=== PATIENT | male | born 1940 | race Caucasian/White ===

== ENCOUNTER → 2016-04-13 | Outpatient (CLI) | payer OTHER ==
[~2016-04-13] MED LIST: ADVIN25/60 INH; LEVA1.255 INH; NICO14DI9 TOP; OXGN; SPRIN/30 INH; TAMS0.4C38 PO; VNTHFA/IN INH
--- NOTE | 2016-04-13 11:01 | DIAGNOSTIC IMAGING REPORT ---
CHEST 2 VIEWS ROUTINE CLINICAL HISTORY: Lung carcinoma COMPARISON STUDY: 03/10/2016 FINDINGS: The patient is hyperinflated. There are postsurgical changes of a left upper lobectomy. There is no focal pulmonary consolidation. There is minor blunting of the left lateral costophrenic angle unchanged the prior study. This likely represents a small left pleural effusion. Left basilar opacities are likely atelectatic. There is a 6 mm rounded density at the left lung base likely representing a nipple shadow.[ IMPRESSION: 1. Postsurgical changes on the left 2. Small left pleural effusion, similar to the prior study 3. 6 mm rounded density at the left lung base likely representing a nipple shadow Electronically signed by: Enrrique Fox M.D. 04/13/2016 10:59 AM Dictated Date/Time: 04/13/2016 10:57 AM
== END | disposition home or self-care (01) ==
LOC: C.RAD1850 10:44
PROVIDERS: ATTEND Surgery
DX: C34.10 Malignant neoplasm of upper lobe, unspecified bronchus or lung (principal); J90 Pleural effusion, not elsewhere classified

== ENCOUNTER → 2016-07-05 | Outpatient (CLI) | payer OTHER ==
[~2016-07-05] MED LIST changes: +ATOR10TA82 PO; +NAPR1TAB9 PO; +PRED20TA PO; +PRLSR20 PO
--- NOTE | 2016-07-05 12:46 | DIAGNOSTIC IMAGING REPORT ---
CHEST CT WITHOUT CONTRAST CT DOSE: 495.65 mGycm HISTORY: Lung nodule R91.1 Pulmonary nodule, leftC34.10 Lung cancer, upper lobe TECHNIQUE: Multiaxial CT images of the chest were performed without contrast. COMPARISON: 02/20/2016 FINDINGS: Unchanging 3 mm nodule right upper lung. Stable postoperative changes produces described. No significant mediastinal or hilar adenopathy. Mild chronic interstitial change left base unaltered. Loculated pleural fluid left base has shown essentially complete and/or near complete resolution. Limited evaluation the upper abdomen again shows multifocal renal cystic change. Small meningioma of the central right hepatic lobe is unaltered. IMPRESSION: Stable evaluation of the chest. Stable 3 mm nodule right upper lung. No evidence for new interval or progressive change. Electronically signed by: Jose Leong M.D. 07/05/2016 12:44 PM Dictated Date/Time: 07/05/2016 12:39 PM
== END | disposition home or self-care (01) ==
LOC: C.CTS 12:05
PROVIDERS: ATTEND Surgery
DX: R91.1 Solitary pulmonary nodule (principal)

== ENCOUNTER → 2016-11-11 | Outpatient (CLI) | payer OTHER ==
[~2016-11-11] MED LIST changes: -ATOR10TA82 PO; -NAPR1TAB9 PO; -PRED20TA PO; -PRLSR20 PO
[2016-11-11 12:33] LABS: BASO % 0.4 %; BASO ABS # 0.03 K/uL (0-0.2); COMPLETE YES; EOS % 3.4 %; IG% 0.1 %; LYMPH ABS # 2.75 K/uL (1.2-3.4); MEAN CELL VOLUME 93.9 fL (80-100); MEAN CORPUSCULAR HEMOGLOBIN 31.4 pg (25-34); MEAN CORPUSCULAR HGB CONC 33.5 g/dl (32-36); MEAN PLATELET VOLUME 10.3 fL (7.4-10.4); MONO % 5.6 %; NEUT % 54.5 %; PLATELET COUNT 254 K/uL (130-400); RED BLOOD COUNT 5.22 M/uL (4.7-6.1); WHITE BLOOD COUNT 7.64 K/uL (4.8-10.8)
[2016-11-11 12:45] LABS: ALT/SGPT 16 U/L (12-78); AST/SGOT 18 U/L (15-37); BLOOD UREA NITROGEN 17 mg/dl (7-18); BUN/CREATININE RATIO 18.1 (10-20); CALCIUM 9.1 mg/dl (8.5-10.1); CARBON DIOXIDE 27 mmol/L (21-32); CHLORIDE 103 mmol/L (98-107); CHOLESTEROL 202 mg/dl (0-200); CREATININE 0.94 mg/dl (0.60-1.40); GLUCOSE,FASTING 102 mg/dl (70-99); POTASSIUM 4.3 mmol/L (3.5-5.1); SODIUM 135 mmol/L (136-145); TRIGLYCERIDES 106 mg/dl (0-150); VERY LOW DENSITY LIPOPROT CALC 21 mg/dl
[2016-11-11 12:47] LABS: ALB/GLOB RATIO 1.1 (0.9-2); ALKALINE PHOSPHATASE 67 U/L (45-117); HDL CHOLESTEROL 50 mg/dl
[2016-11-11 12:55] LABS: URINE APPEARANCE CLEAR (CLEAR); URINE BILIRUBIN NEG (NEG); URINE COLOR YELLOW; URINE NITRITE NEG (NEG); URINE PH 6.5 (4.5-7.5); URINE SPECIFIC GRAVITY 1.016 (1.000-1.030); UROBILINOGEN NEG (NEG)
[2016-11-11 13:12] LABS: MANUAL MICROSCOPIC REQUIRED? NO; REVIEW REQ? NO
== END | disposition home or self-care (01) ==
LOC: C.LABPBG 09:13
PROVIDERS: ATTEND Physician Assistant Medical
DX: J44.9 Chronic obstructive pulmonary disease, unspecified (principal); N40.1 Benign prostatic hyperplasia with lower urinary tract symptoms; Z13.220 Encounter for screening for lipoid disorders

== ENCOUNTER 2017-03-04 01:50 | Emergency (ER) | payer OTHER ==
[~2017-03-04] VITALS: Ht 185.4 cm; Wt 80.0 kg
[~2017-03-04 01:50] MED LIST changes: -ADVIN25/60 INH; +ATOR10TA82 PO; +NAPR1TAB9 PO; -NICO14DI9 TOP; -OXGN; +PRED20TA PO; +PRLSR20 PO; -SPRIN/30 INH
[2017-03-04 01:53] VITALS: TEMP 36.7; Ht 185.4 cm; Wt 80.0 kg
[2017-03-04 02:03] VITALS: O2SAT 93
[2017-03-04] MEDS ORDERED: METHYLPREDNISOLONE 125 MG VIAL IV STA (02:12)
[2017-03-04 02:21] LABS: BASO % 0.4 %; BASO ABS # 0.03 K/uL (0-0.2); COMPLETE YES; HEMATOCRIT 44.5 % (42-52); IG% 0.4 %; LYMPH % 29.2 %; LYMPH ABS # 2.48 K/uL (1.2-3.4); MEAN CELL VOLUME 94.7 fL (80-100); MEAN CORPUSCULAR HEMOGLOBIN 31.7 pg (25-34); MEAN CORPUSCULAR HGB CONC 33.5 g/dl (32-36); MEAN PLATELET VOLUME 10.6 fL (7.4-10.4); MONO % 7.1 %; NEUT % 56.9 %; PLATELET COUNT 188 K/uL (130-400); WHITE BLOOD COUNT 8.48 K/uL (4.8-10.8)
--- NOTE | 2017-03-04 02:24 | EMERGENCY ROOM VISIT NOTE ---
History Report prepared by Tru: Brittney Rosales Under the Supervision of: Dr. Sylvia Oconnor D.O. First contact with patient: 01:51 Chief Complaint: SHORTNESS OF BREATH Stated Complaint: SHORTNESS OF BREATH History of Present Illness The patient is a 76 year old male who presents to the Emergency Room with complaints of worsened SOB for the past couple of days. He presents to the ED by EMS. He received a duoneb treatment in route. He has been using duoneb treatments at home. He has been doing 2-4 duoneb treatments a day. Today, he thinks he did 4-5 duoneb treatments. The duoneb treatments improve his SOB for around 30 minutes before worsening again. He normally does 2 duoneb treatments a day. He notes his oxygen saturation has been dropping into the 80s. He is having SOB with exertion. He is coughing. He has had diaphoresis and rhinorrhea. He denies any chest pain, dizziness, nausea, vomiting, diarrhea, sore throat, change in BM, urinary symptoms, or leg swelling. He denies any sick contacts. The patient has a history of COPD and pneumonia. He also had a portion of his lung removed about 1 year ago. He used to be a smoker. He is not on oxygen at home. He denies any history of heart problems. Source of History: patient Onset: couple days ago Position: other (global) Quality: other (SOB) Timing: worsening Modifying Factors (Relieving): other (Duoneb) Associated Symptoms: + diaphoresis, No sorethroat, No chest pain, No nausea , No vomiting, No diarrhea, No urinary symptoms Note: Pt reports rhinorrhea. Pt denies dizziness, change in BM, leg swelling. Review of Systems See HPI for pertinent positives & negatives. A total of 10 systems reviewed and were otherwise negative. Past Medical & Surgical Medical Problems: (1) COPD (chronic obstructive pulmonary disease) (2) E. coli septicemia (3) Emphysema/COPD (4) Leukocytosis (5) Lung cancer (6) SIRS (systemic inflammatory response syndrome) Family History No pertinent family history stated. Social History Smoking Status: Light Tobacco Smoker Alcohol Use: occasionally Drug Use: none Marital Status: Housing Status: lives with family Occupation Status: retired Current/Historical Medications Scheduled Atorvastatin (Lipitor), 10 MG PO DAILY Levalbuterol (Levalbuterol HCl), 3 ML INH DAILY Levofloxacin (Levaquin), 750 MG PO DAILY Naproxen (Aleve), 220 MG PO QAM Prednisone (Prednisone), 0 PO DAILY Tamsulosin Hcl (Flomax), 0.4 MG PO QPM Scheduled PRN Albuterol Hfa (Ventolin Hfa), 2 PUFFS INH Q6H PRN for SOB/Wheezing Guaifenesin (Guaifenesin), 400 MG PO BID PRN for CONGESTION Omeprazole (Prilosec), 20 MG PO DAILY PRN for Heartburn Allergies Coded Allergies: No Known Allergies (Unverified , 01/24/17) Physical Exam Vital Signs Date Time Temp Pulse Resp B/P (MAP) Pulse Ox O2 Delivery O2 Flow Rate FiO2 03/04/17 08:04 89 17 142/80 94 03/04/17 07:57 89 17 142/80 94 Room Air 03/04/17 07:21 89 18 137/74 95 Room Air 03/04/17 05:42 81 22 122/59 94 Room Air 03/04/17 04:50 90 22 131/75 94 Room Air 03/04/17 04:42 89 Room Air 03/04/17 03:26 82 20 126/66 93 Room Air 03/04/17 02:07 95 03/04/17 02:03 93 Room Air 03/04/17 01:53 36.7 95 30 152/92 94 Room Air 03/04/17 01:53 94 Room Air Physical Exam GENERAL: alert, well appearing, well nourished, mild distress, non-toxic EYE EXAM: normal conjunctiva, PERRL and EOM's grossly intact OROPHARYNX: no exudate, no erythema, lips, buccal mucosa, and tongue normal and mucous membranes are moist NECK: supple, no nuchal rigidity, no adenopathy, non-tender LUNGS: Slightly increased work of breathing. Diminished breath sounds worse on the left. No wheezes, rhonchi, or rales. Frequent episodes of coughing during exam. HEART: no murmurs, S1 normal and S2 normal ABDOMEN: abdomen soft, non-tender, normo-active bowel sounds, no masses, no rebound or guarding. BACK: Back is symmetrical on inspection and there is no deformity, no midline tenderness, no CVA tenderness. SKIN: no rashes and no bruising UPPER EXTREMITIES: upper extremities are grossly normal. LOWER EXTREMITIES: No pitting edema. Good pulses. NEURO EXAM: Normal sensorium, cranial nerves II-XII grossly intact, normal speech, no gross weakness of arms, no gross weakness of legs. Medical Decision & Procedures ER Provider Diagnostic Interpretation: X-ray: I interpreted the following studies. Chest: Hyperinflated. No cardiomegaly. No wide mediastinum. No effusions. Increased interstitial markings at the right base compared to prior. No pneumothorax. No pulmonary edema. Radiology results have been interpreted by the [facility] radiologist and reviewed by me. CTA Chest: No evidence of pulmonary embolus. 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 Left subclavian vessel stent is noted marked narrowing within the stent. Panlobular emphysema. Mild bronchiectasis. Scarring and atelectasis. Apical pleural-parenchymal scarring. Simple and hyperdense cysts are seen within both kidneys. Nonobstructing calculus within both kidneys. Cysts are noted within the right hepatic lobe. No acute osseous abnormality. Laboratory Results 03/04/17 02:03 Red Blood Count 4.70, Mean Corpuscular Volume 94.7, Mean Corpuscular Hemoglobin 31.7, Mean Corpuscular Hemoglobin Concent 33.5, Mean Platelet Volume 10.6, Neutrophils (%) (Auto) 56.9, Lymphocytes (%) (Auto) 29.2, Monocytes (%) (Auto) 7.1, Eosinophils (%) (Auto) 6.0, Basophils (%) (Auto) 0.4, Neutrophils # (Auto) 4.83, Lymphocytes # (Auto) 2.48, Monocytes # (Auto) 0.60, Eosinophils # (Auto) 0.51, Basophils # (Auto) 0.03 03/04/17 02:35 Test 03/04/17 02:03 03/04/17 02:15 03/04/17 02:35 White Blood Count 8.48 K/uL (4.8-10.8) Red Blood Count 4.70 M/uL (4.7-6.1) Hemoglobin 14.9 g/dL (14.0-18.0) Hematocrit 44.5 % (42-52) Mean Corpuscular Volume 94.7 fL (80-100) Mean Corpuscular Hemoglobin 31.7 pg (25-34) Mean Corpuscular Hemoglobin Concent 33.5 g/dl (32-36) Platelet Count 188 K/uL (130-400) Mean Platelet Volume 10.6 fL (7.4-10.4) Neutrophils (%) (Auto) 56.9 % Lymphocytes (%) (Auto) 29.2 % Monocytes (%) (Auto) 7.1 % Eosinophils (%) (Auto) 6.0 % Basophils (%) (Auto) 0.4 % Neutrophils # (Auto) 4.83 K/uL (1.4-6.5) Lymphocytes # (Auto) 2.48 K/uL (1.2-3.4) Monocytes # (Auto) 0.60 K/uL (0.11-0.59) Eosinophils # (Auto) 0.51 K/uL (0-0.5) Basophils # (Auto) 0.03 K/uL (0-0.2) RDW Standard Deviation 51.9 fL (36.4-46.3) RDW Coefficient of Variation 14.9 % (11.5-14.5) Immature Granulocyte % (Auto) 0.4 % Immature Granulocyte # (Auto) 0.03 K/uL (0.00-0.02) Influenza Type A Antigen Neg for Influ A (NEG) Influenza Type B Antigen Neg for Influ B (NEG) Prothrombin Time 10.1 SECONDS (9.0-12.0) Prothromb Time International Ratio 1.0 (0.9-1.1) D-Dimer 880 ug/L FEU (0-500) Anion Gap 4.0 mmol/L (3-11) Est Creatinine Clear Calc Drug Dose 76.4 ml/min Estimated GFR () 92.1 Estimated GFR (Non- 79.5 BUN/Creatinine Ratio 22.5 (10-20) Calcium Level 8.6 mg/dl (8.5-10.1) Total Bilirubin 0.3 mg/dl (0.2-1) Aspartate Amino Transf (AST/SGOT) 17 U/L (15-37) Alanine Aminotransferase (ALT/SGPT) 16 U/L (12-78) Alkaline Phosphatase 64 U/L (45-117) Troponin I 0.029 ng/ml (0-0.045) Pro-B-Type Natriuretic Peptide 369 pg/ml (0-1800) Total Protein 7.2 gm/dl (6.4-8.2) Albumin 3.5 gm/dl (3.4-5.0) Globulin 3.7 gm/dl (2.5-4.0) Albumin/Globulin Ratio 0.9 (0.9-2) Laboratory results per my review. Medications Administered Medications (Trade) Dose Ordered Sig/Elmer Route Start Time Stop Time Status Last Admin Dose Admin Methylprednisolone Sodium Succinate (Solu-Medrol IV) 125 mg NOW STAT IV 03/04/17 02:12 03/04/17 02:14 DC 03/04/17 02:12 125 MG Levofloxacin (Levaquin / D5W) 750 mg NOW STAT IV 03/04/17 03:27 03/04/17 03:28 DC 03/04/17 03:53 750 MG Sodium Chloride 1,000 ml @ 250 mls/hr Q4H STAT IV 03/04/17 03:31 03/04/17 07:30 DC 03/04/17 03:53 250 MLS/HR Albuterol/ Ipratropium (Duoneb) 3 ml NOW STAT INH 03/04/17 07:35 03/04/17 07:36 DC 03/04/17 07:42 3 ML ECG Indication: SOB/dyspnea Rate (beats per minute): 96 Rhythm: sinus rhythm Findings: no acute ischemic change, no ectopy, other (normal axis, normal intervals) ED Course 0155: The patient was evaluated in room B2. A complete history and physical exam was performed. 0212: Solu-Medrol IV 125 mg IV. 0327: Levofloxacin 750 mg IV. 0331: NSS 1000 ml @ 250 mls/hr IV. 0427: I reevaluated the patient. 0722: Pt reassessed. Patient states feeling much better. Denied any increased work of breathing during ambulatory trial. Patient not hypoxic during trial. Discussed with patient close observation in the hospital versus trial of returning home with close outpatient follow-up. Patient would like to go home and follow-up as an outpatient. Has nebulizers at home which he can use. Patient not requiring additional oxygen here. Discussed with him symptoms to watch and return for. He verbalized agreement and understanding. He was discharged home. Medical Decision Differential diagnoses includes but is not limited to pneumonia, bronchitis, COPD/Asthma exacerbation, pneumothorax, pulmonary embolism, congestive heart failure, acute coronary syndrome Pt well appearing here, not hypoxic including with ambulation. States feeling markedly improved here. Monitored for several hours as a precaution due to significant hx. Treated as COPD exacerbation. CTA chest did not show PE or infiltrate. No sx/PE or other findings to suggest CHF. Pt did not require bipap or recurrent neb tx. Pt comfortable going home and having close f/u with PCP. Discussed sx to watch/return for, use of steroids/antibiotics, use of nebs , he verbalized understanding and was agreeable with plan. I do not suspect bacteremia/sepsis. I do not suspect additional vascular pathology despite hx. Pt with chronic vascular problems due to prior tobacco abuse. Medication Reconcilliation Current Medication List: was personally reviewed by me Blood Pressure Screening Patient's blood pressure: Normal blood pressure Blood pressure disposition: Did not require urgent referral Impression Primary Impression: COPD exacerbation Additional Impression: Dyspnea Scribe Attestation The scribe's documentation has been prepared under my direction and personally reviewed by me in its entirety. I confirm that the note above accurately reflects all work, treatment, procedures, and medical decision making performed by me. Departure Information Dispostion Home / Self-Care Prescriptions Levofloxacin (Levaquin) 500 Mg Tab 750 MG PO DAILY for 5 Days, #8 TAB Prov: Sylvia Oconnor, DO 03/04/17 Prednisone (Prednisone) 20 Mg Tab 0 PO DAILY for 8 Days, #15 TAB 3 TABS DAILY FOR 2 DAYS, THEN 2 TABS DAILY FOR 3 DAYS, THEN 1 TAB DAILY FOR 3 DAYS. Prov: Sylvia Oconnor, DO 03/04/17 Referrals Rob Perez PA-C (PCP) Patient Instructions My [facility] Additional Instructions Please take the antibiotics and steroids as prescribed. You may use your inhaler up to every 4 hours as needed for shortness of breath/wheezing. If you find the inhaler isn't helping or feel you need to use it sooner than that, please return to the emergency room. If you develop fevers/chills, chest pain, are coughing up mucous or blood, develop dizziness, vomiting, leg swelling, or you have any other new or concerning symptoms, please return to the emergency room. Problem Qualifiers Additional Impression: Dyspnea Dyspnea type: dyspnea on exertion Qualified Codes: R06.09 - Other forms of dyspnea
[2017-03-04 03:09] LABS: BUN/CREATININE RATIO 22.5 (10-20); CALCIUM 8.6 mg/dl (8.5-10.1); CREATININE 0.93 mg/dl (0.60-1.40); POTASSIUM 4.1 mmol/L (3.5-5.1)
[2017-03-04 03:13] LABS: PROTHROMBIN TIME (PATIENT) 10.1 SECONDS (9.0-12.0)
[2017-03-04 03:14] LABS: ALB/GLOB RATIO 0.9 (0.9-2)
[2017-03-04] MEDS ORDERED: LEVAQUIN 750MG / 150ML D5W IV STA (03:27)
[2017-03-04] MEDS ORDERED: SODIUM CHLORIDE 0.9% 1000ML 1,000 ML IV STA (03:31)
[2017-03-04] MEDS ORDERED: OPTIRAY 320 IV PRN (03:45)
[2017-03-04] MEDS ORDERED: XPNINS125 INH (03:46)
[2017-03-04] MEDS ORDERED: GUAI400T44 PO (03:50)
--- NOTE | 2017-03-04 06:32 | DIAGNOSTIC IMAGING REPORT ---
CHEST 2 VIEWS ROUTINE HISTORY: 76 years-old Male sob acute shortness of breath COMPARISON: Chest radiograph 01/24/2017, CTA of the chest 03/04/2017 TECHNIQUE: PA and lateral views of the chest FINDINGS: Cardiac silhouette is within normal limits. Surgical clips project over the left hilum. Emphysema with areas of chronic reticulation and hyperinflation. Chronic blunting of the costophrenic angles without pneumothorax, pleural effusion, focal airspace consolidation or overt pulmonary edema. Bones of the chest appear grossly intact. Multilevel endplate spurring of the spine. IMPRESSION: Emphysema without acute process. The above report was generated using voice recognition software. It may contain grammatical, syntax or spelling errors. Electronically signed by: Alex Silva M.D. 03/04/2017 6:31 AM Dictated Date/Time: 03/04/2017 6:29 AM
--- NOTE | 2017-03-04 06:56 | DIAGNOSTIC IMAGING REPORT ---
(CHEST FOR PE) ANGIO WITH CT DOSE: 371.40 mGy.cm HISTORY: 76 years-old Male presents with acute shortness of breath and elevated d-dimer level TECHNIQUE: Multiple CTA images of the chest were obtained after the intravenous administration of 93 ml Optiray 320. Coronal and sagittal MIPS were obtained from the axial data set and were submitted for review. A dose lowering technique was utilized adhering to the principles of ALARA. COMPARISON: Chest radiograph of same day, CT chest 01/24/2017. Prior left upper lobectomy with history of lung cancer. FINDINGS: CTA: Heart is normal in size without pericardial effusion. Coronary arterial and aortic annular calcifications are noted. Fusiform dilation of the ascending thoracic aorta beginning distal to the sinotubular junction redemonstrated, 4.3 x 4.3 cm. No aortic dissection. There is moderate mixed plaquing of the thoracic aorta. Stent involving the left subclavian artery is again seen with approximately 70% in-stent stenosis as noted on image 297 series 4. The pulmonary arterial tree is opacified to level of the segmental branches and demonstrates no focal filling defects to suggest pulmonary thromboembolic disease. CT CHEST: No dominant thyroid nodule. 9 mm right hilar lymph node on image 219 series 4 is unchanged from comparison and is nonspecific. No new adenopathy about the chest identified. Mildly prominent 9 mm lower right hilar lymph node on image 173 series 4 is also noted. Moderate to severe upper lobe predominant paraseptal and centrilobular emphysematous changes with biapical pleural-parenchymal scarring. Postoperative changes from prior left upper lobectomy. No evidence of residual recurrent disease. Multifocal multilobar bronchial wall thickening is noted with areas of mucous plugging of the right lower lobe. No pneumothorax or pleural effusion. No suspicious pulmonary nodules or masses. There is of subsegmental pleural-parenchymal scarring noted at the level of the left lung base. Multiple simple and complex renal cysts are present within the kidneys bilaterally. 4 mm calcification of the interpolar left kidney suggests nonobstructing calculus. 3 mm calcification of the interpolar right kidney is noted also suggesting calculus. Probable cyst of the right hepatic lobe, 2.2 cm. Small sliding-type hiatal hernia. Soft tissues are unremarkable. No suspicious lytic or blastic bony lesions to suggest metastasis. IMPRESSION: 1. Unchanged fusiform dilation of the ascending thoracic aorta beginning distal to the sinotubular junction, 4.3 x 4.3 cm. No aortic dissection or evidence of pulmonary thromboembolic disease. 2. No lobar airspace consolidation to suggest pneumonia. 3. Emphysema with bilateral bronchitis and right lower lobe mucous plugging. 4. Mildly prominent right hilar lymph nodes are nonspecific and may be reactive. 5. Postoperative changes of prior left upper lobectomy without evidence of recurrent or residual disease. 6. Additional findings as above. The above report was generated using voice recognition software. It may contain grammatical, syntax or spelling errors. Electronically signed by: Alex Silva M.D. 03/04/2017 6:55 AM Dictated Date/Time: 03/04/2017 6:46 AM
[2017-03-04] MEDS ORDERED: LEVO-366 PO (07:34)
[2017-03-04] MEDS ORDERED: PRED20TA PO (07:34)
[2017-03-04] MEDS ORDERED: ALBUT/IPRATROP 3MG/0.5MG NEB 3 ML VIAL INH STA (07:35)
[2017-03-04 08:04] VITALS: BP 142/80; PULSE 89; O2SAT 94
== END 2017-03-04 08:04 | disposition home or self-care (01) ==
LOC: EDBD 01:50 → C.EDB 01:51
DX: J44.1 Chronic obstructive pulmonary disease with (acute) exacerbation (principal); R06.09 Other forms of dyspnea; Z85.118 Personal history of other malignant neoplasm of bronchus and lung; Z87.01 Personal history of pneumonia (recurrent); Z79.52 Long term (current) use of systemic steroids; Z79.899 Other long term (current) drug therapy

== ENCOUNTER 2017-03-30 09:19 | Inpatient (IN) | payer OTHER ==
[~2017-03-30] VITALS: Ht 185.4 cm; Wt 78.3 kg
[2017-03-30] VITALS (8 sets, daily range): BP systolic 122–166; BP diastolic 72–78; PULSE 71–96; TEMP 36.6–37.3; O2SAT 91–98; Ht 185.4 cm; Wt 78.3 kg
[~2017-03-30 09:19] MED LIST changes: +GUAI400T44 PO; -LEVA1.255 INH; -PRED20TA PO; +XPNINS125 INH
[2017-03-30] MEDS ORDERED: ALBUT/IPRATROP 3MG/0.5MG NEB 3 ML VIAL INH STA (09:44)
[2017-03-30] MEDS ORDERED: MAGNESIUM SULFATE 1GM / D5W 1 GM BAG IV STA (09:44)
[2017-03-30] MEDS ORDERED: METHYLPREDNISOLONE 125 MG VIAL IV STA (09:44)
--- NOTE | 2017-03-30 09:45 | EMERGENCY ROOM VISIT NOTE ---
History Report prepared by Tru: Rigo Mckeon Under the Supervision of: Dr. Etienne Christianson M.D. First contact with patient: 09:30 Chief Complaint: RESPIRATORY PROBLEMS Stated Complaint: SHORTNESS OF BREATH Nursing Triage Summary: patient has hx of COPD increasingly short of breath since yesterday. is to due neb treatments and inhalers every 4 hrs. patient increased treatments to every 2 hrs started yesterday. per ems patient walked out to the ambulance and RA sat after walking 89%. patients lungs are clear but diminished in the bases. History of Present Illness The patient is a 76 year old male who presents to the Emergency Room with complaints of worsening respiratory problems that began two days ago. He has a past medical history of COPD with orders to use nebulizer treatments and inhalers every four hours. Yesterday, he began to feel more short of breath that was exacerbated with any exertion. To try to combat this, he decided to use these treatments every two hours. He notes that this has happened to him before and was placed onto steroids. He states that his current symptoms feel like those associated with that past episode. He is also experiencing a cough. He denies any fevers, abdominal pain, diarrhea, or any other abnormal symptoms. He did not receive anything en route per EMS. Source of History: patient Onset: two days ago Position: other (Respiratory System) Symptom Intensity: moderate Quality: other (Shortness of breath) Timing: worsening Modifying Factors (Worsening): exertion Associated Symptoms: + cough, No fevers, No abdominal pain, No diarrhea Review of Systems See HPI for pertinent positives & negatives. A total of 10 systems reviewed and were otherwise negative. Past Medical & Surgical Medical Problems: (1) COPD (chronic obstructive pulmonary disease) (2) COPD exacerbation (3) E. coli septicemia (4) Emphysema/COPD (5) Leukocytosis (6) Lung cancer (7) SIRS (systemic inflammatory response syndrome) Family History Omitted secondary to the patient's age. Social History Smoking Status: Current Every Day Smoker Alcohol Use: occasionally Drug Use: none Marital Status: Housing Status: lives with family Occupation Status: retired Current/Historical Medications Scheduled Atorvastatin (Lipitor), 10 MG PO DAILY Levalbuterol (Levalbuterol HCl), 3 ML INH DAILY Naproxen (Aleve), 220 MG PO QAM Prednisone (Prednisone), 5 MG PO DAILY Tamsulosin Hcl (Flomax), 0.4 MG PO QPM Scheduled PRN Albuterol Hfa (Ventolin Hfa), 2 PUFFS INH Q6H PRN for SOB/Wheezing Guaifenesin (Guaifenesin), 400 MG PO BID PRN for CONGESTION Omeprazole (Prilosec), 20 MG PO DAILY PRN for Heartburn Allergies Coded Allergies: No Known Allergies (Unverified , 03/30/17) Physical Exam Vital Signs Date Time Temp Pulse Resp B/P (MAP) Pulse Ox O2 Delivery O2 Flow Rate FiO2 03/30/17 11:20 72 20 167/80 96 Nebulizer 03/30/17 10:22 71 18 98 Nasal Cannula 2.0 03/30/17 09:28 Room Air 03/30/17 09:26 86 03/30/17 09:25 36.7 81 24 137/73 89 Room Air 03/30/17 09:25 Nasal Cannula 2.0 03/30/17 09:25 89 Room Air Physical Exam GENERAL: Patient is a healthy-appearing well-nourished male HEAD: Normocephalic atraumatic EYES: Ocular movements intact pupils equal and react to light OROPHARYNX mucous membranes are moist no exudates present no erythema or edema present NECK: Supple no nuchal rigidity CHEST: Good equal expansion LUNGS: Bilateral wheezing present. CARDIAC: Normal S1 and S2 ABDOMEN: Soft nontender no guarding BACK: No CVA tenderness EXTREMITIES: No pain upon palpation normal muscle strength in all groups no clubbing cyanosis or edema NEURO: Patient is following commands and answering questions appropriately. Alert and oriented x3 Cranial Nerves 2-12 grossly intact Medical Decision & Procedures ER Provider Diagnostic Interpretation: Radiology results as stated below per my review and radiologist interpretation: CHEST ONE VIEW PORTABLE HISTORY: Short of breath. COMPARISON: Chest 03/04/2017. FINDINGS: Emphysema. Postoperative changes within the left hilum. Stable scarlike density left lung base. The heart is stable in size. No new focal lung consolidations to suggest pneumonia. No evidence for pulmonary edema. No pleural effusions. No pneumothorax. IMPRESSION: No significant change compared to the prior study. No acute process. Electronically signed by: Varun Toledo M.D. 03/30/2017 10:12 AM Dictated Date/Time: 03/30/2017 10:07 AM Laboratory Results 03/30/17 10:08 Red Blood Count 4.60, Mean Corpuscular Volume 94.6, Mean Corpuscular Hemoglobin 32.4, Mean Corpuscular Hemoglobin Concent 34.3, Mean Platelet Volume 10.3, Neutrophils (%) (Auto) 76.5, Lymphocytes (%) (Auto) 12.3, Monocytes (%) (Auto) 6.7, Eosinophils (%) (Auto) 4.0, Basophils (%) (Auto) 0.2, Neutrophils # (Auto) 6.95, Lymphocytes # (Auto) 1.12, Monocytes # (Auto) 0.61, Eosinophils # (Auto) 0.36, Basophils # (Auto) 0.02 03/30/17 10:08 Test 03/30/17 00:00 03/30/17 10:03 03/30/17 10:08 Urine Color YELLOW Urine Appearance CLEAR (CLEAR) Urine pH 5.5 (4.5-7.5) Urine Specific [place] 1.021 (1.000-1.030) Urine Protein 1+ (NEG) Urine Glucose (UA) TRACE (NEG) Urine Ketones NEG (NEG) Urine Occult Blood NEG (NEG) Urine Nitrite NEG (NEG) Urine Bilirubin NEG (NEG) Urine Urobilinogen NEG (NEG) Urine Leukocyte Esterase NEG (NEG) Urine WBC (Auto) 1-5 /hpf (0-5) Urine RBC (Auto) 0-4 /hpf (0-4) Urine Hyaline Casts (Auto) 1-5 /lpf (0-5) Urine Epithelial Cells (Auto) 10-20 /lpf (0-5) Urine Bacteria (Auto) NEG (NEG) Influenza Type A Antigen Neg for Influ A (NEG) Influenza Type B Antigen Neg for Influ B (NEG) White Blood Count 9.09 K/uL (4.8-10.8) Red Blood Count 4.60 M/uL (4.7-6.1) Hemoglobin 14.9 g/dL (14.0-18.0) Hematocrit 43.5 % (42-52) Mean Corpuscular Volume 94.6 fL (80-100) Mean Corpuscular Hemoglobin 32.4 pg (25-34) Mean Corpuscular Hemoglobin Concent 34.3 g/dl (32-36) Platelet Count 218 K/uL (130-400) Mean Platelet Volume 10.3 fL (7.4-10.4) Neutrophils (%) (Auto) 76.5 % Lymphocytes (%) (Auto) 12.3 % Monocytes (%) (Auto) 6.7 % Eosinophils (%) (Auto) 4.0 % Basophils (%) (Auto) 0.2 % Neutrophils # (Auto) 6.95 K/uL (1.4-6.5) Lymphocytes # (Auto) 1.12 K/uL (1.2-3.4) Monocytes # (Auto) 0.61 K/uL (0.11-0.59) Eosinophils # (Auto) 0.36 K/uL (0-0.5) Basophils # (Auto) 0.02 K/uL (0-0.2) RDW Standard Deviation 52.6 fL (36.4-46.3) RDW Coefficient of Variation 15.2 % (11.5-14.5) Immature Granulocyte % (Auto) 0.3 % Immature Granulocyte # (Auto) 0.03 K/uL (0.00-0.02) Anion Gap 8.0 mmol/L (3-11) Est Creatinine Clear Calc Drug Dose 87.9 ml/min Estimated GFR () 100.6 Estimated GFR (Non- 86.8 BUN/Creatinine Ratio 23.5 (10-20) Calcium Level 8.9 mg/dl (8.5-10.1) Total Bilirubin 0.3 mg/dl (0.2-1) Aspartate Amino Transf (AST/SGOT) 16 U/L (15-37) Alanine Aminotransferase (ALT/SGPT) 16 U/L (12-78) Alkaline Phosphatase 58 U/L (45-117) Total Creatine Kinase 113 U/L (39-308) Creatine Kinase MB 3.4 ng/ml (0.5-3.6) Creatine Kinase MB Ratio 3.0 (0-3.0) Troponin I < 0.015 ng/ml (0-0.045) Total Protein 6.9 gm/dl (6.4-8.2) Albumin 3.4 gm/dl (3.4-5.0) Globulin 3.5 gm/dl (2.5-4.0) Albumin/Globulin Ratio 1.0 (0.9-2) Labs reviewed by ED physician. Medications Administered Medications (Trade) Dose Ordered Sig/Elmer Route Start Time Stop Time Status Last Admin Dose Admin Methylprednisolone Sodium Succinate (Solu-Medrol IV) 125 mg NOW STAT IV 03/30/17 09:44 03/30/17 09:48 DC 03/30/17 09:58 125 MG Magnesium Sulfate (Magnesium Sulfate) 1 gm NOW STAT IV 03/30/17 09:44 03/30/17 09:48 DC 03/30/17 09:58 1 GM Albuterol/ Ipratropium (Duoneb) 12 ml ONE STAT INH 03/30/17 09:44 03/30/17 09:48 DC 03/30/17 10:22 12 ML ECG Indication: SOB/dyspnea Rate (beats per minute): 83 Rhythm: normal sinus Findings: no acute ischemic change, no ectopy Comparison ECG Date: 04 Mar 2017 Change: no significant change ED Course 929: Past medical records reviewed. The patient was evaluated in room A10. A complete history and physical examination was performed. 0944: Ordered Duoneb 12 ml INH, Magnesium Sulfate 1 gm IV, Solu-Medrol IV 125 mg IV 1117: Upon reexamination the patient is resting. I discussed results and treatment plan with the patient. He verbalizes agreement and understanding. I spoke with Dr. Meléndez from the [place] [facility]. The patient will be evaluated for further management. Medical Decision Differential diagnosis: Etiologies such as infections, reactive airway disease, pneumonia, pneumothorax , COPD, CHF, cardiac ischemia, pulmonary embolism, musculoskeletal, gastrointestinal, as well as others were entertained. This is a 76-year-old male who presents emergency department complaining of shortness of breath. The patient has been on 2 recent prednisone tapers and was started on prednisone yesterday. His given Solu-Medrol here in emergency department along with an hour-long breathing treatment. Patient is negative for the flu and his chest x-ray appears to be clear. I did discuss the case with the hospitalist service who agreed to admit the patient. Patient was in agreement with the treatment plan. Medication Reconcilliation Current Medication List: was personally reviewed by me Blood Pressure Screening Patient's blood pressure: Elevated blood pressure Referred to the hospitalist Consults Time Called: 1110 Consulting Physician: [place]. Meléndez [place] [facility] [place] Call: [phone] I discussed the patient's case with Dr. Meléndez, he has agreed to evaluate the patient for further management and care. Impression Primary Impression: COPD exacerbation Scribe Attestation The scribe's documentation has been prepared under my direction and personally reviewed by me in its entirety. I confirm that the note above accurately reflects all work, treatment, procedures, and medical decision making performed by me. Departure Information Dispostion Being Evaluated By Hospitalist Referrals Rob Perez PA-C (PCP) Patient Instructions My [facility]
--- NOTE | 2017-03-30 10:14 | DIAGNOSTIC IMAGING REPORT ---
CHEST ONE VIEW PORTABLE HISTORY: Short of breath. COMPARISON: Chest 03/04/2017. FINDINGS: Emphysema. Postoperative changes within the left hilum. Stable scarlike density left lung base. The heart is stable in size. No new focal lung consolidations to suggest pneumonia. No evidence for pulmonary edema. No pleural effusions. No pneumothorax. IMPRESSION: No significant change compared to the prior study. No acute process. Electronically signed by: Varun Toledo M.D. 03/30/2017 10:12 AM Dictated Date/Time: 03/30/2017 10:07 AM
[2017-03-30 10:22] LABS: BASO % 0.2 %; BASO ABS # 0.02 K/uL (0-0.2); EOS ABS # 0.36 K/uL (0-0.5); HEMATOCRIT 43.5 % (42-52); HEMOGLOBIN 14.9 g/dL (14.0-18.0); IG# 0.03 K/uL (0.00-0.02); LYMPH % 12.3 %; LYMPH ABS # 1.12 K/uL (1.2-3.4); MEAN CELL VOLUME 94.6 fL (80-100); MEAN CORPUSCULAR HEMOGLOBIN 32.4 pg (25-34); MEAN CORPUSCULAR HGB CONC 34.3 g/dl (32-36); MEAN PLATELET VOLUME 10.3 fL (7.4-10.4); MONO % 6.7 %; MONO ABS # 0.61 K/uL (0.11-0.59); NEUT % 76.5 %; NEUT ABS # 6.95 K/uL (1.4-6.5); PLATELET COUNT 218 K/uL (130-400); RED CELL DISTRIBUTION WIDTH CV 15.2 % (11.5-14.5); RED CELL DISTRIBUTION WIDTH SD 52.6 fL (36.4-46.3); WHITE BLOOD COUNT 9.09 K/uL (4.8-10.8)
[2017-03-30] MEDS ORDERED: PRED-301 PO (10:36)
[2017-03-30 10:47] LABS: ALBUMIN 3.4 gm/dl (3.4-5.0); ALT/SGPT 16 U/L (12-78); AST/SGOT 16 U/L (15-37); BLOOD UREA NITROGEN 19 mg/dl (7-18); CALCIUM 8.9 mg/dl (8.5-10.1); CARBON DIOXIDE 25 mmol/L (21-32); GLUCOSE 116 mg/dl (70-99); POTASSIUM 4.3 mmol/L (3.5-5.1); SODIUM 140 mmol/L (136-145)
[2017-03-30 10:53] LABS: ALKALINE PHOSPHATASE 58 U/L (45-117); CKMB 3.4 ng/ml (0.5-3.6); TOTAL PROTEIN 6.9 gm/dl (6.4-8.2)
[2017-03-30 11:09] LABS: INFLUENZA B ANTIGEN Neg for Influ B (NEG)
[2017-03-30] MEDS ORDERED: ONDANSETRON INJ 2 MG/ML 2 ML VIAL IV PRN (11:30)
[2017-03-30] MEDS ORDERED: LEVALBUTEROL 1.25MG/0.5ML NEB INH PRN (11:30)
[2017-03-30] MEDS ORDERED: POLYETHYLENE (MIRALAX) 17 GM PACK PO PRN (11:30)
[2017-03-30] MEDS ORDERED: MAGNESIUM HYDROXIDE SUSP 30 ML UDC PO PRN (11:30)
[2017-03-30] MEDS ORDERED: GUAIFENESIN 200 MG TAB PO PRN (11:30)
[2017-03-30] MEDS ORDERED: MoRPHine SULFATE 2 MG/ML CARP IV PRN (11:30)
[2017-03-30] MEDS ORDERED: ACETAMINOPHEN 325 MG TAB PO PRN (11:30)
[2017-03-30] MEDS ORDERED: PANTOprazole SOD 40 MG TAB PO PRN (11:30)
[2017-03-30] MEDS ORDERED: ALUMINUM/MAGNESIUM/SIMETH (MAALOX MAX) 30 ML UDC PO PRN (11:30)
--- NOTE | 2017-03-30 11:35 | History and Physical ---
History & Physical Date & Time of Service: Mar 30, 2017 at 11:27 Chief Complaint: Shortness Of Breath Primary Care Physician: Rob Perez PA-C History of Present Illness Source: patient 76 y/o M Hx HLD, COPD who continues to smoke cigarettes. Pt presents with progressive SOB x 2 days. Realizing that this was likely an exacerbation of COPD, he attempted to treat this at home. He increased his nebulizer treatments to Q2H and also placed himself on a low dose of Prednisone. This was not successful in improving his SOB and he presented to the hospital therefore. The pt denies CP, a productive cough, N/V, diarrhea, dysuria or fevers. Past Medical/Surgical History 1) COPD 2) HLD 3) Lung CA - L upper lobectomy Family History Father due to fall Mother due to lung CA Social History Smoking Status: Current Every Day Smoker Drug Use: none Marital Status: Housing status: lives with family Occupational Status: retired Immunizations History of Influenza Vaccine: Unknown History of Tetanus Vaccine?: Unknown History of Pneumococcal: Unknown History of Hepatitis B Vaccine: Unknown Multi-Drug Resistant Organisms History of MDRO: No Allergies Coded Allergies: No Known Allergies (Unverified , 03/30/17) Home Medications Scheduled Atorvastatin (Lipitor), 10 MG PO DAILY Levalbuterol (Levalbuterol HCl), 3 ML INH DAILY Naproxen (Aleve), 220 MG PO QAM Prednisone (Prednisone), 5 MG PO DAILY Tamsulosin Hcl (Flomax), 0.4 MG PO QPM Scheduled PRN Albuterol Hfa (Ventolin Hfa), 2 PUFFS INH Q6H PRN for SOB/Wheezing Guaifenesin (Guaifenesin), 400 MG PO BID PRN for CONGESTION Omeprazole (Prilosec), 20 MG PO DAILY PRN for Heartburn Review of Systems Constitutional: No fever, No chills, No sweats Eyes: No worsening of vision ENT: No hearing loss, No nasal symptoms Respiratory: + wheezing, + shortness of breath, + dyspnea on exertion, + dyspnea at rest Cardiovascular: No chest pain, No orthopnea, No PND Abdomen: No pain, No nausea, No vomiting Musculoskeletal: No joint pain Genitourinary - Male: No hematuria, No dysuria Neurologic: No memory loss, No paralysis, No weakness Psychiatric: No depression symptoms Endocrine: No fatigue Hematologic / Lymphatic: No abnormal bleeding/bruising Integumentary: No rash Allergic / Immunologic: No environmental allergies Physical Exam Vital Signs Date Time Temp Pulse Resp B/P (MAP) Pulse Ox O2 Delivery O2 Flow Rate FiO2 03/30/17 10:22 71 18 98 Nasal Cannula 2.0 03/30/17 09:28 Room Air 03/30/17 09:26 86 03/30/17 09:25 36.7 81 24 137/73 89 Room Air 03/30/17 09:25 Nasal Cannula 2.0 03/30/17 09:25 89 Room Air General Appearance: WD/WN, no apparent distress Head: normocephalic Eyes: normal inspection ENT: normal ENT inspection, pharynx normal Neck: supple, no JVD Respiratory/Chest: + pertinent finding (Poor air miveemnt in both lungs - crackles on L - no audible wheezing) Cardiovascular: regular rate, rhythm, no edema, no gallop Abdomen/GI: normal bowel sounds, non tender, soft Back: normal inspection, no CVA tenderness Extremities/Musculoskelatal: normal inspection 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, no motor/sensory deficits, alert, oriented x 3 Skin: normal color, warm/dry Diagnostics Laboratory Results Results Past 24 Hours Test 03/30/17 10:03 03/30/17 10:08 Range/Units Influenza Type A Antigen Neg for Influ A NEG Influenza Type B Antigen Neg for Influ B NEG White Blood Count 9.09 4.8-10.8 K/uL Red Blood Count 4.60 4.7-6.1 M/uL Hemoglobin 14.9 14.0-18.0 g/dL Hematocrit 43.5 42-52 % Mean Corpuscular Volume 94.6 80-100 fL Mean Corpuscular Hemoglobin 32.4 25-34 pg Mean Corpuscular Hemoglobin Concent 34.3 32-36 g/dl Platelet Count 218 130-400 K/uL Mean Platelet Volume 10.3 7.4-10.4 fL Neutrophils (%) (Auto) 76.5 % Lymphocytes (%) (Auto) 12.3 % Monocytes (%) (Auto) 6.7 % Eosinophils (%) (Auto) 4.0 % Basophils (%) (Auto) 0.2 % Neutrophils # (Auto) 6.95 1.4-6.5 K/uL Lymphocytes # (Auto) 1.12 1.2-3.4 K/uL Monocytes # (Auto) 0.61 0.11-0.59 K/uL Eosinophils # (Auto) 0.36 0-0.5 K/uL Basophils # (Auto) 0.02 0-0.2 K/uL RDW Standard Deviation 52.6 36.4-46.3 fL RDW Coefficient of Variation 15.2 11.5-14.5 % Immature Granulocyte % (Auto) 0.3 % Immature Granulocyte # (Auto) 0.03 0.00-0.02 K/uL Sodium Level 140 136-145 mmol/L Potassium Level 4.3 3.5-5.1 mmol/L Chloride Level 108 98-107 mmol/L Carbon Dioxide Level 25 21-32 mmol/L Anion Gap 8.0 3-11 mmol/L Blood Urea Nitrogen 19 7-18 mg/dl Creatinine 0.80 0.60-1.40 mg/dl Est Creatinine Clear Calc Drug Dose 87.9 ml/min Estimated GFR () 100.6 Estimated GFR (Non- 86.8 BUN/Creatinine Ratio 23.5 10-20 Random Glucose 116 70-99 mg/dl Calcium Level 8.9 8.5-10.1 mg/dl Total Bilirubin 0.3 0.2-1 mg/dl Aspartate Amino Transf (AST/SGOT) 16 15-37 U/L Alanine Aminotransferase (ALT/SGPT) 16 12-78 U/L Alkaline Phosphatase 58 45-117 U/L Total Creatine Kinase 113 39-308 U/L Creatine Kinase MB 3.4 0.5-3.6 ng/ml Creatine Kinase MB Ratio 3.0 0-3.0 Troponin I < 0.015 0-0.045 ng/ml Total Protein 6.9 6.4-8.2 gm/dl Albumin 3.4 3.4-5.0 gm/dl Globulin 3.5 2.5-4.0 gm/dl Albumin/Globulin Ratio 1.0 0.9-2 Diagnostic Radiology CXR: COPD - no acute infiltrates Impression Assessment and Plan 76 y/o M Hx HLD, COPD who continues to smoke cigarettes. Pt presents with progressive SOB x 2 days. Realizing that this was likely an exacerbation of COPD, he attempted to treat this at home. He increased his nebulizer treatments to Q2H and also placed himself on a low dose of Prednisone. This was not successful in improving his SOB and he presented to the hospital therefore. The pt denies CP, a productive cough, N/V, diarrhea, dysuria or fevers. 1) COPD exacerbation - Placed on scheduled nebulizers, steroids, Abx, 02 protocol. 2) HLD - cont Statin therapy Full code - Heparin prophylaxis Total time for this admit including review of labs, meds, imaging - discussion with pt and ER attending - 34 min Level of Care Telemetry Resuscitation Status FULL RESUSCITATION VTE Prophylaxis VTE Risk Assessment Done? Y/N: Yes Risk Level: Moderate Given or contraindicated: Unfractionated heparin SQ
[2017-03-30] MEDS ORDERED: IV FLUIDS COMPLETED PRN (13:00)
[2017-03-30] MEDS ORDERED: SODIUM CHLORIDE 0.9% 1000ML 1,000 ML IV SCH (13:00)
[2017-03-30] MEDS: AZITHROMYCIN IV 250 MG in DEXTROSE 5% 250ML 250 ML IV SCH (13:35)
[2017-03-30] MEDS: HEPARIN SOD 5000 UNIT/0.5 ML CARP SQ SCH ×2 (13:35→21:34)
[2017-03-30] MEDS: ALBUT/IPRATROP 3MG/0.5MG NEB 3 ML VIAL INH SCH ×2 (14:45→20:00)
[2017-03-30] MEDS: METHYLPREDNISOLONE IV 60 MG in SYRINGE 0 ML IV SCH ×2 (15:55→21:33)
[2017-03-30] MEDS: TAMSULOSIN HCL 0.4 MG CAP PO SCH (21:33)
[2017-03-31] VITALS (10 sets, daily range): BP systolic 117–154; BP diastolic 67–83; PULSE 72–85; TEMP 36.3–36.9; O2SAT 91–95
[2017-03-31] MEDS: ALBUT/IPRATROP 3MG/0.5MG NEB 3 ML VIAL INH SCH ×4 (02:11→19:17)
[2017-03-31] MEDS: METHYLPREDNISOLONE IV 60 MG in SYRINGE 0 ML IV SCH ×4 (04:18→21:40)
[2017-03-31] MEDS: HEPARIN SOD 5000 UNIT/0.5 ML CARP SQ SCH ×3 (05:47→21:41)
[2017-03-31] MEDS: NAPROXEN 250 MG TAB PO SCH (08:23)
[2017-03-31] MEDS: AZITHROMYCIN IV 250 MG in DEXTROSE 5% 250ML 250 ML IV SCH (08:24)
[2017-03-31] MEDS: ATORVASTATIN 10 MG TAB PO SCH (08:34)
--- NOTE | 2017-03-31 10:39 | Hospitalist Progress Note ---
Hospitalist Progress Note Date of Service Mar 31, 2017. (Shadia Asif ., CHARISMA) Subjective Pt evaluation today including: conversation w/ patient, physical exam, chart review, lab review, review of inpatient medication list Voiding: no voiding problems Mr. Gordon continues to have a very productive cough that makes it difficult for him to get through a conversation. He is bringing up quite a bit of yellow/ brown thick sputum. He is short of breath and requiring 2L NC, sating low 90s. He says he has not had a cigarette since Tuesday and has been cutting back lately. ROS Constitutional: no chills, aches, sweats or fever Respiratory:see HPI Cardiac: no chest pain, palpitations, edema, orthopnea or lightheadedness GI: no abdominal pain, nausea, vomiting, diarrhea or constipation : no dysuria or hesitancy Extremities: no joint pain or weakness Skin: no rash All other systems reviewed and negative (Shadia Asif CRNP) Medications Medications (Trade) Dose Ordered Sig/Elmer Route Start Time Stop Time Status Last Admin Dose Admin Heparin Sodium (Porcine) (Heparin Sq 5000 Unit/0.5ml) 5,000 unit Q8 SQ 03/30/17 14:00 04/29/17 13:59 03/30/17 21:34 5,000 UNIT Atorvastatin Calcium (Lipitor Tab) 10 mg DAILY PO 03/31/17 09:00 04/30/17 08:59 03/31/17 08:34 10 MG Tamsulosin HCl (Flomax Cap) 0.4 mg QPM PO 03/30/17 21:00 04/29/17 20:59 03/30/17 21:33 0.4 MG Guaifenesin (Organidin Nr Tab) 400 mg BID PRN PO 03/30/17 11:30 04/29/17 11:29 03/31/17 10:20 400 MG Albuterol/ Ipratropium (Duoneb) 3 ml Q6R INH 03/30/17 15:00 04/29/17 14:59 03/31/17 07:20 3 ML Azithromycin 250 mg/Dextrose 252.5 ml @ 125 mls/hr DAILY IV 03/30/17 13:00 04/06/17 12:59 03/31/17 08:24 125 MLS/HR Methylprednisolone Sodium Succinate 60 mg/Syringe 0.96 ml @ 1.5 mls/min Q6H IV 03/30/17 16:00 04/29/17 15:59 03/31/17 10:19 1.5 MLS/MIN Sodium Chloride 1,000 ml @ 100 mls/hr Q10H IV 03/30/17 13:00 03/30/17 22:59 DC 03/30/17 13:35 100 MLS/HR (Shadia Asif CRNP) Objective Vital Signs Date Time Temp Pulse Resp B/P (MAP) Pulse Ox O2 Delivery O2 Flow Rate FiO2 03/31/17 07:37 36.9 75 20 154/83 (106) 92 Nasal Cannula 2.0 03/31/17 07:30 Nasal Cannula 2.0 03/31/17 07:22 85 16 93 Nasal Cannula 2.0 03/31/17 04:00 36.4 72 16 138/74 (95) 93 Nasal Cannula 2.0 03/31/17 04:00 Nasal Cannula 2.0 03/31/17 02:11 81 16 95 Nasal Cannula 2.0 03/31/17 00:00 Nasal Cannula 2.0 03/31/17 00:00 36.6 84 20 137/79 (98) 91 2.0 03/30/17 20:09 36.7 96 20 166/74 (104) 92 Nasal Cannula 2.0 03/30/17 20:00 88 16 94 Nasal Cannula 2.0 03/30/17 20:00 93 Nasal Cannula 2.0 03/30/17 16:00 93 Nasal Cannula 2.0 03/30/17 15:49 36.6 85 18 122/78 (93) 92 Nasal Cannula 1.5 03/30/17 14:45 82 16 93 Nasal Cannula 2.0 03/30/17 12:43 37.3 24 152/72 (98) 91 Nasal Cannula 2.0 03/30/17 12:09 78 20 172/84 92 03/30/17 11:42 76 03/30/17 11:35 96 Nasal Cannula 2.0 03/30/17 11:20 72 20 167/80 96 Nebulizer (Shadia Asif, CHARISMA) Physical Exam Notes: General: no distress Eyes: normal inspection, PERLL Respiratory: chest non tender, expiratory wheezes throughout lung hodge Cardiac: regular rate and rhythm, no rub or gallop, no murmur, no edema, no jvd GI/: active bowel sounds, no abd pain or tenderness, soft, non distended Extremities: normal range of motion, normal strength, non tender Neuro/Psych: alert and oriented x 3, normal mood and affect Skin: normal color, dry (Shadia Asif CRNP) Assessment and Plan Mr. Gordon is a 76 year old man here for COPD exacerbation. COPD exacerbation - continue scheduled nebulizers, solumedrol q6h, azithromycin and 02 protocol. HLD - cont atorvastatin GERD - continue protonix BPH - continue tamsulosin Full code - Heparin prophylaxis (Shadia Asif CRNP) i personally examined pt and verified all barrera points иван ZAFAR feeling about the same - was more shortness of breath but neb helped willing to quit smoking - wants to take chantix as it helped before, didn't think nicotine replacement helped. isn't quite sure what his regular inhalers are but takes daily vitals noted nad breathing unlabored no pallor or icterus COPD exacerbation, tobacco abuse -as above -add spiriva to daily regimen -smoke cessation - counselling provided and sicne he requests and notes helped in the past - start chantix (Jose David Orr D.O.)
[2017-03-31] MEDS: TAMSULOSIN HCL 0.4 MG CAP PO SCH (21:40)
[2017-04-01] VITALS (13 sets, daily range): BP systolic 142–164; BP diastolic 65–84; PULSE 70–81; TEMP 36.3–36.6; O2SAT 90–97
[2017-04-01] MEDS: ALBUT/IPRATROP 3MG/0.5MG NEB 3 ML VIAL INH SCH ×4 (02:02→21:02)
[2017-04-01] MEDS: METHYLPREDNISOLONE IV 60 MG in SYRINGE 0 ML IV SCH ×4 (04:07→20:48)
[2017-04-01] MEDS: HEPARIN SOD 5000 UNIT/0.5 ML CARP SQ SCH ×3 (07:00→20:50)
[2017-04-01] MEDS: VARENICLINE (CHANTIX) 1 MG TAB PO SCH (07:57)
[2017-04-01] MEDS: ATORVASTATIN 10 MG TAB PO SCH (07:57)
[2017-04-01] MEDS: TIOTROPIUM BROMIDE 5 PUFF/90 MCG INH INH SCH (07:58)
[2017-04-01] MEDS: AZITHROMYCIN IV 250 MG in DEXTROSE 5% 250ML 250 ML IV SCH (08:53)
[2017-04-01] MEDS: NAPROXEN 250 MG TAB PO SCH (09:00)
[2017-04-01] MEDS ORDERED: VARENICLINE 0.5 MG TAB PO SCH (09:00)
[2017-04-01] MEDS ORDERED: RANITIDINE HCL 150 MG TAB PO ONE (10:45)
--- NOTE | 2017-04-01 16:32 | Progress Note ---
Subjective Date of Service: Apr 01, 2017. Subjective Pt evaluation today including: conversation w/ patient, physical exam, chart review, lab review, review of inpatient medication list breathing about the same maybe a little better vomited several times late yesterday and through the night, none since notes he does easily get indigestion no diarrhea has been able to eat today Problem List Medical Problems: (1) Allergic reaction Status: Acute (2) COPD exacerbation Status: Acute (3) COPD exacerbation Status: Acute (4) Dyspnea Status: Acute (5) Insect sting Status: Acute (6) Sepsis Status: Acute (7) Weakness Status: Acute Review of Systems all other ROS otherwise negative except for as above Objective Vital Signs Date Time Temp Pulse Resp B/P (MAP) Pulse Ox O2 Delivery O2 Flow Rate FiO2 04/01/17 15:19 36.5 74 20 162/83 (109) 92 04/01/17 14:18 70 16 93 Room Air 04/01/17 12:00 Room Air 2.0 04/01/17 11:35 36.3 81 18 144/75 (98) 94 Nasal Cannula 2.0 04/01/17 08:00 94 Room Air 2.0 04/01/17 07:37 36.6 78 20 142/75 (97) 91 Room Air 04/01/17 07:21 79 18 96 Nasal Cannula 2.0 04/01/17 04:24 36.5 75 20 161/84 (109) 90 Room Air 04/01/17 04:00 Nasal Cannula 2.0 04/01/17 02:02 78 18 91 Room Air 04/01/17 00:21 36.4 71 20 145/77 (99) 96 2.0 04/01/17 00:00 Nasal Cannula 2.0 03/31/17 20:00 Nasal Cannula 2.0 03/31/17 19:19 81 20 92 Nasal Cannula 3.0 03/31/17 19:17 36.7 75 18 135/67 (89) 94 Nasal Cannula 2.0 Physical Exam General Appearance: no apparent distress Eyes: EOMI ENT: hearing grossly normal Neck: trachea midline Respiratory/Chest: no respiratory distress, no accessory muscle use, + decreased breath sounds (scattered rales ) Abdomen: non tender, soft Extremities: normal range of motion 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 - improving nausea/vomiting - superimposed on chronic indigestion - suspect steroid related side effect, should be short lived - because of that, manage symptomatically for now (H2, prn zofran) HLD - cont atorvastatin GERD - continue protonix, otherwise as above BPH - continue tamsulosin Full code - Heparin prophylaxis
[2017-04-01] MEDS: RANITIDINE HCL 150 MG TAB PO SCH (20:48)
[2017-04-01] MEDS: TAMSULOSIN HCL 0.4 MG CAP PO SCH (20:49)
[2017-04-02] MEDS: ALBUT/IPRATROP 3MG/0.5MG NEB 3 ML VIAL INH SCH ×3 (02:41→14:30)
[2017-04-02] MEDS: METHYLPREDNISOLONE IV 60 MG in SYRINGE 0 ML IV SCH ×2 (04:37→09:47)
[2017-04-02] MEDS: HEPARIN SOD 5000 UNIT/0.5 ML CARP SQ SCH ×2 (06:00→14:00)
[2017-04-02 07:40] VITALS: PULSE 66; O2SAT 93
[2017-04-02 07:57] VITALS: BP 154/83; PULSE 80; TEMP 36.4; O2SAT 93
[2017-04-02] MEDS: ATORVASTATIN 10 MG TAB PO SCH (08:35)
[2017-04-02] MEDS: RANITIDINE HCL 150 MG TAB PO SCH (08:36)
[2017-04-02] MEDS: VARENICLINE (CHANTIX) 1 MG TAB PO SCH (08:36)
[2017-04-02] MEDS: TIOTROPIUM BROMIDE 5 PUFF/90 MCG INH INH SCH (08:37)
[2017-04-02] MEDS: AZITHROMYCIN IV 250 MG in DEXTROSE 5% 250ML 250 ML IV SCH (09:47)
[2017-04-02 10:02] VITALS: O2SAT 85
[2017-04-02] MEDS ORDERED: AZIT250T PO (10:31)
[2017-04-02] MEDS ORDERED: SPRIN INH (10:31)
[2017-04-02] MEDS ORDERED: ZNT150 PO (10:31)
[2017-04-02] MEDS ORDERED: PRED10TA PO (10:31)
[2017-04-02] MEDS ORDERED: VARE1PAK15 PO (10:31)
--- NOTE | 2017-04-02 10:44 | Discharge Instructions ---
Discharge Instructions Date of Service Apr 02, 2017. Admission Reason for Admission: Copd Exacerbation Discharge Discharge Diagnosis / Problem: COPD exacerabation (see below) Discharge Goals Goal(s): Diagnostic testing, Therapeutic intervention Activity Recommendations Activity Limitations: resume your previous activity . Instructions / Follow-Up Instructions / Follow-Up COPD / COPD exacerbation -think of this as a severe bronchitis superimposed on your baseline smoker's lung -you're getting better, but these things tend to take a while to improve - anticipate about a month until you're back to "good as new" -right now you're needing additional oxygen - it's a little difficult to say how long this will be needed - if it's purely related to the bronchitis, probably only a week or two, but when you're as low as you were with oxygen and not really feeling it, it raises my suspicion that you dip this low frequently and just don't really feel it, which could possibly extend how long you need the oxygen based on your baseline lung disease -acute treatment: -we'll finish a course of antibiotics - which amounts to a zithromax pill tomorrow -we'll finish a course of steroids - prednisone 60mg for 2 days then 50mg for 2 days then 40mg for 2 days then 30mg for 2 days then 20mg for 2 days then 10mg for 2 days; then it appears you're on a regular dose of 5mg daily - continue that as directed by your regular docs -chronic treatment -we've changed your inhaler regimen around some: -people with COPD tend to do better overall, have less severe exacerbations/end up in the hospital less/etc when they're on a class of inhalers called "anticholinergics" these inhalers tend to reduce inflammation in your lungs and reduce mucous production. typically the simplest of these to use is spiriva - because it's just a once a day inhaler - use it once a day every day -the other inhalers you had listed - albuterol and xopenex (levalbuterol) are both very similar as what are called "rescue inhalers" - they open your airways up quickly when you're feeling tight/wheezy/have a tight cough. look at the albuterol and levalbuterol as interchangeable - for most people they work about the same, for some the levalbuterol has less shakiness or racing heart after you take it. these are moved to being an "as needed" inhaler - you can take one when you're feeling tight, short of breath, or wheezy; but once you're getting better the goal would be to use the spiriva once a day and not smoke, and hopefully not get tight or wheezy to need one of these -make sure you're regular doctors follow your breathing closely and have up to date pulmonary function tests ("lung volume measurements") from time to time so that they're best able to manage this problem and help keep you out of trouble -smoke cessation -absolutely critical to helping you not get worse is quitting smoking. since chantix helped before, we're prescribing it again. the most common side effects are nausea and very vivid dreams. since you didn't experience either of these before, it's not overly likely you will again - but just be aware if you do experience either , it would be the medication. much more rare (but much more serious) is severe depression - although usually this is found in someone who's already having a baseline of depression and subconsciously using cigarettes as part of a "home remedy" to treat the depression. after a few months to a year, your docs should be able to stop the chantix and then the goal is to keep you cigarette free forever thereafter -while you're on the oxygen it's utterly critical to not smoke. since oxygen is combustible, all the time people have terrible catastrophes turning their face and lungs into fireballs by smoking with the oxygen. we obviously don't want that to be you nausea -i've written in your med list to stop the naproxen - anti-inflammatories like naproxen (alleve) or ibuprofen (motrin, advil) are notorious at causing upset stomachs. it's quite possible that this is part of the problem with your indigestion. further, daily use of anti-inflammatories actually raises your risk of heart attacks and strokes some. it's not to say that you can't ever take it again, but often people fall into the habit of taking it, and then don' t really look to see if they need it. simply taking that step will often cut how often you take it dramatically. in addition to that, you can try tylenol arthritis as a sometimes substitute for the naproxen, lessening the dosing further. if you do this, and alternate between which of the two you take, you can often get decent relief without bigger dosing of either medication -for now take the ranitidine twice a day to help calm your stomach. hopefully with time, and less anti-inflammatories, this is a medication that can be stopped if you don't need it anymore. Current Hospital Diet Patient's current hospital diet: Regular Diet Discharge Diet Recommended Diet: Regular Diet Pending Studies Studies pending at discharge: no Medical Emergencies . Who to Call and When: Medical Emergencies: If at any time you feel your situation is an emergency, please call 911 immediately. . Non-Emergent Contact Non-Emergency issues call your: Primary Care Provider (follow up with your family doc next week) . . "Provider Documentation" section prepared by Jose David Orr. . VTE Core Measure Inpt VTE Proph given/why not?: Unfractionated heparin SQ
[2017-04-02 10:54] VITALS: BP 154/83; PULSE 80; TEMP 36.4; O2SAT 85
[2017-04-02 14:32] VITALS: PULSE 75; O2SAT 91
[2017-04-02 15:33] VITALS: BP 158/87; PULSE 75; TEMP 36.6; O2SAT 92
--- NOTE | 2017-04-02 17:48 | Discharge Summary ---
Discharge Summary Date of Service Apr 02, 2017. Discharge Summary Admission Date: Apr 01, 2017 at 16:33 Discharge Date: Apr 02, 2017 Discharge Disposition: Home with services Principal Diagnosis: COPD exacerbation w acute (possibly on chronic) hypoxia Immunizations: Have You Had Influenza Vaccine: Unknown History of Tetanus Vaccine?: Unknown History of Pneumococcal: Unknown History of Hepatitis B Vaccine: Unknown Procedures: CHEST ONE VIEW PORTABLE HISTORY: Short of breath. COMPARISON: Chest 03/04/2017. FINDINGS: Emphysema. Postoperative changes within the left hilum. Stable scarlike density left lung base. The heart is stable in size. No new focal lung consolidations to suggest pneumonia. No evidence for pulmonary edema. No pleural effusions. No pneumothorax. IMPRESSION: No significant change compared to the prior study. No acute process. Electronically signed by: Varun Toledo M.D. 03/30/2017 10:12 AM Dictated Date/Time: 03/30/2017 10:07 AM Last Resulted CBC 03/30/17 10:08 Red Blood Count 4.60, Mean Corpuscular Volume 94.6, Mean Corpuscular Hemoglobin 32.4, Mean Corpuscular Hemoglobin Concent 34.3, Mean Platelet Volume 10.3, Neutrophils (%) (Auto) 76.5, Lymphocytes (%) (Auto) 12.3, Monocytes (%) (Auto) 6.7, Eosinophils (%) (Auto) 4.0, Basophils (%) (Auto) 0.2, Neutrophils # (Auto) 6.95, Lymphocytes # (Auto) 1.12, Monocytes # (Auto) 0.61, Eosinophils # (Auto) 0.36, Basophils # (Auto) 0.02 Last Resulted BMP 03/30/17 10:08 Medication Reconciliation New Medications: Azithromycin (Zithromax) 250 Mg Tab 250 MG PO UD, #1 TAB take on 04/03/17 Prednisone (Prednisone) 10 Mg Tab 10 MG PO UD, #42 TAB 6 po x2 days then 5 po x2 days then 4 po x2 days then 3 po x2 days then 2 po x2 days then 1 po x2 days Varenicline Tartrate (Chantix Starting Month Pa) 1 Alvarez Alvarez 1 TAB PO UD for 28 Days, #1 PKT Ranitidine HCl (Ranitidine HCl) 150 Mg Tab 150 MG PO BID, #60 TAB Tiotropium Bryan (Spiriva Handihaler) 5 Puff/90 Mcg Aerp 1 PUFF INH QAM, #1 INHALER Continued Medications: Albuterol Hfa (Ventolin Hfa) 200 Puffs/99425 Mcg Aers 2 PUFFS INH Q6H PRN for SOB/Wheezing Atorvastatin (Lipitor) 10 Mg Tab 10 MG PO DAILY, TAB Guaifenesin (Guaifenesin) 400 Mg Tab 400 MG PO BID PRN for CONGESTION Omeprazole (Prilosec) 20 Mg Capcr 20 MG PO DAILY PRN for Heartburn, CAP Prednisone (Prednisone) 5 Mg Tab 5 MG PO DAILY Tamsulosin Hcl (Flomax) 0.4 Mg Cap 0.4 MG PO QPM, CAP Discontinued Medications: Levalbuterol (Levalbuterol HCl) 1.25 Mg/3 Ml Nebu 3 ML INH DAILY Naproxen (Aleve) 220 Mg Tab 220 MG PO QAM, TAB Discharge Exam Physical Exam: General Appearance: no apparent distress Eyes: EOMI ENT: hearing grossly normal Neck: trachea midline Respiratory/Chest: no respiratory distress, no accessory muscle use, + decreased breath sounds (with faint scattered mucous sounding rales but better air entry than previous, no wheeze) Extremities: normal inspection Neurologic/Psychiatric: tapper shank II-XII nml as tested, alert, normal mood/affect Hospital Course COPD exacerbation with acute hypoxia - improving and stable for home - does require O2, although suprisingly little dyspnea when ambulated showing fairly low O2 saturations - making me suspect that his baseline COPD has him more hypoxic than he realized. for now O2 at discharge and hopefully can be weaned as outpt - to follow pulse ox and f/u PCP - finish course of zithromax; finish taper of steroids - stable for home - smoke cessation tobacco abuse - counselled on cessation multiple ways, opted to start chantix again - Rx given nausea/vomiting - superimposed on chronic indigestion - suspect steroid related side effect, H2 at discharge (ranitidine) and stop Naproxen HLD - cont atorvastatin GERD - H2 as above, stop naproxen, hopefully can then wean H2 over time BPH - continue tamsulosin DVT proph - heparin SQ utilized during his stay stable for home Total Time Spent: Greater than 30 minutes This includes examination of the patient, discharge planning, medication reconciliation, and communication with other providers. Discharge Instructions Please refer to the electronic Patient Visit Report (Discharge Instructions) for additional information. Additional Copies To Rob Perez PA-C; Tristan Saldivar MD
== END 2017-04-02 17:15 | disposition home or self-care (01) | DRG 192 ==
LOC: EDBD 09:19 → C.EDA 09:20 → C.MED 11:26 → UNDOADMOB 11:26 → ENRESERV 12:00 → C.MED 04-01 16:33 → INTOOBSV 04-01 16:33 → OBSVTOIN 04-01 16:33 → C.MS2W 04-01 21:31
PROVIDERS: ADMIT Internal Medicine; ATTEND Family Medicine
DX: J44.1 Chronic obstructive pulmonary disease with (acute) exacerbation (principal); Z85.118 Personal history of other malignant neoplasm of bronchus and lung; F17.210 Nicotine dependence, cigarettes, uncomplicated; Z90.2 Acquired absence of lung [part of]; R09.02 Hypoxemia; Z99.81 Dependence on supplemental oxygen; N40.0 Benign prostatic hyperplasia without lower urinary tract symptoms

== ENCOUNTER 2017-04-18 20:56 | Inpatient (IN) | payer OTHER ==
[~2017-04-18] VITALS: Ht 185.4 cm; Wt 82.0 kg
[~2017-04-18 20:56] MED LIST changes: +AZIT250T PO; -NAPR1TAB9 PO; +PRED-301 PO; +PRED10TA PO; +SPRIN INH; +VARE1PAK15 PO; -XPNINS125 INH; +ZNT150 PO
[2017-04-18] MEDS ORDERED: ALBUT/IPRATROP 3MG/0.5MG NEB 3 ML VIAL INH STA (21:27)
[2017-04-18] MEDS ORDERED: ALBUT/IPRATROP 3MG/0.5MG NEB 3 ML VIAL ONE (21:30)
[2017-04-18 21:39] LABS: BASO % 0.1 %; BASO ABS # 0.01 K/uL (0-0.2); EOS % 0.3 %; EOS ABS # 0.03 K/uL (0-0.5); HEMATOCRIT 42.1 % (42-52); HEMOGLOBIN 14.4 g/dL (14.0-18.0); IG# 0.04 K/uL (0.00-0.02); LYMPH % 4.4 %; LYMPH ABS # 0.51 K/uL (1.2-3.4); MEAN CORPUSCULAR HEMOGLOBIN 32.5 pg (25-34); MEAN CORPUSCULAR HGB CONC 34.2 g/dl (32-36); MONO % 3.6 %; MONO ABS # 0.41 K/uL (0.11-0.59); NEUT % 91.3 %; PLATELET COUNT 182 K/uL (130-400); RED CELL DISTRIBUTION WIDTH CV 15.3 % (11.5-14.5)
[2017-04-18] MEDS ORDERED: METHYLPREDNISOLONE 125 MG VIAL IV STA (21:40)
[2017-04-18] MEDS ORDERED: ALBUT/IPRATROP 3MG/0.5MG NEB 3 ML VIAL INH ONE (21:45)
[2017-04-18 21:49] LABS: ALBUMIN 2.8 gm/dl (3.4-5.0); CREATININE 1.02 mg/dl (0.60-1.40); POTASSIUM 4.4 mmol/L (3.5-5.1)
[2017-04-18 21:52] LABS: TOTAL PROTEIN 7.2 gm/dl (6.4-8.2)
[2017-04-18 22:07] VITALS: PULSE 71; O2SAT 97
--- NOTE | 2017-04-18 22:09 | DIAGNOSTIC IMAGING REPORT ---
CHEST ONE VIEW PORTABLE CLINICAL HISTORY: shortness of breath COUGH COMPARISON STUDY: 03/30/2017 FINDINGS: There are stable postsurgical changes on the left. The heart is normal in size. There is left-sided volume loss. There is chronic blunting of the left lateral costophrenic angle. There is no failure. There is no acute parenchymal consolidation.[ IMPRESSION: Postsurgical changes. No acute findings. Electronically signed by: Enrrique Fox M.D. 04/18/2017 10:07 PM Dictated Date/Time: 04/18/2017 10:07 PM
[2017-04-18] MEDS ORDERED: ALBU18002 INH (22:34)
[2017-04-18 22:35] LABS: INR 0.9 (0.9-1.1); PTT PATIENT 29.4 SECONDS (21.0-31.0)
[2017-04-18] MEDS ORDERED: RANI150T3 PO (22:37)
[2017-04-18 22:53] LABS: INFLUENZA B ANTIGEN Neg for Influ B (NEG)
[2017-04-19] VITALS (12 sets, daily range): BP systolic 131–162; BP diastolic 56–81; PULSE 74–94; TEMP 36.3–36.8; O2SAT 92–96; Ht 185.4 cm; Wt 82.0 kg
[2017-04-19] MEDS ORDERED: OPTIRAY 320 IV PRN (00:30)
--- NOTE | 2017-04-19 02:34 | History and Physical ---
History & Physical Date & Time of Service: Apr 19, 2017 at 02:28 Chief Complaint: Sob,Cough Primary Care Physician: Rob Perez PA-C History of Present Illness Source: patient 76 y/o M Hx HLD, BPH, COPD who until recently smoked cigarettes. Pt presents with progressive SOB x 2 days. Recently admitted with COPD exacerbations 02/04 , 04/07. Denies CP, change in cough, N/V or fevers. Pt did not significantly improve with multiple neb treatment and steroids received in ER. He is requiring 02 to maintain an adequate saturation. He was DCd with home 02 following his most recent admission and has needed 02 intermittently only, usually with exertion. Past Medical/Surgical History 1) COPD 2) HLD 3) Lung CA - L upper lobectomy 4) Smoker until recently 5) BPH Family History Patient reports no known family medical history. Father due to fall Mother due to lung CA Social History 1+ pack/day smoker - quit 3 weeks ago Smoking Status: Former Smoker Drug Use: none Marital Status: Housing status: lives with family Occupational Status: retired Immunizations History of Influenza Vaccine: Unknown History of Tetanus Vaccine?: Unknown History of Pneumococcal: Unknown History of Hepatitis B Vaccine: Unknown Multi-Drug Resistant Organisms History of MDRO: No Allergies Coded Allergies: No Known Allergies (Unverified , 04/18/17) Home Medications Scheduled Atorvastatin (Lipitor), 10 MG PO DAILY Prednisone (Prednisone), 5 MG PO DAILY Ranitidine Hcl (Zantac), 150 MG PO BID Tamsulosin Hcl (Flomax), 0.4 MG PO QPM Scheduled PRN Albuterol Sulfate (Proair Respiclick), 2 PUFFS INH DIRECTED PRN for Shortness of Breath Guaifenesin (Guaifenesin), 400 MG PO BID PRN for CONGESTION Omeprazole (Prilosec), 20 MG PO DAILY PRN for Heartburn Review of Systems Constitutional: No fever, No chills, No sweats Eyes: No worsening of vision ENT: No hearing loss, No unusual epistaxis, No nasal symptoms Respiratory: + cough, + sputum, + shortness of breath, + dyspnea on exertion, + dyspnea at rest Cardiovascular: No chest pain, No orthopnea, No PND Abdomen: No pain, No nausea, No vomiting Musculoskeletal: No joint pain Genitourinary - Male: No hematuria, No dysuria Neurologic: No memory loss, No paralysis, No weakness Psychiatric: No depression symptoms Endocrine: No fatigue Hematologic / Lymphatic: No abnormal bleeding/bruising Integumentary: No rash Allergic / Immunologic: No environmental allergies Physical Exam Vital Signs Date Time Temp Pulse Resp B/P (MAP) Pulse Ox O2 Delivery O2 Flow Rate FiO2 04/19/17 02:01 88 24 136/78 95 Nasal Cannula 4.0 04/19/17 01:04 90 04/19/17 00:54 85 30 141/57 96 Nasal Cannula 4.0 04/18/17 23:25 91 32 127/61 99 04/18/17 22:37 79 34 135/74 100 04/18/17 22:07 71 28 97 Nasal Cannula 10.0 04/18/17 21:31 96 Nasal Cannula 3.0 04/18/17 21:24 74 04/18/17 21:18 96 Nasal Cannula 3.0 04/18/17 21:09 37.3 87 20 124/69 93 Room Air General Appearance: WD/WN, + pertinent finding (Labored breathing is noted) Head: normocephalic Eyes: normal inspection, EOMI ENT: normal ENT inspection, pharynx normal Neck: supple, no JVD Respiratory/Chest: chest non-tender, + decreased breath sounds, + pertinent finding (No wheezing or crackles present) Cardiovascular: regular rate, rhythm, no edema, no gallop Abdomen/GI: normal bowel sounds, non tender, soft Back: normal inspection, no CVA tenderness Extremities/Musculoskelatal: normal inspection, no calf tenderness, normal capillary refill, no pedal edema, normal range of motion Neurologic/Psych: rubber cutter and shape carver II-XII nml as tested, no motor/sensory deficits, alert, oriented x 3 Skin: normal color, warm/dry, no rash Diagnostics Laboratory Results Results Past 24 Hours Test 04/18/17 21:20 04/18/17 21:52 04/18/17 22:15 04/19/17 00:36 Range/Units White Blood Count 11.50 4.8-10.8 K/uL Red Blood Count 4.43 4.7-6.1 M/uL Hemoglobin 14.4 14.0-18.0 g/dL Hematocrit 42.1 42-52 % Mean Corpuscular Volume 95.0 80-100 fL Mean Corpuscular Hemoglobin 32.5 25-34 pg Mean Corpuscular Hemoglobin Concent 34.2 32-36 g/dl Platelet Count 182 130-400 K/uL Mean Platelet Volume 10.0 7.4-10.4 fL Neutrophils (%) (Auto) 91.3 % Lymphocytes (%) (Auto) 4.4 % Monocytes (%) (Auto) 3.6 % Eosinophils (%) (Auto) 0.3 % Basophils (%) (Auto) 0.1 % Neutrophils # (Auto) 10.50 1.4-6.5 K/uL Lymphocytes # (Auto) 0.51 1.2-3.4 K/uL Monocytes # (Auto) 0.41 0.11-0.59 K/uL Eosinophils # (Auto) 0.03 0-0.5 K/uL Basophils # (Auto) 0.01 0-0.2 K/uL RDW Standard Deviation 53.0 36.4-46.3 fL RDW Coefficient of Variation 15.3 11.5-14.5 % Immature Granulocyte % (Auto) 0.3 % Immature Granulocyte # (Auto) 0.04 0.00-0.02 K/uL Sodium Level 135 136-145 mmol/L Potassium Level 4.4 3.5-5.1 mmol/L Chloride Level 100 98-107 mmol/L Carbon Dioxide Level 27 21-32 mmol/L Anion Gap 8.0 3-11 mmol/L Blood Urea Nitrogen 20 7-18 mg/dl Creatinine 1.02 0.60-1.40 mg/dl Est Creatinine Clear Calc Drug Dose 71.7 ml/min Estimated GFR () 82.4 Estimated GFR (Non- 71.1 BUN/Creatinine Ratio 19.8 10-20 Random Glucose 110 70-99 mg/dl Calcium Level 9.0 8.5-10.1 mg/dl Total Bilirubin 0.5 0.2-1 mg/dl Aspartate Amino Transf (AST/SGOT) 22 15-37 U/L Alanine Aminotransferase (ALT/SGPT) 30 12-78 U/L Alkaline Phosphatase 54 45-117 U/L Pro-B-Type Natriuretic Peptide 773 0-1800 pg/ml Total Protein 7.2 6.4-8.2 gm/dl Albumin 2.8 3.4-5.0 gm/dl Globulin 4.4 2.5-4.0 gm/dl Albumin/Globulin Ratio 0.6 0.9-2 Prothrombin Time 9.9 9.0-12.0 SECONDS Prothromb Time International Ratio 0.9 0.9-1.1 Activated Partial Thromboplast Time 29.4 21.0-31.0 SECONDS Partial Thromboplastin Ratio 1.1 Influenza Type A Antigen Neg for Influ A NEG Influenza Type B Antigen Neg for Influ B NEG Arterial Blood pH 7.49 7.35-7.45 Arterial Blood Partial Pressure CO2 28 35-46 mmHg Arterial Blood Partial Pressure O2 88 80-95 mm/Hg Arterial Blood HCO3 20 19-24 mmol/L Arterial Blood Oxygen Saturation 97.1 90-95 % Arterial Blood Base Excess -2.0 -9-1.8 mEq/L Arterial Blood Gas Delivery ROOM AIR Hayden Test POS POS Microbiology Results 04/18/17 Blood Culture, Received Pending 04/18/17 Blood Culture, Received Pending Diagnostic Radiology CTA: Emphysema - no acute findings Normal EKG Impression Assessment and Plan 76 y/o M Hx HLD, BPH, COPD who until recently smoked cigarettes. Pt presents with progressive SOB x 2 days. Recently admitted with COPD exacerbations 02/04 , 04/07. Denies CP, change in cough, N/V or fevers. Pt did not significantly improve with multiple neb treatment and steroids received in ER. He is requiring 02 to maintain an adequate saturation. He was DCd with home 02 following his most recent admission and has needed 02 intermittently only, usually with exertion. 1) COPD exacerbation - Placed on scheduled nebulizers, steroids, Abx, 02 protocol. 2) HLD - cont Statin therapy 3) BPH - cont Flomax 4) Smoker - he has not had a cigarette in approximately 3 weeks and states he is fine without them. He was taking Chantix until the previous day but does not think he needs any now. Full code - Heparin prophylaxis Total time for this admit including review of labs, meds, imaging - discussion with pt and ER attending - 36 min Level of Care Telemetry Resuscitation Status FULL RESUSCITATION VTE Prophylaxis Given or contraindicated: Unfractionated heparin SQ
--- NOTE | 2017-04-19 02:35 | EMERGENCY ROOM VISIT NOTE ---
History Report prepared by Tru: Tenzin Temple Under the Supervision of: Dr. Rolando Sifuentes M.D. First contact with patient: 21:30 Chief Complaint: SHORTNESS OF BREATH Stated Complaint: SOB,COUGH Nursing Triage Summary: pt reports Dc from hosp 04/02 for copd exacerbation has become increasingly exertional sob X 3 days coughing up thick mucus and pain in chest into back radiates down into abdomen , per spouse abdomen has become more distended today History of Present Illness The patient is a 76 year old male who presents to the Emergency Room with complaints of constant shortness of breath that began a couple of days ago. He rates his discomfort as a 3/10 in severity. The patient states that he has also been experiencing an intermittent productive cough. The patient states that he has been experiencing some mild sharp upper abdominal pain intermittently across his abdomen. He states he has been taking Zantac twice a day without any relief. The patient states that he has also been intermittently hot then cold. The patient is accompanied by his who states that the patient's abdomen has been distended. The patient reports that he has a history of COPD and states he was recently discharged from the hospital on April 02. He reports that he had a lobectomy and fluid removed in 2016. The patient denies LOC, headache, fevers, chills, diaphoresis, visual changes, neck pain, chest pain, nausea, vomiting, back pain, melena, hematochezia, urinary symptoms, numbness, weakness, lymphadenopathy, rash, or other complaints. Source of History: patient Onset: a couple of days ago Position: other (global) Symptom Intensity: 3/10 Timing: constant Associated Symptoms: + cough, + abdominal pain Review of Systems See HPI for pertinent positives and negatives. A total of ten systems were reviewed and were otherwise negative. Past Medical & Surgical Medical Problems: (1) COPD (chronic obstructive pulmonary disease) (2) COPD exacerbation (3) E. coli septicemia (4) Emphysema/COPD (5) Hypoxia (6) Leukocytosis (7) Lung cancer (8) SIRS (systemic inflammatory response syndrome) Family History Patient reports no known family medical history. Social History Smoking Status: Former Smoker Alcohol Use: occasionally Drug Use: none Marital Status: Housing Status: lives with family Occupation Status: retired Current/Historical Medications Scheduled Atorvastatin (Lipitor), 10 MG PO DAILY Prednisone (Prednisone), 5 MG PO DAILY Ranitidine Hcl (Zantac), 150 MG PO BID Tamsulosin Hcl (Flomax), 0.4 MG PO QPM Scheduled PRN Albuterol Sulfate (Proair Respiclick), 2 PUFFS INH DIRECTED PRN for Shortness of Breath Guaifenesin (Guaifenesin), 400 MG PO BID PRN for CONGESTION Omeprazole (Prilosec), 20 MG PO DAILY PRN for Heartburn Allergies Coded Allergies: No Known Allergies (Unverified , 04/18/17) Physical Exam Vital Signs Date Time Temp Pulse Resp B/P (MAP) Pulse Ox O2 Delivery O2 Flow Rate FiO2 04/19/17 02:01 88 24 136/78 95 Nasal Cannula 4.0 04/19/17 01:04 90 04/19/17 00:54 85 30 141/57 96 Nasal Cannula 4.0 04/18/17 23:25 91 32 127/61 99 04/18/17 22:37 79 34 135/74 100 04/18/17 22:07 71 28 97 Nasal Cannula 10.0 04/18/17 21:31 96 Nasal Cannula 3.0 04/18/17 21:24 74 04/18/17 21:18 96 Nasal Cannula 3.0 04/18/17 21:09 37.3 87 20 124/69 93 Room Air Physical Exam GENERAL: Awake, alert, dyspneic appearing, in moderate distress HENT: Normocephalic, atraumatic. Oropharynx unremarkable. EYES: Normal conjunctiva. Sclera non-icteric. NECK: Supple. No nuchal rigidity. FROM. No JVD. RESPIRATORY: Wheezing bilaterally. CARDIAC: Regular rate, normal rhythm. Extremities warm and well perfused. Pulses equal. ABDOMEN: Soft, distended. No tenderness to palpation. No rebound or guarding. No masses. RECTAL: Deferred. MUSCULOSKELETAL: Chest examination reveals no tenderness. The back is symmetrical on inspection without obvious abnormality. There is no CVA tenderness to palpation. No joint edema. LOWER EXTREMITIES: Calves are equal size bilaterally and non-tender. No edema. No discoloration. NEURO: Normal sensorium. No sensory or motor deficits noted. SKIN: No rash or jaundice noted. Medical Decision & Procedures ER Provider Diagnostic Interpretation: Radiology results as stated below per my review and radiologist interpretation: CHEST ONE VIEW PORTABLE CLINICAL HISTORY: shortness of breath COUGH COMPARISON STUDY: 03/30/2017 FINDINGS: There are stable postsurgical changes on the left. The heart is normal in size. There is left-sided volume loss. There is chronic blunting of the left lateral costophrenic angle. There is no failure. There is no acute parenchymal consolidation.[ IMPRESSION: Postsurgical changes. No acute findings. Electronically signed by: Enrrique Fox M.D. 04/18/2017 10:07 PM Dictated Date/Time: 04/18/2017 10:[address] ABDOMEN & PELVIS Without Contrast: Comparison: CT chest dated 03/04/[address] abdomen pelvis dated 02/20/2016. No definite acute inflammatory or obstructive process in the abdomen or pelvis on noncontrast CT to account for symptoms. Bilateral renal cysts including several small dense renal cysts suggestive of proteinaceous or hemorrhagic cysts. There are stable small calcifications associated with right lower pole renal cyst. Nonspecific bilateral perinephric stranding/fluid is present, similar compared to prior. Nonobstructive renal calculi versus vascular calcifications noted. No hydronephrosis or uretal calculus. Appendix not visualized compatible with history of appendectomy. No evidence of bowel obstruction, significant bowel wall thickening, ascites or free air. Atherosclerotic vascular disease. No abdominal aortic aneurysm. Incidental findings: Stable hepatic cyst. Radiologist: Chelsea Jiménez MD CT CHEST With Contrast: Comparison: CTA dates 03/04/2017 No evidence of pulmonary embolism accounting for limitations of exam due to suboptimal opacification of pulmonary arteries. Atherosclerotic vascular disease. Stable mild dilation of the ascending thoracic aorta measuring 4.3 cm. No dissection. Emphysematous lungs. No focal consolidation or pulmonary edema. No pleural effusion or pneumothorax. Normal cardiac size. No pericardial effusion. Incidental findings: Hepatic and renal cysts. Radiologist: Chelsea Jiménez MD. Laboratory Results 04/18/17 21:20 Red Blood Count 4.43, Mean Corpuscular Volume 95.0, Mean Corpuscular Hemoglobin 32.5, Mean Corpuscular Hemoglobin Concent 34.2, Mean Platelet Volume 10.0, Neutrophils (%) (Auto) 91.3, Lymphocytes (%) (Auto) 4.4, Monocytes (%) (Auto) 3.6, Eosinophils (%) (Auto) 0.3, Basophils (%) (Auto) 0.1, Neutrophils # (Auto) 10.50, Lymphocytes # (Auto) 0.51, Monocytes # (Auto) 0.41, Eosinophils # (Auto) 0.03, Basophils # (Auto) 0.01 04/18/17 21:20 Test 04/18/17 21:20 04/18/17 21:52 04/18/17 22:15 04/19/17 00:36 White Blood Count 11.50 K/uL (4.8-10.8) Red Blood Count 4.43 M/uL (4.7-6.1) Hemoglobin 14.4 g/dL (14.0-18.0) Hematocrit 42.1 % (42-52) Mean Corpuscular Volume 95.0 fL (80-100) Mean Corpuscular Hemoglobin 32.5 pg (25-34) Mean Corpuscular Hemoglobin Concent 34.2 g/dl (32-36) Platelet Count 182 K/uL (130-400) Mean Platelet Volume 10.0 fL (7.4-10.4) Neutrophils (%) (Auto) 91.3 % Lymphocytes (%) (Auto) 4.4 % Monocytes (%) (Auto) 3.6 % Eosinophils (%) (Auto) 0.3 % Basophils (%) (Auto) 0.1 % Neutrophils # (Auto) 10.50 K/uL (1.4-6.5) Lymphocytes # (Auto) 0.51 K/uL (1.2-3.4) Monocytes # (Auto) 0.41 K/uL (0.11-0.59) Eosinophils # (Auto) 0.03 K/uL (0-0.5) Basophils # (Auto) 0.01 K/uL (0-0.2) RDW Standard Deviation 53.0 fL (36.4-46.3) RDW Coefficient of Variation 15.3 % (11.5-14.5) Immature Granulocyte % (Auto) 0.3 % Immature Granulocyte # (Auto) 0.04 K/uL (0.00-0.02) Anion Gap 8.0 mmol/L (3-11) Est Creatinine Clear Calc Drug Dose 71.7 ml/min Estimated GFR () 82.4 Estimated GFR (Non- 71.1 BUN/Creatinine Ratio 19.8 (10-20) Calcium Level 9.0 mg/dl (8.5-10.1) Total Bilirubin 0.5 mg/dl (0.2-1) Aspartate Amino Transf (AST/SGOT) 22 U/L (15-37) Alanine Aminotransferase (ALT/SGPT) 30 U/L (12-78) Alkaline Phosphatase 54 U/L (45-117) Pro-B-Type Natriuretic Peptide 773 pg/ml (0-1800) Total Protein 7.2 gm/dl (6.4-8.2) Albumin 2.8 gm/dl (3.4-5.0) Globulin 4.4 gm/dl (2.5-4.0) Albumin/Globulin Ratio 0.6 (0.9-2) Prothrombin Time 9.9 SECONDS (9.0-12.0) Prothromb Time International Ratio 0.9 (0.9-1.1) Activated Partial Thromboplast Time 29.4 SECONDS (21.0-31.0) Partial Thromboplastin Ratio 1.1 Influenza Type A Antigen Neg for Influ A (NEG) Influenza Type B Antigen Neg for Influ B (NEG) Arterial Blood pH 7.49 (7.35-7.45) Arterial Blood Partial Pressure CO2 28 mmHg (35-46) Arterial Blood Partial Pressure O2 88 mm/Hg (80-95) Arterial Blood HCO3 20 mmol/L (19-24) Arterial Blood Oxygen Saturation 97.1 % (90-95) Arterial Blood Base Excess -2.0 mEq/L (-9-1.8) Arterial Blood Gas Delivery ROOM AIR [place] Test POS (POS) Laboratory results reviewed by me Medications Administered Medications (Trade) Dose Ordered Sig/Elmer Route Start Time Stop Time Status Last Admin Dose Admin Albuterol/ Ipratropium (Duoneb) 3 ml NOW STAT INH 04/18/17 21:27 04/18/17 21:29 DC 04/18/17 21:31 3 ML Albuterol/ Ipratropium (Duoneb) 12 ml ONE ONCE INH 04/18/17 21:45 04/18/17 21:46 DC 04/18/17 22:04 12 ML Methylprednisolone Sodium Succinate (Solu-Medrol IV) 125 mg NOW STAT IV 04/18/17 21:40 04/18/17 21:42 DC 04/18/17 22:09 125 MG ECG Indication: SOB/dyspnea Rate (beats per minute): 78 Rhythm: normal sinus Findings: no acute ischemic change, no ectopy Change: Patient's electrocardiogram was interpreted by me. ED Course 2129: Ordered Duoneb 3 ml INH. 2138: The patient was evaluated in room A11B. A complete history and physical exam was performed. 2139: Ordered Solu-medrol 125 mg IV. 2144: Ordered Duoneb 12 ml INH. 135: I discussed the patient's case with Dr. Meléndez [facility]. He understands the patient's condition and agrees to accept the patient. The patient will be further evaluated. Medical Decision Triage Nursing notes reviewed. The patient's presentation and history were concerning for SOB. Etiologies such as pneumonia, COPD, reactive airway disease, CHF, cardiac ischemia, pulmonary embolism, pneumothorax, musculoskeletal, infections, gastrointestinal, as well as others were entertained. The patient was evaluated. He was given a hour-long nebulizer treatment and medical. He was still short of breath and tachypnea. He was given a second nebulizer treatment. ABG showed a respiratory alkalosis. His PaO2 was only 88 % on [address] PE study was negative. Cardiac markers negative. Patient had a slight leukocytosis. He has emphysematous changes on imaging. Influenza testing was negative. The patient will need further evaluation and management in the hospital. [facility] The [facility] was evaluated for further management. Medication Reconcilliation Current Medication List: was personally reviewed by me Blood Pressure Screening Patient's blood pressure: Normal blood pressure Consults Time Called: 135 Consulting Physician: Dr. Meléndez [facility] Returned Call: [phone] I discussed the patient's case with Dr. Meléndez [facility]. He understands the patient's condition and agrees to accept the patient. The patient will be further evaluated. Impression Primary Impression: COPD exacerbation Additional Impression: Shortness of breath Scribe Attestation The scribe's documentation has been prepared under my direction and personally reviewed by me in its entirety. I confirm that the note above accurately reflects all work, treatment, procedures, and medical decision making performed by me. Departure Information Dispostion Being Evaluated By Hospitalist Referrals Rob Perez PA-C (PCP) Patient Instructions My [facility] Problem Qualifiers
[2017-04-19] MEDS ORDERED: ACETAMINOPHEN 325 MG TAB PO PRN (02:45)
[2017-04-19] MEDS ORDERED: GUAIFENESIN 200 MG TAB PO PRN (02:45)
[2017-04-19] MEDS ORDERED: PANTOprazole SOD 40 MG TAB PO PRN (02:45)
[2017-04-19] MEDS ORDERED: ALUMINUM/MAGNESIUM/SIMETH (MAALOX MAX) 30 ML UDC PO PRN (02:45)
[2017-04-19] MEDS ORDERED: ONDANSETRON INJ 2 MG/ML 2 ML VIAL IV PRN (02:45)
[2017-04-19] MEDS ORDERED: POLYETHYLENE (MIRALAX) 17 GM PACK PO PRN (02:45)
[2017-04-19] MEDS ORDERED: ALBUTEROL 0.083% NEBU SOLN 3 ML VIAL INH PRN (02:45)
[2017-04-19] MEDS ORDERED: MoRPHine SULFATE 2 MG/ML CARP IV PRN (02:45)
[2017-04-19] MEDS ORDERED: SODIUM CHLORIDE 0.9% 1000ML 1,000 ML IV SCH (03:00)
[2017-04-19] MEDS: ALBUT/IPRATROP 3MG/0.5MG NEB 3 ML VIAL INH SCH ×4 (03:00→20:42)
[2017-04-19] MEDS: AZITHROMYCIN IV 500 MG in DEXTROSE 5% 250ML 250 ML IV SCH (05:42)
[2017-04-19] MEDS: METHYLPREDNISOLONE IV 60 MG in SYRINGE 0 ML IV SCH ×4 (05:44→21:35)
[2017-04-19] MEDS: HEPARIN SOD 5000 UNIT/0.5 ML CARP SQ SCH ×3 (05:47→20:45)
--- NOTE | 2017-04-19 07:05 | DIAGNOSTIC IMAGING REPORT ---
ABD/PELVIS NO IV OR ORAL CONT CLINICAL HISTORY: 76 years-old Male presenting with upper abd pain. TECHNIQUE: Multidetector CT of the abdomen and pelvis was performed without the use of intravenous contrast. IV contrast: None. A dose lowering technique was used consistent with the principles of ALARA (as low as reasonably achievable). COMPARISON: 02/20/2016. CT DOSE (mGy.cm): The estimated cumulative dose is 424.55 mGy.cm. 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 Lung bases: Emphysematous changes may be present. Mild bronchial wall thickening and subsegmental bronchial airway debris noted in the right lower lobe. Normal heart size. Resolution of previous left pleural effusion. No pericardial effusion. Liver: Bilobed well-defined hypodense lesion in the right lobe of the liver is indeterminate but likely hepatic cyst, unchanged from prior. Normal liver density. Biliary: No gross biliary ductal dilatation allowing for noncontrast technique. Normal gallbladder. Pancreas: Moderate parenchymal atrophy. Spleen: Normal noncontrast appearance. Adrenal glands: Normal noncontrast appearance. Kidneys and ureters: The kidneys are expanded by multiple well-defined lesions, the majority of which are water attenuation consistent with simple cysts. Few cysts demonstrate thin mural calcifications, the largest in the right kidney measuring over 10 cm in diameter. Other lesions demonstrate hyperattenuation, for example a 1.7 cm lesion at the upper pole the right kidney (series 3 image 123), unchanged in size from prior, and a 1.3 cm lesion at the interpolar region of the left kidney (series 3 image 120), also unchanged in size. No hydronephrosis. Nonobstructing renal calculi noted bilaterally, measuring 2 mm on the right (see series 3 image 135) and 3 mm on the left (series 3 image 121). The ureters are somewhat difficult to assess secondary to distortion from the expanded renal contours but are grossly normal. Perinephric fat stranding is not significant changed from prior and is nonspecific. Bladder: Normal. Pelvic organs: Prostate enlargement likely secondary to benign prostatic hyperplasia. Bowel: Mild stool burden throughout normal caliber colon. No gross evidence of bowel wall thickening allowing for noncontrast technique. The appendix is not clearly visualized. No bowel obstruction. Peritoneal cavity: No intraperitoneal free fluid or gas. Trace retroperitoneal free fluid. This was present to a similar degree on prior exam and appears to emanate from the kidneys. Lymph nodes: No gross lymphadenopathy allowing for noncontrast technique. Vasculature: Atherosclerosis of the normal caliber abdominal aorta. Slight ectasia of the bilateral common iliac arteries similar to prior exam. Abdominal wall: Normal. Musculoskeletal: Degenerative changes of the spine. IMPRESSION: 1. No acute intra-abdominal pathology. 2. Findings again consistent with possible dominant polycystic kidney disease. The hyperattenuating lesions are unchanged in size since the prior exam and though indeterminate on this noncontrast exam, likely represent hemorrhagic or proteinaceous cysts. Few additional cysts are minimally complex. The appearance is overall unchanged since prior exam. 3. Trace retroperitoneal free fluid could be secondary to be renal cyst rupture, which can be a cause for abdominal pain, although the appearance is unchanged from prior. Other etiologies include diminished renal function. 4. Nonobstructing bilateral renal calculi. 5. Prostatomegaly. 6. Possible emphysematous changes in the lungs. 7. Mild bronchial wall thickening and subsegmental bronchial airway debris the right lower lobe could be related to chronic obstructive pulmonary disease, although the possibility of chronic aspiration cannot be excluded. Electronically signed by: Judson Pineda M.D. 04/19/2017 7:04 AM Dictated Date/Time: 04/19/2017 6:52 AM
--- NOTE | 2017-04-19 07:39 | DIAGNOSTIC IMAGING REPORT ---
CHEST CTA for PULMONARY ARTERIES CT DOSE: 396.26 mGy.cm HISTORY: Short of breath. Cough. TECHNIQUE: Multiaxial CT images of the chest were performed following the intravenous administration of contrast to evaluate the pulmonary arteries. Maximal intensity projection images were also obtained. A dose lowering technique was utilized adhering to the principles of ALARA. COMPARISON STUDY: Chest CTA 03/04/2017. Abdomen and pelvis CT 04/18 17. 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 This remains unchanged. The ascending thoracic aorta remains mildly distended measuring up to 4.3 cm in diameter. No evidence for an aortic dissection. The heart is normal in size. Suboptimal opacification of the pulmonary arterial tree. This is likely due to the timing of contrast. However, there are no definite filling defects identified to suggest pulmonary embolus. Bilateral renal cysts are better appreciated on the same day abdomen and pelvis CT. No pleural or pericardial effusions. No mediastinal lymphadenopathy. Stable prominent right hilar lymph nodes. No suspicious lytic or blastic osseous lesions. Postoperative changes consistent with a left upper lobectomy. Emphysema. No pneumothorax. Mild bronchial wall thickening, unchanged. Linear scarlike densities within the base of the left lung. No new focal lung consolidations to suggest pneumonia. IMPRESSION: 1. No evidence for pulmonary embolus. 2. Stable mild aneurysmal dilatation of the ascending thoracic aorta measuring up to 4.3 cm in diameter. 3. Emphysema. 4. Prior left upper lobectomy. 5. Stable prominent right hilar lymph nodes. Electronically signed by: Varun Toledo M.D. 04/19/2017 7:38 AM Dictated Date/Time: 04/19/2017 7:31 AM
[2017-04-19] MEDS: ATORVASTATIN 10 MG TAB PO SCH (10:03)
[2017-04-19] MEDS: RANITIDINE HCL 150 MG TAB PO SCH ×2 (10:04→20:38)
[2017-04-19] MEDS ORDERED: NURSING VERBAL MED ORDER ONE (13:15)
[2017-04-19] MEDS ORDERED: ALBUT/IPRATROP 3MG/0.5MG NEB 3 ML VIAL INH PRN (13:30)
--- NOTE | 2017-04-19 14:07 | Progress Note ---
Subjective Date of Service: Apr 19, 2017. Subjective Pt evaluation today including: conversation w/ patient, physical exam, chart review, lab review, review of studies, review of inpatient medication list Wheezing and cough, mild labored breathing, removal of oxygen by self, denied chest pain and fever Problem List Medical Problems: (1) Allergic reaction Status: Acute (2) COPD exacerbation Status: Acute (3) COPD exacerbation Status: Acute (4) Dyspnea Status: Acute (5) Insect sting Status: Acute (6) Sepsis Status: Acute (7) Shortness of breath Status: Acute (8) Weakness Status: Acute Review of Systems Constitutional: + weakness, No fever, No chills, No sweats, No weight loss, No fatigue, No problem reported Eyes: No worsening of vision, No eye pain, No redness, No discharge, No diplopia ENT: No hearing loss, No unusual epistaxis, No nasal symptoms, No sore throat, No tinnitus, No dental problems, No trouble swallowing Respiratory: + cough, + wheezing, + shortness of breath, No sputum, No dyspnea on exertion, No dyspnea at rest, No hemoptysis Cardiac: No chest pain, No orthopnea, No PND, No edema, No claudication, No palpitations Abdomen: No pain, No nausea, No vomiting, No diarrhea, No constipation Musculoskeletal: No joint pain, No muscle pain, No swelling, No calf pain Male : No dysuria, No urinary frequency, No incontinence, No nocturia more than once/night, No slowing stream, No hematuria Neurologic: No memory loss, No paralysis, No weakness, No numbness/tingling, No vertigo, No balance problems Psychiatric: No depression symptoms, No anhedonism, No anxiety, No insomnia, No substance abuse Heme: No abnormal bleeding/bruising, No clotting problems, No swollen lymph nodes, No night sweats Endo: No fatigue, No excessive thirst, No excessive urination Skin: No rash, No itch, No new/changing skin lesions, No color change, No bleeding Objective Vital Signs Date Time Temp Pulse Resp B/P (MAP) Pulse Ox O2 Delivery O2 Flow Rate FiO2 04/19/17 13:20 77 20 96 Room Air 04/19/17 12:00 36.8 74 24 133/81 (98) 94 Nasal Cannula 2.0 04/19/17 12:00 Nasal Cannula 2.0 04/19/17 08:00 Nasal Cannula 2.0 04/19/17 07:38 36.5 90 24 131/66 (87) 94 Nasal Cannula 3.0 04/19/17 07:25 94 24 92 Room Air 04/19/17 05:00 94 Nasal Cannula 2.5 04/19/17 03:30 36.5 80 30 132/56 96 Nasal Cannula 4.0 04/19/17 03:20 84 28 127/62 94 Nasal Cannula 4.0 04/19/17 02:01 88 24 136/78 95 Nasal Cannula 4.0 04/19/17 01:04 90 04/19/17 00:54 85 30 141/57 96 Nasal Cannula 4.0 04/18/17 23:25 91 32 127/61 99 04/18/17 22:37 79 34 135/74 100 04/18/17 22:07 71 28 97 Nasal Cannula 10.0 04/18/17 21:31 96 Nasal Cannula 3.0 04/18/17 21:24 74 04/18/17 21:18 96 Nasal Cannula 3.0 04/18/17 21:09 37.3 87 20 124/69 93 Room Air Physical Exam General Appearance: WD/WN, no apparent distress, + thin, + pertinent finding ( chronic ill-looking) Eyes: normal inspection, PERRL, EOMI, sclerae normal ENT: normal ENT inspection, hearing grossly normal, pharynx normal Neck: supple, no adenopathy, thyroid normal, no JVD, no carotid bruits, trachea midline Respiratory/Chest: chest non-tender, normal breath sounds, no respiratory distress, no accessory muscle use, + decreased breath sounds, + wheezing Cardiovascular: regular rate, rhythm, no edema, no gallop, no JVD, no murmur Abdomen: normal bowel sounds, non tender, soft, no organomegaly, no pulsatile mass Extremities: normal range of motion, non-tender, normal inspection, no pedal edema, no calf tenderness, normal capillary refill, pelvis stable Neurologic/Psychiatric: spool cleaner II-XII nml as tested, no motor/sensory deficits, alert, normal mood/affect, oriented x 3 Skin: normal color, warm/dry, no rash Lymphatic: no adenopathy Laboratory Results Last 24 Hours Test 04/18/17 21:20 04/18/17 21:52 04/18/17 22:15 1/30/18 00:36 White Blood Count 11.50 K/uL Red Blood Count 4.43 M/uL Hemoglobin 14.4 g/dL Hematocrit 42.1 % Mean Corpuscular Volume 95.0 fL Mean Corpuscular Hemoglobin 32.5 pg Mean Corpuscular Hemoglobin Concent 34.2 g/dl Platelet Count 182 K/uL Mean Platelet Volume 10.0 fL Neutrophils (%) (Auto) 91.3 % Lymphocytes (%) (Auto) 4.4 % Monocytes (%) (Auto) 3.6 % Eosinophils (%) (Auto) 0.3 % Basophils (%) (Auto) 0.1 % Neutrophils # (Auto) 10.50 K/uL Lymphocytes # (Auto) 0.51 K/uL Monocytes # (Auto) 0.41 K/uL Eosinophils # (Auto) 0.03 K/uL Basophils # (Auto) 0.01 K/uL RDW Standard Deviation 53.0 fL RDW Coefficient of Variation 15.3 % Immature Granulocyte % (Auto) 0.3 % Immature Granulocyte # (Auto) 0.04 K/uL Sodium Level 135 mmol/L Potassium Level 4.4 mmol/L Chloride Level 100 mmol/L Carbon Dioxide Level 27 mmol/L Anion Gap 8.0 mmol/L Blood Urea Nitrogen 20 mg/dl Creatinine 1.02 mg/dl Est Creatinine Clear Calc Drug Dose 71.7 ml/min Estimated GFR () 82.4 Estimated GFR (Non- 71.1 BUN/Creatinine Ratio 19.8 Random Glucose 110 mg/dl Calcium Level 9.0 mg/dl Total Bilirubin 0.5 mg/dl Aspartate Amino Transf (AST/SGOT) 22 U/L Alanine Aminotransferase (ALT/SGPT) 30 U/L Alkaline Phosphatase 54 U/L Pro-B-Type Natriuretic Peptide 773 pg/ml Total Protein 7.2 gm/dl Albumin 2.8 gm/dl Globulin 4.4 gm/dl Albumin/Globulin Ratio 0.6 Prothrombin Time 9.9 SECONDS Prothromb Time International Ratio 0.9 Activated Partial Thromboplast Time 29.4 SECONDS Partial Thromboplastin Ratio 1.1 Influenza Type A Antigen Neg for Influ A Influenza Type B Antigen Neg for Influ B Arterial Blood pH 7.49 Arterial Blood Partial Pressure CO2 28 mmHg Arterial Blood Partial Pressure O2 88 mm/Hg Arterial Blood HCO3 20 mmol/L Arterial Blood Oxygen Saturation 97.1 % Arterial Blood Base Excess -2.0 mEq/L Arterial Blood Gas Delivery ROOM AIR [place] Test POS Assessment and Plan 76 y/o M admitted with COPD exacerbation with a progressive SOB x 2 days. Recently admitted with COPD exacerbations 02/04, 04/07. Was discharged to home with oxygen intermittently COPD exacerbation History of COPD History of tobacco abuse disorder quit in prior admission which was 2 weeks ago Multiple admission because of COPD exacerbation Patient still has a lot of wheezing and mild labored breathing , we'll continue scheduled nebulizers, was DuoNeb as needed every 2 hours when necessary , Continue steroids, Abx, 02 protocol. Hx HLD, BPH, cont continue current medication Discussed medicine compliant, DVT prophylaxis Continued [facility] stay due to: multiple IV medications needed Discharge planning: home
[2017-04-19] MEDS: TAMSULOSIN HCL 0.4 MG CAP PO SCH (20:38)
[2017-04-20] VITALS (9 sets, daily range): BP systolic 149–177; BP diastolic 66–79; PULSE 71–89; TEMP 36.3–36.4; O2SAT 93–96
[2017-04-20] MEDS: ALBUT/IPRATROP 3MG/0.5MG NEB 3 ML VIAL INH SCH ×4 (01:30→19:26)
[2017-04-20] MEDS: METHYLPREDNISOLONE IV 60 MG in SYRINGE 0 ML IV SCH ×4 (03:32→21:59)
[2017-04-20] MEDS: AZITHROMYCIN IV 500 MG in DEXTROSE 5% 250ML 250 ML IV SCH (05:46)
[2017-04-20] MEDS: HEPARIN SOD 5000 UNIT/0.5 ML CARP SQ SCH ×3 (05:47→22:00)
[2017-04-20 06:09] LABS: HEMATOCRIT 36.5 % (42-52); HEMOGLOBIN 12.4 g/dL (14.0-18.0); IG# 0.01 K/uL (0.00-0.02); LYMPH % 3.3 %; MEAN CELL VOLUME 94.1 fL (80-100); MEAN PLATELET VOLUME 9.9 fL (7.4-10.4); MONO % 1.5 %; MONO ABS # 0.19 K/uL (0.11-0.59); NEUT % 95.1 %; PLATELET COUNT 186 K/uL (130-400); RED CELL DISTRIBUTION WIDTH CV 15.2 % (11.5-14.5); RED CELL DISTRIBUTION WIDTH SD 51.3 fL (36.4-46.3)
[2017-04-20 06:51] LABS: CALCIUM 8.7 mg/dl (8.5-10.1); CREATININE 0.92 mg/dl (0.60-1.40); POTASSIUM 4.4 mmol/L (3.5-5.1)
[2017-04-20] MEDS: ATORVASTATIN 10 MG TAB PO SCH (07:50)
[2017-04-20] MEDS: RANITIDINE HCL 150 MG TAB PO SCH ×2 (07:50→20:58)
--- NOTE | 2017-04-20 08:23 | Hospitalist Progress Note ---
Hospitalist Progress Note Date of Service Apr 20, 2017. Subjective Pt evaluation today including: conversation w/ patient, physical exam, chart review, lab review, review of studies Pain: None PO Intake: Good Voiding: no voiding problems The patient was seen and examined this morning. Pt reports doing well. His breathing has improved compared to yesterday. The patient admits to a cough with minor sputum production. It is clear to yellow in color. He denies any fevers, sweats, chills overnight. The patient typically wears 2 L O2 via NC at home whenever he feels like he needs it (upon exertion), but does not chronically wear it. He is requiring 2 L at rest while here in the hospital. He denies any other acute complaints. ROS: Constitutional: No fever, sweats or chills Eyes: No diplopia, no worsening or blurred vision ENT: normal hearing, no trouble swallowing Respiratory: See above. Cardiovascular: No chest pain, tightness or palpitations Abdomen: No pain, nausea, vomiting, diarrhea or constipation Musculoskeletal: No joint pain, calf pain, swelling Neurologic: No weakness, numbness/tingling, or balance problems Psychiatric: No anxiety or depression Skin: No rash or itch Objective Vital Signs Date Time Temp Pulse Resp B/P (MAP) Pulse Ox O2 Delivery O2 Flow Rate FiO2 04/20/17 07:29 73 18 96 Nasal Cannula 3.0 04/20/17 07:17 36.3 88 20 163/69 (100) 95 Nasal Cannula 2.5 04/20/17 01:31 71 18 93 Room Air 04/20/17 00:00 Nasal Cannula 2.0 04/19/17 22:59 36.4 78 28 162/74 (103) 95 Nasal Cannula 3.0 04/19/17 20:42 82 18 94 Room Air 04/19/17 17:08 36.3 77 18 156/71 (99) 96 Room Air 04/19/17 16:00 94 Nasal Cannula 2.0 04/19/17 15:48 36.6 77 22 94 2.0 04/19/17 15:28 36.6 77 22 133/69 (90) 94 Nasal Cannula 2.0 04/19/17 13:20 77 20 96 Room Air 04/19/17 12:00 36.8 74 24 133/81 (98) 94 Nasal Cannula 2.0 04/19/17 12:00 Nasal Cannula 2.0 Physical Exam Notes: General: awake, alert, no apparent distress Head: Normocephalic, atraumatic ENT: PERRL, EOMI, no pharyngeal exudate, mucous membranes moist Chest: On 2 L via NC, diminished aeration throughout, few expiratory wheeze in RUL, no rales or rhonchi. Cardiac: Regular rate and rhythm, no murmur, no JVD, normal peripheral pulses, good capillary refill Abdominal: NABS x 4 quadrants, soft, nontender to palpation, no rebound, guarding or tenderness Extremities: Normal inspection, no peripheral edema or erythema, calfs nontender to palpation Psych: Normal mood and affect Neuro: AAO x 3, speech is clear, no peripheral sensory deficits Laboratory Results Last 24 Hours Test 04/20/17 05:56 White Blood Count 12.30 K/uL Red Blood Count 3.88 M/uL Hemoglobin 12.4 g/dL Hematocrit 36.5 % Mean Corpuscular Volume 94.1 fL Mean Corpuscular Hemoglobin 32.0 pg Mean Corpuscular Hemoglobin Concent 34.0 g/dl Platelet Count 186 K/uL Mean Platelet Volume 9.9 fL Neutrophils (%) (Auto) 95.1 % Lymphocytes (%) (Auto) 3.3 % Monocytes (%) (Auto) 1.5 % Eosinophils (%) (Auto) 0.0 % Basophils (%) (Auto) 0.0 % Neutrophils # (Auto) 11.70 K/uL Lymphocytes # (Auto) 0.40 K/uL Monocytes # (Auto) 0.19 K/uL Eosinophils # (Auto) 0.00 K/uL Basophils # (Auto) 0.00 K/uL RDW Standard Deviation 51.3 fL RDW Coefficient of Variation 15.2 % Immature Granulocyte % (Auto) 0.1 % Immature Granulocyte # (Auto) 0.01 K/uL Sodium Level 136 mmol/L Potassium Level 4.4 mmol/L Chloride Level 104 mmol/L Carbon Dioxide Level 26 mmol/L Anion Gap 6.0 mmol/L Blood Urea Nitrogen 21 mg/dl Creatinine 0.92 mg/dl Est Creatinine Clear Calc Drug Dose 77.2 ml/min Estimated GFR () 93.3 Estimated GFR (Non- 80.5 BUN/Creatinine Ratio 23.4 Random Glucose 149 mg/dl Calcium Level 8.7 mg/dl Magnesium Level 2.2 mg/dl Assessment and Plan 76 y/o M Hx HLD, BPH, COPD , tobacco abuse and quit 3 weeks ago. Pt presents with progressive SOB x 2 days. Recently admitted with COPD exacerbations 02/04 , 04/07. Pt was DCd with home 02 following his most recent admission and has needed 02 intermittently only, usually with exertion. 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 The patient has been admitted several times for COPD exacerbation - consider low-dose azithromycin 250 mg MWF for anti-inflammatory properties. - CT overnight for increased shortness of breath IMPRESSION: 1. No evidence for pulmonary embolus. 2. Stable mild aneurysmal dilatation of the ascending thoracic aorta measuring up to 4.3 cm in diameter. 3. Emphysema. 4. Prior left upper lobectomy. 5. Stable prominent right hilar lymph nodes. HLD - cont atorvastatin 10 mg HS BPH - cont Flomax DVT ppx: - Heparin subcutaneous CODE: Full code Disposition: Patient from home, lives with his , possible discharge in 1-2d , no CM needs anticipated.
[2017-04-20] MEDS: TAMSULOSIN HCL 0.4 MG CAP PO SCH (20:57)
[2017-04-21] VITALS (9 sets, daily range): BP systolic 137–159; BP diastolic 57–88; PULSE 68–84; TEMP 36.4–36.5; O2SAT 93–97
[2017-04-21] MEDS: ALBUT/IPRATROP 3MG/0.5MG NEB 3 ML VIAL INH SCH ×3 (01:44→14:33)
[2017-04-21] MEDS: AZITHROMYCIN IV 500 MG in DEXTROSE 5% 250ML 250 ML IV SCH (05:17)
[2017-04-21] MEDS: HEPARIN SOD 5000 UNIT/0.5 ML CARP SQ SCH ×3 (05:17→20:31)
[2017-04-21] MEDS: METHYLPREDNISOLONE IV 60 MG in SYRINGE 0 ML IV SCH ×2 (05:17→09:46)
[2017-04-21] MEDS: ATORVASTATIN 10 MG TAB PO SCH (07:44)
[2017-04-21] MEDS: RANITIDINE HCL 150 MG TAB PO SCH ×2 (07:45→20:32)
--- NOTE | 2017-04-21 14:25 | Hospitalist Progress Note ---
Hospitalist Progress Note Date of Service Apr 21, 2017. Subjective Pt evaluation today including: conversation w/ patient, physical exam, chart review, lab review, review of studies Pain: None PO Intake: Good Voiding: no voiding problems The patient was seen and examined this morning. Pt reports doing well, he reports his cough is slightly improved. He was up and ambulating to the bathroom to wash up and felt acutely short of breath whenever he was near finished. He needed wears oxygen again whenever he got back to bed, and requested a nebulizer treatment. Currently he is sitting in bed on room air. He is coughing up some yellow/brown mucus occasionally. He denies any fevers, sweats, chills. ROS: Constitutional: No fever, sweats or chills Eyes: No diplopia, no worsening or blurred vision ENT: normal hearing, no trouble swallowing Respiratory: See above. Cardiovascular: No chest pain, tightness or palpitations Abdomen: No pain, nausea, vomiting, diarrhea or constipation Musculoskeletal: No joint pain, calf pain, swelling Neurologic: No weakness, numbness/tingling, or balance problems Psychiatric: No anxiety or depression Skin: No rash or itch Objective Vital Signs Date Time Temp Pulse Resp B/P (MAP) Pulse Ox O2 Delivery O2 Flow Rate FiO2 04/21/17 09:28 94 Room Air 04/21/17 08:30 Room Air 04/21/17 07:45 36.4 79 18 137/57 (83) 94 Nasal Cannula 2.0 04/21/17 07:40 79 18 95 Nasal Cannula 2.0 04/21/17 05:25 84 159/84 (109) 04/21/17 01:44 74 18 95 Nasal Cannula 2.0 04/20/17 23:21 Nasal Cannula 2.0 04/20/17 22:56 36.4 79 24 177/79 (111) 93 Nasal Cannula 3.0 04/20/17 19:26 84 18 95 Nasal Cannula 2.0 04/20/17 16:00 94 Nasal Cannula 2.0 04/20/17 15:10 36.4 84 18 149/66 (93) 94 Nasal Cannula 2.0 Physical Exam Notes: General: awake, alert, no apparent distress Head: Normocephalic, atraumatic ENT: PERRL, EOMI, no pharyngeal exudate, mucous membranes moist Chest: On RA, improving aeration throughout, + expiratory wheeze throughout, no rales or rhonchi. Cardiac: Regular rate and rhythm, no murmur, no JVD, normal peripheral pulses, good capillary refill Abdominal: NABS x 4 quadrants, soft, nontender to palpation, no rebound, guarding or tenderness Extremities: Normal inspection, no peripheral edema or erythema, calfs nontender to palpation Psych: Normal mood and affect Neuro: AAO x 3, speech is clear, no peripheral sensory deficits Assessment and Plan 76 y/o M Hx HLD, BPH, COPD , tobacco abuse and quit 3 weeks ago. Pt presents with progressive SOB x 2 days. Recently admitted with COPD exacerbations 02/04 , 04/07. Pt was DCd with home 02 following his most recent admission and has needed 02 intermittently only, usually with exertion. 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 - The patient has been admitted several times for COPD exacerbation - consider low-dose azithromycin 250 mg MWF for anti-inflammatory properties. - CT reviewed as per EMR. - Clinically improving. - PT/OT consulted - Home O2 at 2L prn HLD - cont atorvastatin 10 mg HS BPH - cont Flomax DVT ppx: Heparin subq CODE: Full code Disposition: Patient from home, lives with his , possible discharge in 1-2d , no CM needs anticipated.
[2017-04-21] MEDS: LEVALBUTEROL 1.25MG/3ML NEB INH SCH ×2 (15:00→19:52)
[2017-04-21] MEDS ORDERED: METOCLOPRAMIDE HCL INJ 5 MG/ML 2 ML VIAL IV. PRN (15:00)
--- NOTE | 2017-04-21 15:39 | DIAGNOSTIC IMAGING REPORT ---
KUB CLINICAL HISTORY: Abdominal distention. Nausea. FINDINGS: 2 AP supine abdominal radiographs are correlated with abdominal CT dated 04/18/2017. There is a nonobstructed abdominal bowel gas pattern. Mild to moderate colonic fecal retention is observed. No evidence of intraperitoneal free air is seen on these supine images. Vascular calcifications are noted. The skeletal structures are osteopenic. Mild to moderate lumbosacral spondylosis is identified. Emphysema is noted at the lung bases. IMPRESSION: Nonobstructed abdominal bowel gas pattern. Electronically signed by: Colby Etienne M.D. 04/21/2017 3:37 PM Dictated Date/Time: 04/21/2017 3:36 PM
--- NOTE | 2017-04-21 15:42 | DIAGNOSTIC IMAGING REPORT ---
CHEST ONE VIEW PORTABLE HISTORY: Short of breath. assess for pulmonary congestion COMPARISON: Chest 04/18/2017. FINDINGS: Surgical clips within the left hilum with volume loss within the left hemithorax and expansion of the residual lung. This is consistent with a prior left upper lobectomy. No focal lung consolidations to suggest pneumonia. No evidence for pulmonary edema. No pleural effusions. No pneumothorax. The heart is normal in size. IMPRESSION: No significant change compared to the prior study. No acute process. Stable postoperative changes within the left hemithorax. Electronically signed by: Varun Toledo M.D. 04/21/2017 3:40 PM Dictated Date/Time: 04/21/2017 3:38 PM
[2017-04-21 15:52] LABS: HEMATOCRIT 38.7 % (42-52); HEMOGLOBIN 13.2 g/dL (14.0-18.0); MEAN CELL VOLUME 93.7 fL (80-100); MEAN PLATELET VOLUME 10.1 fL (7.4-10.4); PLATELET COUNT 230 K/uL (130-400); RED CELL DISTRIBUTION WIDTH CV 15.2 % (11.5-14.5); RED CELL DISTRIBUTION WIDTH SD 51.7 fL (36.4-46.3); WHITE BLOOD COUNT 10.87 K/uL (4.8-10.8)
[2017-04-21 16:19] LABS: MEAN CORPUSCULAR HGB CONC 34.1 g/dl (32-36)
[2017-04-21 16:22] LABS: CALCIUM 8.4 mg/dl (8.5-10.1); CREATININE 0.96 mg/dl (0.60-1.40); POTASSIUM 4.2 mmol/L (3.5-5.1)
[2017-04-21] MEDS: TAMSULOSIN HCL 0.4 MG CAP PO SCH (20:32)
[2017-04-21] MEDS ORDERED: METHYLPREDNISOLONE IV 40 MG in SYRINGE 0 ML IV SCH (22:00)
[2017-04-22] VITALS (9 sets, daily range): BP systolic 151–186; BP diastolic 81–94; PULSE 68–93; TEMP 36.3–36.4; O2SAT 93–98
[2017-04-22] MEDS: LEVALBUTEROL 1.25MG/3ML NEB INH SCH ×2 (02:15→06:22)
[2017-04-22] MEDS: HEPARIN SOD 5000 UNIT/0.5 ML CARP SQ SCH ×3 (05:44→20:35)
[2017-04-22 07:18] LABS: HEMATOCRIT 39.6 % (42-52); HEMOGLOBIN 13.4 g/dL (14.0-18.0); MEAN CORPUSCULAR HEMOGLOBIN 32.1 pg (25-34); MEAN CORPUSCULAR HGB CONC 33.8 g/dl (32-36); MEAN PLATELET VOLUME 9.7 fL (7.4-10.4); PLATELET COUNT 231 K/uL (130-400); RED CELL DISTRIBUTION WIDTH CV 15.3 % (11.5-14.5); RED CELL DISTRIBUTION WIDTH SD 53.1 fL (36.4-46.3); WHITE BLOOD COUNT 9.52 K/uL (4.8-10.8)
[2017-04-22 07:44] LABS: CALCIUM 8.4 mg/dl (8.5-10.1); CREATININE 0.85 mg/dl (0.60-1.40); POTASSIUM 4.1 mmol/L (3.5-5.1)
[2017-04-22] MEDS: MAGNESIUM HYDROXIDE SUSP 30 ML UDC PO PRN (08:08)
[2017-04-22] MEDS: ATORVASTATIN 10 MG TAB PO SCH (08:08)
[2017-04-22] MEDS: AZITHROMYCIN 250 MG TAB PO SCH (08:08)
[2017-04-22] MEDS: RANITIDINE HCL 150 MG TAB PO SCH ×2 (08:08→20:34)
[2017-04-22] MEDS ORDERED: LEVALBUTEROL/IPRATROPIUM NEB INH PRN (10:15)
[2017-04-22] MEDS ORDERED: METHYLPREDNISOLONE IV 80 MG in SYRINGE 0 ML IV ONE (10:30)
[2017-04-22] MEDS ORDERED: LEVALBUTEROL 1.25MG/0.5ML NEB INH PRN (10:30)
[2017-04-22] MEDS ORDERED: IPRATROPIUM BROMIDE NEB SOLN 0.02% 2.5 ML VIAL INH PRN (10:30)
[2017-04-22] MEDS: IPRATROPIUM BROMIDE NEB SOLN 0.02% 2.5 ML VIAL INH SCH ×3 (10:55→18:54)
[2017-04-22] MEDS: LEVALBUTEROL 1.25MG/0.5ML NEB INH SCH ×3 (10:56→18:54)
[2017-04-22] MEDS ORDERED: ALPRAZOLAM 0.5 MG TAB PO STA (13:41)
[2017-04-22] MEDS ORDERED: ALPRAZOLAM 0.25 MG TAB PO PRN (13:45)
[2017-04-22] MEDS ORDERED: ALPRAZOLAM 0.5 MG TAB ONE (13:46)
--- NOTE | 2017-04-22 14:27 | Hospitalist Progress Note ---
Hospitalist Progress Note Date of Service Apr 22, 2017. Subjective Pt evaluation today including: conversation w/ patient, physical exam, chart review, lab review, review of studies Pain: None PO Intake: Good Voiding: no voiding problems The patient was seen and examined this morning. Pt reports feeling like his breathing is tight this morning, and has had 2 episodes where he feels short of breath after being up and ambulating to the bathroom. He seems to be acutely anxious about this. He also reports feeling dizzy/lightheaded when he was up and reports feeling worse for a few seconds when he sat back down. He denies any difficulty with shortness of breath with speaking or eating. Bowels are moving. He is not as distended or bloated this morning. I have asked pulmonology to come see him today. ROS: 6 point ROS reviewed as above, and otherwise negative. Objective Vital Signs Date Time Temp Pulse Resp B/P (MAP) Pulse Ox O2 Delivery O2 Flow Rate FiO2 04/22/17 13:35 84 30 173/82 (112) 96 Nasal Cannula 3.0 04/22/17 10:59 76 24 98 Room Air 04/22/17 09:30 Nasal Cannula 3.0 04/22/17 07:30 36.3 83 16 151/81 (104) 95 Nasal Cannula 4.0 04/22/17 06:22 74 24 96 Nasal Cannula 2.0 04/22/17 02:15 78 18 97 Nasal Cannula 2.0 04/22/17 00:00 Nasal Cannula 2.0 04/21/17 23:34 36.5 68 18 152/75 (100) 93 Room Air 04/21/17 20:00 Nasal Cannula 2.0 04/21/17 19:53 80 18 94 Room Air 04/21/17 16:45 Room Air 04/21/17 16:02 36.5 82 21 140/88 (105) 95 Room Air 04/21/17 14:33 77 20 97 Nasal Cannula 2.0 Physical Exam Notes: General: awake, alert, + mild distress Head: Normocephalic, atraumatic ENT: PERRL, EOMI, no pharyngeal exudate, mucous membranes moist Chest: On 3L, breath sounds are tight, + expiratory wheeze throughout, no rales or rhonchi. Cardiac: Regular rate and rhythm, no murmur, no JVD, normal peripheral pulses, good capillary refill Abdominal: NABS x 4 quadrants, soft, nontender to palpation, no rebound, guarding or tenderness Extremities: Normal inspection, no peripheral edema or erythema, calfs nontender to palpation Psych: Normal mood and affect Neuro: AAO x 3, speech is clear, no peripheral sensory deficits Laboratory Results Last 24 Hours Test 04/21/17 15:35 04/21/17 15:42 04/21/17 21:46 04/22/17 06:56 White Blood Count 10.87 K/uL 9.52 K/uL Red Blood Count 4.13 M/uL 4.17 M/uL Hemoglobin 13.2 g/dL 13.4 g/dL Hematocrit 38.7 % 39.6 % Mean Corpuscular Volume 93.7 fL 95.0 fL Mean Corpuscular Hemoglobin 32.0 pg 32.1 pg Mean Corpuscular Hemoglobin Concent 34.1 g/dl 33.8 g/dl RDW Standard Deviation 51.7 fL 53.1 fL RDW Coefficient of Variation 15.2 % 15.3 % Platelet Count 230 K/uL 231 K/uL Mean Platelet Volume 10.1 fL 9.7 fL Sodium Level 136 mmol/L 136 mmol/L Potassium Level 4.2 mmol/L 4.1 mmol/L Chloride Level 102 mmol/L 102 mmol/L Carbon Dioxide Level 28 mmol/L 28 mmol/L Anion Gap 6.0 mmol/L 6.0 mmol/L Blood Urea Nitrogen 24 mg/dl 25 mg/dl Creatinine 0.96 mg/dl 0.85 mg/dl Est Creatinine Clear Calc Drug Dose 74.0 ml/min 83.5 ml/min Estimated GFR () 88.6 98.1 Estimated GFR (Non- 76.5 84.6 BUN/Creatinine Ratio 24.8 28.9 Random Glucose 118 mg/dl 106 mg/dl Calcium Level 8.4 mg/dl 8.4 mg/dl Arterial Blood pH 7.44 Arterial Blood Partial Pressure CO2 40 mmHg Arterial Blood Partial Pressure O2 72 mm/Hg Arterial Blood HCO3 26 mmol/L Arterial Blood Oxygen Saturation 94.3 % Arterial Blood Base Excess 2.1 mEq/L Arterial Blood Gas Delivery 2L O2 Hayden Test POS Troponin I < 0.015 ng/ml Test 04/22/17 10:23 04/22/17 13:30 04/22/17 13:42 04/22/17 13:54 Bedside Glucose 165 mg/dl 170 mg/dl Creatine Kinase MB Ratio D-Dimer 1580 ug/L FEU Test 04/22/17 14:20 Assessment and Plan 76 y/o M Hx HLD, BPH, COPD , tobacco abuse and quit 3 weeks ago. Pt presents with progressive SOB x 2 days. Recently admitted with COPD exacerbations 02/04 , 04/07. Pt was DCd with home 02 following his most recent admission and has needed 02 intermittently only, usually with exertion. 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 - The patient has been admitted several times for COPD exacerbation - consider low-dose azithromycin 250 mg MWF for anti-inflammatory properties. - Will ask pulmonology to see the pt today. - CXR from 04/21 reviewed and shows no acute changes from previous. KUB also reviewed and shows no obstructing pattern - tolerating diet, moving bowels. CT reviewed as per EMR. - PT/OT consulted - pt refusing today. - Home O2 at 2L prn HLD - cont atorvastatin 10 mg HS BPH - cont Flomax DVT ppx: Heparin subq CODE: Full code Disposition: Patient from home, lives with his , possible discharge in 1-2d , no CM needs anticipated.
[2017-04-22] MEDS ORDERED: OPTIRAY 320 IV PRN (14:30)
[2017-04-22 14:32] LABS: CKMB 3.9 ng/ml (0.5-3.6)
[2017-04-22] MEDS ORDERED: LEVALBUTEROL/IPRATROPIUM NEB INH SCH (15:00)
--- NOTE | 2017-04-22 15:54 | DIAGNOSTIC IMAGING REPORT ---
CT ANGIOGRAPHY OF THE CHEST, PULMONARY EMBOLUS PROTOCOL CLINICAL HISTORY: Shortness of breath. Elevated d-dimer. COPD exacerbation. COMPARISON STUDY: Chest CT April 19, 2007 18 and chest radiograph April 21, 2017. TECHNIQUE: Following IV administration of 93 mL of Optiray-320, helical axial images of the chest were obtained utilizing the pulmonary embolus protocol. Maximal intensity projections and sagittal and coronal reformats were viewed on an independent 3D workstation. IV contrast was administered without complication. A dose lowering technique was utilized adhering to the principles of ALARA. CT DOSE: 326.61 mGy.cm FINDINGS: No pulmonary emboli are identified however vessel opacification is suboptimal. The size of the heart is normal. Dilatation of the ascending aorta, measuring 4.4 cm is unchanged. There is no thoracic aortic dissection. There is extensive plaque of the thoracic aorta. There is no pneumothorax. There is trace left pleural effusion. There is no consolidation to suggest pneumonia. The patient is status post left upper lobectomy. Diffuse bronchial wall thickening is noted. Central airways are patent. No enlarged thoracic lymph nodes are present. There are small amount of secretions within the left mainstem bronchus. No suspicious osseous lesions are present. Visualized portions of the upper abdomen demonstrate a right hepatic lobe cyst is well and numerous presumed renal cyst. Left perinephric infiltration is unchanged from earlier studies. IMPRESSION: 1. No pulmonary emboli identified although vessel opacification suboptimal. 2. No acute intrathoracic findings. 3. Status post left upper lobectomy. 4. No consolidation to suggest pneumonia. 5. Stable dilatation of the ascending aorta, measuring 4.4 cm. No thoracic aortic dissection. Electronically signed by: Renzo Pepe M.D. 04/22/2017 3:53 PM Dictated Date/Time: 04/22/2017 3:44 PM
[2017-04-22] MEDS: METHYLPREDNISOLONE IV 40 MG in SYRINGE 0 ML IV SCH ×2 (16:05→20:35)
--- NOTE | 2017-04-22 18:21 | PULMONARY CONSULTATION ---
DATE OF CONSULTATION: 04/22/2017 TIME: 3:35 p.m. HISTORY OF PRESENT ILLNESS: The patient was seen in room 459 bed 1. He is a 76-year-old male who was admitted to the hospital on 04/19/2017. He had gone to the emergency room in the late hours of 04/18/2017, complaining of severe shortness of breath. Pertinent history is that he carries a diagnosis of COPD. He was found to have a mass in the left upper lung field in 2015. In December of 2015, he had this left upper lobectomy performed by Dr. Saldivar. 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 There was no evidence of spread. He did not receive any radiation or chemo. He was hospitalized again in February of 2016. At that time he had a pleural effusion that was tapped by Dr. Saldivar. He was found to have E. coli sepsis. I do not know if a definite source was found. He had remained fairly good until January. He was admitted from 01/24/2017 until 01/25/2017 with an exacerbation of COPD. On the 03/04/2017 he was in with an exacerbation of COPD via the ER. He was then hospitalized from 04/01/2017 until 04/02/2017. He was discharged with azithromycin and prednisone. He then comes back again less than 3 weeks later with increasing shortness of breath. The patient describes getting sudden episodes of severe shortness of breath and he feels that he cannot catch his wind. I believe he gets panicky. He does try to take a nebulizer treatment, which if he catches it early enough gives him some benefit. The patient relates that it usually occurs when he is exerting himself to some degree, possibly when just going up steps. If he is sitting absolutely still, he does not usually have too much trouble. The patient has a cough. He does not expectorate much phlegm. There has been no hemoptysis. He has not had chest pains. He has not had chills, fevers or sweats. The patient relates that he has lost about 22 pounds in the past 3 months. I am not sure how he knows this definitively. He states his family doctor had not mentioned anything to him about this. He feels that he is eating well despite the weight loss. The patient has a longstanding history of smoking. He began smoking at age 12. He has smoked at least for 60 years or more. He has done 1 pack per day or more than that on average. He has been trying to quit. He has been trying Chantix. He thought maybe the Chantix was making him short of breath, but I explained to him I thought that was unlikely. The patient does enjoy drinking beer, but he states he has not had any for quite some time. PAST SURGICAL HISTORY: 1. Appendectomy. 2. Left upper lobectomy as noted. PAST MEDICAL HISTORY: 1. Thoracic aortic aneurysm. 2. Reflux. 3. BPH. 4. Polycystic kidney disease. ALLERGIES: No known medication allergies. FAMILY HISTORY: Mother , had lung cancer. Father from accidental . MEDICATIONS: At home; 1. ProAir p.r.n. 2. Nebulizer p.r.n., but patient did not know what medicine was in it. 3. Atorvastatin 10 mg daily. 4. Guaifenesin p.r.n. 5. Omeprazole 20 mg p.r.n. 6. Prednisone 5 mg daily. 7. Ranitidine 150 mg b.i.d. 8. Flomax 0.4 mg daily. 9. Spiriva 1 daily. REVIEW OF SYSTEMS: In addition to the above mentioned complaints, patient states that sometimes his food sticks, sometimes he will throw up soon after eating. He believes that at times he has difficulty swallowing. He denies significant difficulty with urination. He states the Flomax has helped a lot. He denies that the Spiriva has bothered his urination. His energy level is low. The remainder of the review of systems is negative except as noted above. Ten systems reviewed. PHYSICAL EXAMINATION: GENERAL: The patient is a 76-year-old male who was cooperative, alert and oriented. He was in no distress at rest. He seemed anxious. VITAL SIGNS: His weight is listed as 82 kilograms. BMI is 23.9. I was unable to retrieve what his weight was at the time of his January admission. HEENT: Pupils were reactive to light. Nares were clear. He has an area of skin irritation underneath the nostrils, which may be related to irritation from the nasal cannula. Mouth exam shows some erythema of the mucosa. He has some buccal irritation on each side that looked like it could be from his false teeth rubbing against one another. He does not notice symptoms. NECK: Palpation of the neck reveals no lymph nodes. HEART: Heart rate was 85 per minute. The rhythm is regular. Blood pressure 173/82. LUNGS: Auscultation of the lung hodge revealed mild scattered rhonchi. He did not sound all that tight. Respiratory rate was 22. Saturation was 96% on 3 liters. ABDOMEN: Soft. Bowel sounds were normal. There was no tenderness to palpation or masses. EXTREMITIES: Showed no cyanosis, clubbing or edema. LABORATORY DATA: The patient had a CTA of the chest on 04/19/2017. There was no evidence of pulmonary embolism. The ascending thoracic aorta was dilated, measuring 4.3 cm. Emphysema was noted. Prior left upper lobectomy was noted. There was mild prominence of the right hilar lymph nodes. CT of the abdomen and pelvis reported polycystic kidney disease. The prostate was enlarged. It did comment on mild bronchial wall thickening in the right lower lobe. KUB x-ray showed a nonobstructive abdominal gas pattern. White count is 9.52. Hemoglobin 13.4. Platelets 231,000. Coags were normal. D-dimer done today was 1580. Blood gas done on admission showed a pH of 7.49 with a pCO2 of 28 and a pO2 of 88. Blood gas done yesterday on 2 liters showed a pH of 7.44 with a pCO2 of 40 and a pO2 of 72. Troponins were negative. Flu test was negative. The patient has gone down for another CAT scan of the chest, those results are pending. IMPRESSION: 1. Chronic obstructive pulmonary disease with exacerbation. 2. History of lung carcinoma - status post left upper lobectomy. 3. Anxiety. 4. Thoracic aortic aneurysm. 5. Dysphagia. COMMENTS AND RECOMMENDATIONS: I agree with the steroids, he is on 40 mg IV q. 8 hours. I believe this could be cut down. I agree with the levalbuterol and ipratropium. I would restart patient's Spiriva once daily. I believe a swallow evaluation and/or speech evaluation may be indicated. The patient describes having difficulty at times with food sticking. It is unclear if this may play any role in his symptoms. The patient already has oxygen and a nebulizer at home. Further suggestions will be made as needed. Thank you for asking me to assist in his care.
[2017-04-22] MEDS: TAMSULOSIN HCL 0.4 MG CAP PO SCH (20:34)
[2017-04-23] VITALS (9 sets, daily range): BP systolic 127–188; BP diastolic 70–95; PULSE 72–87; TEMP 36.4; O2SAT 94–98
[2017-04-23] MEDS: IPRATROPIUM BROMIDE NEB SOLN 0.02% 2.5 ML VIAL INH SCH ×4 (02:12→18:49)
[2017-04-23] MEDS: LEVALBUTEROL 1.25MG/0.5ML NEB INH SCH ×4 (02:12→18:50)
[2017-04-23] MEDS: HEPARIN SOD 5000 UNIT/0.5 ML CARP SQ SCH ×3 (05:36→21:31)
[2017-04-23] MEDS: METHYLPREDNISOLONE IV 40 MG in SYRINGE 0 ML IV SCH (05:59)
[2017-04-23] MEDS: ATORVASTATIN 10 MG TAB PO SCH (08:20)
[2017-04-23] MEDS: AZITHROMYCIN 250 MG TAB PO SCH (08:21)
--- NOTE | 2017-04-23 08:25 | PULMONARY PROGRESS NOTE ---
DATE: 04/23/2017 TIME: 7:55 a.m. SUBJECTIVE: The patient denies any problems overnight. There has been no acute episodes of shortness of breath. He has very little cough. There has been no sputum production. The patient has told me that he has lost a significant amount of weight. I did, however, review his weight when hospitalized on 01/25/2017 and it was 79 kilograms and currently it is 82 kilograms. Thus, he has actually gained weight, at least since January. He does continue to mention that periodically if he eats too much, he will throw up. He feels that food does not swallow done well. OBJECTIVE: GENERAL: The patient appeared comfortable at rest. He is afebrile. Temperature this morning 36.4. EARS, NOSE, THROAT: Exam is unremarkable. VITAL SIGNS: The cardiac rate is 75 per minute. The rhythm is regular. Blood pressure was elevated at 185/95. CHEST: Auscultation of the lung hodge revealed decreased breath sounds. No wheezes, rales or rhonchi were heard. Oxygen saturation at the time of my exam was 91% on 2 liter nasal cannula. ABDOMEN: Soft and nontender. EXTREMITIES: Showed no cyanosis, clubbing or edema. The patient had a repeat CT angio of the chest yesterday. There was once again no pulmonary emboli. There were no acute changes. There was no significant change of the dilation of the thoracic ascending aorta. LABORATORY DATA: White blood cell count today is 9.52. Hemoglobin 13.4. Platelets 231,000. Blood sugar this morning was 104. IMPRESSIONS: 1. Chronic obstructive pulmonary disease with exacerbation. 2. History of lung carcinoma -- status post left upper lobectomy. 3. Dysphagia. 4. Anxiety. 5. Thoracic aortic aneurysm. 6. Nicotine addiction. COMMENTS AND RECOMMENDATIONS: The patient seems to be doing reasonably well. I would decrease the IV steroids to 20 mg IV q. 8 hours. Would try to get the patient ambulating. It was reported that yesterday he had refused physical therapy. He does not examine as being significantly tight at present. I believe he should have a speech evaluation or a barium swallow in light of his history of dysphagia. I would restart his Spiriva as he was taking at home. He has not been on any inhaled steroid as best as I can tell at home. Would start him on either Advair or Symbicort in this regard. Hopefully, the patient can be discharged soon. I believe he should have pulmonary followup as mentioned in the consult.
[2017-04-23] MEDS ORDERED: HydrALAZINE HCL 20 MG/ML VIAL IV. PRN (08:30)
[2017-04-23] MEDS ORDERED: LISINOPRIL 10 MG TAB PO ONE (08:30)
[2017-04-23] MEDS: RANITIDINE HCL 150 MG TAB PO SCH ×2 (09:08→20:03)
[2017-04-23] MEDS: TIOTROPIUM BROMIDE 5 PUFF/90 MCG INH INH SCH (10:54)
[2017-04-23] MEDS: PANTOprazole SOD 40 MG TAB PO SCH (13:35)
--- NOTE | 2017-04-23 14:13 | DIAGNOSTIC IMAGING REPORT ---
CT OF THE HEAD WITHOUT CONTRAST CLINICAL HISTORY: Recent possible memory changes. COMPARISON STUDY: No previous studies for comparison. CT DOSE: 1203.96 mGy.cm TECHNIQUE: Helical axial images of the head were obtained without IV contrast. Automated exposure control was utilized for the study. A dose lowering technique was utilized adhering to the principles of ALARA. FINDINGS: No acute intracranial hemorrhage, midline shift or mass effect is present. Ventricular system is normal. The basilar cisterns are patent. There are no extra-axial collections. White matter hypodensity suggests small vessel disease. Johnson-white matter hypodensity within the right parieto-occipital region could reflect small vessel disease or an old infarct. There are no findings to suggest acute dural sinus thrombosis or acute territorial infarct. This exam is mildly compromised by motion artifact. There are no significant calvarial abnormalities. IMPRESSION: No acute intracranial findings. Electronically signed by: Renzo Pepe M.D. 04/23/2017 2:11 PM Dictated Date/Time: 04/23/2017 2:07 PM
[2017-04-23] MEDS: METHYLPREDNISOLONE IV 20 MG in SYRINGE 0 ML IV SCH ×2 (14:16→21:31)
--- NOTE | 2017-04-23 16:52 | Progress Note ---
Subjective Date of Service: Apr 23, 2017. Subjective Pt evaluation today including: conversation w/ patient, conversation w/ family , physical exam, chart review, lab review, review of studies, conversation w/ ux consultant, review of inpatient medication list After admission patient has several episodes of dizziness, anxiety, reported when moving head possible dizziness is triggered, patient has obvious dyspnea on exertion, report some cough , for now patient denied chest pain/agitation or lower extremity swelling, deny hemoptysis Problem List Medical Problems: (1) Allergic reaction Status: Acute (2) COPD exacerbation Status: Acute (3) COPD exacerbation Status: Acute (4) Dyspnea Status: Acute (5) Insect sting Status: Acute (6) Sepsis Status: Acute (7) Shortness of breath Status: Acute (8) Weakness Status: Acute Review of Systems Constitutional: + weakness, + fatigue, No fever, No chills, No sweats, No weight loss, No problem reported Eyes: No worsening of vision, No eye pain, No redness, No discharge, No diplopia ENT: No hearing loss, No unusual epistaxis, No nasal symptoms, No sore throat, No tinnitus, No dental problems, No trouble swallowing Respiratory: + shortness of breath, + dyspnea on exertion, No cough, No sputum , No wheezing, No dyspnea at rest, No hemoptysis Cardiac: No chest pain, No orthopnea, No PND, No edema, No claudication, No palpitations Abdomen: No pain, No nausea, No vomiting, No diarrhea, No constipation Musculoskeletal: No joint pain, No muscle pain, No swelling, No calf pain Male : No dysuria, No urinary frequency, No incontinence, No nocturia more than once/night, No slowing stream, No hematuria Neurologic: No memory loss, No paralysis, No weakness, No numbness/tingling, No vertigo, No balance problems Psychiatric: No depression symptoms, No anhedonism, No anxiety, No insomnia, No substance abuse Heme: No abnormal bleeding/bruising, No clotting problems, No swollen lymph nodes, No night sweats Endo: No fatigue, No excessive thirst, No excessive urination Skin: No rash, No itch, No new/changing skin lesions, No color change, No bleeding Objective Vital Signs Date Time Temp Pulse Resp B/P (MAP) Pulse Ox O2 Delivery O2 Flow Rate FiO2 04/23/17 16:27 36.4 83 22 159/81 (107) 95 Nasal Cannula 2.0 146/70 (95) 127/72 (90) 04/23/17 14:28 87 18 96 Nasal Cannula 2.0 04/23/17 11:06 167/86 (113) 04/23/17 08:10 96 Nasal Cannula 2.0 04/23/17 07:52 36.4 75 18 188/95 (126) 96 Nasal Cannula 2.0 185/86 (119) 163/82 (109) 04/23/17 07:31 72 18 94 Nasal Cannula 2.0 04/23/17 02:12 75 18 98 Nasal Cannula 3.0 04/23/17 00:00 94 Nasal Cannula 2.0 04/22/17 23:41 36.4 76 20 166/85 (112) 97 Nasal Cannula 2.0 04/22/17 18:56 68 20 94 Nasal Cannula 2.0 Physical Exam General Appearance: WD/WN, no apparent distress, + thin, + pertinent finding ( mild anxious) Eyes: normal inspection, PERRL, EOMI, sclerae normal ENT: normal ENT inspection, hearing grossly normal, pharynx normal Neck: supple, no adenopathy, thyroid normal, no JVD, no carotid bruits, trachea midline Respiratory/Chest: chest non-tender, normal breath sounds, no respiratory distress, no accessory muscle use, + decreased breath sounds, + wheezing (is better than yesterday) Cardiovascular: regular rate, rhythm, no edema, no gallop, no JVD, no murmur Abdomen: normal bowel sounds, non tender, soft, no organomegaly, no pulsatile mass Extremities: normal range of motion, non-tender, normal inspection, no pedal edema, no calf tenderness, normal capillary refill, pelvis stable Neurologic/Psychiatric: brand recorder II-XII nml as tested, no motor/sensory deficits, alert, normal mood/affect, oriented x 3 Skin: normal color, warm/dry, no rash Lymphatic: no adenopathy Laboratory Results Last 24 Hours Test 04/22/17 17:05 04/23/17 11:24 04/23/17 13:15 Bedside Glucose 104 mg/dl Prealbumin 27.8 mg/dl Thyroid Stimulating Hormone (TSH) 0.281 uIu/ml Stool Occult Blood NEGATIVE Assessment and Plan 76 y/o M Hx HLD, BPH, COPD , tobacco abuse and quit 3 weeks ago. Pt presents with progressive SOB x 2 days. Recently admitted with COPD exacerbations 02/04 , 04/07. Pt was DCd with home 02 following his most recent admission and has needed 02 intermittently only, usually with exertion. 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 labored breathing and anxiety, I feel it is possible because of patient medicine noncompliant, I was found that he removed nc oxygen off By himself, and then well to the rest known all up and walk, possible this is not appropriate because removal oxygen cause hypoxic which will cause his anxiety confuse and associated with labored breathing I did education him not to do this, cont scheduled nebulizers, continue tapering solumedrol, add the Symbicort and Spiriva has been admitted several times for COPD exacerbation , MAY consider low-dose azithromycin 250 mg MWF for anti-inflammatory properties, pulm input appreciated Elevated hypertension was no hypertension at home, avoid beta mark start lisinopril Anxiety, LIKE I mentioned in the above could be because hypoxic after removal oxygen by himself, I did check TSH which is MILD, I will check T3-T4 level, and the same time I ordered urine drug screening, is not coming back., I'm giving some Xanax for as needed anxiety, other etiology for anxiety attack may be nicotine withdrawal Dizziness , orthostatic blood pressure is checked, remarkable HLD BPH Stable continue current medication I discussed with patient about her condition and care plan also with patient's GI and DVT prophylaxis is covered Continued [facility] stay due to: multiple IV medications needed Discharge planning: home
[2017-04-23 18:17] LABS: THYROXINE (T4) 5.3 mcg/dl (4.5-10.9)
[2017-04-23] MEDS: TAMSULOSIN HCL 0.4 MG CAP PO SCH (20:03)
[2017-04-23] MEDS: BUDESONIDE/FORMOTEROL FUMARATE 160/4.5 60 PUFFS/INHALER INH SCH (20:03)
[2017-04-24] VITALS (10 sets, daily range): BP systolic 130–180; BP diastolic 65–89; PULSE 67–90; TEMP 36.3–36.6; O2SAT 91–97
[2017-04-24] MEDS: LEVALBUTEROL 1.25MG/0.5ML NEB INH SCH ×4 (02:04→19:23)
[2017-04-24] MEDS: IPRATROPIUM BROMIDE NEB SOLN 0.02% 2.5 ML VIAL INH SCH ×4 (02:04→19:23)
[2017-04-24] MEDS: HEPARIN SOD 5000 UNIT/0.5 ML CARP SQ SCH ×3 (05:59→21:26)
[2017-04-24] MEDS: METHYLPREDNISOLONE IV 20 MG in SYRINGE 0 ML IV SCH ×3 (06:00→21:26)
[2017-04-24] MEDS ORDERED: LISINOPRIL 10 MG TAB PO SCH (08:00)
[2017-04-24] MEDS: AZITHROMYCIN 250 MG TAB PO SCH (08:46)
[2017-04-24] MEDS: ATORVASTATIN 10 MG TAB PO SCH (08:46)
[2017-04-24] MEDS: RANITIDINE HCL 150 MG TAB PO SCH ×2 (08:46→19:44)
[2017-04-24] MEDS: TIOTROPIUM BROMIDE 5 PUFF/90 MCG INH INH SCH (08:47)
[2017-04-24] MEDS: PANTOprazole SOD 40 MG TAB PO SCH (08:47)
[2017-04-24] MEDS: BUDESONIDE/FORMOTEROL FUMARATE 160/4.5 60 PUFFS/INHALER INH SCH ×2 (08:48→19:44)
--- NOTE | 2017-04-24 11:17 | PULMONARY PROGRESS NOTE ---
DATE: 04/24/2017 TIME: 10:50 a.m. SUBJECTIVE: The patient had a good night. He is overall feeling much better. He still has some cough. He is less short of breath. This is his best day thus far. He thinks his swallowing has been a little better. A swallow study could not be done today because there is no radiologist available apparently. OBJECTIVE: GENERAL: The patient appears comfortable at rest. VITAL SIGNS: Temperature is 36.4. Heart rate is 74 per minute. Blood pressure 177/87. RESPIRATORY: Lung hodge revealed just a few scattered wheezes predominantly on the right chest. Respiratory rate is 20. Saturation is 95% on 2 liters. EXTREMITIES: Showed no edema. LABORATORY DATA: No lab studies were available from today. IMPRESSIONS: 1. Chronic obstructive pulmonary disease with exacerbation. 2. History of lung carcinoma -- status post left upper lobectomy. 3. Dysphagia. 4. Anxiety. 5. Thoracic aortic aneurysm. 6. Nicotine addiction. COMMENTS AND RECOMMENDATIONS: The patient clinically seems to be doing well. I believe he likely could be discharged soon. We would change to prednisone. We would give a very slow taper on the prednisone. The patient previously was seeing Dr. Avalos. He likely should be set up for a pulmonary followup. We would continue with the Symbicort and tiotropium at home as well as the nebulizer treatments. Consideration is given to Daliresp to try and prevent exacerbations of COPD. Case was discussed with Dr. Fritz, who is the patient's hospitalist. Pulmonary will sign off for now.
--- NOTE | 2017-04-24 11:42 | Progress Note ---
Subjective Date of Service: Apr 24, 2017. Subjective Pt evaluation today including: conversation w/ patient, conversation w/ family , physical exam, chart review, lab review, review of studies, review of inpatient medication list Feeling okay, sob is improving, less anxiety, occasional dry cough, deny fever and chill, generally feeling better Problem List Medical Problems: (1) Allergic reaction Status: Acute (2) COPD exacerbation Status: Acute (3) COPD exacerbation Status: Acute (4) Dyspnea Status: Acute (5) Insect sting Status: Acute (6) Sepsis Status: Acute (7) Shortness of breath Status: Acute (8) Weakness Status: Acute Review of Systems Constitutional: + weakness, + fatigue, No fever, No chills, No sweats, No weight loss, No problem reported Eyes: No worsening of vision, No eye pain, No redness, No discharge, No diplopia ENT: No hearing loss, No unusual epistaxis, No nasal symptoms, No sore throat, No tinnitus, No dental problems, No trouble swallowing Respiratory: + shortness of breath, + dyspnea on exertion, No cough, No sputum , No wheezing, No dyspnea at rest, No hemoptysis Cardiac: No chest pain, No orthopnea, No PND, No edema, No claudication, No palpitations Abdomen: No pain, No nausea, No vomiting, No diarrhea, No constipation Musculoskeletal: No joint pain, No muscle pain, No swelling, No calf pain Male : No dysuria, No urinary frequency, No incontinence, No nocturia more than once/night, No slowing stream, No hematuria Neurologic: No memory loss, No paralysis, No weakness, No numbness/tingling, No vertigo, No balance problems Psychiatric: No depression symptoms, No anhedonism, No anxiety, No insomnia, No substance abuse Heme: No abnormal bleeding/bruising, No clotting problems, No swollen lymph nodes, No night sweats Endo: No fatigue, No excessive thirst, No excessive urination Skin: No rash, No itch, No new/changing skin lesions, No color change, No bleeding Objective Vital Signs Date Time Temp Pulse Resp B/P (MAP) Pulse Ox O2 Delivery O2 Flow Rate FiO2 04/24/17 08:30 Nasal Cannula 2.0 04/24/17 07:55 36.4 74 20 177/87 (117) 95 Nasal Cannula 2.0 147/71 (96) 130/69 (89) 04/24/17 07:08 67 20 97 Nasal Cannula 2.0 04/24/17 02:27 36.3 74 20 180/89 (119) 91 Nasal Cannula 2.0 04/24/17 02:06 83 20 91 Nasal Cannula 2.0 04/24/17 00:00 94 Nasal Cannula 2.0 04/23/17 18:51 78 20 94 Nasal Cannula 2.0 04/23/17 16:27 36.4 83 22 159/81 (107) 95 Nasal Cannula 2.0 146/70 (95) 127/72 (90) 04/23/17 16:00 Nasal Cannula 2.0 Humidified Oxygen 04/23/17 14:28 87 18 96 Nasal Cannula 2.0 Physical Exam General Appearance: WD/WN, no apparent distress, + thin Eyes: normal inspection, PERRL, EOMI, sclerae normal ENT: normal ENT inspection, hearing grossly normal, pharynx normal Neck: supple, no adenopathy, thyroid normal, no JVD, no carotid bruits, trachea midline Respiratory/Chest: chest non-tender, normal breath sounds, no respiratory distress, no accessory muscle use, + decreased breath sounds, + rales, + wheezing (occasional) Cardiovascular: regular rate, rhythm, no edema, no gallop, no JVD, no murmur Abdomen: normal bowel sounds, non tender, soft, no organomegaly, no pulsatile mass Extremities: normal range of motion, non-tender, normal inspection, no pedal edema, no calf tenderness, normal capillary refill, pelvis stable Neurologic/Psychiatric: appeals coordinator II-XII nml as tested, no motor/sensory deficits, alert, normal mood/affect, oriented x 3 Skin: normal color, warm/dry, no rash Lymphatic: no adenopathy Laboratory Results Last 24 Hours Test 04/23/17 13:15 04/23/17 17:20 04/24/17 07:17 Stool Occult Blood NEGATIVE Free Thyroxine 0.95 ng/dl Thyroxine (T4) 5.3 mcg/dl Free Triiodothyronine 2.19 pg/ml Total Triiodothyronine 0.63 ng/ml Vitamin B12 Level 782 pg/mL Folate 8.02 ng/mL Assessment and Plan 76 y/o M Hx HLD, BPH, COPD , tobacco abuse and quit 3 weeks ago. Pt presents with progressive SOB x 2 days. Recently admitted with COPD exacerbations 02/04 , 04/07. Pt was DCd with home 02 following his most recent admission and has needed 02 intermittently only, usually with exertion. 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, Discontinue Solu-Medrol, start oral prednisone, we will tapering slowly, start Daliresp by mouth by mouth daily for the prevention of recurrent of COPD exacerbation after discussed with hypo dipper, need to follow-up with hypo dipper for outpatient pulmonary function test episodes of dizziness labored breathing and anxiety, possible because of patient medicine noncompliant, orthostatic blood pressure was checked was not remarkable Accelerated hypertension, has increased lisinopril to 20 mg by mouth daily Anxiety, LIKE I mentioned in the above could be because hypoxic after removal oxygen by himself, I did check TSH which is MILD decreased, T3 and T4 unremarkable, advised him to follow-up with PCP Weight lost and dysphagia, which is ordered, and discussed with patient's as well need to have more further evaluation and follow-up with PCP, HLD BPH Stable continue current medication GI and DVT prophylaxis is covered Possible discharge tomorrow to home Continued [facility] stay due to: home environment unsafe for pt Discharge planning: home
[2017-04-24] MEDS: MAGNESIUM HYDROXIDE SUSP 30 ML UDC PO PRN (15:25)
[2017-04-24] MEDS: TAMSULOSIN HCL 0.4 MG CAP PO SCH (19:44)
[2017-04-25] VITALS (7 sets, daily range): BP systolic 148–150; BP diastolic 72–82; PULSE 71–90; TEMP 36.2–36.5; O2SAT 92–96
[2017-04-25] MEDS: IPRATROPIUM BROMIDE NEB SOLN 0.02% 2.5 ML VIAL INH SCH ×3 (02:22→13:45)
[2017-04-25] MEDS: LEVALBUTEROL 1.25MG/0.5ML NEB INH SCH ×3 (02:22→13:45)
[2017-04-25] MEDS: HEPARIN SOD 5000 UNIT/0.5 ML CARP SQ SCH ×3 (06:00→13:33)
[2017-04-25] MEDS: METHYLPREDNISOLONE IV 20 MG in SYRINGE 0 ML IV SCH ×2 (06:10→13:33)
[2017-04-25 06:57] LABS: HEMATOCRIT 42.4 % (42-52); HEMOGLOBIN 14.1 g/dL (14.0-18.0); MEAN CELL VOLUME 95.3 fL (80-100); MEAN CORPUSCULAR HEMOGLOBIN 31.7 pg (25-34); MEAN CORPUSCULAR HGB CONC 33.3 g/dl (32-36); MEAN PLATELET VOLUME 9.3 fL (7.4-10.4); NUCLEATED RED BLOOD CELL ABS 0.02 K/uL (0-0); PLATELET COUNT 270 K/uL (130-400); RED CELL DISTRIBUTION WIDTH CV 15.1 % (11.5-14.5); RED CELL DISTRIBUTION WIDTH SD 52.8 fL (36.4-46.3); WHITE BLOOD COUNT 8.26 K/uL (4.8-10.8)
[2017-04-25] MEDS: PANTOprazole SOD 40 MG TAB PO SCH (07:41)
[2017-04-25] MEDS: BUDESONIDE/FORMOTEROL FUMARATE 160/4.5 60 PUFFS/INHALER INH SCH (07:42)
[2017-04-25] MEDS: TIOTROPIUM BROMIDE 5 PUFF/90 MCG INH INH SCH (07:42)
[2017-04-25] MEDS: ATORVASTATIN 10 MG TAB PO SCH (07:45)
[2017-04-25] MEDS: RANITIDINE HCL 150 MG TAB PO SCH (07:45)
[2017-04-25] MEDS: AZITHROMYCIN 250 MG TAB PO SCH (07:46)
[2017-04-25] MEDS ORDERED: LISINOPRIL 20 MG TAB PO SCH (08:00)
[2017-04-25] MEDS ORDERED: ROFLUMILAST 500 MCG TAB PO SCH (08:00)
[2017-04-25] MEDS ORDERED: SPRIN INH (09:13)
[2017-04-25] MEDS ORDERED: DLR500 PO (09:13)
[2017-04-25] MEDS ORDERED: SYMIN INH (09:13)
[2017-04-25] MEDS ORDERED: LSN20 PO (09:13)
[2017-04-25] MEDS ORDERED: PRD20 PO (09:13)
--- NOTE | 2017-04-25 09:13 | Discharge Instructions ---
Discharge Instructions Date of Service Apr 25, 2017. Admission Reason for Admission: Copd Exacerbation Discharge Discharge Diagnosis / Problem: Acute on Chronic respiratory failure Discharge Goals Goal(s): Decrease discomfort, Improve function, Increase independence, Improve disease control, Improve nutritional status, Learn about illness, Diagnostic testing, Therapeutic intervention, Prevent Disease Progression, Specific goals Activity Recommendations Activity Limitations: resume your previous activity Exercise/Sports Limitations: as tolerated Shower/Bathe: no limitations Driving or Machine Use: no limitations . Instructions / Follow-Up Instructions / Follow-Up you have Acute on Chronic respiratory failure you have COPD exacerbation you need to continue stay away from smoking, I started Daliresp by mouth by mouth daily for the prevention of recurrent of COPD exacerbation after discussed with medical engineer, need to follow-up with medical engineer for this medicine and outpatient pulmonary function test you have episodes of dizziness and your blood pressure drop from lying to standing, be slowly when change positions, and avoid falls you have accelerated hypertension, has increased Lisinopril to 20 mg by mouth daily I checked TSH which is MILD decreased, you need to follow-up with PCP you reported weight lost and dysphagia, I have requested barium swallowing studies today, you need to have more further evaluation and follow-up with PCP , your Prednisone tapering dose is below: 60mg po daily for 3 days, then 50mg po daily for 3 days, then 40mg po daily for 3 days, then 30mg po daily for 3 days, then 20mg po daily for 3 days, then 10mg po daily for 3 days, then back to 5 mg po daily, continually - you need to follow up with your primary care physician in 1 week, - take medication as instructed, never overdose or any misuse, or take with alcohol, because misuse of medicine may cause organ damage or , call your primary care physician if have questions of medicaitons. - call your primary care physician OR go to local emergency room if has any fever/chill, chest pain, shortness of breathing, nausea/vomiting/abdominal pain , facial droop/slurry speech/local weakness, or if has any questions. - fall precaution - diet as instructed - you need to follow up with your subspecialist - you should understand that it is important to follow up the above instruction , and "not following the above instruction" may cause delayed or missed care of your medical conditions which may cause permanent organ damage and even . Current Hospital Diet Patient's current hospital diet: AHA Diet (Heart Healthy) Discharge Diet Recommended Diet: AHA Diet (Heart Healthy) Procedures Procedures Performed: no Pending Studies Studies pending at discharge: yes List of pending studies: barrium swallowing, pcp need to follow up for the final results Medical Emergencies . Who to Call and When: Medical Emergencies: If at any time you feel your situation is an emergency, please call 911 immediately. . Non-Emergent Contact Non-Emergency issues call your: Primary Care Provider, Tier [place] Call Non-Emergent contact if: you have a fever . . "Provider Documentation" section prepared by Jose Fritz. . VTE Core Measure Inpt VTE Proph given/why not?: Unfractionated heparin SQ
--- NOTE | 2017-04-25 13:19 | DIAGNOSTIC IMAGING REPORT ---
DOUBLE CONTRAST BARIUM ESOPHAGRAM CLINICAL HISTORY: Swallowing dysfunction. Dysphagia with solids. COMPARISON STUDY: Chest CT dated 04/22/2017. TECHNIQUE: A standard air contrast barium esophagram is performed. Multiple spot images of the esophagus are acquired both upright and prone. FINDINGS: The patient swallowed barium and the barium pill without difficulty. The mucosal pattern is normal. Mild esophageal dysmotility is observed. There is no evidence of intrinsic or extrinsic mass lesion. No aspiration was seen. The gastroesophageal junction distended normally. No gastroesophageal reflux could be elicited by having the patient perform the Valsalva maneuver. There is a small hiatal hernia. Fluoroscopy time: 1.4 minutes. Fluoroscopic images: 22 IMPRESSION: 1. Mild esophageal dysmotility. Otherwise normal barium esophagram. 2. A small hiatal hernia is incidentally noted. Electronically signed by: Colby Etienne M.D. 04/25/2017 1:17 PM Dictated Date/Time: 04/25/2017 1:15 PM
--- NOTE | 2017-04-25 16:22 | Discharge Summary ---
Discharge Summary Date of Service Apr 25, 2017. 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 New Medications: Budesonide/Formoterol Fumarate (Symbicort 160-4.5 Mcg/Act) 60 Puffs/Inhaler Aero 2 PUFFS INH BID for 14 Days Lisinopril (Lisinopril) 20 Mg Tab 20 MG PO QAM for 30 Days, #30 TAB Prednisone (Prednisone) 20 Mg Tab 60 MG PO DAILY, #18 TAB 60mg po daily for 3 days, then 50mg po daily for 3 days, then 40mg po daily for 3 days, then 30mg po daily for 3 days, then 20mg po daily for 3 days, then 10mg po daily for 3 days, then back to 5 mg po daily, continuesly Roflumilast (Daliresp) 500 Mcg Tab 500 MCG PO DAILY for 14 Days, TAB Tiotropium [place] (Spiriva Handihaler) 5 Puff/90 Mcg Aerp 1 PUFF INH QAM for 30 Days, #1 Continued Medications: Albuterol Sulfate (Proair Respiclick) 108 Mcg/Act Aer 2 PUFFS INH DIRECTED PRN for Shortness of Breath Atorvastatin (Lipitor) 10 Mg Tab 10 MG PO DAILY, TAB Guaifenesin (Guaifenesin) 400 Mg Tab 400 MG PO BID PRN for CONGESTION Omeprazole (Prilosec) 20 Mg Capcr 20 MG PO DAILY PRN for Heartburn, CAP Ranitidine Hcl (Zantac) 150 Mg Tab 150 MG PO BID, TAB Tamsulosin Hcl (Flomax) 0.4 Mg Cap 0.4 MG PO QPM, CAP Discontinued Medications: Prednisone (Prednisone) 5 Mg Tab 5 MG PO DAILY Discharge Exam Feeling better, less anxious, need oxygen when in rest, need oxygen when up and walk Occasional cough , no wheezing Review of Systems: Constitutional: + weakness, + fatigue, No fever, No chills, No sweats, No weight loss, No problem reported Eyes: No worsening of vision, No eye pain, No redness, No discharge, No diplopia, No problem reported ENT: No hearing loss, No unusual epistaxis, No nasal symptoms, No sore throat, No tinnitus, No dental problems, No trouble swallowing, No problem reported Respiratory: + cough, + shortness of breath, + dyspnea on exertion Cardiovascular: No chest pain, No orthopnea, No PND, No edema, No claudication, No palpitations, No problem reported Abdomen: No pain, No nausea, No vomiting, No diarrhea, No constipation, No GI bleeding, No problem reported Musculoskeletal: No joint pain, No muscle pain, No swelling, No calf pain, No problem reported Genitourinary - Male: No hematuria, No dysuria, No urinary frequency, No urinary urgency, No urinary hesitancy, No urinary retention, No urinary incontinence, No penile discharge, No lesions, No impotence, No problem reported Neurologic: No memory loss, No paralysis, No weakness, No numbness/tingling , No vertigo, No balance problems, No problem reported Psychiatric: No depression symptoms, No anhedonism, No anxiety, No insomnia , No substance abuse, No problem reported Endocrine: No fatigue, No excessive thirst, No excessive urination, No problem reported Hematologic / Lymphatic: No abnormal bleeding/bruising, No clotting problems , No swollen lymph nodes, No night sweats, No problem reported Integumentary: No rash, No itch, No new/changing skin lesions, No color change, No bleeding, No problem reported Physical Exam: General Appearance: WD/WN, + thin, + pertinent finding (frail and pleasant, no acute distress conversational) Eyes: normal inspection, PERRL, EOMI ENT: normal ENT inspection, hearing grossly normal Neck: supple, no adenopathy, thyroid normal Respiratory/Chest: chest non-tender, normal breath sounds, no respiratory distress, + decreased breath sounds Cardiovascular: regular rate, rhythm, no edema, no gallop, no JVD, no murmur , normal peripheral pulses Abdomen / GI: normal bowel sounds, non tender, soft, no organomegaly, no pulsatile mass Extremities: normal inspection, no calf tenderness, normal capillary refill 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 Pt presents with progressive SOB x 2 days. Recently admitted with COPD exacerbations 02/04 , 04/07. Pt was DCd with home 02 following his most recent admission and has needed 02 intermittently only, usually with exertion. 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 operator, need to follow-up with pole sander operator for outpatient pulmonary function test episodes of dizziness labored breathing and anxiety, possible because of patient medicine noncompliant, orthostatic blood pressure was checked was not remarkable, but today shows mild positive Accelerated hypertension, has increased lisinopril to 20 mg by mouth daily, palpation is better Anxiety, LIKE I mentioned in the above could be because hypoxic after removal oxygen by himself, I did check TSH which is MILD decreased, T3 and T4 unremarkable, advised him to follow-up with PCP Weight lost and dysphagia, which is ordered, and discussed with patient's as well need to have more further evaluation and follow-up with PCP, barium esophageal study was done: which shows: Mild esophageal dysmotility. Otherwise normal barium esophagram. 2. A small hiatal hernia is incidentally noted. 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 with pole sander operator, need to follow-up with pole sander operator for this medicine and outpatient pulmonary function test you have episodes of dizziness and your blood pressure drop from lying to standing, be slowly when change positions, and avoid falls you have accelerated hypertension, has increased Lisinopril to 20 mg by mouth daily I checked TSH which is MILD decreased, you need to follow-up with PCP you reported weight lost and dysphagia, I have requested barium swallowing studies today, you need to have more further evaluation and follow-up with PCP , your Prednisone tapering dose is below: 60mg po daily for 3 days, then 50mg po daily for 3 days, then 40mg po daily for 3 days, then 30mg po daily for 3 days, then 20mg po daily for 3 days, then 10mg po daily for 3 days, then back to 5 mg po daily, continually - you need to follow up with your primary care physician in 1 week, - take medication as instructed, never overdose or any misuse, or take with alcohol, because misuse of medicine may cause organ damage or , call your primary care physician if have questions of medicaitons. - call your primary care physician OR go to local emergency room if has any fever/chill, chest pain, shortness of breathing, nausea/vomiting/abdominal pain , facial droop/slurry speech/local weakness, or if has any questions. - fall precaution - diet as instructed - you need to follow up with your subspecialist - you should understand that it is important to follow up the above instruction , and "not following the above instruction" may cause delayed or missed care of your medical conditions which may cause permanent organ damage and even . Total Time Spent: Greater than 30 minutes This includes examination of the patient, discharge planning, medication reconciliation, and communication with other providers. Discharge Instructions Please refer to the electronic Patient Visit Report (Discharge Instructions) for additional information. Additional Copies To Tristan Vines DO; Rob Perez PA-C
== END 2017-04-25 14:05 | disposition home or self-care (01) | DRG 189 ==
LOC: C.EDB 20:57 → C.2E 04-19 02:41 → ENRESERV 04-19 03:07 → C.MS4W 04-19 15:51
PROVIDERS: ADMIT Internal Medicine; ATTEND Hospitalist
DX: J96.20 Acute and chronic respiratory failure, unspecified whether with hypoxia or hypercapnia (principal); J44.1 Chronic obstructive pulmonary disease with (acute) exacerbation; Q61.3 Polycystic kidney, unspecified; Z85.118 Personal history of other malignant neoplasm of bronchus and lung; Z90.2 Acquired absence of lung [part of]; E78.5 Hyperlipidemia, unspecified; Z87.891 Personal history of nicotine dependence; N40.0 Benign prostatic hyperplasia without lower urinary tract symptoms; I10 Essential (primary) hypertension; I95.1 Orthostatic hypotension; F41.9 Anxiety disorder, unspecified; R11.0 Nausea; I71.2 Thoracic aortic aneurysm, without rupture; K21.9 Gastro-esophageal reflux disease without esophagitis; Z77.098 Contact with and (suspected) exposure to other hazardous, chiefly nonmedicinal, chemicals

== ENCOUNTER 2017-05-26 13:58 | Inpatient (IN) | payer OTHER ==
[~2017-05-26] VITALS: Ht 188 cm; Wt 80.8 kg
[2017-05-26] VITALS (17 sets, daily range): BP systolic 86–139; BP diastolic 50–80; PULSE 71–84; TEMP 36.4–37.3; O2SAT 94–100; Ht 188 cm; Wt 80.8 kg
[~2017-05-26 13:58] MED LIST changes: +ALBU18002 INH; -AZIT250T PO; +DLR500 PO; +LSN20 PO; +PRD20 PO; -PRED-301 PO; -PRED10TA PO; +RANI150T3 PO; +SYMIN INH; -VARE1PAK15 PO; -VNTHFA/IN INH; -ZNT150 PO
[2017-05-26] MEDS ORDERED: SODIUM CHLORIDE 0.9% 1000ML 1,000 ML IV STA (14:04)
[2017-05-26] MEDS ORDERED: ASPIRIN 81 MG CHEW PO STA (14:06)
--- NOTE | 2017-05-26 14:11 | EMERGENCY ROOM VISIT NOTE ---
History Report prepared by Tru: Fabrizio Truong Under the Supervision of: Dr. Etienne Christianson M.D. First contact with patient: 14:03 Chief Complaint: CHEST PAIN Stated Complaint: CHEST PAIN, NUMBNESS RIGHT ARM, TATE History of Present Illness The patient is a 76 year old male who presents to the Emergency Room with complaints of persistent chest pain that started around 5 hours ago. The patient says that he was just sitting when the pain started. He says that nothing makes the pain better or worse. Per the patient's , the patient at home around 45 minutes ago started complaining of chest pain and numbness in his right arm, with some chills. Before the patient told his about the pain , he took an Aleve. The patient did not take any other medications. Any sweats were denied on behalf of the patient. The patient was recently here for a COPD exacerbation and respiratory failure, per the patient's . He does not wear oxygen at home. Source of History: patient, spouse/significant other Onset: 5 hours ago Position: chest Quality: other (pain) Timing: other (persistent) Associated Symptoms: + chills, + numbness (right arm), No diaphoresis Review of Systems See HPI for pertinent positives & negatives. A total of 10 systems reviewed and were otherwise negative. Past Medical & Surgical Medical Problems: (1) AMI (acute myocardial infarction) (2) COPD (chronic obstructive pulmonary disease) (3) COPD exacerbation (4) E. coli septicemia (5) Emphysema/COPD (6) Hypoxia (7) Leukocytosis (8) Lung cancer (9) SIRS (systemic inflammatory response syndrome) Family History Patient reports no known family medical history. Social History Smoking Status: Former Smoker Alcohol Use: occasionally Drug Use: none Marital Status: Housing Status: lives with family Occupation Status: retired Current/Historical Medications Scheduled Atorvastatin (Lipitor), 10 MG PO DAILY Budesonide/Formoterol Fumarate (Symbicort 160-4.5 Mcg/Act), 2 PUFFS INH BID Lisinopril (Lisinopril), 20 MG PO QAM Prednisone (Prednisone), 5 MG PO DAILY Ranitidine Hcl (Zantac), 150 MG PO BID Roflumilast (Daliresp), 500 MCG PO DAILY Tamsulosin Hcl (Flomax), 0.4 MG PO QPM Tiotropium [place] (Spiriva Handihaler), 1 PUFF INH QAM Scheduled PRN Albuterol Sulfate (Proair Respiclick), 2 PUFFS INH DIRECTED PRN for Shortness of Breath Guaifenesin (Guaifenesin), 400 MG PO BID PRN for CONGESTION Omeprazole (Prilosec), 20 MG PO DAILY PRN for Heartburn Allergies Coded Allergies: No Known Allergies (Unverified , 04/18/17) Physical Exam Vital Signs Date Time Temp Pulse Resp B/P (MAP) Pulse Ox O2 Delivery O2 Flow Rate FiO2 05/26/17 16:30 36.4 20 115/72 (86) 96 Room Air 05/26/17 16:12 80 16 94/57 (69) 97 Room Air 05/26/17 14:26 36.7 79 19 158/73 96 05/26/17 14:25 96 Nasal Cannula 05/26/17 14:25 96 3.0 05/26/17 14:19 79 05/26/17 14:19 158/73 05/26/17 14:18 81 19 98 05/26/17 14:16 132/66 05/26/17 14:13 79 24 05/26/17 14:08 77 23 05/26/17 14:06 36.7 76 22 145/73 98 Room Air 05/26/17 14:05 145/73 Physical Exam GENERAL: Awake, alert, diaphoretic, in obvious distress. HENT: Normocephalic, atraumatic. Oropharynx unremarkable. EYES: Normal conjunctiva. Sclera non-icteric. NECK: Supple. No nuchal rigidity. FROM. No JVD. RESPIRATORY: Clear to auscultation. CARDIAC: Regular rate, normal rhythm. Extremities warm and well perfused. Pulses equal. ABDOMEN: Soft, non-distended. No tenderness to palpation. No rebound or guarding. No masses. RECTAL: Deferred. MUSCULOSKELETAL: Chest examination reveals no tenderness. The back is symmetrical on inspection without obvious abnormality. There is no CVA tenderness to palpation. No joint edema. LOWER EXTREMITIES: Calves are equal size bilaterally and non-tender. No edema. No discoloration. NEURO: Normal sensorium. No sensory or motor deficits noted. SKIN: No rash or jaundice noted. Medical Decision & Procedures ER Provider Diagnostic Interpretation: X-ray results as stated below per interpretation by oh and the radiologist: CHEST ONE VIEW PORTABLE HISTORY: Atypical chest pain. Right arm numbness. COMPARISON: Chest 04/21/2017. FINDINGS: No pleural effusions. No pneumothorax. Mild interstitial thickening seen within the right lateral lung base. Otherwise, the lungs are clear. The heart is normal in size. Stable right hilar prominence. Volume loss within the left hemithorax, unchanged. This is consistent with prior left upper lobectomy. There are surgical clips within the left hilum. IMPRESSION: 1. Mild interstitial thickening at the right lung base. This could be due to a developing interstitial pneumonia or atelectasis. 2. Stable postoperative changes within the left hemithorax. Electronically signed by: Varun Toledo M.D. 05/26/2017 2:23 PM Dictated Date/Time: 05/26/2017 2:19 PM Laboratory Results Test 05/26/17 14:00 05/26/17 14:13 05/26/17 14:52 Prothrombin Time 9.7 SECONDS (9.0-12.0) Prothromb Time International Ratio 0.9 (0.9-1.1) Activated Partial Thromboplast Time 27.8 SECONDS (21.0-31.0) Partial Thromboplastin Ratio 1.1 Magnesium Level 1.7 mg/dl (1.8-2.4) Total Bilirubin 0.3 mg/dl (0.2-1) Direct Bilirubin < 0.1 mg/dl (0-0.2) Aspartate Amino Transf (AST/SGOT) 15 U/L (15-37) Alanine Aminotransferase (ALT/SGPT) 19 U/L (12-78) Alkaline Phosphatase 61 U/L (45-117) Total Creatine Kinase 61 U/L (39-308) Creatine Kinase MB 1.7 ng/ml (0.5-3.6) Creatine Kinase MB Ratio 2.8 (0-3.0) Total Protein 6.9 gm/dl (6.4-8.2) Albumin 3.2 gm/dl (3.4-5.0) Lipase 85 U/L (73-393) Bedside Hemoglobin 12.9 g/dl (14.0-18.0) Bedside Hematocrit 38 % (42-52) Bedside Sodium 140 mEq/L (135-144) Bedside Potassium 3.9 mEq/L (3.3-5.0) Bedside Chloride 99 mEq/L (101-112) Bedside Total CO2 27 mEq/l (24-31) Bedside Blood Urea Nitrogen 19 mg/dl (7-18) Bedside Creatinine 1.2 mg/dl (0.6-1.3) Bedside Glucose (other) 126 mg/dl (70-99) Bedside Ionized Calcium ([place]) 1.22 mmol/l (1.12-1.32) Bedside Troponin I < 0.030 ng/ml (0-0.045) Kaolin Activated Coagulation Time 257 SECONDS (94-140) Date/Time Source Procedure Growth Status 05/26/17 00:00 Nasal MRSA DNA Surveillance Screen - Final Specimen Negative for MRSA by DNA Probe Complete Labs reviewed by ED physician. Medications Administered Medications (Trade) Dose Ordered Sig/Elmer Route Start Time Stop Time Status Last Admin Dose Admin Sodium Chloride 1,000 ml @ 999 mls/hr Q1H1M STAT IV 05/26/17 14:04 05/26/17 15:04 DC 05/26/17 14:19 999 MLS/HR Aspirin (Aspirin Chew) 324 mg NOW STAT PO 05/26/17 14:06 05/26/17 14:07 DC 05/26/17 14:19 324 MG Nitroglycerin (Nitrostat Tab) 0.4 mg PRN PRN SL 05/26/17 14:15 05/26/17 16:50 DC 05/26/17 14:19 0.4 MG Ondansetron HCl (Zofran Inj) 4 mg NOW STAT IV 05/26/17 14:14 05/26/17 14:15 DC 05/26/17 14:23 4 MG Heparin Sodium (Porcine) (Heparin Iv Bolus) 10,000 unit STK-MED ONCE .ROUTE 05/26/17 14:16 05/26/17 14:17 DC 05/26/17 14:16 11,000 UNIT Midazolam HCl (Versed Inj) 2 mg STK-MED ONCE .ROUTE 05/26/17 14:16 05/26/17 14:17 DC 05/26/17 14:16 4 MG Fentanyl Citrate (Fentanyl Inj) 100 mcg STK-MED ONCE .ROUTE 05/26/17 14:17 05/26/17 14:18 DC 05/26/17 14:17 100 MCG Ticagrelor (Brilinta Tab) 180 mg STK-MED ONCE PO 05/26/17 14:24 05/26/17 14:25 DC 05/26/17 14:24 180 MG Sodium Chloride 1,000 ml @ 100 mls/hr Q10H IV 05/26/17 16:30 05/26/17 23:59 DC 05/26/17 17:27 100 MLS/HR Morphine Sulfate (MoRPHine SULFATE INJ) 2 mg Q5M PRN IV 05/26/17 16:30 06/09/17 16:29 05/26/17 22:17 2 MG ECG Per My Interpretation Indication: chest pain Rate (beats per minute): 77 Rhythm: sinus rhythm Findings: other (st elevation in inferior leads) Comparison ECG Date: changed from April 18 2017 ED Course 1402: Past medical records reviewed. The patient was evaluated in room A1. A complete history and physical examination was performed. 1404: NSS 1000 ml @ 999 mls/hr IV. 1405: Dr. Chris ([facility] [place] cardiology) is now in the room. He will take the patient to the catheterization lab. 1406: Aspirin Chew 324 mg PO. 1414: Zofran Inj 4 mg IV. 1415: Nitrostat Tab 0.4 mg SL PRN. Medical Decision Differential diagnosis: Etiologies such as cardiac ischemia, aortic dissection, pulmonary embolism, pneumonia, pneumothorax, musculoskeletal, infections, pericarditis, myocarditis , esophageal rupture, gastrointestinal, as well as others were entertained. This is a 76-year-old male who presents the emergency department complaining of chest pain. Upon arrival to the emergency department the patient appears to have a STEMI on EKG. He was placed in the trauma bay and an additional EKG was obtained which confirmed STEMI. Patient was given aspirin as well as nitroglycerin in the emergency department. An IV was established he was given a normal saline bolus and his creatinine was confirmed to be 1.2. I did discuss the patient's case with the hammer shop supervisor who agreed to take the patient in the Safety Technician. Patient and are in agreement with the treatment plan. Medication Reconcilliation Current Medication List: was personally reviewed by me Blood Pressure Screening Patient's blood pressure: Elevated blood pressure Blood pressure disposition: Elevated BP felt to be situational Impression Primary Impression: STEMI (ST elevation myocardial infarction) Critical Care I have personally spent greater than 30 minutes of critical care time in the direct management of this patient. This includes bedside care, interpretation of diagnostic studies, and testing, discussion with consultants, patient, and family members, and other required patient management activities. This 30 minutes is in excess of all separately billable procedures. Scribe Attestation The scribe's documentation has been prepared under my direction and personally reviewed by me in its entirety. I confirm that the note above accurately reflects all work, treatment, procedures, and medical decision making performed by me. Departure Information Dispostion Still a Patient Referrals Rob Perez PA-C (PCP) Patient Instructions My [facility] Problem Qualifiers Primary Impression: STEMI (ST elevation myocardial infarction) Involved coronary artery: right coronary artery Qualified Codes: I21.11 - ST elevation (STEMI) myocardial infarction involving right coronary artery
[2017-05-26] MEDS ORDERED: ONDANSETRON INJ 2 MG/ML 2 ML VIAL IV STA (14:14)
[2017-05-26] MEDS ORDERED: NiCARDipine HCL INJ 2.5 MG/ML 10 ML AMP ONE (14:15)
[2017-05-26] MEDS ORDERED: NITROGLYCERIN 0.4 MG SL PER TAB CHARGE SL PRN ×2 (14:15→16:30)
[2017-05-26] MEDS ORDERED: NITROGLYCERIN/D5W 100MCG/ML 20ML SYR ONE (14:16)
[2017-05-26] MEDS ORDERED: HEPARIN SOD (PORCINE) 1000 UNIT/ML 10 ML VIAL ONE ×2 (14:16→15:11)
[2017-05-26] MEDS ORDERED: MIDAZOLAM HCL 1 MG/ML 2ML VIAL ONE ×2 (14:16→15:13)
[2017-05-26] MEDS ORDERED: FENTANYL CITRATE INJ 50 MCG/1 ML 2 ML VIAL ONE (14:17)
[2017-05-26] MEDS ORDERED: LIDOCAINE HCL 1% 20 ML VIAL ONE (14:20)
[2017-05-26] MEDS ORDERED: TICAGRELOR 90 MG TAB PO ONE (14:24)
--- NOTE | 2017-05-26 14:24 | DIAGNOSTIC IMAGING REPORT ---
CHEST ONE VIEW PORTABLE HISTORY: Atypical chest pain. Right arm numbness. COMPARISON: Chest 04/21/2017. FINDINGS: No pleural effusions. No pneumothorax. Mild interstitial thickening seen within the right lateral lung base. Otherwise, the lungs are clear. The heart is normal in size. Stable right hilar prominence. Volume loss within the left hemithorax, unchanged. This is consistent with prior left upper lobectomy. There are surgical clips within the left hilum. IMPRESSION: 1. Mild interstitial thickening at the right lung base. This could be due to a developing interstitial pneumonia or atelectasis. 2. Stable postoperative changes within the left hemithorax. Electronically signed by: Varun Toledo M.D. 05/26/2017 2:23 PM Dictated Date/Time: 05/26/2017 2:19 PM
[2017-05-26 14:26] LABS: ISTAT CREATININE 1.2 mg/dl (0.6-1.3); ISTAT IONIZED CALCIUM 1.22 mmol/l (1.12-1.32); ISTAT POTASSIUM 3.9 mEq/L (3.3-5.0)
[2017-05-26 14:29] LABS: MEAN CELL VOLUME 94.7 fL (80-100); MEAN CORPUSCULAR HEMOGLOBIN 31.6 pg (25-34); MEAN CORPUSCULAR HGB CONC 33.3 g/dl (32-36); PLATELET COUNT 237 K/uL (130-400); RED CELL DISTRIBUTION WIDTH CV 15.1 % (11.5-14.5); RED CELL DISTRIBUTION WIDTH SD 52.2 fL (36.4-46.3); WHITE BLOOD COUNT 11.69 K/uL (4.8-10.8)
[2017-05-26 14:44] LABS: INR 0.9 (0.9-1.1); PTT PATIENT 27.8 SECONDS (21.0-31.0)
[2017-05-26 14:51] LABS: BASO % 0.2 %; BASO ABS # 0.02 K/uL (0-0.2); EOS ABS # 0.12 K/uL (0-0.5); IG# 0.09 K/uL (0.00-0.02); LYMPH % 16.8 %; LYMPH ABS # 1.96 K/uL (1.2-3.4); MONO % 6.3 %; MONO ABS # 0.74 K/uL (0.11-0.59); NEUT % 74.9 %; NEUT ABS # 8.76 K/uL (1.4-6.5)
[2017-05-26 15:22] LABS: ALBUMIN 3.2 gm/dl (3.4-5.0); ALT/SGPT 19 U/L (12-78); BLOOD UREA NITROGEN 18 mg/dl (7-18); CARBON DIOXIDE 28 mmol/L (21-32); CREATININE 1.24 mg/dl (0.60-1.40); GLUCOSE 123 mg/dl (70-99); LIPASE 85 U/L (73-393); POTASSIUM 3.9 mmol/L (3.5-5.1); SODIUM 137 mmol/L (136-145)
[2017-05-26 15:25] LABS: ALKALINE PHOSPHATASE 61 U/L (45-117); AST/SGOT 15 U/L (15-37); CKMB 1.7 ng/ml (0.5-3.6); TOTAL PROTEIN 6.9 gm/dl (6.4-8.2)
--- NOTE | 2017-05-26 16:10 | Pre Sedation Assessment ---
Pre Sedation Assessment General Date of Sedation: May 26, 2017. Vital Signs Past 12 Hours Date Time Temp Pulse Resp B/P (MAP) Pulse Ox O2 Delivery O2 Flow Rate FiO2 05/26/17 14:26 36.7 79 19 158/73 96 05/26/17 14:25 96 Nasal Cannula 05/26/17 14:25 96 3.0 05/26/17 14:19 79 05/26/17 14:19 158/73 05/26/17 14:18 81 19 98 05/26/17 14:16 132/66 05/26/17 14:13 79 24 05/26/17 14:08 77 23 05/26/17 14:06 36.7 76 22 145/73 98 Room Air 05/26/17 14:05 145/73 Review Cardiovascular: regular rate, rhythm, no edema Lungs: chest non-tender, lungs clear Pre-Sedation Airway Assessment Smoking Status: Former Smoker Hx of Sleep Apnea: No Hx of difficult intubation: No Short Thick Neck: No Thyro-mental Distance: > 3 Finger Breadths Oral Cavity: WNL Mallampati Classification: Class II ASA Classification: Class II Procedure Planning Contraindications for Sedation: None Current Medications Reviewed: Yes Notes The planned sedation has been discussed with the patient. Informed Consent was obtained. I have identified the patient, determined the appropriateness of sedation and have assessed the patient immediately prior to the procedure. All medicine(s) and interventions are by my order.
[2017-05-26] MEDS ORDERED: ACETAMINOPHEN 325 MG TAB PO PRN (16:30)
[2017-05-26] MEDS ORDERED: SODIUM CHLORIDE 0.9% 1000ML 1,000 ML IV SCH (16:30)
[2017-05-26] MEDS ORDERED: ONDANSETRON INJ 2 MG/ML 2 ML VIAL IV PRN (16:30)
--- NOTE | 2017-05-26 16:45 | Cardiac Catheterization ---
Procedure Note Procedure Date May 26, 2017. 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 [employer]s) [place] Estimated Blood Loss 20 Medication(s) Fentanyl, Heparin, Nicardipine, Nitroglycerin, Versed, Lidocaine 1% Ticagrelor Summary of Findings Indication: Suspected ACS/Borderline new inferior ST elevations/Heart Alert Access: 6Fr right radial artery Catheters: [place]; JR4; AR1 guide Findings: LM - Short, extraluminal calcification LAD - Tortuous vessel with luminal irregularities; Large high 1st diagonal angiographically normal Circumflex - Large caliber, 40-50% mid stenosis at take-off of small OM2; angiographically normal OM3 RCA - Calcified ostium with 80-90% stenosis (pressure dampening with catheter engagement); 70-80% hazy/thrombotic mid segment stenosis (likely culprit lesion) . LVEDP - 15 -- PCI -- Antithrombotic therapy: Heparin, Ticagrelor Procedure: RCA cannulated with AR1 guide BMW wire passed across lesion into distal vessel Mid RCA lesion predilated with 2.5 compliant balloon IVUS used to assess RCA ostium/mid segment lesion -- confirmed mid segment thrombus and severely calcified RCA ostium Dilated mid lesion stented with 3.5 x 22 [place] BRYAN Stent post-dilated with 3.75 noncompliant balloon Ostium pre-dilated with 3.0 compliant and 3.75 NC balloon 3.5 x 15 [place] BRYAN placed to RCA ostium IVUS confirmed under-expanded mid aspect of mid segment stent and stent at RCA ostium Stents post-dilated with 4.0 NC to high atmospheres IC vasodilators administered for spasm >50% residual stenosis in proximal to mid segment between stents 3rd BRYAN (3.5 x 26 Dom[place]) overlapped with distal aspect of ostial stent and proximal aspect of mid segment stent Post procedure IRINA 3 flow, stent well expanded with minimal residual stenosis and no apparent cardiac complications. Arterial Closure: TR Band Summary: 1. High-grade RCA ostial and mid RCA lesions 2. Mild to moderate non-obstructive 40-50% mid circumflex.\ 3. Normal intracardiac filling pressure 4. Successful PCI of ostial to mid RCA with 3 overlapping BRYAN (3.5 x 15, 3.5 x 26, 3.5 x 22 Domingo; post-dilated with 4.0 NC) Recommendations: Admit to ICU for continued monitoring Loaded with Ticagrelor in manager cath lab Continue dual-antiplatelet therapy for 1 year Trend troponins until peak, Check Echo Uptitrate beta-mark/ALEKSANDR as BP allows High-dose statin Consult cardiac Rehab Hemodynamics Rest Ao: 109/59/82 Final Ao: 89/45/65 LV: 128/15 Recommendations PCI without planned CABG Specimens None Radiation Exposure (mGy) 5380 Contrast (mls) 220 Visi Fluids (cc crystalloids) 155 NSS Drains None Anesthesia Moderate Procedural Complication(s) None Disposition ICU ACC Data Cardiac Status Clinical evaluation leading to the procedure CAD Presntation: Non STEMI STEMI or Non-STEMI: Symptom Onset Date/Time: 09:00 05/26 Anginal Classification: CCS IV Heart Failure: No, NYHA Class: CCS I Cardiogenic Shock w/in 24Hrs: No Cardiac Arrest w/in 24Hrs: No Imaging studies past 6 months: No Stress studies past 6 months: No Diagnostic Status: Emergency Closure Device Percutaneous Entry Location: Radial Closure Device: Radial Band Recommendations: PCI without planned CABG PCI Indication: Immediate PCI for STEMI First Noted: First EKG Lesion Segment Name: Mid RCA Culprit Artery: Yes Stenosis Prior to Rx (%): 70-80 Chronic Total Occlusion: No FFR: No Pre-Procedure IRINA Flow: 3 Previously Treated Lesion: No Lesion Complexity: High/C Lesion Length (mm): 40 Thrombus Present: Yes Bifurcation Lesion: No Guidewire Across Lesion: Yes Guidewire: Stenosis Post-Procedure (%): 0 Post-Procedure IRINA Flow: 3 Device(s) Deployed: Yes Intraprocedure Events Significant Dissection: No Perforation: No
--- NOTE | 2017-05-26 16:47 | History and Physical ---
History & Physical Date & Time of Service: May 26, 2017 at 16:45 Chief Complaint: AMI Primary Care Physician: Rob Perez PA-C History of Present Illness Source: patient 76 y/o M Hx HLD, BPH, COPD who until recently continued to smoke cigarettes. Presented to the ER AM with persistent CP accompanied by L arm numbness. Denies diaphoresis, N/V or SOB above baseline. An initial EKG was consistent with an inferior STEMI. The pt was promptly transferred to the geoscience laboratory technician where his RCA was successfully stented. At the time of medical evaluation he is complaining of intermittent central CP. The pt has been admitted 3 times this year for COPD exacerbations. He was DCd with supplemental 02 and states that he uses this on occasion only. Past Medical/Surgical History 1) COPD 2) HLD 3) Lung CA - L upper lobectomy 4) Smoker until recently 5) BPH 6) CAD - STEMI 05/26/17 - 3 stents to RCA Family History Patient reports no known family medical history. Social History Quit smoking 04/07 Smoking Status: Former Smoker Drug Use: none Marital Status: Housing status: lives with family Occupational Status: retired Immunizations History of Influenza Vaccine: Unknown History of Tetanus Vaccine?: Unknown History of Pneumococcal: Unknown History of Hepatitis B Vaccine: Unknown Allergies Coded Allergies: No Known Allergies (Unverified , 04/18/17) Home Medications Scheduled Atorvastatin (Lipitor), 10 MG PO DAILY Budesonide/Formoterol Fumarate (Symbicort 160-4.5 Mcg/Act), 2 PUFFS INH BID Lisinopril (Lisinopril), 20 MG PO QAM Prednisone (Prednisone), 60 MG PO DAILY Ranitidine Hcl (Zantac), 150 MG PO BID Roflumilast (Daliresp), 500 MCG PO DAILY Tamsulosin Hcl (Flomax), 0.4 MG PO QPM Tiotropium [place] (Spiriva Handihaler), 1 PUFF INH QAM Scheduled PRN Albuterol Sulfate (Proair Respiclick), 2 PUFFS INH DIRECTED PRN for Shortness of Breath Guaifenesin (Guaifenesin), 400 MG PO BID PRN for CONGESTION Omeprazole (Prilosec), 20 MG PO DAILY PRN for Heartburn Review of Systems Constitutional: No fever, No chills, No sweats Eyes: No worsening of vision ENT: No hearing loss, No unusual epistaxis, No nasal symptoms Respiratory: + shortness of breath, No cough, No sputum, No wheezing Cardiovascular: + chest pain (intermittent central CP following cath) Abdomen: No pain Musculoskeletal: No joint pain Genitourinary - Male: No hematuria, No dysuria, No urinary frequency Neurologic: No memory loss Psychiatric: No depression symptoms Endocrine: No fatigue Hematologic / Lymphatic: No abnormal bleeding/bruising Integumentary: No rash Allergic / Immunologic: No environmental allergies Physical Exam Vital Signs Date Time Temp Pulse Resp B/P (MAP) Pulse Ox O2 Delivery O2 Flow Rate FiO2 05/26/17 16:12 80 16 94/57 (69) 97 Room Air 05/26/17 14:26 36.7 79 19 158/73 96 05/26/17 14:25 96 Nasal Cannula 05/26/17 14:25 96 3.0 05/26/17 14:19 79 05/26/17 14:19 158/73 05/26/17 14:18 81 19 98 05/26/17 14:16 132/66 05/26/17 14:13 79 24 05/26/17 14:08 77 23 05/26/17 14:06 36.7 76 22 145/73 98 Room Air 05/26/17 14:05 145/73 General Appearance: WD/WN, no apparent distress Head: normocephalic Eyes: normal inspection ENT: normal ENT inspection, pharynx normal Neck: supple, no JVD Respiratory/Chest: chest non-tender Cardiovascular: regular rate, rhythm, no edema, no gallop Abdomen/GI: normal bowel sounds, non tender, soft Back: normal inspection, no CVA tenderness Extremities/Musculoskelatal: normal inspection, no calf tenderness Neurologic/Psych: soap tender II-XII nml as tested, no motor/sensory deficits, alert, oriented x 3 Skin: normal color Diagnostics Laboratory Results Results Past 24 Hours Test 05/26/17 14:00 05/26/17 14:04 05/26/17 14:13 05/26/17 14:52 Range/Units White Blood Count 11.69 4.8-10.8 K/uL Red Blood Count 4.12 4.7-6.1 M/uL Hemoglobin 13.0 14.0-18.0 g/dL Hematocrit 39.0 42-52 % Mean Corpuscular Volume 94.7 80-100 fL Mean Corpuscular Hemoglobin 31.6 25-34 pg Mean Corpuscular Hemoglobin Concent 33.3 32-36 g/dl Platelet Count 237 130-400 K/uL Mean Platelet Volume 9.0 7.4-10.4 fL Neutrophils (%) (Auto) 74.9 % Lymphocytes (%) (Auto) 16.8 % Monocytes (%) (Auto) 6.3 % Eosinophils (%) (Auto) 1.0 % Basophils (%) (Auto) 0.2 % Neutrophils # (Auto) 8.76 1.4-6.5 K/uL Lymphocytes # (Auto) 1.96 1.2-3.4 K/uL Monocytes # (Auto) 0.74 0.11-0.59 K/uL Eosinophils # (Auto) 0.12 0-0.5 K/uL Basophils # (Auto) 0.02 0-0.2 K/uL RDW Standard Deviation 52.2 36.4-46.3 fL RDW Coefficient of Variation 15.1 11.5-14.5 % Immature Granulocyte % (Auto) 0.8 % Immature Granulocyte # (Auto) 0.09 0.00-0.02 K/uL Prothrombin Time 9.7 9.0-12.0 SECONDS Prothromb Time International Ratio 0.9 0.9-1.1 Activated Partial Thromboplast Time 27.8 21.0-31.0 SECONDS Partial Thromboplastin Ratio 1.1 Sodium Level 137 136-145 mmol/L Potassium Level 3.9 3.5-5.1 mmol/L Chloride Level 103 98-107 mmol/L Carbon Dioxide Level 28 21-32 mmol/L Anion Gap 6.0 18.0 16-25 mmol/L Blood Urea Nitrogen 18 7-18 mg/dl Creatinine 1.24 0.60-1.40 mg/dl Est Creatinine Clear Calc Drug Dose 58.9 ml/min Estimated GFR () 65.0 Estimated GFR (Non- 56.1 BUN/Creatinine Ratio 14.4 10-20 Random Glucose 123 70-99 mg/dl Calcium Level 9.0 8.5-10.1 mg/dl Magnesium Level 1.7 1.8-2.4 mg/dl Total Bilirubin 0.3 0.2-1 mg/dl Direct Bilirubin < 0.1 0-0.2 mg/dl Aspartate Amino Transf (AST/SGOT) 15 15-37 U/L Alanine Aminotransferase (ALT/SGPT) 19 12-78 U/L Alkaline Phosphatase 61 45-117 U/L Total Creatine Kinase 61 39-308 U/L Creatine Kinase MB 1.7 0.5-3.6 ng/ml Creatine Kinase MB Ratio 2.8 0-3.0 Total Protein 6.9 6.4-8.2 gm/dl Albumin 3.2 3.4-5.0 gm/dl Lipase 85 73-393 U/L Bedside Hemoglobin 12.9 14.0-18.0 g/dl Bedside Hematocrit 38 42-52 % Bedside Sodium 140 135-144 mEq/L Bedside Potassium 3.9 3.3-5.0 mEq/L Bedside Chloride 99 101-112 mEq/L Bedside Total CO2 27 24-31 mEq/l Bedside Blood Urea Nitrogen 19 7-18 mg/dl Bedside Creatinine 1.2 0.6-1.3 mg/dl Bedside Glucose (other) 126 70-99 mg/dl Bedside Ionized Calcium (Prosper) 1.22 1.12-1.32 mmol/l Bedside Troponin I < 0.030 0-0.045 ng/ml Kaolin Activated Coagulation Time 257 94-140 SECONDS Microbiology Results 05/26/17 MRSA DNA Surveillance Screen, Eleazar Batch Pending EKG Minimal ST elevations in inferior leads Impression Assessment and Plan 76 y/o M Hx HLD, BPH, COPD who until recently continued to smoke cigarettes. Presented to the ER AM with persistent CP accompanied by L arm numbness. Denies diaphoresis, N/V or SOB above baseline. An initial EKG was consistent with an inferior STEMI. The pt was promptly transferred to the geoscience laboratory technician where his RCA was successfully stented. At the time of medical evaluation he is complaining of intermittent central CP. The pt has been admitted 3 times this year for COPD exacerbations. He was DCd with supplemental 02 and states that he uses this on occasion only. 1) STEMI - 3 stents placed in RCA which exhibited 80% stenosis - severe osteal lesion present. CP has recurred intermittently following the cath. He was placed on high-intesity Statin tx, ASA, Brilinta and is anticoagulated with Heparin. Morphine is provided PRN. Research Consultant will be made aware of ongoing CP. 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
[2017-05-26] MEDS ORDERED: MAGNESIUM SULFATE 1GM / D5W 1 GM in PREMIXED IN D5W 100 ML IV ONE (17:00)
[2017-05-26] MEDS: MoRPHine SULFATE 2 MG/ML CARP IV PRN ×3 (17:12→22:17)
[2017-05-26] MEDS ORDERED: COUGH DROP (SUGAR FREE) LOZ 24 LOZ/1 BOX LOZ ONE (18:35)
[2017-05-26] MEDS ORDERED: COUGH DROP (SUGAR FREE) LOZ 24 LOZ/1 BOX LOZ PRN (18:45)
[2017-05-26] MEDS ORDERED: NURSING DECISION MEDICATION ORDER SCH (18:45)
[2017-05-26] MEDS: BUDESONIDE/FORMOTEROL FUMARATE 160/4.5 60 PUFFS/INHALER INH SCH (20:25)
[2017-05-26] MEDS: TAMSULOSIN HCL 0.4 MG CAP PO SCH (20:26)
[2017-05-26] MEDS: METOPROLOL TARTRATE 25 MG TAB PO SCH (20:26)
[2017-05-26] MEDS: RANITIDINE HCL 150 MG TAB PO SCH (20:27)
--- NOTE | 2017-05-26 20:39 | Critical Care Consultation ---
Critical Care Consultation Date of Consultation: May 26, 2017. Attending Physician: Aniceto Meléndez M.D. Reason for Consultation: 76-year-old male status post PTCA with BRYAN 3 to the mid RCA requiring close cardiovascular monitoring status post intervention. History of Present Illness Patient is a 76-year-old male with a significant past medical history for COPD, lung cancer status post LEFT upper lobectomy, with hyperlipidemia who developed RIGHT arm pain yesterday with activity. The pain completely subsided until early this morning. He reports development of central chest discomfort with pain radiating across his entire chest to his RIGHT arm. He was brought to the emergency department where he was found to have ST segment elevations concerning for acute VT. He was taken emergently to the catheterization lab where he underwent PTCA with drug-eluting stent 3 to the RCA secondary to a mid lesion. He did reportedly complain of central chest discomfort after procedure. He had persistent ST elevations as well. His symptoms have been managed with morphine alone. Upon evaluation, the patient is resting comfortably. He reports of pain with deep inspiration to the central portion of his chest. He denies any constant pain or radiation of his symptoms. He denies any shortness of breath or hemoptysis. He rates his current discomfort as a 2/10. He denies any headaches , dizziness, lightheadedness, numbness/tingling to the extremities, nausea, vomiting, abdominal discomfort, or extremity pain. Patient is a daily smoker. He lives at home with family. Past Medical/Surgical History Medical Problems: (1) AMI (acute myocardial infarction) (2) COPD (chronic obstructive pulmonary disease) (3) COPD exacerbation (4) E. coli septicemia (5) Emphysema/COPD (6) Hypoxia (7) Leukocytosis (8) Lung cancer (9) SIRS (systemic inflammatory response syndrome) Family History Patient reports no known family medical history. noncontributory Social History Smoking Status: Former Smoker Smokeless Tobacco Use: No Alcohol Use: none Drug Use: none Marital Status: Housing Status: lives with family Occupation Status: retired Allergies Coded Allergies: No Known Allergies (Unverified , 04/18/17) Home Medications Scheduled Atorvastatin (Lipitor), 10 MG PO DAILY Budesonide/Formoterol Fumarate (Symbicort 160-4.5 Mcg/Act), 2 PUFFS INH BID Lisinopril (Lisinopril), 20 MG PO QAM Prednisone (Prednisone), 5 MG PO DAILY Ranitidine Hcl (Zantac), 150 MG PO BID Roflumilast (Daliresp), 500 MCG PO DAILY Tamsulosin Hcl (Flomax), 0.4 MG PO QPM Tiotropium [place] (Spiriva Handihaler), 1 PUFF INH QAM Scheduled PRN Albuterol Sulfate (Proair Respiclick), 2 PUFFS INH DIRECTED PRN for Shortness of Breath Guaifenesin (Guaifenesin), 400 MG PO BID PRN for CONGESTION Omeprazole (Prilosec), 20 MG PO DAILY PRN for Heartburn Current Inpatient Medications Current Inpatient Medications Medications (Trade) Dose Ordered Sig/Elmer Route Start Time Stop Time Status Last Admin Dose Admin Nitroglycerin (Nitrostat Tab) 0.4 mg UD PRN SL 05/26/17 16:30 06/25/17 16:29 Sodium Chloride 1,000 ml @ 100 mls/hr Q10H IV 05/26/17 16:30 05/26/17 23:59 05/26/17 17:27 100 MLS/HR Ondansetron HCl (Zofran Inj) 4 mg Q6H PRN IV 05/26/17 16:30 06/25/17 16:29 Aspirin (Ecotrin Tab) 81 mg QAM PO 05/27/17 09:00 06/26/17 08:59 Atorvastatin Calcium (Lipitor Tab) 80 mg QAM PO 05/27/17 09:00 06/26/17 08:59 Metoprolol Tartrate (Lopressor Tab) 25 mg Q12 PO 05/26/17 21:00 06/25/17 20:59 05/26/17 20:26 25 MG Acetaminophen (Tylenol Tab) 650 mg Q4H PRN PO 05/26/17 16:30 06/25/17 16:29 Morphine Sulfate (MoRPHine SULFATE INJ) 2 mg Q5M PRN IV 05/26/17 16:30 06/09/17 16:29 05/26/17 19:16 2 MG Budesonide/ Formoterol Fumarate (Symbicort 160/ 4.5 Inh) 2 puffs BID INH 05/26/17 21:00 06/25/17 20:59 3/8/18 20:25 2 PUFFS Lisinopril (Zestril Tab) 20 mg QAM PO 05/27/17 09:00 06/26/17 08:59 Ranitidine HCl (zANTac TAB) 150 mg BID PO 05/26/17 21:00 06/25/17 20:59 05/26/17 20:27 150 MG Roflumilast (Daliresp Tab) 500 mcg DAILY PO 05/27/17 09:00 06/26/17 08:59 Tamsulosin HCl (Flomax Cap) 0.4 mg QPM PO 05/26/17 21:00 06/25/17 20:59 05/26/17 20:26 0.4 MG Tiotropium [place] (Spiriva Handihaler Inhaler) 1 puff QAM INH 05/27/17 09:00 06/26/17 08:59 Prednisone (PredniSONE TAB) 60 mg DAILY PO 05/27/17 09:00 06/26/17 08:59 UNV Menthol (Nice Edgard) 1 edgard PRN PRN EDGARD 05/26/17 18:45 06/25/17 18:44 Review of Systems A complete 10-point Review of Systems was discussed with the patient, with pertinent positives and negatives listed in the History of Present Illness. All remaining Review of Systems questions can be considered negative unless otherwise specified. Physical Exam Date Time Temp Pulse Resp B/P (MAP) Pulse Ox O2 Delivery O2 Flow Rate FiO2 05/26/17 19:01 76 22 118/64 (82) 100 Nasal Cannula 2.0 05/26/17 18:30 81 17 139/80 (99) 98 Nasal Cannula 2.0 05/26/17 18:01 84 29 136/63 (87) 98 Nasal Cannula 2.0 05/26/17 17:31 81 18 136/63 (87) 99 Nasal Cannula 2.0 05/26/17 17:16 75 24 129/70 (89) 99 Nasal Cannula 2.0 05/26/17 17:01 77 20 117/61 (79) 100 Room Air 05/26/17 17:00 36.4 81 15 115/72 97 Room Air 05/26/17 16:45 76 14 114/62 (79) 94 Room Air 05/26/17 16:30 36.4 20 115/72 (86) 96 Room Air 05/26/17 16:12 80 16 94/57 (69) 97 Room Air 05/26/17 14:26 36.7 79 19 158/73 96 05/26/17 14:25 96 Nasal Cannula 05/26/17 14:25 96 3.0 05/26/17 14:19 79 05/26/17 14:19 158/73 05/26/17 14:18 81 19 98 05/26/17 14:16 132/66 05/26/17 14:13 79 24 05/26/17 14:08 77 23 05/26/17 14:06 36.7 76 22 145/73 98 Room Air 05/26/17 14:05 145/73 VITAL SIGNS - Vital signs and nursing notes were reviewed. GENERAL - 76-year-old male appearing his stated age who is in no acute distress. Communicates well with provider and answers questions appropriately. HEAD - NC/AT. EYES - PERRL with EOMI bilaterally. Sclera anicteric. Palpebral conjunctiva pink and moist with no injection noted. EARS - No deformities of external structures noted on gross examination bilaterally. NOSE - Midline and without cyanosis. MOUTH/OROPHARYNX - Without perioral cyanosis. Buccal mucosa pink and moist and without leukoplakia. NECK - Neck with FROM. Supple to palpation. LUNGS - Chest wall symmetric without accessory muscle use, intercostals retractions, or central cyanosis. Normal vesicular breath sounds CTA B/L. No wheezes, rales, or rhonchi appreciated. CARDIAC - RRR with S1/S2. No murmur, rubs, or gallops appreciated. No reproducible tenderness to palpation appreciated over the anterior chest wall. ABDOMEN - Abdominal contour obese and without pulsations or visible masses. BS normoactive all four quadrants. No tenderness, palpable masses, hepatosplenomegaly, or ascites noted. EXTREMITIES - No peripheral cyanosis. No pretibial edema present. +3/5 radial and dorsalis pedis pulses palpated throughout. +5/5 strength noted in UE/LE bilaterally. NEUROLOGIC - Cranial nerves II through XII grossly intact. Sensory intact to light touch throughout. PSYCH - A&Ox3 and cooperates fully with examiner. Pt is very pleasant and interacts well with examiner. Laboratory Results Last 24 Hours Test 05/26/17 14:00 05/26/17 14:13 05/26/17 14:52 3/8/18 17:45 White Blood Count 11.69 K/uL Red Blood Count 4.12 M/uL Hemoglobin 13.0 g/dL Hematocrit 39.0 % Mean Corpuscular Volume 94.7 fL Mean Corpuscular Hemoglobin 31.6 pg Mean Corpuscular Hemoglobin Concent 33.3 g/dl Platelet Count 237 K/uL Mean Platelet Volume 9.0 fL Neutrophils (%) (Auto) 74.9 % Lymphocytes (%) (Auto) 16.8 % Monocytes (%) (Auto) 6.3 % Eosinophils (%) (Auto) 1.0 % Basophils (%) (Auto) 0.2 % Neutrophils # (Auto) 8.76 K/uL Lymphocytes # (Auto) 1.96 K/uL Monocytes # (Auto) 0.74 K/uL Eosinophils # (Auto) 0.12 K/uL Basophils # (Auto) 0.02 K/uL RDW Standard Deviation 52.2 fL RDW Coefficient of Variation 15.1 % Immature Granulocyte % (Auto) 0.8 % Immature Granulocyte # (Auto) 0.09 K/uL Prothrombin Time 9.7 SECONDS Prothromb Time International Ratio 0.9 Activated Partial Thromboplast Time 27.8 SECONDS Partial Thromboplastin Ratio 1.1 Sodium Level 137 mmol/L Potassium Level 3.9 mmol/L Chloride Level 103 mmol/L Carbon Dioxide Level 28 mmol/L Anion Gap 6.0 mmol/L 18.0 mmol/L Blood Urea Nitrogen 18 mg/dl Creatinine 1.24 mg/dl Est Creatinine Clear Calc Drug Dose 58.9 ml/min Estimated GFR () 65.0 Estimated GFR (Non- 56.1 BUN/Creatinine Ratio 14.4 Random Glucose 123 mg/dl Calcium Level 9.0 mg/dl Magnesium Level 1.7 mg/dl Total Bilirubin 0.3 mg/dl Direct Bilirubin < 0.1 mg/dl Aspartate Amino Transf (AST/SGOT) 15 U/L Alanine Aminotransferase (ALT/SGPT) 19 U/L Alkaline Phosphatase 61 U/L Total Creatine Kinase 61 U/L Creatine Kinase MB 1.7 ng/ml Creatine Kinase MB Ratio 2.8 Total Protein 6.9 gm/dl Albumin 3.2 gm/dl Lipase 85 U/L Bedside Hemoglobin 12.9 g/dl Bedside Hematocrit 38 % Bedside Sodium 140 mEq/L Bedside Potassium 3.9 mEq/L Bedside Chloride 99 mEq/L Bedside Total CO2 27 mEq/l Bedside Blood Urea Nitrogen 19 mg/dl Bedside Creatinine 1.2 mg/dl Bedside Glucose (other) 126 mg/dl Bedside Ionized Calcium (Prosper) 1.22 mmol/l Bedside Troponin I < 0.030 ng/ml Kaolin Activated Coagulation Time 257 SECONDS Urine Color YELLOW Urine Appearance CLEAR Urine pH 6.5 Urine Specific [place] <= 1.005 Urine Protein NEG Urine Glucose (UA) NEG Urine Ketones NEG Urine Occult Blood NEG Urine Nitrite NEG Urine Bilirubin NEG Urine Urobilinogen NEG Urine Leukocyte Esterase NEG Diagnostic Results Radiological imaging and reports were reviewed by myself. Radiologist's Interpretation as follows: CHEST ONE VIEW PORTABLE HISTORY: Atypical chest pain. Right arm numbness. COMPARISON: Chest 04/21/2017. FINDINGS: No pleural effusions. No pneumothorax. Mild interstitial thickening seen within the right lateral lung base. Otherwise, the lungs are clear. The heart is normal in size. Stable right hilar prominence. Volume loss within the left hemithorax, unchanged. This is consistent with prior left upper lobectomy. There are surgical clips within the left hilum. IMPRESSION: 1. Mild interstitial thickening at the right lung base. This could be due to a developing interstitial pneumonia or atelectasis. 2. Stable postoperative changes within the left hemithorax. Assessment & Plan (1) STEMI (ST elevation myocardial infarction) (2) COPD (chronic obstructive pulmonary disease) (3) Lung cancer (4) Chest pain Reason Critically Ill: 76-year-old male status post PTCA with BRYAN 3 to the mid RCA requiring close cardiovascular monitoring status post intervention. Neuro - * CAM ICU: NEGATIVE Cardiac - * STEMI (Heart Alert) s/p PTCA w/ DESx3 to Mid RCA Lesion: * Monitor closely on telemetry. * Persistent CP s/p cath w/ ST changes as well - continue to monitor for worsening s/s. Pain appears pleuritic. Morphine PRN. Monitor for any EKG changes. * Trend troponins. * BB, ALEKSANDR, Statin, ASA per typical as BP tolerates. * AM Echo. * DAPT w/ Brilinta/ASA Respiratory - * h/o COPD and lung CA w/ prior lobectomy: * Supplemental O2 PRN. * Continue home Rx * On Prednisone taper recently. Will place on his maintenance dose of 5mg Daily. * CXRs PRN. * Encourage smoking cessation. GI - * GERD: Zantac * AHA diet RENAL/LYTES - * No significant electrolyte derangements. Will monitor 2/2 recent IVC load. - * h/o BPH: * Continue Flomax as prescribed. ENDO - * No h/o DM or Tyroid Disease. * BSGs w/ ISS/gtt per protocol. HEME - * Stable H&H - will monitor. ID - * No c/o infection at this point. * Monitor fever curve. LINES/IV ACCESS - * PIVs intact. DVT PROPHYLAXIS - * Ticagrelor loading in slab tripper. Brilinta/ASA. I have personally spent 35 minutes of in the direct management of this patient. Thank you for this consultation allow us to be part of this patient's care. Please refer to my attending physician's documentation for any further recommendations. Problem Qualifiers (1) STEMI (ST elevation myocardial infarction): Involved coronary artery: right coronary artery Qualified Codes: I21.11 - ST elevation (STEMI) myocardial infarction involving right coronary artery
--- NOTE | 2017-05-26 20:39 | CARDIOLOGY CONSULTATION ---
DATE OF CONSULTATION: 05/26/2017 CONSULTATION REQUESTED BY: Etienne Christianosn MD. REASON FOR CONSULTATION: Heart alert. HISTORY OF PRESENT ILLNESS: Mr. Gordon is a 76-year-old man with a past medical history as outlined below, who presented today with approximately 4 hours of substernal chest pain and was found to have borderline inferior ST elevations on his presenting EKG. The patient has no prior cardiac history, was in his usual state of health the night prior to admission. Pain was nonradiating and associated with mild shortness of breath, intermittently pleuritic in nature. Upon arrival, was hemodynamically stable, chest pain was 8/10. Heart alert was activated and he was taken urgently to the cardiac catheterization lab where he was found to have a 70-80% hazy appearing mid RCA stenosis and was thought to be likely culprit lesion, was also noted to have a severe 80-90% calcified ostial RCA lesion. He was treated with 3 drug-eluting stents from his ostial RCA to the mid segment with good angiographic result. Post-procedure his chest pain was improved. PAST MEDICAL HISTORY: Prior cardiac testing; echocardiogram June 2015 showed normal LV size with an EF of 60%, mildly dilated RV with normal function, mild TR, grade 1 diastolic dysfunction, and mild pulmonary hypertension with an estimated PASP of 46. OTHER MEDICAL ISSUES: 1. Thoracic aortic aneurysm measured at 4.4 cm on echo/CTA. 2. Lung CA, status post right upper lobe lobectomy by Dr. Saldivar, February 2016. 3. COPD, multiple recent hospitalizations for COPD exacerbations. 4. Hyperlipidemia. 5. BPH. 6. Recent tobacco abuse. FAMILY HISTORY: No family history of premature coronary disease and noncontributory due to patient's age and other comorbidities. SOCIAL HISTORY: He was a prior 1 pack per day smoker, quit 3 weeks ago. He is . 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 Denies any heavy alcohol use now. ALLERGIES: No known drug allergies. HOME MEDICATIONS: Include albuterol, atorvastatin 10, budesonide, guaifenesin, lisinopril 20, omeprazole 20, prednisone taper which recently completed, ranitidine, Daliresp, tamsulosin and Spiriva. REVIEW OF SYSTEMS: Not completed due to urgent situation. PHYSICAL EXAMINATION: VITAL SIGNS: Temperature 36.7, pulse 79, blood pressure 158/73, satting 96% on 3 liters. GENERAL: The patient appeared uncomfortable but in no acute distress. HEENT: Sclerae are anicteric. Oropharynx is clear. LUNGS: Clear to auscultation bilaterally. HEART: Regular rate and rhythm with 2/6 systolic ejection murmur heard best at the upper sternal borders. ABDOMEN: Soft, nontender. EXTREMITIES: Warm with no significant lower extremity edema. He had 2+ radial pulses bilaterally. LABORATORY DATA: White blood cell count 11.7, hemoglobin of 13. His sodium was 137, potassium was 3.9, BUN of 18, creatinine of 1.2. His point of care troponin was negative. His chest x-ray showed mild interstitial thickening at the right lung base, otherwise no other acute changes. EKG showed subtle inferior ST elevations, new from prior EKG. IMPRESSION AND PLAN: 1. Acute coronary syndrome. 2. Severe single vessel coronary artery disease status post 3 drug-eluting stents to right coronary artery. 3. Chronic obstructive pulmonary disease. 4. Hyperlipidemia. 5. Prior lung cancer status post upper lobe lobectomy. 6. History of prior tobacco abuse. Mr. Gordon is here with more than 4 hours of chest pain and subtle inferior ST elevations on his presenting EKG. He was found to have severe single vessel coronary artery disease in his mid RCA which was thought to be the likely culprit lesion for his presentation. He was treated with 3 overlapping drug-eluting stent with good angiographic result and was largely chest pain free post procedure. Going forward, we plan to admit to ICU for continued monitoring. Trend troponins until peaks. We will repeat an echocardiogram in the morning. We will continue on aspirin and Brilinta with plan for dual-antiplatelet therapy for at least the next year. We will continue on home ALEKSANDR inhibitor, start on low dose beta mark and increase to high intensity statin. We will continue to follow while in the hospital. ALICIA
[2017-05-26] MEDS ORDERED: PRED-301 PO (21:58)
[2017-05-27] VITALS (15 sets, daily range): BP systolic 80–119; BP diastolic 48–68; PULSE 64–81; TEMP 36.4–36.9; O2SAT 91–98
[2017-05-27 06:18] LABS: BASO % 0.1 %; BASO ABS # 0.01 K/uL (0-0.2); EOS ABS # 0.09 K/uL (0-0.5); HEMATOCRIT 33.4 % (42-52); HEMOGLOBIN 11.2 g/dL (14.0-18.0); IG# 0.02 K/uL (0.00-0.02); LYMPH % 19.9 %; LYMPH ABS # 1.78 K/uL (1.2-3.4); MEAN CELL VOLUME 94.6 fL (80-100); MEAN CORPUSCULAR HEMOGLOBIN 31.7 pg (25-34); MEAN CORPUSCULAR HGB CONC 33.5 g/dl (32-36); MEAN PLATELET VOLUME 9.5 fL (7.4-10.4); MONO ABS # 1.07 K/uL (0.11-0.59); NEUT % 66.8 %; NEUT ABS # 5.98 K/uL (1.4-6.5); PLATELET COUNT 200 K/uL (130-400); RED CELL DISTRIBUTION WIDTH CV 15.4 % (11.5-14.5); RED CELL DISTRIBUTION WIDTH SD 52.5 fL (36.4-46.3); WHITE BLOOD COUNT 8.95 K/uL (4.8-10.8)
[2017-05-27 06:51] LABS: CALCIUM 8.3 mg/dl (8.5-10.1); CREATININE 0.93 mg/dl (0.60-1.40); POTASSIUM 4.2 mmol/L (3.5-5.1)
[2017-05-27 07:22] LABS: HEMOGLOBIN A1C 6.2 % (4.5-5.6)
[2017-05-27] MEDS: ASPIRIN 81 MG ECTAB PO SCH (08:16)
[2017-05-27] MEDS: BUDESONIDE/FORMOTEROL FUMARATE 160/4.5 60 PUFFS/INHALER INH SCH ×2 (08:17→21:07)
[2017-05-27] MEDS: RANITIDINE HCL 150 MG TAB PO SCH ×2 (08:17→21:06)
[2017-05-27] MEDS: ATORVASTATIN 40 MG TAB PO SCH (08:17)
[2017-05-27] MEDS: ROFLUMILAST 500 MCG TAB PO SCH (08:17)
[2017-05-27] MEDS: METOPROLOL TARTRATE 25 MG TAB PO SCH ×2 (08:18→21:07)
[2017-05-27] MEDS: TIOTROPIUM BROMIDE 5 PUFF/90 MCG INH INH SCH (08:18)
[2017-05-27] MEDS ORDERED: LISINOPRIL 20 MG TAB PO SCH (09:00)
--- NOTE | 2017-05-27 10:07 | ECHOCARDIOGRAM REPORT ---
*NOTICE TO RECEIVING REPUBLICAN AGENCY This information is strictly Confidential and protected under [place] law. [place] law prohibits you from making any further disclosure of this information unless further disclosure is expressly permitted by the written consent of the person to whom it pertains or is authorized by law. A general authorization for the release of medical or other information is not sufficient for this purpose. Hospital accepts no responsibility if the information is made available to any other person, INCLUDING THE PATIENT. Interpretation Summary * Name: CHAMP DENNIS Study Date: 05/27/2017 06:33 AM BP: 95/48 mmHg * [facility]1 HR: 66 * : 1940 (M/d/yyyy) Gender: Male Height: 74 in * Age: 76 yrs Ethnicity: [place] Weight: 186 lb * Ordering Physician: Armaan Chris * Referring Physician: Self, Referred * Performed By: Gerda Polk RDCS * * Reason For Study: AMI * BSA: 2.1 m2 * -- Conclusions -- * 1. Normal LV size. Moderate concentric LVH. * 2. Normal LV function. LVEF 60-65%. No regional wall motion abnormalities. * 3. Borderline RA/RV enlargement. Normal RV function. * 4. Aortic valve sclerosis. Trace MR. Trace TR. * 5. Normal RA and PA pressures. * 6. Mildly dilated Asc Aorta (4.2 cm). * 7. No prior studies for comparison. Procedure Details * A complete two-dimensional transthoracic echocardiogram was performed (2D, M-mode, Doppler and color flow Doppler). Left Ventricle * The left ventricle is grossly normal size. * There is moderate concentric left ventricular hypertrophy. * Ejection Fraction = 60-65%. Right Ventricle * Borderline right ventricular enlargement. * The right ventricular systolic function is normal as assessed by tricuspid annular plane systolic excursion (TAPSE) (normal >1.5 cm). Atria * The left atrial size is normal. * Borderline right atrial enlargement. * No ASD detected; PFO is not assessed. Mitral Valve * The mitral valve is grossly normal. * There is no mitral valve stenosis. * There is trace mitral regurgitation. Tricuspid Valve * There is trace tricuspid regurgitation. Aortic Valve * Aortic valve sclerosis mild, without significant aortic valvular stenosis. * The aortic valve is trileaflet. * No hemodynamically significant valvular aortic stenosis. * There is no significant aortic regurgitation. Pulmonic Valve * The pulmonary valve is inadequately visualized, but the Doppler data is adequate for interpretation. * There is no pulmonic valvular stenosis. * Trace pulmonic valvular regurgitation. Great Vessels * Mildly dilated ascending aorta. * Asc Ao 4.2 cm Pericardium/Pleural * There is no pericardial effusion. Great Vessels * Normal inferior vena cava size and collapsability with sniff indicates a normal right atrial pressure of 3 mmHg * There is no evidence of pulmonary hypertension. The PA systolic pressure is less than 36 mmHg. MMode 2D Measurements and Calculations IVSd 1.9 cm IVSs 2.3 cm LVIDd 4.2 cm LVIDs 2.8 cm LVPWd 1.6 cm LVPWs 2.3 cm IVS/LVPW 1.2 FS 33.3 % EDV(Teich) 80.5 ml ESV(Teich) 30.4 ml EF(Teich) 62.3 % EDV(cubed) 76.3 ml ESV(cubed) 22.7 ml EF(cubed) 70.3 % % IVS thick 18.5 % % LVPW thick 40.9 % LV mass(C)d 326.7 grams LV mass(C)dI 155.1 grams/m\S\2 LV mass(C)s 314.1 grams LV mass(C)sI 149.1 grams/m\S\2 SV(Teich) 50.1 ml SI(Teich) 23.8 ml/m\S\2 SV(cubed) 53.7 ml SI(cubed) 25.5 ml/m\S\2 Ao root diam 4.2 cm Ao root area 14.0 cm\S\2 LA dimension 3.6 cm LA/Ao 0.86 LVAd ap4 26.5 cm\S\2 LVLd ap4 8.4 cm EDV(MOD-sp4) 70.6 ml EDV(sp4-el) 71.0 ml LVAs ap4 14.7 cm\S\2 LVLs ap4 7.1 cm ESV(MOD-sp4) 27.8 ml ESV(sp4-el) 26.0 ml EF(MOD-sp4) 60.6 % EF(sp4-el) 63.3 % LVAd ap2 29.2 cm\S\2 LVLd ap2 8.4 cm EDV(MOD-sp2) 86.6 ml EDV(sp2-el) 86.3 ml LVAs ap2 16.1 cm\S\2 LVLs ap2 7.1 cm ESV(MOD-sp2) 33.3 ml ESV(sp2-el) 30.9 ml EF(MOD-sp2) 61.5 % EF(sp2-el) 64.3 % LVLd %diff -0.12 % EDV(MOD-bp) 77.9 ml LVLs %diff 0.62 % ESV(MOD-bp) 30.6 ml EF(MOD-bp) 60.7 % SV(MOD-sp4) 42.8 ml SI(MOD-sp4) 20.3 ml/m\S\2 SV(MOD-sp2) 53.3 ml SI(MOD-sp2) 25.3 ml/m\S\2 SV(MOD-bp) 47.3 ml SI(MOD-bp) 22.5 ml/m\S\2 SV(sp4-el) 45.0 ml SI(sp4-el) 21.4 ml/m\S\2 SV(sp2-el) 55.5 ml SI(sp2-el) 26.3 ml/m\S\2 Doppler Measurements and Calculations MV E max prabha 88.3 cm/sec MV A max prabha 53.2 cm/sec MV E/A 1.7 MV dec time 0.26 sec Ao V2 max 151.4 cm/sec Ao max PG 9.2 mmHg Ao max PG (full) 5.7 mmHg LV V1 max PG 3.5 mmHg LV V1 max 93.7 cm/sec TR max prabha 265.3 cm/sec
[2017-05-27] MEDS: TICAGRELOR 90 MG TAB PO SCH ×2 (11:16→21:06)
--- NOTE | 2017-05-27 12:34 | Critical Care Progress Note ---
Critical Care Progress Note Date of Service May 27, 2017. Attending Dr. Spann Subjective Doing well Chest pain mostly resolved Occasional coughing fits (states he gets them from time to time at home, gets better with Xopenex) Objective General: Elderly male, NAD CVS:S1S2 regular, no murmur Lungs: Clear to auscultation b/l, no wheezing Abd: Soft Ext: No hematoma over the right radial area SHELTER DIRECTOR:No deficit Assessment & Plan 76 year-old male, s/p cath for STEMI. PCI of ostial mid-RCA with 3 stents COPD Plan: Started on Brilinta and ASA, Lipitor, metoprolol Continue Lisinopril Echo : * 1. Normal LV size. Moderate concentric LVH. * 2. Normal LV function. LVEF 60-65%. No regional wall motion abnormalities. * 3. Borderline RA/RV enlargement. Normal RV function. * 4. Aortic valve sclerosis. Trace MR. Trace TR. * 5. Normal RA and PA pressures. * 6. Mildly dilated Asc Aorta (4.2 cm). * 7. No prior studies for comparison. Add Xopenex. Continue Symbicort and Spiriva Continue Prednisone 5 mg He states that he quit smoking 1 month ago OOB to chair Probably could be transferred to telemetry Critical care time spent with the patient, reviewing chart, discussing with consultants, excluding procedures, greater than 25 minutes Data Medications: Current Inpatient Medications Medications (Trade) Dose Ordered Sig/Elmer Route Start Time Stop Time Status Last Admin Dose Admin Nitroglycerin (Nitrostat Tab) 0.4 mg UD PRN SL 05/26/17 16:30 06/25/17 16:29 Ondansetron HCl (Zofran Inj) 4 mg Q6H PRN IV 05/26/17 16:30 06/25/17 16:29 Aspirin (Ecotrin Tab) 81 mg QAM PO 05/27/17 09:00 06/26/17 08:59 05/27/17 08:16 81 MG Atorvastatin Calcium (Lipitor Tab) 80 mg QAM PO 05/27/17 09:00 06/26/17 08:59 05/27/17 08:17 80 MG Acetaminophen (Tylenol Tab) 650 mg Q4H PRN PO 05/26/17 16:30 06/25/17 16:29 Morphine Sulfate (MoRPHine SULFATE INJ) 2 mg Q5M PRN IV 05/26/17 16:30 06/09/17 16:29 05/26/17 22:17 2 MG Budesonide/ Formoterol Fumarate (Symbicort 160/ 4.5 Inh) 2 puffs BID INH 05/26/17 21:00 06/25/17 20:59 05/27/17 08:17 2 PUFFS Ranitidine HCl (zANTac TAB) 150 mg BID PO 05/26/17 21:00 06/25/17 20:59 05/27/17 08:17 150 MG Roflumilast (Daliresp Tab) 500 mcg DAILY PO 05/27/17 09:00 06/26/17 08:59 05/27/17 08:17 500 MCG Tamsulosin HCl (Flomax Cap) 0.4 mg QPM PO 05/26/17 21:00 06/25/17 20:59 05/26/17 20:26 0.4 MG Tiotropium [place] (Spiriva Handihaler Inhaler) 1 puff QAM INH 05/27/17 09:00 06/26/17 08:59 05/27/17 08:18 1 PUFF Menthol ([place]) 1 edgard PRN PRN EDGARD 05/26/17 18:45 06/25/17 18:44 Prednisone (PredniSONE TAB) 5 mg DAILY PO 05/27/17 09:00 06/26/17 08:59 05/27/17 08:17 5 MG Lisinopril (Zestril Tab) 5 mg QAM PO 05/28/17 09:00 06/26/17 08:59 Metoprolol Tartrate (Lopressor Tab) 12.5 mg Q12 PO 05/27/17 21:00 06/25/17 20:59 Ticagrelor (Brilinta Tab) 90 mg BID PO 05/27/17 09:45 06/26/17 09:44 05/27/17 11:16 90 MG Pantoprazole Sodium (Protonix Tab) 40 mg QAM PO 05/28/17 09:00 06/01/17 08:59 Levalbuterol (Xopenex 0.63 Mg/ 3 Ml Neb) 0.63 mg Q6R PRN INH 05/27/17 12:15 06/26/17 12:14 UNV Vital Signs: Date Time Temp Pulse Resp B/P (MAP) Pulse Ox O2 Delivery O2 Flow Rate FiO2 05/27/17 09:45 72 24 97/49 (65) 96 Nasal Cannula 2.0 05/27/17 08:15 73 21 80/48 (59) 96 Nasal Cannula 2.0 05/27/17 08:00 72 22 96 05/27/17 08:00 Nasal Cannula 2.0 05/27/17 08:00 36.5 74 22 92/53 (66) 96 Nasal Cannula 2.0 05/27/17 06:01 66 19 95/48 (64) 98 05/27/17 05:00 64 23 87/52 (64) 98 05/27/17 04:00 98 Nasal Cannula 2.0 05/27/17 04:00 69 28 100/54 (69) 97 05/27/17 03:00 70 24 100/55 (70) 96 05/27/17 02:00 69 18 104/54 (71) 98 Nasal Cannula 2.0 05/27/17 01:00 71 23 91/58 (69) 96 05/27/17 00:00 72 24 95/56 (69) 97 Nasal Cannula 05/26/17 23:59 97 Nasal Cannula 2.0 05/26/17 23:00 72 17 102/55 (71) 96 Nasal Cannula 2.0 05/26/17 22:45 71 16 107/60 (76) 96 05/26/17 22:30 71 15 86/50 (62) 97 05/26/17 22:16 75 19 86/53 (64) 97 05/26/17 22:01 77 18 91/52 (65) 97 05/26/17 21:00 75 21 108/57 (74) 98 05/26/17 21:00 75 21 108/57 (74) 98 Nasal Cannula 2.0 05/26/17 20:00 37.3 73 18 106/60 (75) 96 Nasal Cannula 2.0 05/26/17 20:00 100 Nasal Cannula 2.0 05/26/17 19:01 76 22 118/64 (82) 100 Nasal Cannula 2.0 05/26/17 18:30 81 17 139/80 (99) 98 Nasal Cannula 2.0 05/26/17 18:01 84 29 136/63 (87) 98 Nasal Cannula 2.0 05/26/17 17:31 81 18 136/63 (87) 99 Nasal Cannula 2.0 05/26/17 17:16 75 24 129/70 (89) 99 Nasal Cannula 2.0 05/26/17 17:01 77 20 117/61 (79) 100 Room Air 05/26/17 17:00 36.4 81 15 115/72 97 Room Air 05/26/17 16:45 76 14 114/62 (79) 94 Room Air 05/26/17 16:30 36.4 20 115/72 (86) 96 Room Air 05/26/17 16:12 80 16 94/57 (69) 97 Room Air 05/26/17 14:26 36.7 79 19 158/73 96 05/26/17 14:25 96 Nasal Cannula 05/26/17 14:25 96 3.0 05/26/17 14:19 79 05/26/17 14:19 158/73 05/26/17 14:18 81 19 98 05/26/17 14:16 132/66 05/26/17 14:13 79 24 05/26/17 14:08 77 23 05/26/17 14:06 36.7 76 22 145/73 98 Room Air 05/26/17 14:05 145/73 Laboratory Results: Last 24 Hours Test 05/26/17 14:00 05/26/17 14:13 05/26/17 14:52 05/26/17 17:45 White Blood Count 11.69 K/uL Red Blood Count 4.12 M/uL Hemoglobin 13.0 g/dL Hematocrit 39.0 % Mean Corpuscular Volume 94.7 fL Mean Corpuscular Hemoglobin 31.6 pg Mean Corpuscular Hemoglobin Concent 33.3 g/dl Platelet Count 237 K/uL Mean Platelet Volume 9.0 fL Neutrophils (%) (Auto) 74.9 % Lymphocytes (%) (Auto) 16.8 % Monocytes (%) (Auto) 6.3 % Eosinophils (%) (Auto) 1.0 % Basophils (%) (Auto) 0.2 % Neutrophils # (Auto) 8.76 K/uL Lymphocytes # (Auto) 1.96 K/uL Monocytes # (Auto) 0.74 K/uL Eosinophils # (Auto) 0.12 K/uL Basophils # (Auto) 0.02 K/uL RDW Standard Deviation 52.2 fL RDW Coefficient of Variation 15.1 % Immature Granulocyte % (Auto) 0.8 % Immature Granulocyte # (Auto) 0.09 K/uL Prothrombin Time 9.7 SECONDS Prothromb Time International Ratio 0.9 Activated Partial Thromboplast Time 27.8 SECONDS Partial Thromboplastin Ratio 1.1 Sodium Level 137 mmol/L Potassium Level 3.9 mmol/L Chloride Level 103 mmol/L Carbon Dioxide Level 28 mmol/L Anion Gap 6.0 mmol/L 18.0 mmol/L Blood Urea Nitrogen 18 mg/dl Creatinine 1.24 mg/dl Est Creatinine Clear Calc Drug Dose 58.9 ml/min Estimated GFR () 65.0 Estimated GFR (Non- 56.1 BUN/Creatinine Ratio 14.4 Random Glucose 123 mg/dl Calcium Level 9.0 mg/dl Magnesium Level 1.7 mg/dl Total Bilirubin 0.3 mg/dl Direct Bilirubin < 0.1 mg/dl Aspartate Amino Transf (AST/SGOT) 15 U/L Alanine Aminotransferase (ALT/SGPT) 19 U/L Alkaline Phosphatase 61 U/L Total Creatine Kinase 61 U/L Creatine Kinase MB 1.7 ng/ml Creatine Kinase MB Ratio 2.8 Total Protein 6.9 gm/dl Albumin 3.2 gm/dl Lipase 85 U/L Bedside Hemoglobin 12.9 g/dl Bedside Hematocrit 38 % Bedside Sodium 140 mEq/L Bedside Potassium 3.9 mEq/L Bedside Chloride 99 mEq/L Bedside Total CO2 27 mEq/l Bedside Blood Urea Nitrogen 19 mg/dl Bedside Creatinine 1.2 mg/dl Bedside Glucose (other) 126 mg/dl Bedside Ionized Calcium ([place]) 1.22 mmol/l Bedside Troponin I < 0.030 ng/ml Kaolin Activated Coagulation Time 257 SECONDS Urine Color YELLOW Urine Appearance CLEAR Urine pH 6.5 Urine Specific [place] <= 1.005 Urine Protein NEG Urine Glucose (UA) NEG Urine Ketones NEG Urine Occult Blood NEG Urine Nitrite NEG Urine Bilirubin NEG Urine Urobilinogen NEG Urine Leukocyte Esterase NEG Test 05/26/17 20:21 05/26/17 22:04 05/27/17 01:08 05/27/17 05:43 Bedside Glucose 124 mg/dl 109 mg/dl Troponin I 0.027 ng/ml 0.061 ng/ml White Blood Count 8.95 K/uL Red Blood Count 3.53 M/uL Hemoglobin 11.2 g/dL Hematocrit 33.4 % Mean Corpuscular Volume 94.6 fL Mean Corpuscular Hemoglobin 31.7 pg Mean Corpuscular Hemoglobin Concent 33.5 g/dl Platelet Count 200 K/uL Mean Platelet Volume 9.5 fL Neutrophils (%) (Auto) 66.8 % Lymphocytes (%) (Auto) 19.9 % Monocytes (%) (Auto) 12.0 % Eosinophils (%) (Auto) 1.0 % Basophils (%) (Auto) 0.1 % Neutrophils # (Auto) 5.98 K/uL Lymphocytes # (Auto) 1.78 K/uL Monocytes # (Auto) 1.07 K/uL Eosinophils # (Auto) 0.09 K/uL Basophils # (Auto) 0.01 K/uL RDW Standard Deviation 52.5 fL RDW Coefficient of Variation 15.4 % Immature Granulocyte % (Auto) 0.2 % Immature Granulocyte # (Auto) 0.02 K/uL Sodium Level 136 mmol/L Potassium Level 4.2 mmol/L Chloride Level 103 mmol/L Carbon Dioxide Level 27 mmol/L Anion Gap 5.0 mmol/L Blood Urea Nitrogen 19 mg/dl Creatinine 0.93 mg/dl Est Creatinine Clear Calc Drug Dose 78.6 ml/min Estimated GFR () 92.1 Estimated GFR (Non- 79.5 BUN/Creatinine Ratio 20.8 Random Glucose 106 mg/dl Estimated Average Glucose 131 mg/dl Hemoglobin A1c 6.2 % Calcium Level 8.3 mg/dl Triglycerides Level 93 mg/dl Cholesterol Level 122 mg/dl HDL Cholesterol 52 mg/dl LDL Cholesterol, Calculated 51 mg/dl VLDL Cholesterol, Calculated 19 mg/dl Cholesterol/HDL Ratio 2.3 Test 05/27/17 11:19 Bedside Glucose 117 mg/dl
[2017-05-27] MEDS: LEVALBUTEROL 0.63MG/3 ML NEB INH PRN (14:02)
--- NOTE | 2017-05-27 16:06 | Hospitalist Progress Note ---
Hospitalist Progress Note Date of Service May 27, 2017. Subjective Pt evaluation today including: conversation w/ patient, conversation w/ intelligence consultant (Cardiology, pulmonary/critical care) Voiding: no voiding problems Patient states that he still has pain all across the bottom of his chest with deep inspiration that feels like a deep ache and sometimes sharp. When it initially happened yesterday, it was severe and caused him shortness of breath. He denies any substernal chest pain or pressure. Discussed his condition with his on the phone at length. She states that he for the last year and a half has early satiety and vomits up mucus quite often. He has a chronic cough worse in the mornings. He denies worsening of his cough or worsening sputum production. She also reports that he was previously taking a lot of Aleve on a daily basis, but has not taken that for a few months until yesterday. He has been on Zantac and omeprazole at home which seems to have helped his previous indigestion. He is tolerating p.o. here and denies lightheadedness despite his low blood pressures. He denies abdominal pain. Telemetry without any arrhythmia. He remains in a normal sinus rhythm. Abdomen: No GI bleeding All Other Systems: Reviewed and Negative Objective Vital Signs Date Time Temp Pulse Resp B/P (MAP) Pulse Ox O2 Delivery O2 Flow Rate FiO2 05/27/17 14:02 81 14 94 Room Air 05/27/17 14:00 79 24 101/57 (72) 94 Room Air 05/27/17 12:00 36.4 81 25 92/50 (64) 94 Room Air 05/27/17 12:00 Room Air 05/27/17 09:45 72 24 97/49 (65) 96 Nasal Cannula 2.0 05/27/17 08:15 73 21 80/48 (59) 96 Nasal Cannula 2.0 05/27/17 08:00 72 22 96 05/27/17 08:00 Nasal Cannula 2.0 05/27/17 08:00 36.5 74 22 92/53 (66) 96 Nasal Cannula 2.0 05/27/17 06:01 66 19 95/48 (64) 98 05/27/17 05:00 64 23 87/52 (64) 98 05/27/17 04:00 98 Nasal Cannula 2.0 05/27/17 04:00 69 28 100/54 (69) 97 05/27/17 03:00 70 24 100/55 (70) 96 05/27/17 02:00 69 18 104/54 (71) 98 Nasal Cannula 2.0 05/27/17 01:00 71 23 91/58 (69) 96 05/27/17 00:00 72 24 95/56 (69) 97 Nasal Cannula 05/26/17 23:59 97 Nasal Cannula 2.0 05/26/17 23:00 72 17 102/55 (71) 96 Nasal Cannula 2.0 05/26/17 22:45 71 16 107/60 (76) 96 05/26/17 22:30 71 15 86/50 (62) 97 05/26/17 22:16 75 19 86/53 (64) 97 05/26/17 22:01 77 18 91/52 (65) 97 05/26/17 21:00 75 21 108/57 (74) 98 05/26/17 21:00 75 21 108/57 (74) 98 Nasal Cannula 2.0 05/26/17 20:00 37.3 73 18 106/60 (75) 96 Nasal Cannula 2.0 05/26/17 20:00 100 Nasal Cannula 2.0 05/26/17 19:01 76 22 118/64 (82) 100 Nasal Cannula 2.0 05/26/17 18:30 81 17 139/80 (99) 98 Nasal Cannula 2.0 05/26/17 18:01 84 29 136/63 (87) 98 Nasal Cannula 2.0 05/26/17 17:31 81 18 136/63 (87) 99 Nasal Cannula 2.0 05/26/17 17:16 75 24 129/70 (89) 99 Nasal Cannula 2.0 05/26/17 17:01 77 20 117/61 (79) 100 Room Air 05/26/17 17:00 36.4 81 15 115/72 97 Room Air 05/26/17 16:45 76 14 114/62 (79) 94 Room Air 05/26/17 16:30 36.4 20 115/72 (86) 96 Room Air 05/26/17 16:12 80 16 94/57 (69) 97 Room Air Physical Exam General Appearance: WD/WN, no apparent distress Eyes: normal inspection, sclerae normal ENT: hearing grossly normal Neck: supple, no adenopathy, trachea midline, + pertinent finding (Positive right carotid bruit versus radiation of systolic murmur from the heart) Respiratory/Chest: no respiratory distress, no accessory muscle use, + decreased breath sounds (Diminished breath sounds throughout with faint expiratory wheezes scattered) Cardiovascular: regular rate, rhythm, no edema, no gallop, + systolic murmur (2 /6 CY at the RUSB) Abdomen: normal bowel sounds, non tender, soft, no organomegaly, no pulsatile mass Extremities: normal range of motion, non-tender, normal inspection, no pedal edema, no calf tenderness Neurologic/Psychiatric: no motor/sensory deficits, alert, normal mood/affect, oriented x 3 Skin: normal color, warm/dry, no rash Laboratory Results Last 24 Hours Test 05/26/17 17:45 05/26/17 20:21 05/26/17 22:04 05/27/17 01:08 Urine Color YELLOW Urine Appearance CLEAR Urine pH 6.5 Urine Specific [place] <= 1.005 Urine Protein NEG Urine Glucose (UA) NEG Urine Ketones NEG Urine Occult Blood NEG Urine Nitrite NEG Urine Bilirubin NEG Urine Urobilinogen NEG Urine Leukocyte Esterase NEG Bedside Glucose 124 mg/dl 109 mg/dl Troponin I 0.027 ng/ml Test 05/27/17 05:43 05/27/17 11:19 05/27/17 14:13 White Blood Count 8.95 K/uL Red Blood Count 3.53 M/uL Hemoglobin 11.2 g/dL Hematocrit 33.4 % Mean Corpuscular Volume 94.6 fL Mean Corpuscular Hemoglobin 31.7 pg Mean Corpuscular Hemoglobin Concent 33.5 g/dl Platelet Count 200 K/uL Mean Platelet Volume 9.5 fL Neutrophils (%) (Auto) 66.8 % Lymphocytes (%) (Auto) 19.9 % Monocytes (%) (Auto) 12.0 % Eosinophils (%) (Auto) 1.0 % Basophils (%) (Auto) 0.1 % Neutrophils # (Auto) 5.98 K/uL Lymphocytes # (Auto) 1.78 K/uL Monocytes # (Auto) 1.07 K/uL Eosinophils # (Auto) 0.09 K/uL Basophils # (Auto) 0.01 K/uL RDW Standard Deviation 52.5 fL RDW Coefficient of Variation 15.4 % Immature Granulocyte % (Auto) 0.2 % Immature Granulocyte # (Auto) 0.02 K/uL Sodium Level 136 mmol/L Potassium Level 4.2 mmol/L Chloride Level 103 mmol/L Carbon Dioxide Level 27 mmol/L Anion Gap 5.0 mmol/L Blood Urea Nitrogen 19 mg/dl Creatinine 0.93 mg/dl Est Creatinine Clear Calc Drug Dose 78.6 ml/min Estimated GFR () 92.1 Estimated GFR (Non- 79.5 BUN/Creatinine Ratio 20.8 Random Glucose 106 mg/dl Estimated Average Glucose 131 mg/dl Hemoglobin A1c 6.2 % Calcium Level 8.3 mg/dl Troponin I 0.061 ng/ml 0.045 ng/ml Triglycerides Level 93 mg/dl Cholesterol Level 122 mg/dl HDL Cholesterol 52 mg/dl LDL Cholesterol, Calculated 51 mg/dl VLDL Cholesterol, Calculated 19 mg/dl Cholesterol/HDL Ratio 2.3 Bedside Glucose 117 mg/dl Diagnostic Results Chest x-ray images personally reviewed by me and reveal volume loss on the left side with elevation of the left hemidiaphragm, infiltrate versus atelectasis at the right base Assessment and Plan This patient is a 76 y/o male with a history of HLD, BPH, COPD with chronic respiratory failure, who until recently continued to smoke cigarettes. Presented to the ER with persistent 4-5 hours of CP that was pleuritic in nature all across the lower chest associated with shortness of breath and numbness of the right upper extremity. Denied diaphoresis, N/V. An initial EKG was consistent with an inferior STEMI. The pt was promptly transferred to the [facility] where his RCA was successfully stented. He continues to have pleuritic type chest pain despite successful placement of stents. The pt has been admitted 3 times this year for COPD exacerbations. He was DCd with supplemental 02 1 month ago and states that he uses this on occasion only. STEMI/CAD 3 stents placed in RCA which exhibited 80% stenosis - severe osteal lesion present. CP has recurred intermittently following the cath and seems to be more pleuritic in nature. Troponin only with very mild elevation with peak at 0.061. Echo with preserved LV function. Continues with low normal blood pressures but asymptomatic. Not requiring pressors. -Continue high-intensity Statin tx-increased dose from home -Continue ASA, adding Brilinta -Metoprolol 12.5 mg p.o. twice daily added but blood pressures remained quite low so we will see if able to give this evening -Cardiology also added low-dose lisinopril which may or may not be able to be given in the morning -Monitor on telemetry but can transfer out of the ICU -Appreciate cardiology consultation and management Pleuritic chest pain-does not seem to be resolved with stent placement for STEMI , mildly hypoxic but this is his baseline as per his . Could be pleurisy versus developing pneumonia although no fever, no leukocytosis, no increasing cough or sputum production. -Check CTA chest to rule out PE-creatinine normal and despite dye load from cath yesterday, I feel this is necessary given his presentation-discussed this risk of renal injury with the patient COPD -with chronic hypoxic respiratory failure on O2 at home with exertion-no current evidence of exacerbation -cont Symbicort, Spiriva, Daliresp -Albuterol provided PRN -Discontinue prednisone as he is no longer on this at home Carotid bruit versus radiation of heart murmur-on the right side, also with known left proximal subclavian stenosis 75%-asymptomatic -Check carotid ultrasound -On high intensity statin, aspirin for PAD Hypomagnesemia noted on labs - replaced BPH -stable no issues -cont Flomax GERD/early satiety/frequent vomiting-seems to have improved as an outpatient since stopping NSAID use several months ago as per the -Continue PPI, H2 mark- requests changing to Protonix rather than Prilosec upon discharge -Should have GI referral for EGD as an outpatient HLD -as above, the Lipitor dose increased to 80mg daily Prophylaxis-FABIAN hose, aspirin and Brilinta Full code Disposition-likely to home tomorrow if continues to do well
[2017-05-27] MEDS ORDERED: OPTIRAY 320 IV PRN (16:45)
--- NOTE | 2017-05-27 17:10 | DIAGNOSTIC IMAGING REPORT ---
CAROTID DOPPLER NECK ART CLINICAL HISTORY: 76 years-old Male with right carotid bruit,here with STEMI. Right carotid bruit COMPARISON: None available TECHNIQUE: Multiple real time sonographic images of the carotid bifurcations were obtained assessing yarbrough scale, color Doppler and spectral wave form appearance FINDINGS: The blood pressures were unable to be obtained. RIGHT EXTERNAL CAROTID ARTERY: Increased peak systolic velocities are noted involving the external carotid artery measuring up to 269 cm/s. RIGHT INTERNAL CAROTID: The peak systolic velocity measured 14 cm/sec. The end diastolic velocity measured 4.3 cm/sec. The ICA to CCA ratio measured 3.0 which correlates with a stenosis of 50-69%. Extensive mixed plaquing of the right carotid bulb, proximal, mid and distal portions of the right internal carotid artery with diminished flow and blunted waveforms demonstrating spectral broadening. LEFT INTERNAL CAROTID: The peak systolic velocity measured 84 cm/sec. The end diastolic velocity measured 24 cm/sec. The ICA to CCA ratio measured 0.8 which correlates with a stenosis of 0-50%. Moderate mixed plaquing of the left carotid bulb and proximal left ICA. There is normal antegrade vertebral flow bilaterally. IMPRESSION: 1. Extensive mixed plaquing of the right carotid bulb and right internal carotid artery results in diminished flow with blunted waveforms demonstrating spectral broadening within the right internal carotid artery. These findings suggest at least 50-69% stenosis. Further evaluation with CTA of the neck recommended. 2. Moderate mixed plaquing of the left carotid bulb without hemodynamically significant stenosis. 3. Antegrade flow of the bilateral vertebral arteries. The above report was generated using voice recognition software. It may contain grammatical, syntax or spelling errors. Electronically signed by: Alex Silva M.D. 05/27/2017 5:09 PM Dictated Date/Time: 05/27/2017 5:02 PM
--- NOTE | 2017-05-27 17:30 | Cardiology Follow-Up ---
Subjective Subjective Date of Service: May 27, 2017. Pt evaluation today including: conversation w/ patient, physical exam, chart review, lab review, review of studies, review of inpatient medication list Additional Details: Chest pain improved today. No other new complaints. Tele reviewed -- no events. Problem List Medical Problems: (1) Allergic reaction Status: Acute (2) Chest pain Status: Acute (3) COPD (chronic obstructive pulmonary disease) Status: Chronic (4) COPD exacerbation Status: Acute (5) COPD exacerbation Status: Acute (6) Dyspnea Status: Acute (7) Insect sting Status: Acute (8) Lung cancer Status: Chronic (9) Sepsis Status: Acute (10) Shortness of breath Status: Acute (11) STEMI (ST elevation myocardial infarction) Status: Acute (12) Weakness Status: Acute Review of Systems Constitutional: + weakness, + fatigue, No fever Respiratory: + shortness of breath, + dyspnea on exertion, No cough Cardiac: + see HPI Abdomen: No nausea, No GI bleeding Heme: No abnormal bleeding/bruising Skin: No rash Objective Vital Signs Last Vital Signs Documentation Date Time Temp Pulse Resp B/P (MAP) Pulse Ox O2 Delivery O2 Flow Rate FiO2 05/27/17 14:02 81 14 94 Room Air 05/27/17 14:00 101/57 (72) 05/27/17 12:00 36.4 05/27/17 09:45 2.0 Physical Exam: General Appearance: no apparent distress ENT: hearing grossly normal Neck: supple, no adenopathy, trachea midline, + pertinent finding (Positive right carotid bruit versus radiation of systolic murmur from the heart) Respiratory/Chest: no respiratory distress, no accessory muscle use, + decreased breath sounds (Diminished breath sounds throughout with faint expiratory wheezes scattered) Cardiovascular: regular rate, rhythm, no edema, no gallop, + systolic murmur (2 /6 CY at the RUSB) Abdomen: normal bowel sounds, non tender, soft Extremities: normal inspection, no pedal edema, no calf tenderness, + pertinent finding (right radial artery access site -- no hematoma/ecchymosis, intact distal pulses.) Neurologic/Psychiatric: alert, normal mood/affect, oriented x 3 Skin: normal color, warm/dry, no rash Assessment and Plan 1. Suspected ACS - single vessel CAD s/p PCI with 3 overlapping BRYAN 2. Pleuritic chest pain. 3. COPD 4. Relative hypotension 5. Dyslipidemia Mild residual pleuritic chest pain. Electrically stable. No access site complications. Minimal troponin elevation. LV function preserved on echo. -- Continue on DAPT with ASA/Ticagrelor for 1 year -- Resume prior ALEKSANDR and start beta-mark as BP allows. -- On high-intensity statin -- Agree with additional evaluation for non-cardiac causes of pleuritic chest pain. - -- Patient OK from a cardiac standpoint for transfer to telemetry. Medications: Current Inpatient Medications Medications (Trade) Dose Ordered Sig/Elmer Route Start Time Stop Time Status Last Admin Dose Admin Nitroglycerin (Nitrostat Tab) 0.4 mg UD PRN SL 05/26/17 16:30 06/25/17 16:29 Ondansetron HCl (Zofran Inj) 4 mg Q6H PRN IV 05/26/17 16:30 06/25/17 16:29 Aspirin (Ecotrin Tab) 81 mg QAM PO 05/27/17 09:00 06/26/17 08:59 05/27/17 08:16 81 MG Atorvastatin Calcium (Lipitor Tab) 80 mg QAM PO 05/27/17 09:00 06/26/17 08:59 05/27/17 08:17 80 MG Acetaminophen (Tylenol Tab) 650 mg Q4H PRN PO 05/26/17 16:30 06/25/17 16:29 Morphine Sulfate (MoRPHine SULFATE INJ) 2 mg Q5M PRN IV 05/26/17 16:30 06/09/17 16:29 05/26/17 22:17 2 MG Budesonide/ Formoterol Fumarate (Symbicort 160/ 4.5 Inh) 2 puffs BID INH 05/26/17 21:00 06/25/17 20:59 05/27/17 08:17 2 PUFFS Ranitidine HCl (zANTac TAB) 150 mg BID PO 05/26/17 21:00 06/25/17 20:59 05/27/17 08:17 150 MG Roflumilast (Daliresp Tab) 500 mcg DAILY PO 05/27/17 09:00 06/26/17 08:59 05/27/17 08:17 500 MCG Tamsulosin HCl (Flomax Cap) 0.4 mg QPM PO 05/26/17 21:00 06/25/17 20:59 05/26/17 20:26 0.4 MG Tiotropium [place] (Spiriva Handihaler Inhaler) 1 puff QAM INH 05/27/17 09:00 06/26/17 08:59 05/27/17 08:18 1 PUFF Menthol ([place]gard) 1 edgard PRN PRN EDGARD 05/26/17 18:45 06/25/17 18:44 Lisinopril (Zestril Tab) 5 mg QAM PO 05/28/17 09:00 06/26/17 08:59 Metoprolol Tartrate (Lopressor Tab) 12.5 mg Q12 PO 05/27/17 21:00 06/25/17 20:59 Ticagrelor (Brilinta Tab) 90 mg BID PO 05/27/17 09:45 06/26/17 09:44 05/27/17 11:16 90 MG Pantoprazole Sodium (Protonix Tab) 40 mg QAM PO 05/28/17 09:00 06/01/17 08:59 Levalbuterol (Xopenex 0.63 Mg/ 3 Ml Neb) 0.63 mg Q6R PRN INH 05/27/17 12:15 06/26/17 12:14 05/27/17 14:02 0.63 MG Ioversol (Optiray 320) 125 ml UD PRN IV 05/27/17 16:45 05/31/17 16:44 Lab Results: 05/27/17 05:43 Red Blood Count 3.53, Mean Corpuscular Volume 94.6, Mean Corpuscular Hemoglobin 31.7, Mean Corpuscular Hemoglobin Concent 33.5, Mean Platelet Volume 9.5, Neutrophils (%) (Auto) 66.8, Lymphocytes (%) (Auto) 19.9, Monocytes (%) (Auto) 12.0, Eosinophils (%) (Auto) 1.0, Basophils (%) (Auto) 0.1, Neutrophils # (Auto ) 5.98, Lymphocytes # (Auto) 1.78, Monocytes # (Auto) 1.07, Eosinophils # (Auto ) 0.09, Basophils # (Auto) 0.01 05/27/17 05:43 Test 05/26/17 17:45 05/27/17 05:43 05/27/17 11:19 05/27/17 14:13 Urine Color YELLOW Urine Appearance CLEAR (CLEAR) Urine pH 6.5 (4.5-7.5) Urine Specific [place] <= 1.005 (1.000-1.030) Urine Protein NEG (NEG) Urine Glucose (UA) NEG (NEG) Urine Ketones NEG (NEG) Urine Occult Blood NEG (NEG) Urine Nitrite NEG (NEG) Urine Bilirubin NEG (NEG) Urine Urobilinogen NEG (NEG) Urine Leukocyte Esterase NEG (NEG) White Blood Count 8.95 K/uL (4.8-10.8) Red Blood Count 3.53 M/uL (4.7-6.1) Hemoglobin 11.2 g/dL (14.0-18.0) Hematocrit 33.4 % (42-52) Mean Corpuscular Volume 94.6 fL (80-100) Mean Corpuscular Hemoglobin 31.7 pg (25-34) Mean Corpuscular Hemoglobin Concent 33.5 g/dl (32-36) Platelet Count 200 K/uL (130-400) Mean Platelet Volume 9.5 fL (7.4-10.4) Neutrophils (%) (Auto) 66.8 % Lymphocytes (%) (Auto) 19.9 % Monocytes (%) (Auto) 12.0 % Eosinophils (%) (Auto) 1.0 % Basophils (%) (Auto) 0.1 % Neutrophils # (Auto) 5.98 K/uL (1.4-6.5) Lymphocytes # (Auto) 1.78 K/uL (1.2-3.4) Monocytes # (Auto) 1.07 K/uL (0.11-0.59) Eosinophils # (Auto) 0.09 K/uL (0-0.5) Basophils # (Auto) 0.01 K/uL (0-0.2) RDW Standard Deviation 52.5 fL (36.4-46.3) RDW Coefficient of Variation 15.4 % (11.5-14.5) Immature Granulocyte % (Auto) 0.2 % Immature Granulocyte # (Auto) 0.02 K/uL (0.00-0.02) Anion Gap 5.0 mmol/L (3-11) Est Creatinine Clear Calc Drug Dose 78.6 ml/min Estimated GFR () 92.1 Estimated GFR (Non- 79.5 BUN/Creatinine Ratio 20.8 (10-20) Estimated Average Glucose 131 mg/dl Hemoglobin A1c 6.2 % (4.5-5.6) Calcium Level 8.3 mg/dl (8.5-10.1) Triglycerides Level 93 mg/dl (0-150) Cholesterol Level 122 mg/dl (0-200) HDL Cholesterol 52 mg/dl LDL Cholesterol, Calculated 51 mg/dl VLDL Cholesterol, Calculated 19 mg/dl Cholesterol/HDL Ratio 2.3 Bedside Glucose 117 mg/dl (70-99) Troponin I 0.045 ng/ml (0-0.045)
--- NOTE | 2017-05-27 17:42 | DIAGNOSTIC IMAGING REPORT ---
(CHEST FOR PE) ANGIO WITH CT DOSE: 356.68 mGy.cm HISTORY: 76 years-old Male presents with acute pleuritic chest pain TECHNIQUE: Multiple CTA images of the chest were obtained after the intravenous administration of 93 ml Optiray 320. Coronal and sagittal MIPS were obtained from the axial data set and were submitted for review. All measurements were obtained utilizing NASCET criteria. A dose lowering technique was utilized adhering to the principles of ALARA. COMPARISON: Chest radiograph 05/26/2017, CTA chest 04/22/2017 FINDINGS: CTA: Heart demonstrates mild multichamber cardiac enlargement with small pericardial effusion. Three-vessel distribution of coronary arterial disease. Moderate atherosclerosis of the aorta and proximal great vessels. There is 80% luminal narrowing involving the proximal left subclavian artery proximal to the origin of the left subclavian artery, image 258 series 4. The remaining imaged great vessels are widely patent. Focal kinking of the mid right subcutaneous and artery as it crosses over the first rib results in approximately 50% luminal narrowing. Fusiform dilation of the ascending thoracic aorta measures 4.5 x 4.4 cm. No aortic dissection. The pulmonary arterial tree is opacified to the level of the subsegmental branches and demonstrates no focal filling defects to suggest pulmonary thromboembolic disease. CT CHEST: Mildly heterogeneous thyroid. Mildly enlarged 11 mm subcarinal lymph node is indeterminate. 11 mm right hilar lymph node is also present. Trace bilateral pleural effusions. Moderate upper lung zone predominant emphysema with mild biapical pleural-parenchymal scarring. Postoperative changes from prior left upper lobectomy. Mild bilateral bronchial wall thickening. Subsegmental dependent consolidation of the right lung base with segmental scarring throughout the left lung. No suspicious nodules or masses identified. Mucous plugging noted within the right lower lobe bronchi. Indeterminate 3 mm nodule of the right upper lobe, image 183 series 4. No acute abnormality of the imaged upper abdomen. Nonspecific bilateral perinephric stranding with bilateral renal cysts. Low attenuating lesion of the hepatic dome, 1.9 cm suggests hepatic cyst. Soft tissues are unremarkable. The bones appear intact without suspicious bone lesions identified. IMPRESSION: 1. No evidence of pulmonary thromboembolic disease. 2. Fusiform dilation of the ascending thoracic aorta, 4.4 x 4.5 cm. 3. Mucous plugging of the right lower lobe bronchi with subsegmental right basilar consolidation suggesting atelectasis or pneumonitis. Trace bilateral pleural effusions. 4. Moderate emphysema with postoperative changes from prior left upper lobectomy. 5. Mild subcarinal and right hilar adenopathy, likely reactive. 6. 80% luminal narrowing involves the proximal left subclavian artery just proximal to the origin of the left vertebral artery secondary to atherosclerotic plaque. The above report was generated using voice recognition software. It may contain grammatical, syntax or spelling errors. Electronically signed by: Alex Silva M.D. 05/27/2017 5:41 PM Dictated Date/Time: 05/27/2017 5:30 PM
[2017-05-27] MEDS: TAMSULOSIN HCL 0.4 MG CAP PO SCH (21:07)
[2017-05-28 03:21] VITALS: BP 139/73; PULSE 69; TEMP 37.1; O2SAT 95
[2017-05-28 03:41] VITALS: PULSE 77; O2SAT 93
[2017-05-28] MEDS: LEVALBUTEROL 0.63MG/3 ML NEB INH PRN (03:41)
[2017-05-28 06:18] LABS: BASO % 0.2 %; BASO ABS # 0.02 K/uL (0-0.2); EOS % 0.9 %; EOS ABS # 0.07 K/uL (0-0.5); HEMATOCRIT 33.5 % (42-52); HEMOGLOBIN 11.3 g/dL (14.0-18.0); IG# 0.05 K/uL (0.00-0.02); LYMPH % 19.4 %; LYMPH ABS # 1.56 K/uL (1.2-3.4); MEAN CELL VOLUME 93.3 fL (80-100); MEAN CORPUSCULAR HEMOGLOBIN 31.5 pg (25-34); MEAN CORPUSCULAR HGB CONC 33.7 g/dl (32-36); MONO % 11.9 %; MONO ABS # 0.96 K/uL (0.11-0.59); NEUT ABS # 5.38 K/uL (1.4-6.5); PLATELET COUNT 206 K/uL (130-400); RED CELL DISTRIBUTION WIDTH CV 15.1 % (11.5-14.5); RED CELL DISTRIBUTION WIDTH SD 51.3 fL (36.4-46.3); WHITE BLOOD COUNT 8.04 K/uL (4.8-10.8)
[2017-05-28 06:53] LABS: CREATININE 0.73 mg/dl (0.60-1.40); POTASSIUM 3.7 mmol/L (3.5-5.1)
[2017-05-28 07:48] VITALS: BP 109/66; PULSE 78; TEMP 36.8; O2SAT 95
[2017-05-28] MEDS: TIOTROPIUM BROMIDE 5 PUFF/90 MCG INH INH SCH (08:04)
[2017-05-28] MEDS: BUDESONIDE/FORMOTEROL FUMARATE 160/4.5 60 PUFFS/INHALER INH SCH (08:04)
[2017-05-28] MEDS: RANITIDINE HCL 150 MG TAB PO SCH (08:05)
[2017-05-28] MEDS: ATORVASTATIN 40 MG TAB PO SCH (08:05)
[2017-05-28] MEDS: METOPROLOL TARTRATE 25 MG TAB PO SCH (08:06)
[2017-05-28] MEDS: ROFLUMILAST 500 MCG TAB PO SCH (08:07)
[2017-05-28] MEDS: ASPIRIN 81 MG ECTAB PO SCH (08:07)
[2017-05-28] MEDS: TICAGRELOR 90 MG TAB PO SCH (08:07)
[2017-05-28] MEDS ORDERED: PANTOprazole SOD 40 MG TAB PO SCH (09:00)
[2017-05-28] MEDS ORDERED: LISINOPRIL 20 MG TAB PO SCH (09:00)
[2017-05-28 11:17] VITALS: BP 112/69; PULSE 70; TEMP 36.6; O2SAT 94
[2017-05-28] MEDS ORDERED: LPT40 PO (13:30)
[2017-05-28] MEDS ORDERED: ASPEC81 PO (13:30)
[2017-05-28] MEDS ORDERED: BRL90 PO (13:30)
[2017-05-28] MEDS ORDERED: METO-478 PO (13:30)
[2017-05-28] MEDS ORDERED: LSN5 PO (13:30)
[2017-05-28] MEDS ORDERED: PRT40 PO (13:30)
--- NOTE | 2017-05-28 13:35 | Discharge Instructions ---
Discharge Instructions Date of Service May 28, 2017. Admission Reason for Admission: STEMI, Chest pain Discharge Discharge Diagnosis / Problem: STEMI,Chest pain Discharge Goals Goal(s): Improve disease control, Diagnostic testing, Therapeutic intervention Activity Recommendations Activity Limitations: as noted below Exercise/Sports Limitations: until after follow-up appointment (do not exercise or heavily exert yourself until after seen by Cardiology) Shower/Bathe: no limitations . Instructions / Follow-Up Instructions / Follow-Up You were admitted for chest pain and found to be having a heart attack. You had stents placed in an artery in your heart to restore good blood flow to the heart. It is very important that you take the Aspirin and Brilinta every single day to keep your new stents from clotting off. Some of your other heart medications were also changed. Please follow the medication list exactly as written. You will need to follow up with the Case Technician, Dr. Armaan Chris, within 2 weeks of discharge. Your chest pain continued and was thought to be possibly either from inflammation around the lungs, or may be from a gastrointestinal issue. You were changed to Protonix (from omeprazole) and should follow up with your PCP for a possible referral to a GI doctor. You were found to have a moderate blockage in the right carotid artery in our neck. You should continue to STOP smoking, and take the prescribed medications as above-this will all help prevent you from having this blockage get worse. This should be followed periodically by your Case Technician or PCP. Home Care: * Take your medications exactly as directed. Don't skip doses. * Remember that recovery after a heart attack takes time. Plan to rest for at lease 4-8 weeks while you recover. Then return to normal activity when your doctor says it's okay. * Ask your doctor about joining a heart rehabilitation program. * Tell your doctor if you are feeling depressed. Feelings of sadness are common after a heart attack, but it is important that you speak to someone if you are feeling overwhelmed by these feelings. * If you are having chest pain, call 911 for an ambulance. Do NOT drive yourself to the hospital. * Ask your family members to learn CPR. * Learn to take your own blood pressure and pulse. Keep a record of your results. Ask your doctor when you should seek emergency medical attention. He or she will tell you which blood pressure reading is dangerous. Lifestyle Changes: * Maintain a healthy weight. Get help to lose any extra pounds. * Cut back on salt. * Limit canned, dried, packaged, and fast foods. * Don't add salt to your food. * Season foods with herbs instead of salt when you cook. * Break the smoking habit. Enroll in a stop-smoking program to improve your chances of success. * Limit fatty foods. * Ask your doctor about having your lipid levels checked regularly. * Build up your activity according to your doctor's recommendation. * Ask your doctor when it's okay to resume sexual activity. * Tell your doctor about any erectile dysfunction (ED) medication you are taking. Some ED medications are not safe if you take certain heart medications. * Try to manage stress. Follow Up: It is important for you to keep your follow up appointments with your medical provider. Current Hospital Diet Patient's current hospital diet: AHA Diet (Heart Healthy) Discharge Diet Recommended Diet: AHA Diet (Heart Healthy) Procedures Procedures Performed: Cardiac catheterization Chest xray CT Chest Carotid artery ultrasound Pending Studies Studies pending at discharge: no Laboratory Results Hemoglobin A1c Test 05/27/17 05:43 Range/Units Estimated Average Glucose 131 mg/dl Hemoglobin A1c 6.2 H 4.5-5.6 % Lipid Panel Test 05/27/17 05:43 Range/Units Triglycerides Level 93 0-150 mg/dl Cholesterol Level 122 0-200 mg/dl HDL Cholesterol 52 mg/dl Cholesterol/HDL Ratio 2.3 LDL Cholesterol, Calculated 51 mg/dl Medical Emergencies . Who to Call and When: Medical Emergencies: If at any time you feel your situation is an emergency, please call 911 immediately. Call 911 immediately or go to your nearest Emergency Room if you experience any of the following: Warning Signs and Symptoms of a Heart Attack * Chest pain that is not relieved by medication * Shortness of breath . Non-Emergent Contact Non-Emergency issues call your: Primary Care Provider, Case Technician Call Non-Emergent contact if: temperature is above 100.5, your pain is not controlled, your pain is worsening, your pain is unusual for you, your pain is concerning you, you have any medication questions . . "Provider Documentation" section prepared by Batsheva Laguna. . AMI Core Measures Reason no ASA as I/P: Treatment provided - N/A Reason no ASA at D/C: Treatment provided - N/A Reason no statin as I/P: Treatment provided - N/A Reason no statin at D/C: Treatment provided - N/A
--- NOTE | 2017-05-28 13:51 | Discharge Summary ---
Discharge Summary Date of Service May 28, 2017. Discharge Summary Admission Date: May 26, 2017 at 16:33 Discharge Date: May 28, 2017 Discharge Disposition: Home Principal Diagnosis: STEMI, Chest pain Problems/Secondary Diagnoses: HLD BPH COPD with chronic respiratory failure Severe CAD Right carotid artery stenosis Left proximal subclavian stenosis Hypomagnesemia GERD Early satiety Frequent post-prandial vomiting Ascending aortic aneurysm-4.2cm Immunizations: Have You Had Influenza Vaccine: Unknown History of Tetanus Vaccine?: Unknown History of Pneumococcal: Unknown History of Hepatitis B Vaccine: Unknown Procedures: Cardiac catheterization CTA Chest CXR Carotid artery US ECHO: 1. Normal LV size. Moderate concentric LVH. * 2. Normal LV function. LVEF 60-65%. No regional wall motion abnormalities. * 3. Borderline RA/RV enlargement. Normal RV function. * 4. Aortic valve sclerosis. Trace MR. Trace TR. * 5. Normal RA and PA pressures. * 6. Mildly dilated Asc Aorta (4.2 cm). * 7. No prior studies for comparison. Consultations: Cardiology Critical Care Medicine Medication Reconciliation New Medications: Lisinopril (Lisinopril) 5 Mg Tab 5 MG PO QAM for 30 Days, #30 TAB Metoprolol Succinate (Toprol Xl) 25 Mg Tab 25 MG PO DAILY, #30 TAB Aspirin (Aspirin EC Low Dose) 81 Mg Ectab 81 MG PO QAM for 30 Days, #30 TAB Atorvastatin (Lipitor) 40 Mg Tab 80 MG PO QAM for 30 Days, #60 TAB Pantoprazole (Pantoprazole Sodium) 40 Mg Tab 40 MG PO QAM for 30 Days, #30 TAB Ticagrelor (Brilinta) 90 Mg Tab 90 MG PO BID for 30 Days, #60 TAB PLEASE USE THE COUPON GIVEN TO YOU FOR REDUCED COST Continued Medications: Albuterol Sulfate (Proair Respiclick) 108 Mcg/Act Aer 2 PUFFS INH DIRECTED PRN for Shortness of Breath Budesonide/Formoterol Fumarate (Symbicort 160-4.5 Mcg/Act) 60 Puffs/Inhaler Aero 2 PUFFS INH BID for 14 Days Guaifenesin (Guaifenesin) 400 Mg Tab 400 MG PO BID PRN for CONGESTION Ranitidine Hcl (Zantac) 150 Mg Tab 150 MG PO BID, TAB Roflumilast (Daliresp) 500 Mcg Tab 500 MCG PO DAILY for 14 Days, TAB Tamsulosin Hcl (Flomax) 0.4 Mg Cap 0.4 MG PO QPM, CAP Tiotropium [place] (Spiriva Handihaler) 5 Puff/90 Mcg Aerp 1 PUFF INH QAM for 30 Days, #1 Discontinued Medications: Atorvastatin (Lipitor) 10 Mg Tab 10 MG PO DAILY, TAB Lisinopril (Lisinopril) 20 Mg Tab 20 MG PO QAM for 30 Days, #30 TAB Omeprazole (Prilosec) 20 Mg Capcr 20 MG PO DAILY PRN for Heartburn, CAP Discharge Exam Pt feeling well. Still has some very mild pain on deep inspiration across the bottom of his chest, but states it is significantly improved. No SOB, no events on telemetry-remains in NSR. BPs are improved today (no longer low) and he was able to get the metoprolol and lisinopril. Physical Exam Vitals reviewed, tele reviewed General Appearance: WD/WN, no apparent distress Eyes: normal inspection, sclerae normal ENT: hearing grossly normal Neck: supple, no adenopathy, trachea midline, + pertinent finding (Positive right carotid bruit versus radiation of systolic murmur from the heart) Respiratory/Chest: no respiratory distress, no accessory muscle use, + decreased breath sounds (Diminished breath sounds throughout with faint expiratory wheezes scattered) Cardiovascular: regular rate, rhythm, no edema, no gallop, + systolic murmur (2 /6 CY at the RUSB) Abdomen: normal bowel sounds, non tender, soft, no organomegaly, no pulsatile mass Extremities: normal range of motion, non-tender, normal inspection, no pedal edema, no calf tenderness Neurologic/Psychiatric: no motor/sensory deficits, alert, normal mood/affect, oriented x 3 Skin: normal color, warm/dry, no rash Review of Systems: Constitutional: No problem reported Eyes: No problem reported ENT: No problem reported Respiratory: No problem reported Cardiovascular: + chest pain (as per HPI) Abdomen: No problem reported Musculoskeletal: No problem reported Genitourinary - Male: No problem reported Neurologic: No problem reported Psychiatric: No problem reported Endocrine: No problem reported Hematologic / Lymphatic: No problem reported Integumentary: No problem reported Hospital Course This patient is a 76 y/o male with a history of HLD, BPH, COPD with chronic respiratory failure, who until recently continued to smoke cigarettes. Presented to the ER with persistent 4-5 hours of CP that was pleuritic in nature all across the lower chest associated with shortness of breath and numbness of the right upper extremity. Denied diaphoresis, N/V. An initial EKG was consistent with an inferior STEMI. The pt was promptly transferred to the screedman/laborer where his RCA was successfully stented x 3. He continued to have pleuritic type chest pain despite successful placement of stents. The pt has been admitted 3 times this year for COPD exacerbations. He was DCd with supplemental 02 1 month ago and states that he uses this on occasion only. STEMI/CAD 3 stents placed in RCA which exhibited 80% stenosis - severe osteal lesion present. CP has recurred intermittently following the cath and seems to be more pleuritic in nature. Troponin only with very mild elevation with peak at 0.061 and then trended downward. Echo with preserved LV function. Initially post-cath had low normal blood pressures but asymptomatic. Not requiring pressors. BPs then improved and was able to tolerate addition of metoprolol and lisinopril CTA Chest neg for PE, but showed some subclavian artery stenosis on left, right base dependent consolidation and possibly reactive hilar lymphadenopathy -increase Lipitor to high-intensity dose at 80mg daily -Continue ASA, added Brilinta 90mg bid nad should continue DAPT x 1 year -added on Toprol XL 25mg po once daily -decrease dose of lisinopril to 5mg daily to allow for addition of Toprol -Appreciate cardiology consultation and management -Stable for discharge to home as d/w Cardiology today -f/u with Cardiology in 1-2 weeks Pleuritic chest pain-did not seem to be completely resolved with stent placement for STEMI, mildly hypoxic but this is his baseline as per his . Could be pleurisy versus developing pneumonia although no fever, no leukocytosis , no increasing cough or sputum production. No need for further abx therapy at this time CTA Chest showed: 1. No evidence of pulmonary thromboembolic disease. 2. Fusiform dilation of the ascending thoracic aorta, 4.4 x 4.5 cm. 3. Mucous plugging of the right lower lobe bronchi with subsegmental right basilar consolidation suggesting atelectasis or pneumonitis. Trace bilateral pleural effusions. 4. Moderate emphysema with postoperative changes from prior left upper lobectomy. 5. Mild subcarinal and right hilar adenopathy, likely reactive. 6. 80% luminal narrowing involves the proximal left subclavian artery just proximal to the origin of the left vertebral artery secondary to atherosclerotic plaque. COPD -with chronic hypoxic respiratory failure on O2 at home with exertion-no current evidence of exacerbation -cont Symbicort, Spiriva, Daliresp -Albuterol provided PRN -not currently on prednisone at this time Carotid bruit/AURELIO VERNA-50-69% seen on Carotid Doppler here/Left Subclavian artery stenosis-both asymptomatic -continue on high intensity statin, aspirin Hypomagnesemia noted on labs - replaced and resolved BPH -stable no issues -cont Flomax GERD/early satiety/frequent vomiting-seems to have improved as an outpatient since stopping NSAID use several months ago as per the -Continue PPI, H2 mark- requests changing to Protonix rather than Prilosec upon discharge -Should have GI referral for EGD as an outpatient HLD -as above, the Lipitor dose increased to 80mg daily Stable for dc to home today Total Time Spent: Greater than 30 minutes This includes examination of the patient, discharge planning, medication reconciliation, and communication with other providers. Discharge Instructions Please refer to the electronic Patient Visit Report (Discharge Instructions) for additional information. Follow-Up Cardiology in 2 weeks PCP within 1-2 weeks Additional Copies To Armaan Chris MD; Rob Perez PA-C
[2017-05-28 14:05] VITALS: BP 112/69; PULSE 70; TEMP 36.6; O2SAT 94
--- NOTE | 2017-05-28 14:38 | Cardiology Follow-Up ---
Subjective Subjective Date of Service: May 28, 2017. Pt evaluation today including: conversation w/ patient, physical exam, chart review, lab review, review of studies, conversation w/ cleaning validation consultant, review of inpatient medication list Additional Details: Feeling well. Minimal residual pleuritic chest pain. No other new concerns. Problem List Medical Problems: (1) Allergic reaction Status: Acute (2) Chest pain Status: Acute (3) COPD (chronic obstructive pulmonary disease) Status: Chronic (4) COPD exacerbation Status: Acute (5) COPD exacerbation Status: Acute (6) Dyspnea Status: Acute (7) Insect sting Status: Acute (8) Lung cancer Status: Chronic (9) Sepsis Status: Acute (10) Shortness of breath Status: Acute (11) STEMI (ST elevation myocardial infarction) Status: Acute (12) Weakness Status: Acute Review of Systems Constitutional: + weakness, + fatigue, No fever Respiratory: + shortness of breath, + dyspnea on exertion, No cough Cardiac: + see HPI Abdomen: No nausea, No GI bleeding Heme: No abnormal bleeding/bruising Skin: No rash Objective Vital Signs Last Vital Signs Documentation Date Time Temp Pulse Resp B/P (MAP) Pulse Ox O2 Delivery O2 Flow Rate FiO2 05/28/17 14:05 36.6 70 18 94 Room Air 05/28/17 11:17 112/69 (83) 05/27/17 09:45 2.0 Physical Exam: General Appearance: no apparent distress ENT: hearing grossly normal Neck: supple, no adenopathy, trachea midline, + pertinent finding (Positive right carotid bruit versus radiation of systolic murmur from the heart) Respiratory/Chest: no respiratory distress, no accessory muscle use, + decreased breath sounds (Diminished breath sounds throughout with faint expiratory wheezes scattered) Cardiovascular: regular rate, rhythm, no edema, no gallop, + systolic murmur (2 /6 CY at the RUSB) Abdomen: normal bowel sounds, non tender, soft Extremities: normal inspection, no pedal edema, no calf tenderness, + pertinent finding (right radial artery access site -- no hematoma/ecchymosis, intact distal pulses.) Neurologic/Psychiatric: alert, normal mood/affect, oriented x 3 Skin: normal color, warm/dry, no rash Assessment and Plan 1. Suspected ACS - single vessel CAD s/p PCI with 3 overlapping BRYAN to RCA 2. Pleuritic chest pain - CTA unremarkable 3. COPD -- on RA 4. Relative hypotension -- improved, tolerating low dose beta-mark/ALEKSANDR 5. Dyslipidemia 6. Carotid artery disease -- reviewed carotid duplex images -- concern for high- grade stenosis Patient feeling well. Hemodynamically stable. Labs stable. Minimal residual pleuritic chest pain -- ? pericarditis with diffuse ST elevations. As symptoms improving will hold off on NSAIDs/colchicine. -- from a cardiac standpoint OK for discharge today. -- Home on DAPT with ASA/Ticagrelor -- continue current ALEKSANDR/Beta-mark -- continue current statin -- Follow-up with me in 2-3 weeks -- cardiac rehab, additional imaging of carotid artery Medications: Current Inpatient Medications Medications (Trade) Dose Ordered Sig/Elmer Route Start Time Stop Time Status Last Admin Dose Admin Nitroglycerin (Nitrostat Tab) 0.4 mg UD PRN SL 05/26/17 16:30 06/25/17 16:29 Ondansetron HCl (Zofran Inj) 4 mg Q6H PRN IV 05/26/17 16:30 06/25/17 16:29 Aspirin (Ecotrin Tab) 81 mg QAM PO 05/27/17 09:00 06/26/17 08:59 05/28/17 08:07 81 MG Atorvastatin Calcium (Lipitor Tab) 80 mg QAM PO 05/27/17 09:00 06/26/17 08:59 05/28/17 08:05 80 MG Acetaminophen (Tylenol Tab) 650 mg Q4H PRN PO 05/26/17 16:30 06/25/17 16:29 Morphine Sulfate (MoRPHine SULFATE INJ) 2 mg Q5M PRN IV 05/26/17 16:30 06/09/17 16:29 05/26/17 22:17 2 MG Budesonide/ Formoterol Fumarate (Symbicort 160/ 4.5 Inh) 2 puffs BID INH 05/26/17 21:00 06/25/17 20:59 05/28/17 08:04 2 PUFFS Ranitidine HCl (zANTac TAB) 150 mg BID PO 05/26/17 21:00 06/25/17 20:59 05/28/17 08:05 150 MG Roflumilast (Daliresp Tab) 500 mcg DAILY PO 05/27/17 09:00 06/26/17 08:59 05/28/17 08:07 500 MCG Tamsulosin HCl (Flomax Cap) 0.4 mg QPM PO 05/26/17 21:00 06/25/17 20:59 05/27/17 21:07 0.4 MG Tiotropium [place] (Spiriva Handihaler Inhaler) 1 puff QAM INH 05/27/17 09:00 06/26/17 08:59 05/28/17 08:04 1 PUFF Menthol (Nice Edgard) 1 edgard PRN PRN EDGARD 05/26/17 18:45 06/25/17 18:44 Lisinopril (Zestril Tab) 5 mg QAM PO 05/28/17 09:00 06/26/17 08:59 05/28/17 08:06 5 MG Metoprolol Tartrate (Lopressor Tab) 12.5 mg Q12 PO 05/27/17 21:00 06/25/17 20:59 05/28/17 08:06 12.5 MG Ticagrelor (Brilinta Tab) 90 mg BID PO 05/27/17 09:45 06/26/17 09:44 05/28/17 08:07 90 MG Pantoprazole Sodium (Protonix Tab) 40 mg QAM PO 05/28/17 09:00 06/01/17 08:59 05/28/17 08:06 40 MG Levalbuterol (Xopenex 0.63 Mg/ 3 Ml Neb) 0.63 mg Q6R PRN INH 05/27/17 12:15 06/26/17 12:14 05/28/17 03:41 0.63 MG Ioversol (Optiray 320) 125 ml UD PRN IV 05/27/17 16:45 05/31/17 16:44 Lab Results: 05/28/17 06:05 Red Blood Count 3.59, Mean Corpuscular Volume 93.3, Mean Corpuscular Hemoglobin 31.5, Mean Corpuscular Hemoglobin Concent 33.7, Mean Platelet Volume 9.0, Neutrophils (%) (Auto) 67.0, Lymphocytes (%) (Auto) 19.4, Monocytes (%) (Auto) 11.9, Eosinophils (%) (Auto) 0.9, Basophils (%) (Auto) 0.2, Neutrophils # (Auto ) 5.38, Lymphocytes # (Auto) 1.56, Monocytes # (Auto) 0.96, Eosinophils # (Auto ) 0.07, Basophils # (Auto) 0.02 05/28/17 06:05 Test 05/28/17 06:05 White Blood Count 8.04 K/uL (4.8-10.8) Red Blood Count 3.59 M/uL (4.7-6.1) Hemoglobin 11.3 g/dL (14.0-18.0) Hematocrit 33.5 % (42-52) Mean Corpuscular Volume 93.3 fL (80-100) Mean Corpuscular Hemoglobin 31.5 pg (25-34) Mean Corpuscular Hemoglobin Concent 33.7 g/dl (32-36) Platelet Count 206 K/uL (130-400) Mean Platelet Volume 9.0 fL (7.4-10.4) Neutrophils (%) (Auto) 67.0 % Lymphocytes (%) (Auto) 19.4 % Monocytes (%) (Auto) 11.9 % Eosinophils (%) (Auto) 0.9 % Basophils (%) (Auto) 0.2 % Neutrophils # (Auto) 5.38 K/uL (1.4-6.5) Lymphocytes # (Auto) 1.56 K/uL (1.2-3.4) Monocytes # (Auto) 0.96 K/uL (0.11-0.59) Eosinophils # (Auto) 0.07 K/uL (0-0.5) Basophils # (Auto) 0.02 K/uL (0-0.2) RDW Standard Deviation 51.3 fL (36.4-46.3) RDW Coefficient of Variation 15.1 % (11.5-14.5) Immature Granulocyte % (Auto) 0.6 % Immature Granulocyte # (Auto) 0.05 K/uL (0.00-0.02) Anion Gap 7.0 mmol/L (3-11) Est Creatinine Clear Calc Drug Dose 100.1 ml/min Estimated GFR () 104.4 Estimated GFR (Non- 90.1 BUN/Creatinine Ratio 25.8 (10-20) Calcium Level 9.0 mg/dl (8.5-10.1) Magnesium Level 2.0 mg/dl (1.8-2.4)
[2017-05-29] MEDS ORDERED: TICA1TAB PO (15:33)
[2017-05-29] MEDS ORDERED: LISI-729 PO (15:33)
[2017-05-29] MEDS ORDERED: ASPI81TA28 PO (15:33)
[2017-05-29] MEDS ORDERED: SPRIN/30 INH (15:33)
[2017-05-29] MEDS ORDERED: PANT40TA PO (15:33)
[2017-05-29] MEDS ORDERED: SYMIN160 INH (15:33)
[2017-05-29] MEDS ORDERED: ROFL1TAB5 PO (15:33)
[2017-05-29] MEDS ORDERED: ATOR-24 PO (15:33)
[2017-05-29] MEDS ORDERED: METO25TA3 PO (15:33)
[2017-05-30] MEDS ORDERED: TICA1TAB PO (08:42)
== END 2017-05-28 15:00 | disposition home or self-care (01) | DRG 247 ==
LOC: C.EDB 13:59 → ENRESERV 15:58 → C.MSICU 16:33 → ENRESERV 05-27 16:14 → C.2T 05-27 17:19
PROVIDERS: ADMIT Internal Medicine; ATTEND Family Medicine
PROC: B211YZZ Fluoroscopy of Multiple Coronary Arteries using Other Contrast (ICD-10-PCS; principal; 2017-05-26 14:17)
PROC: 4A023N7 Measurement of Cardiac Sampling and Pressure, Left Heart, Percutaneous Approach (ICD-10-PCS; principal; 2017-05-26 14:17)
PROC: 027036Z Dilation of Coronary Artery, One Artery with Three Drug-eluting Intraluminal Devices, Percutaneous Approach (ICD-10-PCS; principal; 2017-05-26 14:17)
DX: I21.11 ST elevation (STEMI) myocardial infarction involving right coronary artery (principal); J96.11 Chronic respiratory failure with hypoxia; I31.9 Disease of pericardium, unspecified; R07.81 Pleurodynia; K21.9 Gastro-esophageal reflux disease without esophagitis; E83.42 Hypomagnesemia; I25.10 Atherosclerotic heart disease of native coronary artery without angina pectoris; I65.21 Occlusion and stenosis of right carotid artery; I70.8 Atherosclerosis of other arteries; R68.81 Early satiety; I71.2 Thoracic aortic aneurysm, without rupture; J44.9 Chronic obstructive pulmonary disease, unspecified; E78.5 Hyperlipidemia, unspecified; N40.0 Benign prostatic hyperplasia without lower urinary tract symptoms; Z79.899 Other long term (current) drug therapy; Z85.118 Personal history of other malignant neoplasm of bronchus and lung; Z87.891 Personal history of nicotine dependence

== ENCOUNTER 2017-05-29 14:48 | Inpatient (IN) | payer OTHER ==
[2017-05-29] VITALS (13 sets, daily range): BP systolic 96–128; BP diastolic 60–91; PULSE 73–137; TEMP 36.6; O2SAT 95–100; BMI 26.6
[~2017-05-29] VITALS: Ht 188 cm; Wt 94.1 kg
[~2017-05-29 14:48] MED LIST changes: +ASPI-320 PO; -ATOR10TA82 PO; +BRL90 PO; +LPT40 PO; -LSN20 PO; +LSN5 PO; +METO-478 PO; -PRD20 PO; -PRLSR20 PO; +PRT40 PO
[2017-05-29] MEDS ORDERED: SODIUM CHLORIDE 0.9% 1000ML 1,000 ML IV STA (15:01)
--- NOTE | 2017-05-29 15:12 | EMERGENCY ROOM VISIT NOTE ---
History Report prepared by Ignacioibvivek: Marla Brooks Under the Supervision of: Dr. Chano Blackburn M.D. First contact with patient: 14:45 Stated Complaint: CARDIAC ASSESSMENT History of Present Illness The patient is a 76 year old male who presents to the Emergency Room with complaints in acute distress. Per EMS, were called for an acute distress called. On arrival EMS found the patient to be in A. fib RVR with a rate in the 170s. Patient was hypotensive initially per EMS. Per EMS, The patient was released from [facility] yesterday after staying two nights after having [address] in the right coronary artery and was kept in the hospital for two days. The patient was given 25 mg of Cardizem and 324 mg of aspirin by EMS. Source of History: EMS Onset: 30 minutes ago Position: other (generalized) Quality: other (cardiac assessment) Timing: other (sudden) Associated Symptoms: + SOB, No chest pain Review of Systems ROS limited secondary to the patient's critical status. Past Medical & Surgical Medical Problems: (1) AMI (acute myocardial infarction) (2) Atrial fibrillation with RVR (3) COPD (chronic obstructive pulmonary disease) (4) COPD exacerbation (5) E. coli septicemia (6) Emphysema/COPD (7) Hypoxia (8) Leukocytosis (9) Lung cancer (10) SIRS (systemic inflammatory response syndrome) Family History Patient reports no known family medical history. Social History Marital Status: Housing Status: lives with significant other Occupation Status: retired Current/Historical Medications Scheduled Aspirin (Aspirin Ec), 81 MG PO DAILY Atorvastatin (Lipitor), 80 MG PO DAILY Budesonide/Formoterol Fumarate (Symbicort 160/4.5 Inhaler ), 2 PUFFS INH BID Lisinopril (Zestril), 5 MG PO DAILY Metoprolol Succ (Toprol Xl) (Toprol-Xl), 25 MG PO DAILY Pantoprazole (Protonix), 40 MG PO DAILY Ranitidine Hcl (Zantac), 150 MG PO BID Roflumilast (Daliresp), 500 MG PO DAILY Tamsulosin Hcl (Flomax), 0.4 MG PO QPM Ticagrelor (Brilinta), 90 MG PO DAILY Tiotropium [place] (Spiriva Handihaler), 1 CAP INH DAILY Scheduled PRN Albuterol Sulfate (Proair Respiclick), 2 PUFFS INH DIRECTED PRN for Shortness of Breath Guaifenesin (Guaifenesin), 400 MG PO BID PRN for CONGESTION Allergies Coded Allergies: No Known Allergies (Unverified , 04/18/17) Physical Exam Vital Signs Date Time Temp Pulse Resp B/P (MAP) Pulse Ox O2 Delivery O2 Flow Rate FiO2 05/29/17 16:32 126 21 113/78 100 BiPAP 6.0 05/29/17 16:25 121 95 50 05/29/17 16:19 133 21 104/73 99 BiPAP 05/29/17 16:10 135 18 91/63 93 Nasal Cannula 2.0 05/29/17 15:46 125 25 100/68 98 Room Air 05/29/17 15:31 121/76 05/29/17 15:27 145 28 96/74 99 Room Air 05/29/17 15:16 157 29 126/88 99 Room Air 05/29/17 15:07 36.0 152 39 103/74 99 Room Air 05/29/17 15:06 95 Room Air 05/29/17 15:06 95 Room Air 05/29/17 14:59 143 05/29/17 14:55 36.2 138 19 94/66 95 Room Air 05/29/17 14:55 95 Room Air Physical Exam Physical Exam GENERAL: Patient appears distressed. Pale. Diaphoretic. ____ EYES: Conjunctivae and EOM are normal. Pupils are equal, round, and reactive to light. Right eye exhibits no discharge. Left eye exhibits no discharge. No scleral icterus. ____ NECK: No JVD present. No tracheal deviation. CV: Tachycardic rate, irregular rhythm, normal heart sounds and intact distal pulses. Palpable radial pulses bue. ____ PULM/CHEST: Respiratory distress. Scant expiratory wheezes. Inspiratory rales at the bases. ABD: The abdomen is soft. There is no tenderness. There is no rebound, no guarding. MUSC/SKEL: There is no peripheral edema or deformity. NEURO: GCS eye subscore is 4. GCS verbal subscore is 4. GCS motor subscore is 6. Medical Decision & Procedures ER Provider Diagnostic Interpretation: Radiology results as stated below per my review and radiologist interpretation: CHEST ONE VIEW PORTABLE FINDINGS: The study is slightly rotated. There is pulmonary emphysema. There is no focal pulmonary consolidation. There is no failure.[ There are postsurgical changes in left hemithorax. IMPRESSION: 1. Emphysema 2. Postsurgical changes 3. No acute findings Electronically signed by: Enrrique Fox M.D. CT HEAD WITHOUT CONTRAST (CT) FINDINGS: No intra or extra-axial mass lesions are visualized. There is no CT evidence of acute cortical infarction. There is no evidence of midline shift. There is no acute hemorrhage. No calvarial fractures are visualized. There are patchy white matter hypodensities likely on a small vessel basis. There is no evidence of pathologic ventricular dilatation. There is no evidence of acute sinusitis IMPRESSION: No acute intracranial findings Electronically signed by: Enrrique Fox M.D. CT ANGIOGRAM OF THE CHEST FINDINGS: Study is significantly degraded by motion artifact. Visualized portions the upper abdomen reveal multiple renal cysts. There is a mildly enlarged 13 mm subcarinal lymph node. There is mild dilatation of the ascending thoracic aorta which measures 43 mm. There is a left subclavian artery stenosis. There were no pulmonary artery filling defects to indicate acute pulmonary embolism. No pleural effusions are visualized. There is underlying pulmonary emphysema. There is no focal pulmonary consolidation. Postsurgical changes are present within the left hemithorax. IMPRESSION: 1. Study significantly degraded by patient motion artifact 2. No evidence of acute pulmonary embolism 3. Emphysema 4. Mild subcarinal lymphadenopathy 5. Left subclavian artery stenosis 6. Mild dilatation of the ascending thoracic aorta Electronically signed by: Enrrique Fox M.D. Laboratory Results 05/29/17 15:04 Red Blood Count 3.65, Mean Corpuscular Volume 92.9, Mean Corpuscular Hemoglobin 32.1, Mean Corpuscular Hemoglobin Concent 34.5, Mean Platelet Volume 9.2, Neutrophils (%) (Auto) 68.9, Lymphocytes (%) (Auto) 17.4, Monocytes (%) (Auto) 11.8, Eosinophils (%) (Auto) 1.2, Basophils (%) (Auto) 0.2, Neutrophils # (Auto ) 5.55, Lymphocytes # (Auto) 1.40, Monocytes # (Auto) 0.95, Eosinophils # (Auto ) 0.10, Basophils # (Auto) 0.02 05/29/17 15:04 Test 05/29/17 15:01 05/29/17 15:04 05/29/17 15:09 05/29/17 15:10 White Blood Count 8.06 K/uL (4.8-10.8) Red Blood Count 3.65 M/uL (4.7-6.1) Hemoglobin 11.7 g/dL (14.0-18.0) Hematocrit 33.9 % (42-52) Mean Corpuscular Volume 92.9 fL (80-100) Mean Corpuscular Hemoglobin 32.1 pg (25-34) Mean Corpuscular Hemoglobin Concent 34.5 g/dl (32-36) Platelet Count 253 K/uL (130-400) Mean Platelet Volume 9.2 fL (7.4-10.4) Neutrophils (%) (Auto) 68.9 % Lymphocytes (%) (Auto) 17.4 % Monocytes (%) (Auto) 11.8 % Eosinophils (%) (Auto) 1.2 % Basophils (%) (Auto) 0.2 % Neutrophils # (Auto) 5.55 K/uL (1.4-6.5) Lymphocytes # (Auto) 1.40 K/uL (1.2-3.4) Monocytes # (Auto) 0.95 K/uL (0.11-0.59) Eosinophils # (Auto) 0.10 K/uL (0-0.5) Basophils # (Auto) 0.02 K/uL (0-0.2) RDW Standard Deviation 50.7 fL (36.4-46.3) RDW Coefficient of Variation 15.0 % (11.5-14.5) Immature Granulocyte % (Auto) 0.5 % Immature Granulocyte # (Auto) 0.04 K/uL (0.00-0.02) Prothrombin Time 10.2 SECONDS (9.0-12.0) Prothromb Time International Ratio 1.0 (0.9-1.1) Activated Partial Thromboplast Time 32.7 SECONDS (21.0-31.0) Partial Thromboplastin Ratio 1.3 Est Creatinine Clear Calc Drug Dose 63.0 ml/min Estimated GFR () 70.5 Estimated GFR (Non- 60.8 BUN/Creatinine Ratio 17.9 (10-20) Calcium Level 8.6 mg/dl (8.5-10.1) Magnesium Level 1.7 mg/dl (1.8-2.4) Total Bilirubin 0.5 mg/dl (0.2-1) Direct Bilirubin 0.1 mg/dl (0-0.2) Aspartate Amino Transf (AST/SGOT) 13 U/L (15-37) Alanine Aminotransferase (ALT/SGPT) 16 U/L (12-78) Alkaline Phosphatase 49 U/L (45-117) Total Creatine Kinase 51 U/L (39-308) Creatine Kinase MB 1.3 ng/ml (0.5-3.6) Creatine Kinase MB Ratio 2.5 (0-3.0) Total Protein 6.6 gm/dl (6.4-8.2) Albumin 2.6 gm/dl (3.4-5.0) Lipase 75 U/L (73-393) Bedside Troponin I 0.030 ng/ml (0-0.045) Bedside Hemoglobin 11.2 g/dl (14.0-18.0) Bedside Hematocrit 33 % (42-52) Bedside Sodium 139 mEq/L (135-144) Bedside Potassium 3.9 mEq/L (3.3-5.0) Bedside Chloride 102 mEq/L (101-112) Bedside Total CO2 22 mEq/l (24-31) Anion Gap 19.0 mmol/L (16-25) Bedside Blood Urea Nitrogen 21 mg/dl (7-18) Bedside Creatinine 1.1 mg/dl (0.6-1.3) Bedside Glucose 120 mg/dl (70-99) Bedside Glucose (other) 137 mg/dl (70-99) Bedside Ionized Calcium (Prosper) 1.10 mmol/l (1.12-1.32) Laboratory results reviewed by me Medications Administered Medications (Trade) Dose Ordered Sig/Elmer Route Start Time Stop Time Status Last Admin Dose Admin Sodium Chloride 1,000 ml @ 999 mls/hr Q1H1M STAT IV 05/29/17 15:01 05/29/17 16:01 DC 05/29/17 15:01 999 MLS/HR Diltiazem HCl (Cardizem Inj) 25 mg STK-MED ONCE .ROUTE 05/29/17 15:18 05/29/17 15:19 DC 05/29/17 15:21 20 MG Amiodarone HCl (Cordarone Inj) 150 mg STK-MED ONCE .ROUTE 05/29/17 15:29 05/29/17 15:30 DC 05/29/17 15:34 150 MG Lorazepam (Ativan Inj) 2 mg STK-MED ONCE .ROUTE 05/29/17 15:31 05/29/17 15:32 DC 05/29/17 15:34 2 MG Methylprednisolone Sodium Succinate (Solu-Medrol IV) 125 mg NOW STAT IV 05/29/17 15:36 05/29/17 15:37 DC 05/29/17 15:40 125 MG Amiodarone HCL/ Dextrose 200 ml @ 33.3 mls/hr Q6H1M IV 05/29/17 16:00 05/29/17 22:00 05/29/17 15:50 33.3 MLS/HR Heparin Sodium/ Dextrose 1 ea NOW STAT N/A 05/29/17 16:16 05/29/17 16:17 DC 05/29/17 16:16 1 EA Heparin Sodium (Porcine) (Heparin Sq 5000 Unit/0.5ml) 10,000 unit STK-MED ONCE .ROUTE 05/29/17 16:26 05/29/17 16:27 DC 05/29/17 16:29 7,000 UNIT ECG Per My Interpretation Indication: SOB/dyspnea, tachycardia Rate (beats per minute): 146 Findings: ST elevation (leads 2, 3 and avf), other (QRS and QTC within normal limits) Change: Repeat EKG: Atrial fibrillation 153 bpm QRS within normal limits, QTC 488, mild ST elevation in leads 2,3 and avf. REPEAT EKG: Atrial fibrillation 138 bpm, QRS and QTC within normal limits, no ST elevation or ST depression. ED Course 1448: The patient was evaluated in room B1. Patient was immediately placed on oxygen, copra processor, and large-bore IV access obtained. IV fluids continued. EKG: Atrial fibrillation 146 bpm, QRS, QTC within normal limits, ST elevation in leads 2,3 and avf. Concerning for acute STEMI. STEMI alert called. 1505: Patient's at the bedside. Per , the patient started complaining of a sudden headache shortness of breath, and blurry vision thirty minutes ago while watching television. Per , the patient did not complain of any chest pain and he did not loose consciousness. Presently, the patient denies any chest pain or headache. The patient wears 2 L of oxygen at baseline. The patient is on Brilinta per . Per , the patient has been taking his medications as prescribed. 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 1509: POC troponin within normal limits. 1514: Repeat EKG: Atrial fibrillation 153 bpm QRS within normal limits, QTC 488 , mild ST elevation in leads 2,3 and avf. 1516: Dr. Chris-Cardiology is at bedside. He does not want to activate bolt labeler right now. He recommends controlling the heart rate with cardizem. 1518: Cardizem Inj 25 mg IV push 1525: Cardizem bolus did not appear to control the rate, patient remains in atrial fibrillation on copra processor. Repeat EKG: Atrial fibrillation 138 bpm , QRS and QTC within normal limits, no ST elevation or ST depression. The patients blood pressure went back down to 96/74. 1529: Fluids are open. Dr. Chris recommends amiodarone bolus. Ordered Amiodarone HCl 150 mg .ROUTE. 1531: Repeat blood pressure is 121/76. Ordered Ativan Inj 1 mg. 1536: Patient continues to wheeze, having labored breathing. Dr. Chris states that the patient has a history of COPD. Ordered Solu-Medrol IV 125 mg IV for COPD exacerbation. No beta agonist inhalers were given to the patient this patient's heart rate still elevated. 1540: Patient's heart rate is better controlled. On the monitor, the patient's heart rate fluctuates between 110 and 130 status post amiodarone bolus. Amiodarone drip started. Given that the patient was reporting acute headache per the , CT head will be ordered. If CT head negative, will obtain CTA of chest rule out PE. I traveled with the patient to CT scan. No obvious ICH on head CT. 1607: On arrival back to the resuscitation bay, the patient was continuing to have labored breathing. BiPAP ordered 12/24. CT head did not show acute ICH. Heparin bolus and drip ordered. 1609: Dr. Chris-Cardiology performed a bedside echo and reports no acute wall motion abnormality. 1612: The patient's blood pressure is 103/69. 1618: Dr. Chris-Cardiology recommending admitting the patient to the ICU and keeping him on the Amiodarone drip. 1619: Dr. Chris-Cardiology and I updated the patient's family on his test results and the treatment plan. They are agreeable. 1621: Discussed the patient's case with Dr. Angeles Juarez and the ICU attending physician. The patient will be evaluated for further treatment and disposition. 1630: Dr. Angeles Juarez is at bedside evaluating the patient. Medical Decision The patient was evaluated in room B1. Patient was immediately placed on oxygen , copra processor, and large-bore IV access obtained. IV fluids continued. EKG : Atrial fibrillation 146 bpm, QRS, QTC within normal limits, ST elevation in leads 2,3 and avf. Concerning for acute STEMI. STEMI alert called. Patient's at the bedside. Per , the patient started complaining of a sudden headache shortness of breath, and blurry vision thirty minutes ago while watching television. Per , the patient did not complain of any chest pain and he did not loose consciousness. Presently, the patient denies any chest pain or headache. The patient wears 2 L of oxygen at baseline. The patient is on Brilinta per . Per , the patient has been taking his medications as prescribed. 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 POC troponin within normal limits. Dr. Chris interventional cardiology evaluated patient at bedside and stated he did not think that the patient was having acute STEMI. recommneded controlling patients HR with cardizem and beginning heparin. Dr. Chris and I agreed that given the patient reprorted he was having acute headache will obtain CT head prior to beginning heparin. CT head will be obtained once the patients heart rate was controlled. Cardizem bolus did not appear to control the rate, patient remained in atrial fibrillation on copra processor. Repeat EKG: Atrial fibrillation 138 bpm, QRS and QTC within normal limits, no ST elevation or ST depression. Dr. Chris recommended not using cardizem drip and instead using amiodarone bolus and drip. Patient's heart rate was better controlled status post amiodarone bolus. Amiodarone drip was started. I traveled with the patient to the CAT scanner, CT of the head did not show any acute ICH by my bedside interpretation. Given that the patient was having acute dyspnea and remained tachycardic in A. fib RVR , we proceeded to conduct a CTA of chest to rule out PE. On arrival back to the resuscitation bay, the patient was continuing to have labored breathing. BiPAP ordered 12/24. CT head did not show acute ICH. Heparin bolus and drip ordered. Bedside cardiac echo was performed by Dr. Chris, which did not show any acute wall motion abnormality. Dr. Chris also noted that the patient's IVC was collapsed and that he could tolerate more fluids. The patient had intermittent episodes of hypotension which resolved with fluid boluses.Dr. Chris states that the patient has a history of COPD. Ordered Solu-Medrol IV 125 mg IV for COPD exacerbation. No beta agonist inhalers were given to the patient this patient' s heart rate still elevated. Patient was admitted to the hospitalist service and placed in the ICU. ICU attending was made aware and agreed with the plan. Medication Reconcilliation Current Medication List: was personally reviewed by me Blood Pressure Screening Patient's blood pressure: Low blood pressure Blood pressure disposition: Referred to PCP (due to primary problem of rapid ventricular rate) Consults Time Called: 1516 Consulting Physician: Dr. Chris-Cardiology Returned Call: 1516 Discussed the patient's case with Dr. Chris-Cardiology. Additional Consults: Time Called: 1615 Consulted Physician: Dr. Angeles Juarez and the ICU attending physician Returned Call: 1621 Additional Comments: Discussed the patient's case with Dr. Angeles Juarez and the ICU attending physician. The patient will be evaluated for further treatment and disposition. Impression Primary Impression: Atrial fibrillation with RVR Additional Impressions: Respiratory distress COPD exacerbation Hypoxic Critical Care I have personally spent greater than 129 minutes of critical care time in the direct management of this patient. This includes bedside care, interpretation of diagnostic studies, and testing, discussion with consultants, patient, and family members, and other required patient management activities. This 129 minutes is in excess of all separately billable procedures. Scribe Attestation The scribe's documentation has been prepared under my direction and personally reviewed by me in its entirety. I confirm that the note above accurately reflects all work, treatment, procedures, and medical decision making performed by me. The chart was completed utilizing [employer] Speech voice recognition software. Grammatical errors, random word insertions, pronoun errors, and incomplete sentences are an occasional consequence of this system due to software limitations, ambient noise, and hardware issues. Any formal questions or concerns about the content, text, or information contained within the body of this dictation should be directly addressed to the physician for clarification. Departure Information Dispostion Being Evaluated By Hospitalist Problem Qualifiers
--- NOTE | 2017-05-29 15:13 | DIAGNOSTIC IMAGING REPORT ---
CHEST ONE VIEW PORTABLE CLINICAL HISTORY: Atypical chest pain COMPARISON STUDY: 05/26/2017 FINDINGS: The study is slightly rotated. There is pulmonary emphysema. There is no focal pulmonary consolidation. There is no failure.[ There are postsurgical changes in left hemithorax. IMPRESSION: 1. Emphysema 2. Postsurgical changes 3. No acute findings Electronically signed by: Enrrique Fox M.D. 05/29/2017 3:12 PM Dictated Date/Time: 05/29/2017 3:11 PM
[2017-05-29] MEDS ORDERED: DILTIAZEM HCL 5 MG/ML 5 ML VIAL ONE ×2 (15:14→15:18)
[2017-05-29 15:15] LABS: BASO % 0.2 %; BASO ABS # 0.02 K/uL (0-0.2); EOS % 1.2 %; HEMATOCRIT 33.9 % (42-52); HEMOGLOBIN 11.7 g/dL (14.0-18.0); IG# 0.04 K/uL (0.00-0.02); LYMPH % 17.4 %; MEAN CELL VOLUME 92.9 fL (80-100); MEAN CORPUSCULAR HEMOGLOBIN 32.1 pg (25-34); MEAN CORPUSCULAR HGB CONC 34.5 g/dl (32-36); MEAN PLATELET VOLUME 9.2 fL (7.4-10.4); MONO % 11.8 %; MONO ABS # 0.95 K/uL (0.11-0.59); NEUT % 68.9 %; NEUT ABS # 5.55 K/uL (1.4-6.5); PLATELET COUNT 253 K/uL (130-400); RED CELL DISTRIBUTION WIDTH SD 50.7 fL (36.4-46.3); WHITE BLOOD COUNT 8.06 K/uL (4.8-10.8)
[2017-05-29] MEDS ORDERED: NiCARDipine HCL INJ 2.5 MG/ML 10 ML AMP ONE (15:18)
[2017-05-29] MEDS ORDERED: HEPARIN SOD (PORCINE) 1000 UNIT/ML 10 ML VIAL ONE (15:18)
[2017-05-29] MEDS ORDERED: NITROGLYCERIN/D5W 100MCG/ML 20ML SYR ONE (15:19)
[2017-05-29] MEDS ORDERED: MIDAZOLAM HCL 1 MG/ML 2ML VIAL ONE (15:19)
[2017-05-29] MEDS ORDERED: FENTANYL CITRATE INJ 50 MCG/1 ML 2 ML VIAL ONE (15:19)
[2017-05-29 15:23] LABS: ISTAT CREATININE 1.1 mg/dl (0.6-1.3); ISTAT IONIZED CALCIUM 1.1 mmol/l (1.12-1.32); ISTAT POTASSIUM 3.9 mEq/L (3.3-5.0)
[2017-05-29] MEDS ORDERED: DILTIAZEM BOLUS / DRIP IV STA (15:25)
[2017-05-29] MEDS ORDERED: AMIODARONE HCL INJ 50 MG/ML 3 ML VIAL ONE (15:29)
[2017-05-29] MEDS ORDERED: DILTIAZEM HCL INJ 125 MG in DEXTROSE 5% 100ML IV PRN (15:30)
[2017-05-29] MEDS ORDERED: LORAZEPAM 2 MG/ML 1 ML VIAL ONE (15:31)
[2017-05-29] MEDS ORDERED: AMIODARONE IV BOLUS / DRIP IV STA ×2 (15:32→17:18)
[2017-05-29 15:33] LABS: PTT PATIENT 32.7 SECONDS (21.0-31.0)
[2017-05-29] MEDS ORDERED: LISI-729 PO (15:33)
[2017-05-29] MEDS ORDERED: TICA1TAB PO (15:33)
[2017-05-29] MEDS ORDERED: ROFL1TAB5 PO (15:33)
[2017-05-29] MEDS ORDERED: SYMIN160 INH (15:33)
[2017-05-29] MEDS ORDERED: ASPI81TA28 PO (15:33)
[2017-05-29] MEDS ORDERED: PANT40TA PO (15:33)
[2017-05-29] MEDS ORDERED: METO25TA3 PO (15:33)
[2017-05-29] MEDS ORDERED: ATOR-24 PO (15:33)
[2017-05-29] MEDS ORDERED: SPRIN/30 INH (15:33)
[2017-05-29] MEDS ORDERED: METHYLPREDNISOLONE 125 MG VIAL IV STA (15:36)
[2017-05-29] MEDS ORDERED: METHYLPREDNISOLONE 125 MG VIAL ONE (15:37)
[2017-05-29 15:44] LABS: ALBUMIN 2.6 gm/dl (3.4-5.0); CALCIUM 8.6 mg/dl (8.5-10.1); CREATININE 1.16 mg/dl (0.60-1.40); POTASSIUM 3.8 mmol/L (3.5-5.1)
[2017-05-29] MEDS ORDERED: AMIODARONE / D5W 100 ML PHARMACY PREPARED IV SCH ×2 (15:45)
[2017-05-29] MEDS ORDERED: 0.2 MICRON FILTER SET 1 EA IV ONE (15:45)
[2017-05-29 15:47] LABS: CKMB 1.3 ng/ml (0.5-3.6); TOTAL PROTEIN 6.6 gm/dl (6.4-8.2)
[2017-05-29] MEDS ORDERED: AMIODARONE / D5W 200 ML IV SCH (16:00)
[2017-05-29] MEDS ORDERED: OPTIRAY 320 IV PRN (16:00)
--- NOTE | 2017-05-29 16:08 | DIAGNOSTIC IMAGING REPORT ---
CT HEAD WITHOUT CONTRAST (CT) CLINICAL HISTORY: Severe headache COMPARISON STUDY: April 23, 2017 TECHNIQUE: Axial CT of the brain is performed from the vertex to the skull base. IV contrast was not administered for this examination. A dose lowering technique was utilized adhering to the principles of ALARA. CT DOSE: FINDINGS: No intra or extra-axial mass lesions are visualized. There is no CT evidence of acute cortical infarction. There is no evidence of midline shift. There is no acute hemorrhage. No calvarial fractures are visualized. There are patchy white matter hypodensities likely on a small vessel basis. There is no evidence of pathologic ventricular dilatation. There is no evidence of acute sinusitis IMPRESSION: No acute intracranial findings Electronically signed by: Enrrique Fox M.D. 05/29/2017 4:06 PM Dictated Date/Time: 05/29/2017 4:05 PM
--- NOTE | 2017-05-29 16:16 | DIAGNOSTIC IMAGING REPORT ---
CT ANGIOGRAM OF THE CHEST CLINICAL HISTORY: Shortness of breath ATYPICAL CHEST PAIN COMPARISON STUDY: 05/27/2017 TECHNIQUE: Following the IV administration of 110 mL of [id number]-[id number], CT angiogram of the thorax was performed from the thoracic inlet to the lung bases utilizing the pulmonary embolus protocol. Images are reviewed in the axial, sagittal, and coronal planes. IV contrast was administered without complication. MIP imaging was performed. A dose lowering technique was utilized adhering to the principles of ALARA. CT DOSE: 2172.19 mGy.cm FINDINGS: Study is significantly degraded by motion artifact. Visualized portions the upper abdomen reveal multiple renal cysts. There is a mildly enlarged 13 mm subcarinal lymph node. There is mild dilatation of the ascending thoracic aorta which measures 43 mm. There is a left subclavian artery stenosis. There were no pulmonary artery filling defects to indicate acute pulmonary embolism. No pleural effusions are visualized. There is underlying pulmonary emphysema. There is no focal pulmonary consolidation. Postsurgical changes are present within the left hemithorax. IMPRESSION: 1. Study significantly degraded by patient motion artifact 2. No evidence of acute pulmonary embolism 3. Emphysema 4. Mild subcarinal lymphadenopathy 5. Left subclavian artery stenosis 6. Mild dilatation of the ascending thoracic aorta Electronically signed by: Enrrique Fox M.D. 05/29/2017 4:15 PM Dictated Date/Time: 05/29/2017 4:09 PM
[2017-05-29] MEDS ORDERED: HEPARIN SOD 5000 UNIT/0.5 ML CARP ONE (16:26)
[2017-05-29] MEDS ORDERED: HEPARIN 25000 UNIT/500 ML D5W ONE (16:38)
--- NOTE | 2017-05-29 16:44 | CARDIOLOGY CONSULTATION ---
DATE OF CONSULTATION: 05/29/2017 CONSULTATION REQUESTED BY: Dr. Blackburn. REASON FOR CONSULTATION: Heart alert. HISTORY OF PRESENT ILLNESS: Mr. Gordon is a 76-year-old man known to me from recent hospitalization where he had 3 drug-eluting stents placed to his RCA, who returns to the ED today in the setting of headache, shortness of breath. Cardiology consulted emergently in the setting of questionable inferior ST elevations and heart alert activation. The patient was discharged yesterday, was previously admitted on 05/26/2017 in the setting of pleuritic/new substernal chest pain. During that time, he had subtle inferior ST elevations and was taken urgently to the cardiac catheterization lab. There he was found to have severe ostial RCA and mid RCA disease, but no acute occlusion disease was assessed via RAJESH, and as it was severe, a decision made to place 3 drug-eluting stents. The patient did well post his PCI. His CTA showed no PE or other causes for pleuritic chest pain. He was discharged home on hospital day 3. The patient initially did well this morning, initially complained of headache and then his states he was increasingly confused and appeared short of breath. Upon arrival of EMS, he was noted to be in atrial fibrillation with RVR, and received 25 mg of diltiazem en route. There were questionable inferior ST elevations on his EKG and heart alert was activated. Upon interview, patient appeared dyspneic, but denied any chest pain. His heart rates were still in the 140s to 150s. He was given IV diltiazem, IV amiodarone for rate control. PAST MEDICAL HISTORY: 1. Coronary artery disease status post PCI as discussed above. 2. COPD. 3. Recent admissions for acute COPD, on chronic low-dose steroids. 4. BPH. 5. Hyperlipidemia. 6. Recently diagnosed carotid artery disease, on carotid duplex. 7. Lung cancer post left upper lobectomy FAMILY HISTORY: Noncontributory to the patient's age and own comorbidities. SOCIAL HISTORY: The patient lives with his and is retired, was recently smoking up until about 1 month ago. Denies heavy alcohol or illicit drugs. REVIEW OF SYSTEMS: Not completed as an urgent situation. HOME MEDICATIONS: Include albuterol, aspirin 81 mg, atorvastatin 40 mg, Symbicort, guaifenesin, lisinopril 5, Toprol-XL 25 mg, Protonix, ranitidine, Daliresp, Flomax, Brilinta 90 mg b.i.d. and Spiriva. ALLERGIES: No known drug allergies. PHYSICAL EXAMINATION: VITAL SIGNS: Temperature 36.0, heart rate 145, blood pressure 128/88, satting 99% on 3 liters. GENERAL: The patient appears dyspneic in mild distress. HEENT: His sclerae are anicteric. His oropharynx is clear. NECK: Supple. He has no jugular venous distention. LUNGS: He has a prolonged expiratory phase and decreased air movement bilaterally. No significant wheezes or rales. CARDIAC: Tachycardic, irregularly irregular with 2/6 systolic ejection murmur. ABDOMEN: Soft, nontender. EXTREMITIES: Warm. He has intact distal pulses throughout. SKIN: Shows no rashes or lesions. NEUROLOGIC: Grossly nonfocal. LABORATORY DATA: Sodium 139, potassium of 3.9, BUN of 21, creatinine 1.6. His point of care troponin was 0.03. CK-MB of 13. His magnesium was 1.7. Hematocrit 33. INR 1.0. Chest x-ray showed emphysema, but no acute cardiopulmonary process. EKG shows atrial fibrillation with RVR with ventricular rate of 153. There are nonspecific ST abnormalities. No real significant ST elevations on EKG from 15:14 on 05/29/2017. IMPRESSION: 1. Atrial fibrillation with rapid ventricular response. 2. Coronary artery disease status post recent percutaneous coronary intervention with 3 drug-eluting stents, on dual antiplatelet therapy. 3. Chronic obstructive pulmonary disease, on chronic steroids. 4. Prior lung cancer status post left upper lobe lobectomy. 5. Peripheral arterial disease with known carotid artery disease. 6. Headache. 7. Hypomagnesemia. 8. Anemia. PLAN AND RECOMMENDATIONS: Mr. Gordon was brought in emergently in the setting of dyspnea, headache, confusion and new atrial fibrillation with rapid ventricular response. At time of exam patient remains in atrial fibrillation with rapid ventricular response and appears acutely dyspneic but is chest pain free and is hemodynamically stable. I have reviewed his multiple EKGs on presentation, and ST segments not significantly changed from recent hospitalization. Do not feel that current presentation represents an acute STEMI/acute stent thrombosis. It appears the patient's symptoms are most likely due to poorly controlled atrial fibrillation and his underlying COPD. In that setting, going forward recommend targeting rate control, ruling out acute CVA and treating underlying COPD. Recommend start amiodarone with 150 mg bolus and plan on a 24-hour drip. Continue on diltiazem infusion at 5 mg per hour, titrate up as necessary for rate control. Start heparin infusion, assuming head CT unremarkable. We will check limited 2D echo to rule out new wall motion abnormalities. Continue dual antiplatelet therapy with aspirin and Brilinta, assuming head CT unremarkable. Continue home secondary prevention ASCVD regimen. If remains in atrial fibrillation with difficult to control heart rate, we will consider cardioversion tomorrow. We will follow with the patient while in the hospital. Thank you for the consultation. ALICIA
--- NOTE | 2017-05-29 16:45 | ECHOCARDIOGRAM REPORT ---
*NOTICE TO RECEIVING [employer] This information is strictly Confidential and protected under [place] law. [place] law prohibits you from making any further disclosure of this information unless further disclosure is expressly permitted by the written consent of the person to whom it pertains or is authorized by law. A general authorization for the release of medical or other information is not sufficient for this purpose. Hospital accepts no responsibility if the information is made available to any other person, INCLUDING THE PATIENT. Interpretation Summary * Name: CHAMP DENNIS Study Date: 05/29/2017 03:11 PM BP: 91/63 mmHg * Patient Location: .MSICU\S\E102\S\1 HR: 133 * : 1940 (M/d/yyyy) Gender: Male Height: 72 in * Age: 76 yrs Ethnicity: CA Weight: 207 lb * Ordering Physician: Armaan Chris * Referring Physician: Self, Referred * Performed By: Juan Pablo Damon RCS * * Reason For Study: Eval for New WMA * BSA: 2.2 m2 * -- Conclusions -- * Limited 2D echo to assess wall motion. * 1. Normal LV size. Hyperdynamic LV, LVEF >70%. No regional wall motion abnormalities. * 2. RV mildly dilated, grossly normal function. * 3. Normal IVC. Estimated RA 3 mmHg. * 4. Compared with prior study on 05/27/2017: LV function is unchanged. Procedure Details * A two-dimensional transthoracic echocardiogram was performed. * Limited views were obtained. Left Ventricle * The left ventricle is grossly normal size. * There is moderate concentric left ventricular hypertrophy. * Ejection Fraction = >70 %. Right Ventricle * The right ventricle is mildly dilated. Atria * The left atrial size is normal. * The right atrium is moderately dilated. Pericardium/Pleural * There is no pericardial effusion. Great Vessels * Normal inferior vena cava size and collapsability with sniff indicates a normal right atrial pressure of 3 mmHg
[2017-05-29] MEDS ORDERED: LORAZEPAM 2 MG/ML 1 ML VIAL IV PRN (17:15)
[2017-05-29] MEDS ORDERED: NITROGLYCERIN 0.4 MG SL PER TAB CHARGE SL PRN (17:15)
[2017-05-29] MEDS ORDERED: ACETAMINOPHEN 325 MG TAB PO PRN (17:15)
[2017-05-29] MEDS ORDERED: HEPARIN SOD 5000 UNIT/0.5 ML CARP SQ SCH (17:15)
[2017-05-29] MEDS ORDERED: ICU PROTOCOL FOR HYPERGLYCEMIA PRN ×2 (17:15→21:15)
[2017-05-29] MEDS ORDERED: MoRPHine SULFATE 2 MG/ML CARP IV PRN (17:15)
[2017-05-29] MEDS: SODIUM CHLORIDE 0.9% 1000ML 1,000 ML IV SCH (17:30)
[2017-05-29] MEDS ORDERED: HEPARIN IV LOW DOSE NO BOLUS SCH (17:30)
--- NOTE | 2017-05-29 17:45 | History and Physical ---
History & Physical Date & Time of Service: May 29, 2017 at 17:19 Chief Complaint: Cardiac Assessment Primary Care Physician: Rob Perez PA-C History of Present Illness Source: patient, family, hospital records 76-year-old man with history of COPD, chronic respiratory failure, dyslipidemia , BPH, CAD status post 3 stents placed in RCA recently GERD and carotid stenosis. Patient was discharged from the hospital recently after placing 3 stents in his RCA. Was in his regular state of health until today. He was sitting with his when he developed some headache. His gave him Tylenol for his headache which was partially effective. He asked her for aspirin but she told him no because she started taking the Lantus since he had the stents. Patient suddenly called his screaming when she entered the room he was anxious, confused, was not able to tell her what is wrong with him, kept saying I cannot, I cannot. She called 911. Paramedics arrived and his heart rate was 170 his pressure was 80/50. He was given 20 mg of Cardizem IV and he was brought to the ED. Patient took Cardizem twice and failed to control his heart rate. Cardiology was consulted for possible inferior STEMI. Dr. Chris saw him did not think it is a STEMI but started him on amiodarone drip. Also because of his presentation of headache initially he had a CT head that showed no bleed. He was started on heparin drip as well. Family History Patient reports no known family medical history. Social History Smoking Status: Former Smoker Drug Use: none Marital Status: Housing status: lives with family Occupational Status: retired Immunizations History of Influenza Vaccine: Unknown History of Tetanus Vaccine?: Unknown History of Pneumococcal: Unknown History of Hepatitis B Vaccine: Unknown Allergies Coded Allergies: No Known Allergies (Unverified , 04/18/17) Home Medications Scheduled Aspirin (Aspirin Ec), 81 MG PO DAILY Atorvastatin (Lipitor), 80 MG PO DAILY Budesonide/Formoterol Fumarate (Symbicort 160/4.5 Inhaler ), 2 PUFFS INH BID Lisinopril (Zestril), 5 MG PO DAILY Metoprolol Succ (Toprol Xl) (Toprol-Xl), 25 MG PO DAILY Pantoprazole (Protonix), 40 MG PO DAILY Ranitidine Hcl (Zantac), 150 MG PO BID Roflumilast (Daliresp), 500 MG PO DAILY Tamsulosin Hcl (Flomax), 0.4 MG PO QPM Ticagrelor (Brilinta), 90 MG PO DAILY Tiotropium [place] (Spiriva Handihaler), 1 CAP INH DAILY Scheduled PRN Albuterol Sulfate (Proair Respiclick), 2 PUFFS INH DIRECTED PRN for Shortness of Breath Guaifenesin (Guaifenesin), 400 MG PO BID PRN for CONGESTION Review of Systems Due to patient mental status review of system was unobtainable/unreliable We'll attempt to obtain review of system as needed from staff and family Physical Exam Vital Signs Date Time Temp Pulse Resp B/P (MAP) Pulse Ox O2 Delivery O2 Flow Rate FiO2 05/29/17 17:06 36.4 05/29/17 17:04 109 120/97 100 BiPAP 05/29/17 16:49 132 22 93/73 100 BiPAP 6.0 05/29/17 16:32 126 21 113/78 100 BiPAP 6.0 05/29/17 16:25 121 95 50 05/29/17 16:19 133 21 104/73 99 BiPAP 05/29/17 16:10 135 18 91/63 93 Nasal Cannula 2.0 05/29/17 15:46 125 25 100/68 98 Room Air 05/29/17 15:31 121/76 05/29/17 15:27 145 28 96/74 99 Room Air 05/29/17 15:16 157 29 126/88 99 Room Air 05/29/17 15:07 36.0 152 39 103/74 99 Room Air 05/29/17 15:06 95 Room Air 05/29/17 15:06 95 Room Air 05/29/17 14:59 143 05/29/17 14:55 36.2 138 19 94/66 95 Room Air 05/29/17 14:55 95 Room Air Physical examination General patient appears in severe acute distress, HEENT: Atraumatic , normocephalic /no jaundice /no pallor /anicteric /no dry mucous membrane /normal external ear inspection Neck: Supple /no swelling /central trach Heart: Significant tachycardia with irregular irregularity, difficult to comment on murmur Lungs: Clear to auscultation bilaterally/normal chest with expansion/no rhonchi/ no rales/no wheezing/no use of accessory muscles of respiration Abdomen: Soft/nontender/no guarding/no rebound/no organomegaly/no pulsatile mass Musculoskeletal: No swelling/no edema/no tenderness/normal range of motion Neuro exam: Awake, alert not sure about his orientation chance that he is on BiPAP machine, moves all extremities, follows simple commands Psychiatric evaluation: No depressed mood/normal affect Skin: No rash on exposed skin area/no erythema Extremity: Normal pulse/no pitting edema/no clubbing or cyanosis Endocrine/lymphatic: No obvious lymphadenopathy /no lymphedema Diagnostics Laboratory Results Results Past 24 Hours Test 05/29/17 15:01 05/29/17 15:04 05/29/17 15:09 05/29/17 15:10 Range/Units White Blood Count 8.06 4.8-10.8 K/uL Red Blood Count 3.65 4.7-6.1 M/uL Hemoglobin 11.7 14.0-18.0 g/dL Hematocrit 33.9 42-52 % Mean Corpuscular Volume 92.9 80-100 fL Mean Corpuscular Hemoglobin 32.1 25-34 pg Mean Corpuscular Hemoglobin Concent 34.5 32-36 g/dl Platelet Count 253 130-400 K/uL Mean Platelet Volume 9.2 7.4-10.4 fL Neutrophils (%) (Auto) 68.9 % Lymphocytes (%) (Auto) 17.4 % Monocytes (%) (Auto) 11.8 % Eosinophils (%) (Auto) 1.2 % Basophils (%) (Auto) 0.2 % Neutrophils # (Auto) 5.55 1.4-6.5 K/uL Lymphocytes # (Auto) 1.40 1.2-3.4 K/uL Monocytes # (Auto) 0.95 0.11-0.59 K/uL Eosinophils # (Auto) 0.10 0-0.5 K/uL Basophils # (Auto) 0.02 0-0.2 K/uL RDW Standard Deviation 50.7 36.4-46.3 fL RDW Coefficient of Variation 15.0 11.5-14.5 % Immature Granulocyte % (Auto) 0.5 % Immature Granulocyte # (Auto) 0.04 0.00-0.02 K/uL Prothrombin Time 10.2 9.0-12.0 SECONDS Prothromb Time International Ratio 1.0 0.9-1.1 Activated Partial Thromboplast Time 32.7 21.0-31.0 SECONDS Partial Thromboplastin Ratio 1.3 Sodium Level 137 136-145 mmol/L Potassium Level 3.8 3.5-5.1 mmol/L Chloride Level 103 98-107 mmol/L Carbon Dioxide Level 22 21-32 mmol/L Anion Gap 12.0 19.0 16-25 mmol/L Blood Urea Nitrogen 21 7-18 mg/dl Creatinine 1.16 0.60-1.40 mg/dl Est Creatinine Clear Calc Drug Dose 63.0 ml/min Estimated GFR () 70.5 Estimated GFR (Non- 60.8 BUN/Creatinine Ratio 17.9 10-20 Random Glucose 134 70-99 mg/dl Calcium Level 8.6 8.5-10.1 mg/dl Magnesium Level 1.7 1.8-2.4 mg/dl Total Bilirubin 0.5 0.2-1 mg/dl Direct Bilirubin 0.1 0-0.2 mg/dl Aspartate Amino Transf (AST/SGOT) 13 15-37 U/L Alanine Aminotransferase (ALT/SGPT) 16 12-78 U/L Alkaline Phosphatase 49 45-117 U/L Total Creatine Kinase 51 39-308 U/L Creatine Kinase MB 1.3 0.5-3.6 ng/ml Creatine Kinase MB Ratio 2.5 0-3.0 Total Protein 6.6 6.4-8.2 gm/dl Albumin 2.6 3.4-5.0 gm/dl Lipase 75 73-393 U/L Bedside Troponin I 0.030 0-0.045 ng/ml Bedside Hemoglobin 11.2 14.0-18.0 g/dl Bedside Hematocrit 33 42-52 % Bedside Sodium 139 135-144 mEq/L Bedside Potassium 3.9 3.3-5.0 mEq/L Bedside Chloride 102 101-112 mEq/L Bedside Total CO2 22 24-31 mEq/l Bedside Blood Urea Nitrogen 21 7-18 mg/dl Bedside Creatinine 1.1 0.6-1.3 mg/dl Bedside Glucose 120 70-99 mg/dl Bedside Glucose (other) 137 70-99 mg/dl Bedside Ionized Calcium (Prosper) 1.10 1.12-1.32 mmol/l Impression Assessment and Plan 76-year-old man with history of COPD, chronic respiratory failure, dyslipidemia , BPH, CAD status post 3 stents placed in RCA recently GERD and carotid stenosis. Patient was discharged from the hospital recently after placing 3 stents in his RCA. Presented to the ED with acute new onset A. fib with RVR Assessment Acute new onset atrial fibrillation with RVR Possible cardiac ischemia on EKG, likely rate related Hypotension/hemodynamic instability CAD status post recent 3 stents in RCA COPD with chronic respiratory failure Mild subcarinal and right hilar adenopathy, likely reactive. Carotid bruit/AURELIO VERNA-50-69% GERD BPH Dyslipidemia plan: admit to ICU Failed multiple boluses of Cardizem [employer] Architect consult appreciated, started patient on amiodarone drip and heparin drip obtain serial cardiac enz NTG SL/topical prn CP CT head showed no acute event CTA was reviewed no CHF or pulmonary embolism Due to the hypotension and the contrast that the patient received in the CT angiogram, will start patient on low-dose normal saline hydration to prevent renal failure Patient has chronic respiratory failure, does not appear to have severe CHF on imaging and he will be on BiPAP anyway, if he developed CHF we can always give Lasix but at this point I think IV fluid would be important to prevent renal failure and to help supporting his pressure repeat EKG when heart rate is better controlled Continue home medications including aspirin, Brilinta, low-dose beta-mark, PPI Discussed CODE STATUS with the daughter, who was leaning towards no heroic measures but asked me to wait until her mother call me, will discuss CODE STATUS with patient's who is that next of kin as per patient's daughter Resuscitation Status VTE Prophylaxis Will order VTE Prophylaxis: Yes
[2017-05-29] MEDS: TAMSULOSIN HCL 0.4 MG CAP PO SCH (20:46)
[2017-05-29] MEDS: AMIODARONE / D5W 200 ML IV SCH (20:47)
[2017-05-29] MEDS: BUDESONIDE/FORMOTEROL FUMARATE 160/4.5 60 PUFFS/INHALER INH SCH (20:47)
--- NOTE | 2017-05-29 20:55 | Critical Care Consultation ---
Critical Care Consultation Date of Consultation: May 29, 2017. Attending Physician: Soraya Kaplan MD Reason for Consultation: 76-year-old male with new onset rapid atrial fibrillation with hemodynamic instability and confusion status post PTCA with RBYAN 3 to the RCA earlier this week. Need for close hemogram and monitoring and currently on amiodarone drip status post conversion with bolus. History of Present Illness Patient is a 76-year-old male with a recent past medical history of IL who underwent PTCA with BRYAN 3 to the RCA performed at this facility. He was discharged home on the . Per hospital records and colleagues reports from earlier today, after taking his medications, the patient was reported to be confused and lightheaded per family. His , a former nurse, apparently took his vital signs which demonstrated a rapid heart rate and low blood pressure. She contacted EMS as the patient was confused and he was transported to the emergency department. In route, the patient received Cardizem after being found in rapid atrial fibrillation. Upon arrival to the emergency department, a code heart alert was called as the patient did have concerns for lead elevation. Patient was treated with Cardizem and fluids. Patient eventually received amiodarone. CT of the chest was obtained and found to be unremarkable. CT the head demonstrated no acute findings. Laboratory results demonstrate no acute leukocytosis. The patient is not significantly anemic. There were no acute electrolyte abnormalities. Initial troponin was not elevated. Upon admission to the ICU and prior to my evaluation, the patient converted normal sinus rhythm. Upon evaluation in the ICU, the patient is awake, alert, and oriented. He reports that he does not remember anything other than feeling very lightheaded this morning. He remembers being in the ICU today. The patient denies any pain at this point. He did have some residual chest discomfort after initial PTCA, but that has since resolved. He is resting comfortably and reports no headaches, dizziness, blurry vision, double vision, slurred speech, facial droop , unilateral weakness/numbness, chest pain, palpitations, pleuritic pain, shortness of breath, hemoptysis, nausea, vomiting, abdominal discomfort. Patient is a smoker with known history of COPD. He denies any significant alcohol abuse. Past Medical/Surgical History Medical Problems: (1) AMI (acute myocardial infarction) (2) Atrial fibrillation with RVR (3) COPD (chronic obstructive pulmonary disease) (4) COPD exacerbation (5) E. coli septicemia (6) Emphysema/COPD (7) Hypoxia (8) Leukocytosis (9) Lung cancer (10) SIRS (systemic inflammatory response syndrome) Family History Patient reports no known family medical history. Noncontributory Social History Smoking Status: Former Smoker Smokeless Tobacco Use: Yes Alcohol Use: none Drug Use: none Marital Status: Housing Status: lives with significant other Occupation Status: retired Allergies Coded Allergies: No Known Allergies (Unverified , 04/18/17) Home Medications Scheduled Aspirin (Aspirin Ec), 81 MG PO DAILY Atorvastatin (Lipitor), 80 MG PO DAILY Budesonide/Formoterol Fumarate (Symbicort 160/4.5 Inhaler ), 2 PUFFS INH BID Lisinopril (Zestril), 5 MG PO DAILY Metoprolol Succ (Toprol Xl) (Toprol-Xl), 25 MG PO DAILY Pantoprazole (Protonix), 40 MG PO DAILY Ranitidine Hcl (Zantac), 150 MG PO BID Roflumilast (Daliresp), 500 MG PO DAILY Tamsulosin Hcl (Flomax), 0.4 MG PO QPM Ticagrelor (Brilinta), 90 MG PO BID Tiotropium [place] (Spiriva Handihaler), 1 CAP INH DAILY Scheduled PRN Albuterol Sulfate (Proair Respiclick), 2 PUFFS INH DIRECTED PRN for Shortness of Breath Guaifenesin (Guaifenesin), 400 MG PO BID PRN for CONGESTION Current Inpatient Medications Current Inpatient Medications Medications (Trade) Dose Ordered Sig/Elmer Route Start Time Stop Time Status Last Admin Dose Admin Amiodarone HCL/ Dextrose 200 ml @ 33.3 mls/hr Q6H1M IV 05/29/17 16:00 05/29/17 22:00 05/29/17 15:50 33.3 MLS/HR Amiodarone HCL/ Dextrose 200 ml @ 16.7 mls/hr [id number] IV 05/29/17 22:00 06/28/17 21:59 05/29/17 20:47 16.7 MLS/HR Ioversol (Optiray 320) 100 ml UD PRN IV 05/29/17 16:00 06/02/17 15:59 Aspirin (Ecotrin Tab) 81 mg DAILY PO 05/30/17 09:00 06/29/17 08:59 Atorvastatin Calcium (Lipitor Tab) 80 mg DAILY PO 05/30/17 09:00 06/29/17 08:59 Budesonide/ Formoterol Fumarate (Symbicort 160/ 4.5 Inh) 2 puffs BID INH 05/29/17 21:00 06/28/17 20:59 05/29/17 20:47 2 PUFFS Metoprolol Succinate (Toprol Xl Tab) 25 mg DAILY PO 05/30/17 09:00 06/29/17 08:59 Pantoprazole Sodium (Protonix Tab) 40 mg DAILY PO 05/30/17 09:00 06/29/17 08:59 Roflumilast (Daliresp Tab) 0.5 mcg DAILY PO 05/30/17 09:00 06/29/17 08:59 Tamsulosin HCl (Flomax Cap) 0.4 mg QPM PO 05/29/17 21:00 06/28/17 20:59 05/29/17 20:46 0.4 MG Ticagrelor (Brilinta Tab) 90 mg DAILY PO 05/30/17 09:00 06/29/17 08:59 Tiotropium [place] (Spiriva Handihaler Inhaler) 1 puff DAILY INH 05/30/17 09:00 06/29/17 08:59 Acetaminophen (Tylenol Tab) 650 mg Q4H PRN PO 05/29/17 17:15 06/28/17 17:14 Lorazepam (Ativan Inj) 0.5 mg Q4H PRN IV 05/29/17 17:15 06/28/17 17:14 Nitroglycerin (Nitrostat Tab) 0.4 mg UD PRN SL 05/29/17 17:15 06/28/17 17:14 Morphine Sulfate (MoRPHine SULFATE INJ) 2 mg Q2H PRN IV 05/29/17 17:15 06/12/17 17:14 Miscellaneous Information (Icu Protocol For Hyperglycemia) 1 ea PRN PRN N/A 05/29/17 17:15 05/31/17 17:14 Sodium Chloride 1,000 ml @ 50 mls/hr Q20H IV 05/29/17 17:30 06/28/17 17:29 05/29/17 17:30 50 MLS/HR Heparin Sodium/ Dextrose 500 ml @ 20 mls/hr Q24H PRN IV 05/29/17 17:45 06/28/17 17:44 Review of Systems A complete 10-point Review of Systems was discussed with the patient, with pertinent positives and negatives listed in the History of Present Illness. All remaining Review of Systems questions can be considered negative unless otherwise specified. Physical Exam Date Time Temp Pulse Resp B/P (MAP) Pulse Ox O2 Delivery O2 Flow Rate FiO2 05/29/17 18:35 36.6 137 32 128/78 100 BiPAP 40 05/29/17 18:14 96/91 (93) 05/29/17 18:00 137 34 100 05/29/17 17:45 137 34 100 05/29/17 17:35 136 100 50 05/29/17 17:30 133 15 128/78 (95) 99 05/29/17 17:06 36.4 05/29/17 17:04 109 120/97 100 BiPAP 05/29/17 16:49 132 22 93/73 100 BiPAP 6.0 05/29/17 16:32 126 21 113/78 100 BiPAP 6.0 05/29/17 16:25 121 95 50 05/29/17 16:19 133 21 104/73 99 BiPAP 05/29/17 16:10 135 18 91/63 93 Nasal Cannula 2.0 05/29/17 15:46 125 25 100/68 98 Room Air 05/29/17 15:31 121/76 05/29/17 15:27 145 28 96/74 99 Room Air 05/29/17 15:16 157 29 126/88 99 Room Air 05/29/17 15:07 36.0 152 39 103/74 99 Room Air 05/29/17 15:06 95 Room Air 05/29/17 15:06 95 Room Air 05/29/17 14:59 143 05/29/17 14:55 36.2 138 19 94/66 95 Room Air 05/29/17 14:55 95 Room Air VITAL SIGNS - Vital signs and nursing notes were reviewed. GENERAL - 76-year-old male appearing his stated age who is in no acute distress. Communicates well with provider and answers questions appropriately. HEAD - NC/AT. EYES - PERRL with EOMI bilaterally. Sclera anicteric. EARS - No deformities of external structures noted on gross examination bilaterally. NOSE - Midline and without cyanosis. No epistaxis or purulent drainage noted. MOUTH/OROPHARYNX - Without perioral cyanosis. Buccal mucosa pink and moist. NECK - Neck with FROM. Supple to palpation. LUNGS - Chest wall symmetric without accessory muscle use, intercostals retractions, or central cyanosis. Normal vesicular breath sounds CTA B/L. No wheezes, rales, or rhonchi appreciated. CARDIAC - RRR with S1/S2. No murmur, rubs, or gallops appreciated. No reproducible tenderness to palpation appreciated over the anterior chest wall. ABDOMEN - Abdominal contour flat and without pulsations or visible masses. BS normoactive all four quadrants. No tenderness, palpable masses, hepatosplenomegaly, or ascites noted. EXTREMITIES - No clubbing or peripheral cyanosis. No pretibial edema present. +3 /5 radial and dorsalis pedis pulses palpated throughout. +5/5 strength noted in UE/LE bilaterally. NEUROLOGIC - Cranial nerves II through XII grossly intact. Sensory intact to light touch throughout. PSYCH - A&Ox3 and cooperates fully with examiner. Pt is very pleasant and interacts well with examiner. Laboratory Results Last 24 Hours Test 05/29/17 15:01 05/29/17 15:04 05/29/17 15:09 05/29/17 15:10 White Blood Count 8.06 K/uL Red Blood Count 3.65 M/uL Hemoglobin 11.7 g/dL Hematocrit 33.9 % Mean Corpuscular Volume 92.9 fL Mean Corpuscular Hemoglobin 32.1 pg Mean Corpuscular Hemoglobin Concent 34.5 g/dl Platelet Count 253 K/uL Mean Platelet Volume 9.2 fL Neutrophils (%) (Auto) 68.9 % Lymphocytes (%) (Auto) 17.4 % Monocytes (%) (Auto) 11.8 % Eosinophils (%) (Auto) 1.2 % Basophils (%) (Auto) 0.2 % Neutrophils # (Auto) 5.55 K/uL Lymphocytes # (Auto) 1.40 K/uL Monocytes # (Auto) 0.95 K/uL Eosinophils # (Auto) 0.10 K/uL Basophils # (Auto) 0.02 K/uL RDW Standard Deviation 50.7 fL RDW Coefficient of Variation 15.0 % Immature Granulocyte % (Auto) 0.5 % Immature Granulocyte # (Auto) 0.04 K/uL Prothrombin Time 10.2 SECONDS Prothromb Time International Ratio 1.0 Activated Partial Thromboplast Time 32.7 SECONDS Partial Thromboplastin Ratio 1.3 Sodium Level 137 mmol/L Potassium Level 3.8 mmol/L Chloride Level 103 mmol/L Carbon Dioxide Level 22 mmol/L Anion Gap 12.0 mmol/L 19.0 mmol/L Blood Urea Nitrogen 21 mg/dl Creatinine 1.16 mg/dl Est Creatinine Clear Calc Drug Dose 63.0 ml/min Estimated GFR () 70.5 Estimated GFR (Non- 60.8 BUN/Creatinine Ratio 17.9 Random Glucose 134 mg/dl Calcium Level 8.6 mg/dl Magnesium Level 1.7 mg/dl Total Bilirubin 0.5 mg/dl Direct Bilirubin 0.1 mg/dl Aspartate Amino Transf (AST/SGOT) 13 U/L Alanine Aminotransferase (ALT/SGPT) 16 U/L Alkaline Phosphatase 49 U/L Total Creatine Kinase 51 U/L Creatine Kinase MB 1.3 ng/ml Creatine Kinase MB Ratio 2.5 Total Protein 6.6 gm/dl Albumin 2.6 gm/dl Lipase 75 U/L Bedside Troponin I 0.030 ng/ml Bedside Hemoglobin 11.2 g/dl Bedside Hematocrit 33 % Bedside Sodium 139 mEq/L Bedside Potassium 3.9 mEq/L Bedside Chloride 102 mEq/L Bedside Total CO2 22 mEq/l Bedside Blood Urea Nitrogen 21 mg/dl Bedside Creatinine 1.1 mg/dl Bedside Glucose 120 mg/dl Bedside Glucose (other) 137 mg/dl Bedside Ionized Calcium (Prosper) 1.10 mmol/l Test 05/29/17 18:26 Bedside Glucose 160 mg/dl Diagnostic Results Radiological imaging and reports were reviewed by myself. Radiologist's Interpretation as follows: CHEST ONE VIEW PORTABLE CLINICAL HISTORY: Atypical chest pain COMPARISON STUDY: 05/26/2017 FINDINGS: The study is slightly rotated. There is pulmonary emphysema. There is no focal pulmonary consolidation. There is no failure.[ There are postsurgical changes in left hemithorax. IMPRESSION: 1. Emphysema 2. Postsurgical changes 3. No acute findings CT HEAD WITHOUT CONTRAST (CT) CLINICAL HISTORY: Severe headache COMPARISON STUDY: April 23, 2017 TECHNIQUE: Axial CT of the brain is performed from the vertex to the skull base. IV contrast was not administered for this examination. A dose lowering technique was utilized adhering to the principles of ALARA. CT DOSE: FINDINGS: No intra or extra-axial mass lesions are visualized. There is no CT evidence of acute cortical infarction. There is no evidence of midline shift. There is no acute hemorrhage. No calvarial fractures are visualized. There are patchy white matter hypodensities likely on a small vessel basis. There is no evidence of pathologic ventricular dilatation. There is no evidence of acute sinusitis IMPRESSION: No acute intracranial findings CT ANGIOGRAM OF THE CHEST CLINICAL HISTORY: Shortness of breath ATYPICAL CHEST PAIN COMPARISON STUDY: 05/27/2017 TECHNIQUE: Following the IV administration of 110 mL of Optiray-320, CT angiogram of the thorax was performed from the thoracic inlet to the lung bases utilizing the pulmonary embolus protocol. Images are reviewed in the axial, sagittal, and coronal planes. IV contrast was administered without complication. MIP imaging was performed. A dose lowering technique was utilized adhering to the principles of ALARA. CT DOSE: 2172.19 mGy.cm FINDINGS: Study is significantly degraded by motion artifact. Visualized portions the upper abdomen reveal multiple renal cysts. There is a mildly enlarged 13 mm subcarinal lymph node. There is mild dilatation of the ascending thoracic aorta which measures 43 mm. There is a left subclavian artery stenosis. There were no pulmonary artery filling defects to indicate acute pulmonary embolism. No pleural effusions are visualized. There is underlying pulmonary emphysema. There is no focal pulmonary consolidation. Postsurgical changes are present within the left hemithorax. IMPRESSION: 1. Study significantly degraded by patient motion artifact 2. No evidence of acute pulmonary embolism 3. Emphysema 4. Mild subcarinal lymphadenopathy 5. Left subclavian artery stenosis 6. Mild dilatation of the ascending thoracic aorta Assessment & Plan (1) Atrial fibrillation with RVR (2) Hypoxic (3) COPD (chronic obstructive pulmonary disease) (4) Emphysema/COPD (5) Lung cancer (6) AMI (acute myocardial infarction) Reason Critically Ill: 76-year-old male with new onset rapid atrial fibrillation with hemodynamic instability and confusion status post PTCA with BRYAN 3 to the RCA earlier this week. Need for close hemogram and monitoring and currently on amiodarone drip status post conversion with bolus. Neuro - * CAM ICU: NEGATIVE * Confusion - Resolved. * Likely 2/2 A.fib and hemodynamic instability. * Patient does have atherosclerotic disease noted on CTA and presumed from h/o smoking and recent IL. * ??Carotid component of Carotid Atherosclerosis coupled with hemodynamic instability resulting in decreased cerebral perfusion and subsequent confusion state. * Patient may benefit from Carotid Ultrasound for any significant lesion. Cardiac - * New onset A.fib w/ RVR and hemodynamic instability: * Aggressively managed in the ED. * Converted to NSR s/p Cardizem, IVF, Amiodarone. * Currently on amiodarone gtt. * Monitor on telemetry. * EKGs as needed. * Recent AMI w/ PTCA and DESx3 to the RCA: * Continue DAPT, BB, ALEKSANDR, statin * ECHO: * * -- Conclusions -- * Limited 2D echo to assess wall motion. * 1. Normal LV size. Hyperdynamic LV, LVEF >70%. No regional wall motion abnormalities. * 2. RV mildly dilated, grossly normal function. * 3. Normal IVC. Estimated RA 3 mmHg. * 4. Compared with prior study on 05/27/2017: LV function is unchanged. * Appreciate Cardiology consultation. Respiratory - * h/o COPD: * Continue home Rx * PRN Nebs if needed. * CXR unremarkable as is CTA. * Initially placed on BiPAP in the ED - use if needed. GI - * Progress diet as tolerated - AHA diet. RENAL/LYTES - * No acute electrolyte derangement. * Correct as needed. - * Voiding on his own. * Continue Flomax as needed and as BP tolerates. ENDO - * No h/o DM or Thyroid Disease: * BSGs w/ ISS/gtt per protocol. HEME - * Stable H&H. * Trend. ID - * No c/o infection at this point. * Monitor fever curve. LINES/IV ACCESS - * PIVs intact DVT PROPHYLAXIS - * Continue DAPT * SCDs CODE STATUS: * I had a lengthy conversation with the patient. He points out that if his heart were to stop beating, he would not wish to undergo heroic measures including compressions. Per records, there was apparently a discussion with the patient's daughter while he was confused and she was leaning towards "no heroic measures". He is agreeable to intubation in the event of respiratory decline. I have personally spent 35 minutes of critical care time in the direct management of this patient. This is a life/limb threatening event. This includes time spent evaluating patient, direct bedside care, chart review, placing orders, interpretation of diagnostic studies, discussion with consultants, patient, and family members, as well as other required patient management activities. This time is exclusive of all separately billable procedures, and teaching time and separate from and in addition to any other critical care service time. Thank you for this consultation allow us to be part of this patient's care. Please refer to my attending physician's documentation for any further recommendations. I have personally evaluated and examined this patient. I agree with assessment and plan of Emelyn Oneal PA-C. Patient was discussed on multidisciplinary and individual bedside rounds. Patient underwent repeat carotid artery ultrasound which revealed no occlusion of the right carotid. He is currently on antiplatelet therapy. He also subsequently underwent CT angiography as well as an MRI of the brain to exclude CVA. I reviewed the radiology report of the MRI as well as the images. There is no evidence of acute ischemic changes consistent with acute CVA. Patient likely had a transient ischemic attack. Patient stable for downgrade to telemetry status, neurology has been consulted by the hospitalist service. Patient will likely require systemic anticoagulation due to new onset paroxysmal atrial fibrillation as well as dual antiplatelet therapy given the recent cardiac stent placements.
[2017-05-29 23:25] LABS: PTT PATIENT 60.5 SECONDS (21.0-31.0)
[2017-05-30] VITALS (16 sets, daily range): BP systolic 88–145; BP diastolic 54–87; PULSE 71–83; TEMP 36.3–36.7; O2SAT 92–98; Ht 188 cm; Wt 94.1 kg
[2017-05-30] MEDS: SODIUM CHLORIDE 0.9% 1000ML 1,000 ML IV SCH (06:10)
[2017-05-30 06:46] LABS: HEMATOCRIT 30.8 % (42-52); HEMOGLOBIN 10.5 g/dL (14.0-18.0); IG# 0.03 K/uL (0.00-0.02); LYMPH % 11.9 %; LYMPH ABS # 0.66 K/uL (1.2-3.4); MEAN CELL VOLUME 92.8 fL (80-100); MEAN CORPUSCULAR HEMOGLOBIN 31.6 pg (25-34); MEAN CORPUSCULAR HGB CONC 34.1 g/dl (32-36); MEAN PLATELET VOLUME 9.3 fL (7.4-10.4); MONO % 2.2 %; MONO ABS # 0.12 K/uL (0.11-0.59); NEUT % 85.4 %; NEUT ABS # 4.74 K/uL (1.4-6.5); PLATELET COUNT 264 K/uL (130-400); RED CELL DISTRIBUTION WIDTH CV 14.9 % (11.5-14.5); RED CELL DISTRIBUTION WIDTH SD 50.6 fL (36.4-46.3); WHITE BLOOD COUNT 5.55 K/uL (4.8-10.8)
[2017-05-30 07:15] LABS: BLOOD UREA NITROGEN 17 mg/dl (7-18); GLUCOSE 164 mg/dl (70-99)
[2017-05-30 07:16] LABS: CREATININE 0.77 mg/dl (0.60-1.40); SODIUM 138 mmol/L (136-145)
[2017-05-30 07:17] LABS: ALBUMIN 2.3 gm/dl (3.4-5.0); CALCIUM 8.4 mg/dl (8.5-10.1); CARBON DIOXIDE 22 mmol/L (21-32); POTASSIUM 3.8 mmol/L (3.5-5.1); TOTAL PROTEIN 5.9 gm/dl (6.4-8.2)
[2017-05-30 07:18] LABS: ALKALINE PHOSPHATASE 44 U/L (45-117); ALT/SGPT 13 U/L (12-78); AST/SGOT 13 U/L (15-37)
[2017-05-30 07:22] LABS: PTT PATIENT 49.7 SECONDS (21.0-31.0)
[2017-05-30] MEDS ORDERED: TICA1TAB PO (08:42)
--- NOTE | 2017-05-30 08:48 | Hospitalist Progress Note ---
Hospitalist Progress Note Date of Service May 30, 2017. Subjective Pt evaluation today including: conversation w/ patient Patient admitted with rapid atrial fibrillation. He reports he had one of his usual ocular auras and he took an aspirin. He never gets a migraine headache after that. He denies any chest pain at that time. He does not remember anything after that until he was in the ambulance on the way to the hospital. Since admission, he has converted to normal sinus rhythm this morning. He denies any current symptoms at all. Denies headache, vision changes, numbness or tingling, no weakness, no chest pain or shortness of breath. No abdominal pain. He denies any history of GI bleeding and is agreeable to anticoagulation. He would prefer one of the NOACs. He remains on amiodarone and heparin drips. Diltiazem drip has been turned off. All Other Systems: Reviewed and Negative Objective Vital Signs Date Time Temp Pulse Resp B/P (MAP) Pulse Ox O2 Delivery O2 Flow Rate FiO2 05/30/17 06:01 74 19 114/56 (75) 93 05/30/17 05:01 76 22 126/72 (90) 05/30/17 04:01 36.4 76 22 119/69 (86) 98 Room Air 05/30/17 04:00 Room Air 05/30/17 03:01 72 19 88/54 (65) 05/30/17 02:01 79 20 135/70 (91) 92 05/30/17 01:01 81 22 117/66 (83) 97 05/30/17 00:01 36.7 81 25 122/68 (86) 98 Room Air 05/29/17 23:59 Room Air 05/29/17 23:01 79 27 111/64 (80) 98 05/29/17 22:46 108 99 40 05/29/17 22:01 73 21 110/65 (80) 97 Room Air 05/29/17 21:01 82 17 101/60 (74) 97 05/29/17 20:01 36.6 81 27 113/61 (78) 97 Nasal Cannula 2.0 05/29/17 20:00 Nasal Cannula 2.0 05/29/17 19:01 77 31 119/71 (87) 96 05/29/17 18:35 36.6 137 32 128/78 100 BiPAP 40 05/29/17 18:14 96/91 (93) 05/29/17 18:00 137 34 100 05/29/17 17:45 137 34 100 05/29/17 17:35 136 100 50 05/29/17 17:30 133 15 128/78 (95) 99 05/29/17 17:06 36.4 05/29/17 17:04 109 120/97 100 BiPAP 05/29/17 16:49 132 22 93/73 100 BiPAP 6.0 05/29/17 16:32 126 21 113/78 100 BiPAP 6.0 05/29/17 16:25 121 95 50 05/29/17 16:19 133 21 104/73 99 BiPAP 05/29/17 16:10 135 18 91/63 93 Nasal Cannula 2.0 05/29/17 15:46 125 25 100/68 98 Room Air 05/29/17 15:31 121/76 05/29/17 15:27 145 28 96/74 99 Room Air 05/29/17 15:16 157 29 126/88 99 Room Air 05/29/17 15:07 36.0 152 39 103/74 99 Room Air 05/29/17 15:06 95 Room Air 05/29/17 15:06 95 Room Air 05/29/17 14:59 143 05/29/17 14:55 36.2 138 19 94/66 95 Room Air 05/29/17 14:55 95 Room Air Physical Exam General Appearance: WD/WN, no apparent distress Eyes: normal inspection, sclerae normal ENT: hearing grossly normal Neck: trachea midline Respiratory/Chest: no respiratory distress, no accessory muscle use, + decreased breath sounds (Diminished throughout, no wheezes crackles or rhonchi) Cardiovascular: regular rate, rhythm, no edema, no gallop, + systolic murmur (2 /6 at the RUSB) Abdomen: normal bowel sounds, non tender, soft, no organomegaly Extremities: normal inspection, no pedal edema, no calf tenderness Neurologic/Psychiatric: pump installation and servicer II-XII nml as tested, no motor/sensory deficits, alert, normal mood/affect, oriented x 3 Skin: normal color, warm/dry, no rash Laboratory Results Last 24 Hours Test 05/29/17 15:04 05/29/17 15:09 05/29/17 15:10 05/29/17 18:26 White Blood Count 8.06 K/uL Red Blood Count 3.65 M/uL Hemoglobin 11.7 g/dL Hematocrit 33.9 % Mean Corpuscular Volume 92.9 fL Mean Corpuscular Hemoglobin 32.1 pg Mean Corpuscular Hemoglobin Concent 34.5 g/dl Platelet Count 253 K/uL Mean Platelet Volume 9.2 fL Neutrophils (%) (Auto) 68.9 % Lymphocytes (%) (Auto) 17.4 % Monocytes (%) (Auto) 11.8 % Eosinophils (%) (Auto) 1.2 % Basophils (%) (Auto) 0.2 % Neutrophils # (Auto) 5.55 K/uL Lymphocytes # (Auto) 1.40 K/uL Monocytes # (Auto) 0.95 K/uL Eosinophils # (Auto) 0.10 K/uL Basophils # (Auto) 0.02 K/uL RDW Standard Deviation 50.7 fL RDW Coefficient of Variation 15.0 % Immature Granulocyte % (Auto) 0.5 % Immature Granulocyte # (Auto) 0.04 K/uL Prothrombin Time 10.2 SECONDS Prothromb Time International Ratio 1.0 Activated Partial Thromboplast Time 32.7 SECONDS Partial Thromboplastin Ratio 1.3 Sodium Level 137 mmol/L Potassium Level 3.8 mmol/L Chloride Level 103 mmol/L Carbon Dioxide Level 22 mmol/L Anion Gap 12.0 mmol/L 19.0 mmol/L Blood Urea Nitrogen 21 mg/dl Creatinine 1.16 mg/dl Est Creatinine Clear Calc Drug Dose 63.0 ml/min Estimated GFR () 70.5 Estimated GFR (Non- 60.8 BUN/Creatinine Ratio 17.9 Random Glucose 134 mg/dl Calcium Level 8.6 mg/dl Magnesium Level 1.7 mg/dl Total Bilirubin 0.5 mg/dl Direct Bilirubin 0.1 mg/dl Aspartate Amino Transf (AST/SGOT) 13 U/L Alanine Aminotransferase (ALT/SGPT) 16 U/L Alkaline Phosphatase 49 U/L Total Creatine Kinase 51 U/L Creatine Kinase MB 1.3 ng/ml Creatine Kinase MB Ratio 2.5 Total Protein 6.6 gm/dl Albumin 2.6 gm/dl Lipase 75 U/L Bedside Troponin I 0.030 ng/ml Bedside Hemoglobin 11.2 g/dl Bedside Hematocrit 33 % Bedside Sodium 139 mEq/L Bedside Potassium 3.9 mEq/L Bedside Chloride 102 mEq/L Bedside Total CO2 22 mEq/l Bedside Blood Urea Nitrogen 21 mg/dl Bedside Creatinine 1.1 mg/dl Bedside Glucose 120 mg/dl 160 mg/dl Bedside Glucose (other) 137 mg/dl Bedside Ionized Calcium ([place]per) 1.10 mmol/l Test 05/29/17 22:44 05/30/17 00:57 05/30/17 06:11 Activated Partial Thromboplast Time 60.5 SECONDS 49.7 SECONDS Partial Thromboplastin Ratio 2.3 1.9 Total Creatine Kinase 66 U/L Troponin I 0.139 ng/ml White Blood Count 5.55 K/uL Red Blood Count 3.32 M/uL Hemoglobin 10.5 g/dL Hematocrit 30.8 % Mean Corpuscular Volume 92.8 fL Mean Corpuscular Hemoglobin 31.6 pg Mean Corpuscular Hemoglobin Concent 34.1 g/dl Platelet Count 264 K/uL Mean Platelet Volume 9.3 fL Neutrophils (%) (Auto) 85.4 % Lymphocytes (%) (Auto) 11.9 % Monocytes (%) (Auto) 2.2 % Eosinophils (%) (Auto) 0.0 % Basophils (%) (Auto) 0.0 % Neutrophils # (Auto) 4.74 K/uL Lymphocytes # (Auto) 0.66 K/uL Monocytes # (Auto) 0.12 K/uL Eosinophils # (Auto) 0.00 K/uL Basophils # (Auto) 0.00 K/uL RDW Standard Deviation 50.6 fL RDW Coefficient of Variation 14.9 % Immature Granulocyte % (Auto) 0.5 % Immature Granulocyte # (Auto) 0.03 K/uL Sodium Level 138 mmol/L Potassium Level 3.8 mmol/L Chloride Level 106 mmol/L Carbon Dioxide Level 22 mmol/L Anion Gap 10.0 mmol/L Blood Urea Nitrogen 17 mg/dl Creatinine 0.77 mg/dl Est Creatinine Clear Calc Drug Dose 94.9 ml/min Estimated GFR () 102.2 Estimated GFR (Non- 88.1 BUN/Creatinine Ratio 22.1 Random Glucose 164 mg/dl Calcium Level 8.4 mg/dl Magnesium Level 2.0 mg/dl Total Bilirubin 0.2 mg/dl Direct Bilirubin < 0.1 mg/dl Aspartate Amino Transf (AST/SGOT) 13 U/L Alanine Aminotransferase (ALT/SGPT) 13 U/L Alkaline Phosphatase 44 U/L Total Protein 5.9 gm/dl Albumin 2.3 gm/dl Assessment and Plan This patient is a 76 y/o male with a history of recent STEMI with 3 stents placed in the RCA, HLD, BPH, COPD with chronic respiratory failure, who until recently continued to smoke cigarettes. He was discharged to home the day prior to this admission. At home, he had one of his usual ocular auras without headache, and then was reported by his as being confused. He does not remember the event, no witnessed syncope. He was found to be in rapid atrial fibrillation by EMS. Rapid atrial fibrillation-new in onset for him. Converted to normal sinus rhythm this morning IV diltiazem drip was weaned off, he remains on IV heparin. Blood pressures are acceptable. Troponin only minimally elevated and trended down which is likely demand ischemia -Appreciate cardiology consultation -Continue Toprol-XL 25 mg once daily for rate control -Continue IV amiodarone and transitioned to p.o. amiodarone when cardiology recommends S -Patient wants to look into NOAC rather than Coumadin-will sears out Eliquis for him with case management today -Begin Eliquis versus Coumadin this evening and will stop heparin drip if he goes on Eliquis Amnesia/confusion-has right internal carotid artery stenosis-repeat carotid ultrasound now with possible distal occlusion of the R ICA or slow flow, 50-69% stenosis 2 days ago. He is now completely asymptomatic -We will get stat CT angiogram of the head and neck -Consult vascular surgery as needed after that Recent STEMI/CAD 3 stents placed in RCA which exhibited 80% stenosis - severe osteal lesion present. CP has recurred intermittently following the cath and seems to be more pleuritic in nature-this has resolved. Echo again with preserved LV function and no change from 2 days ago. -Continue Toprol-XL, lisinopril, aspirin, Brilinta-Brilinta was incorrectly placed on the med rec as once daily so he did miss a dose last night-changed to twice daily today CTA Chest neg for PE, but showed some subclavian artery stenosis on left, right base dependent consolidation and possibly reactive hilar lymphadenopathy -Continue Lipitor 80 mg daily COPD -with chronic hypoxic respiratory failure on O2 at home with exertion-no current evidence of exacerbation -cont Symbicort, Spiriva, Daliresp -Albuterol provided PRN -not currently on prednisone at this time Carotid bruit/AURELIO VERNA as above seen on Carotid Doppler here/Left Subclavian artery stenosis- -continue on high intensity statin, aspirin -CTA of the neck and head as above BPH -stable no issues -cont Flomax GERD/early satiety/frequent vomiting-seems to have improved as an outpatient since stopping NSAID use several months ago as per the -Continue PPI, H2 mark- requests changing to Protonix rather than Prilosec upon discharge -Should have GI referral for EGD as an outpatient HLD -as above, the Lipitor dose increased to 80mg daily Prophylaxis-heparin drip Disposition-stable for transfer out of ICU to telemetry
[2017-05-30] MEDS ORDERED: ROFLUMILAST 500 MCG TAB PO SCH (09:00)
[2017-05-30] MEDS ORDERED: TICAGRELOR 90 MG TAB PO SCH (09:00)
[2017-05-30] MEDS: BUDESONIDE/FORMOTEROL FUMARATE 160/4.5 60 PUFFS/INHALER INH SCH ×2 (09:16→20:32)
[2017-05-30] MEDS: AMIODARONE / D5W 200 ML IV SCH (09:16)
[2017-05-30] MEDS: TIOTROPIUM BROMIDE 5 PUFF/90 MCG INH INH SCH (09:17)
[2017-05-30] MEDS: TICAGRELOR 90 MG TAB PO SCH ×2 (09:18→20:31)
[2017-05-30] MEDS: ASPIRIN 81 MG ECTAB PO SCH (09:19)
[2017-05-30] MEDS: PANTOprazole SOD 40 MG TAB PO SCH (09:19)
[2017-05-30] MEDS: METOPROLOL SUCC 25MG EXT REL TAB PO SCH (09:20)
[2017-05-30] MEDS: ATORVASTATIN 40 MG TAB PO SCH (09:20)
[2017-05-30] MEDS: ROFLUMILAST 500 MCG TAB PO SCH (09:42)
--- NOTE | 2017-05-30 10:55 | DIAGNOSTIC IMAGING REPORT ---
CAROTID ARTERY ULTRASOUND CLINICAL HISTORY: Confusion. COMPARISON STUDY: Carotid ultrasound May 27, 2017. TECHNIQUE: Real-time, grayscale, and color Doppler sonography of the carotid and vertebral arteries was performed. Images were viewed in the transverse and longitudinal planes. FINDINGS: There is extensive atherosclerotic plaque. Velocity measurements are listed below. COMMON CAROTID PEAK SYSTOLIC VELOCITY (CM/S): RIGHT 33 LEFT 83 ICA PEAK SYSTOLIC VELOCITY (CM/S): RIGHT 66 LEFT 106. No flow was identified within the mid to distal cervical portion of the right internal carotid artery. Elevated peak systolic velocity within the right external carotid artery of 189 cm/s was noted. Bidirectional flow was shown within the left vertebral artery. Blood pressure in the right arm measured 130/71. Blood pressure in the left arm measured 131/74. IMPRESSION: 1. No flow identified within the mid to distal cervical portion of the right internal carotid artery. This favors vessel occlusion although minimal, slow flow could appear similar. A CTA of the neck be obtained. 2. Bidirectional flow within the left vertebral artery. Electronically signed by: Renzo Pepe M.D. 05/30/2017 10:54 AM Dictated Date/Time: 05/30/2017 10:49 AM
--- NOTE | 2017-05-30 13:08 | DIAGNOSTIC IMAGING REPORT ---
CTA ANGIOGRAPHY OF THE HEAD CLINICAL HISTORY: Possible right internal carotid artery occlusion. Amnesia. Atrial fibrillation. COMPARISON STUDY: Head CT May 29, 2017. TECHNIQUE: Helical axial images of the head were obtained following uneventful intravenous administration of 95 cc of Optiray 320. A dose lowering technique was utilized adhering to the principles of ALARA. CT DOSE: 686.54 mGy.cm FINDINGS: The CTA of the neck will be reported separately. Note is made of occlusion of the distal cervical portion of the right internal carotid artery as well as the petrous and cavernous portions of the right internal carotid artery with reconstitution at the level the supraclinoid ICA. The right middle cerebral and anterior cerebral arteries are somewhat diminutive but patent. There is moderate plaque within the left cavernous carotid without significant stenosis. The left M1, M2, A1 and A2 segments are patent. The right vertebral artery is dominant and patent. The left vertebral artery is diminutive. There is no abrupt vessel cut off within the posterior circulation. No acute intracranial hemorrhage, midline shift or mass effect is present. Ventricular system is unremarkable. Brain parenchyma is suboptimally assessed on this CT exam. IMPRESSION: 1. Occlusion of the right internal carotid artery with reconstitution at the level of the supraclinoid ICA. 2. No additional sites of vessel occlusion. Electronically signed by: Renzo Pepe M.D. 05/30/2017 1:07 PM Dictated Date/Time: 05/30/2017 1:01 PM
--- NOTE | 2017-05-30 13:27 | DIAGNOSTIC IMAGING REPORT ---
NECK ANGIO WITH CONTRAST HISTORY: Mental status change. Stroke TECHNIQUE: Multiaxial CT images of the neck were performed following the intravenous administration of contrast to evaluate the major cervical vessels. Maximum intensity projection images were also obtained. All measurements were calculated based on NASCET criteria. A dose lowering technique was utilized adhering to the principles of ALARA. COMPARISON STUDY: None. FINDINGS: 50% narrowing origin of left subclavian artery. 75% narrowing several centimeters distal to this site. Moderate atelectatic change of all additional components of the aortic arch and origins of the great vessels. No high-grade or critical stenosis. There is complete occlusion of the right internal carotid artery at its origin. There is mild narrowing of the left internal carotid artery at its origin estimated at 30-40%. No additional significant significant stenotic process is appreciated. The vertebral systems demonstrate both vertebral arteries to be patent. The left vertebral artery is smaller in caliber as compared to the right. A high-grade or critical stenosis is not appreciated. IMPRESSION: 1. Occlusion origin right internal carotid artery. 2. Mild atherosclerotic change left vertebral artery which is smaller in caliber as compared to the right presumably on a congenital basis. 3. Multifocal 50-70% narrowing origin and proximal aspect left subclavian artery. 4. Moderate to rather significant scattered plaque formation throughout the vessels of the aortic arch and vertebral basilar system. The above report was generated using voice recognition software. It may contain grammatical, syntax or spelling errors. Electronically signed by: Jose Leong M.D. 05/30/2017 1:25 PM Dictated Date/Time: 05/30/2017 1:04 PM
[2017-05-30] MEDS: HEPARIN 25,000 UNIT/500ML D5W 500 ML IV PRN (17:30)
--- NOTE | 2017-05-30 17:56 | DIAGNOSTIC IMAGING REPORT ---
BRAIN COMBO HISTORY: 76 years-old Male period of amnesia,total occlusion VERNA new from 05/28,r/o CVA acute strokelike symptoms. Occlusion of the right internal carotid artery seen on CTA had neck of same day COMPARISON: CTA had neck of same day, carotid ultrasound of same day TECHNIQUE: Multiplanar multisequence MRI the brain was obtained both with and without the use of 9 mL Gadavist FINDINGS: The large [id number] detective precinct localizer images demonstrate no gross abnormality. There is no restricted diffusion to suggest acute or subacute infarction. The midline structures including the corpus callosum, brainstem, optic chiasm, pituitary and pineal glands are unremarkable in the sagittal T1 series. There is no cerebellar tonsillar herniation. Degenerative changes are noted within the imaged cervical spine. Several sequences are motion degraded. There is mild atrophy with moderate degree of multifocal scattered areas of T2/FLAIR prolongation within the white matter of the cerebral hemispheres bilaterally suggesting chronic microvascular ischemic changes. Areas of suggested remote lacunar infarction of the basal ganglia. No acute intracranial hemorrhage, midline shift, abnormal extra axial collections or hydrocephalus. There is no abnormal intra-axial or extra-axial enhancement identified. Absent flow-void of the distal right internal carotid artery in noted. The remaining imaged flow voids at the level the skull base appear to be within normal limits. Thickening of the optic lenses bilaterally. Trace bilateral mastoid effusions. Mild polypoid mucosal thickening of the medial wall right maxillary sinus. Scalp, calvarium and soft tissues are unremarkable. IMPRESSION: 1. Occlusion of the distal right internal carotid artery again seen, better evaluated on CTA had of same day. 2. No acute intracranial abnormality identified. No evidence of acute or subacute infarction . 3. Mild atrophy with moderate chronic microvascular ischemic changes. 4. No abnormal enhancement. The above report was generated using voice recognition software. It may contain grammatical, syntax or spelling errors. Electronically signed by: Alex Silva M.D. 05/30/2017 5:54 PM Dictated Date/Time: 05/30/2017 5:47 PM
[2017-05-30] MEDS: AMIODARONE 200 MG TAB PO SCH (20:31)
[2017-05-30] MEDS: TAMSULOSIN HCL 0.4 MG CAP PO SCH (20:31)
[2017-05-30] MEDS ORDERED: [UNRECOGNIZED DRUG - REMARK] ONE (21:00)
--- NOTE | 2017-05-30 22:59 | Cardiology Follow-Up ---
Subjective Subjective Date of Service: May 30, 2017. Pt evaluation today including: conversation w/ patient, conversation w/ family , physical exam, chart review, lab review, review of studies, conversation w/ operations consultant, review of inpatient medication list Additional Details: Patient feeling well. No chest pain or shortness of breath. Per family, confusion improved acutely with conversion to sinus rhythm last night around 7pm. Tele reviewed -- has remained in sinus rhythm. Problem List Medical Problems: (1) Allergic reaction Status: Acute (2) AMI (acute myocardial infarction) Status: Chronic (3) Atrial fibrillation with RVR Status: Chronic (4) Chest pain Status: Acute (5) COPD (chronic obstructive pulmonary disease) Status: Chronic (6) COPD exacerbation Status: Acute (7) COPD exacerbation Status: Acute (8) Dyspnea Status: Acute (9) Emphysema/COPD Status: Chronic (10) Hypoxic Status: Acute (11) Insect sting Status: Acute (12) Lung cancer Status: Chronic (13) Respiratory distress Status: Acute (14) Sepsis Status: Acute (15) Shortness of breath Status: Acute (16) STEMI (ST elevation myocardial infarction) Status: Acute (17) Weakness Status: Acute Review of Systems Constitutional: + weakness, + fatigue Respiratory: + shortness of breath, + dyspnea on exertion Cardiac: + see HPI Objective Vital Signs Last Vital Signs Documentation Date Time Temp Pulse Resp B/P (MAP) Pulse Ox O2 Delivery O2 Flow Rate FiO2 05/30/17 20:21 36.3 78 24 135/87 (103) 95 Room Air 05/29/17 22:46 40 05/29/17 20:01 2.0 Physical Exam: General Appearance: no apparent distress ENT: hearing grossly normal Neck: trachea midline Respiratory/Chest: no respiratory distress, no accessory muscle use, + decreased breath sounds (Diminished throughout, no wheezes crackles or rhonchi) Cardiovascular: regular rate, rhythm, no edema, no gallop, + systolic murmur (2 /6 at the RUSB) Abdomen: normal bowel sounds, non tender, soft, no organomegaly Extremities: normal inspection, no pedal edema, no calf tenderness Neurologic/Psychiatric: alert, normal mood/affect, oriented x 3 Skin: normal color, warm/dry, no rash Assessment and Plan 1. Atrial fibrillation with rapid ventricular response -- converted to NSR yesteray 2. Coronary artery disease status post recent PCI with 3 drug-eluting stents, on dual antiplatelet therapy. 3. Chronic obstructive pulmonary disease, on chronic steroids. 4. Altered mental status - resolved 5. Occluded right carotid artery, left subclavian stenosis. Patient much improved from admission. In sinus rhythm today, chest pain free. Minimal elevation in troponin has peaked, likely demand ischemia. LV function unchanged on echo -- Transition IV amiodarone to PO amio 200mg BID -- patient did not tolerate AF+ RVR and will consider senior living antiarrhythmic use -- Continue heparin --> plan to transition to NOAC -- On ASA/Ticagrelor. With need for triple therapy will transition ticagrelor to clopidogrel tomorrow. Hold AM ticagrelor, load 300mg plavix in AM. -- continue statin, toprol XL From a cardiac standpoint OK to transition to telemetry Medications: Current Inpatient Medications Medications (Trade) Dose Ordered Sig/Elmer Route Start Time Stop Time Status Last Admin Dose Admin Aspirin (Ecotrin Tab) 81 mg DAILY PO 05/30/17 09:00 06/29/17 08:59 05/30/17 09:19 81 MG Atorvastatin Calcium (Lipitor Tab) 80 mg DAILY PO 05/30/17 09:00 06/29/17 08:59 05/30/17 09:20 80 MG Budesonide/ Formoterol Fumarate (Symbicort 160/ 4.5 Inh) 2 puffs BID INH 05/29/17 21:00 06/28/17 20:59 05/30/17 20:32 2 PUFFS Metoprolol Succinate (Toprol Xl Tab) 25 mg DAILY PO 05/30/17 09:00 06/29/17 08:59 05/30/17 09:20 25 MG Pantoprazole Sodium (Protonix Tab) 40 mg DAILY PO 05/30/17 09:00 06/29/17 08:59 05/30/17 09:19 40 MG Tamsulosin HCl (Flomax Cap) 0.4 mg QPM PO 05/29/17 21:00 06/28/17 20:59 05/30/17 20:31 0.4 MG Tiotropium [place] (Spiriva Handihaler Inhaler) 1 puff DAILY INH 05/30/17 09:00 06/29/17 08:59 05/30/17 09:17 1 PUFF Acetaminophen (Tylenol Tab) 650 mg Q4H PRN PO 05/29/17 17:15 06/28/17 17:14 Lorazepam (Ativan Inj) 0.5 mg Q4H PRN IV 05/29/17 17:15 06/28/17 17:14 Nitroglycerin (Nitrostat Tab) 0.4 mg UD PRN SL 05/29/17 17:15 06/28/17 17:14 Morphine Sulfate (MoRPHine SULFATE INJ) 2 mg Q2H PRN IV 05/29/17 17:15 06/12/17 17:14 Heparin Sodium/ Dextrose 500 ml @ 20 mls/hr Q24H PRN IV 05/29/17 17:45 06/28/17 17:44 05/30/17 17:30 20 MLS/HR Ticagrelor (Brilinta Tab) 90 mg BID PO 05/30/17 09:00 06/29/17 08:59 05/30/17 20:31 90 MG Roflumilast (Daliresp Tab) 500 mcg DAILY PO 05/30/17 09:45 06/29/17 09:44 05/30/17 09:42 500 MCG Amiodarone HCl (Cordarone Tab) 200 mg BID PO 05/30/17 21:00 06/29/17 20:59 05/30/17 20:31 200 MG Lab Results: 05/30/17 06:11 Red Blood Count 3.32, Mean Corpuscular Volume 92.8, Mean Corpuscular Hemoglobin 31.6, Mean Corpuscular Hemoglobin Concent 34.1, Mean Platelet Volume 9.3, Neutrophils (%) (Auto) 85.4, Lymphocytes (%) (Auto) 11.9, Monocytes (%) (Auto) 2.2, Eosinophils (%) (Auto) 0.0, Basophils (%) (Auto) 0.0, Neutrophils # (Auto) 4.74, Lymphocytes # (Auto) 0.66, Monocytes # (Auto) 0.12, Eosinophils # (Auto) 0.00, Basophils # (Auto) 0.00 05/30/17 06:11 Test 05/30/17 06:11 05/30/17 09:14 05/30/17 09:45 White Blood Count 5.55 K/uL (4.8-10.8) Red Blood Count 3.32 M/uL (4.7-6.1) Hemoglobin 10.5 g/dL (14.0-18.0) Hematocrit 30.8 % (42-52) Mean Corpuscular Volume 92.8 fL (80-100) Mean Corpuscular Hemoglobin 31.6 pg (25-34) Mean Corpuscular Hemoglobin Concent 34.1 g/dl (32-36) Platelet Count 264 K/uL (130-400) Mean Platelet Volume 9.3 fL (7.4-10.4) Neutrophils (%) (Auto) 85.4 % Lymphocytes (%) (Auto) 11.9 % Monocytes (%) (Auto) 2.2 % Eosinophils (%) (Auto) 0.0 % Basophils (%) (Auto) 0.0 % Neutrophils # (Auto) 4.74 K/uL (1.4-6.5) Lymphocytes # (Auto) 0.66 K/uL (1.2-3.4) Monocytes # (Auto) 0.12 K/uL (0.11-0.59) Eosinophils # (Auto) 0.00 K/uL (0-0.5) Basophils # (Auto) 0.00 K/uL (0-0.2) RDW Standard Deviation 50.6 fL (36.4-46.3) RDW Coefficient of Variation 14.9 % (11.5-14.5) Immature Granulocyte % (Auto) 0.5 % Immature Granulocyte # (Auto) 0.03 K/uL (0.00-0.02) Activated Partial Thromboplast Time 49.7 SECONDS (21.0-31.0) Partial Thromboplastin Ratio 1.9 Anion Gap 10.0 mmol/L (3-11) Est Creatinine Clear Calc Drug Dose 94.9 ml/min Estimated GFR () 102.2 Estimated GFR (Non- 88.1 BUN/Creatinine Ratio 22.1 (10-20) Calcium Level 8.4 mg/dl (8.5-10.1) Magnesium Level 2.0 mg/dl (1.8-2.4) Total Bilirubin 0.2 mg/dl (0.2-1) Direct Bilirubin < 0.1 mg/dl (0-0.2) Aspartate Amino Transf (AST/SGOT) 13 U/L (15-37) Alanine Aminotransferase (ALT/SGPT) 13 U/L (12-78) Alkaline Phosphatase 44 U/L (45-117) Total Protein 5.9 gm/dl (6.4-8.2) Albumin 2.3 gm/dl (3.4-5.0) Total Creatine Kinase 92 U/L (39-308) Troponin I 0.088 ng/ml (0-0.045) Urine Color YELLOW Urine Appearance CLEAR (CLEAR) Urine pH 5.0 (4.5-7.5) Urine Specific [place] 1.023 (1.000-1.030) Urine Protein NEG (NEG) Urine Glucose (UA) NEG (NEG) Urine Ketones NEG (NEG) Urine Occult Blood NEG (NEG) Urine Nitrite NEG (NEG) Urine Bilirubin NEG (NEG) Urine Urobilinogen NEG (NEG) Urine Leukocyte Esterase NEG (NEG) Date/Time Source Procedure Growth Status 05/30/17 01:00 Nasal MRSA DNA Surveillance Screen - Final Specimen Negative for MRSA by DNA Probe Complete
[2017-05-31] VITALS (7 sets, daily range): BP systolic 122–167; BP diastolic 68–81; PULSE 65–77; TEMP 36.3–36.9; O2SAT 94–98
[2017-05-31 06:12] LABS: BASO % 0.2 %; BASO ABS # 0.02 K/uL (0-0.2); EOS % 0.9 %; EOS ABS # 0.08 K/uL (0-0.5); HEMATOCRIT 31.7 % (42-52); HEMOGLOBIN 10.8 g/dL (14.0-18.0); IG# 0.05 K/uL (0.00-0.02); LYMPH ABS # 1.57 K/uL (1.2-3.4); MEAN CELL VOLUME 93.2 fL (80-100); MEAN CORPUSCULAR HEMOGLOBIN 31.8 pg (25-34); MEAN CORPUSCULAR HGB CONC 34.1 g/dl (32-36); MEAN PLATELET VOLUME 9.4 fL (7.4-10.4); MONO % 11.1 %; MONO ABS # 0.97 K/uL (0.11-0.59); NEUT % 69.2 %; NEUT ABS # 6.02 K/uL (1.4-6.5); PLATELET COUNT 298 K/uL (130-400); RED CELL DISTRIBUTION WIDTH CV 15.1 % (11.5-14.5); RED CELL DISTRIBUTION WIDTH SD 51.3 fL (36.4-46.3); WHITE BLOOD COUNT 8.71 K/uL (4.8-10.8)
[2017-05-31 06:18] LABS: PTT PATIENT 43.6 SECONDS (21.0-31.0)
[2017-05-31 07:00] LABS: CREATININE 0.85 mg/dl (0.60-1.40)
[2017-05-31 07:01] LABS: ALBUMIN 2.4 gm/dl (3.4-5.0); CALCIUM 8.2 mg/dl (8.5-10.1); POTASSIUM 3.4 mmol/L (3.5-5.1); TOTAL PROTEIN 6.1 gm/dl (6.4-8.2)
[2017-05-31] MEDS ORDERED: HEPARIN IV BOLUS 3,000 UNIT in SYRINGE 0 ML IV ONE (07:15)
[2017-05-31] MEDS: HEPARIN 25,000 UNIT/500ML D5W 500 ML IV PRN (07:30)
[2017-05-31] MEDS ORDERED: CLOPIDOGREL BISULFATE 300 MG TAB PO SCH (09:00)
[2017-05-31] MEDS: BUDESONIDE/FORMOTEROL FUMARATE 160/4.5 60 PUFFS/INHALER INH SCH ×2 (09:05→20:15)
[2017-05-31] MEDS: TIOTROPIUM BROMIDE 5 PUFF/90 MCG INH INH SCH (09:05)
[2017-05-31] MEDS: ROFLUMILAST 500 MCG TAB PO SCH (09:05)
[2017-05-31] MEDS: ASPIRIN 81 MG ECTAB PO SCH (09:05)
[2017-05-31] MEDS: ATORVASTATIN 40 MG TAB PO SCH (09:06)
[2017-05-31] MEDS: PANTOprazole SOD 40 MG TAB PO SCH (09:06)
[2017-05-31] MEDS: AMIODARONE 200 MG TAB PO SCH ×2 (09:06→20:15)
[2017-05-31] MEDS: METOPROLOL SUCC 25MG EXT REL TAB PO SCH (09:06)
--- NOTE | 2017-05-31 09:50 | Neurology Consultation ---
Neurology Consultation Date of Consultation: May 31, 2017. Attending Physician: Batsheva Laguna MD Primary Care Physician: Rob Perez PA-C Reason for Consultation: TIA, right ICA occlusion History of Present Illness Source: patient, hospital records The patient is a 76-year-old male with a chief complaint of confusion. He has some difficulty recalling the specifics of his presentation. The emergency department record indicates that he had been complaining of headache, blurry vision, and associated shortness of breath while at home. He had recently been discharged from [facility] after placement of several cardiac stents. The admission history indicates the patient was found to be anxious and confused by his . He was found to have atrial fibrillation with rapid ventricular response with a heart rate in the 170s. He has subsequently converted to a sinus rhythm. The patient was found to have a 50-69 percent stenosis of the right internal carotid artery with a carotid ultrasound completed May 27 2017. A follow-up carotid ultrasound completed May 30 suggested an occlusion of the right internal carotid artery. Follow-up CT angiography of the head and neck have also been consistent with an occluded right internal carotid artery with distal reconstitution. There is also a 50- 70 percent stenosis at the origin of the left subclavian artery. 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 He reports experiencing episodic visual scotomas , typically in the center of his visual field, affecting both eyes, but without associated headache. These episodes occur multiple times per year. He denies experiencing an episode of vision loss or blindness to the right eye in the past. Currently, the patient denies headache, vision loss, weakness, numbness, or difficulty with speech. He is right-handed. A CT of the head is unremarkable. An MRI of the brain reveals chronic microvascular changes well as a few chronic lacunar infarcts within the basal ganglia bilaterally. No evidence of acute or subacute stroke. I reviewed the images as well as the radiologist's interpretation of these tests. Past Medical/Surgical History Medical Problems: (1) Allergic reaction Status: Acute (2) AMI (acute myocardial infarction) Status: Chronic (3) Atrial fibrillation with RVR Status: Chronic (4) Chest pain Status: Acute (5) COPD (chronic obstructive pulmonary disease) Status: Chronic (6) COPD exacerbation Status: Acute (7) COPD exacerbation Status: Acute (8) Dyspnea Status: Acute (9) Emphysema/COPD Status: Chronic (10) Hypoxic Status: Acute (11) Insect sting Status: Acute (12) Lung cancer Status: Chronic (13) Respiratory distress Status: Acute (14) Sepsis Status: Acute (15) Shortness of breath Status: Acute (16) STEMI (ST elevation myocardial infarction) Status: Acute (17) Weakness Status: Acute Family History Noncontributory Social History Smokeless Tobacco Use: Yes Alcohol Use: none Drug Use: none Marital Status: Housing Status: lives with significant other Occupation Status: retired Allergies Coded Allergies: No Known Allergies (Unverified , 04/18/17) Current Inpatient Medications Current Inpatient Medications Medications (Trade) Dose Ordered Sig/Elmer Route Start Time Stop Time Status Last Admin Dose Admin Aspirin (Ecotrin Tab) 81 mg DAILY PO 05/30/17 09:00 06/29/17 08:59 05/31/17 09:05 81 MG Atorvastatin Calcium (Lipitor Tab) 80 mg DAILY PO 05/30/17 09:00 06/29/17 08:59 05/31/17 09:06 80 MG Budesonide/ Formoterol Fumarate (Symbicort 160/ 4.5 Inh) 2 puffs BID INH 05/29/17 21:00 06/28/17 20:59 05/31/17 09:05 2 PUFFS Metoprolol Succinate (Toprol Xl Tab) 25 mg DAILY PO 05/30/17 09:00 06/29/17 08:59 05/31/17 09:06 25 MG Pantoprazole Sodium (Protonix Tab) 40 mg DAILY PO 05/30/17 09:00 06/29/17 08:59 05/31/17 09:06 40 MG Tamsulosin HCl (Flomax Cap) 0.4 mg QPM PO 05/29/17 21:00 06/28/17 20:59 05/30/17 20:31 0.4 MG Tiotropium [place] (Spiriva Handihaler Inhaler) 1 puff DAILY INH 05/30/17 09:00 06/29/17 08:59 05/31/17 09:05 1 PUFF Acetaminophen (Tylenol Tab) 650 mg Q4H PRN PO 05/29/17 17:15 06/28/17 17:14 Lorazepam (Ativan Inj) 0.5 mg Q4H PRN IV 05/29/17 17:15 06/28/17 17:14 Nitroglycerin (Nitrostat Tab) 0.4 mg UD PRN SL 05/29/17 17:15 06/28/17 17:14 Morphine Sulfate (MoRPHine SULFATE INJ) 2 mg Q2H PRN IV 05/29/17 17:15 06/12/17 17:14 Heparin Sodium/ Dextrose 500 ml @ 22 mls/hr [id number] PRN IV 05/29/17 17:45 06/28/17 17:44 05/31/17 07:30 22 MLS/HR Roflumilast (Daliresp Tab) 500 mcg DAILY PO 05/30/17 09:45 06/29/17 09:44 05/31/17 09:05 500 MCG Amiodarone HCl (Cordarone Tab) 200 mg BID PO 05/30/17 21:00 06/29/17 20:59 05/31/17 09:06 200 MG Review of Systems Constitutional: No fever chills Eyes: As per history of present illness ENT: No vertigo or hearing loss Cardiovascular: No chest pain or palpitations Respiratory: No coughing wheezing or shortness of breath at this time Neurological: As per history of present illness Psychiatric: No depression or anxiety Hematologic: No abnormal bleeding or swollen glands A full 10 point review of systems was obtained from this patient with pertinent positives and negatives described in the history of present illness and otherwise listed above. All remaining systems were reviewed and are negative. Physical Exam Vital Signs (Past 24 Hrs): Date Time Temp Pulse Resp B/P (MAP) Pulse Ox O2 Delivery O2 Flow Rate FiO2 05/31/17 05:09 36.3 67 22 122/68 (86) Room Air 05/31/17 04:00 Room Air 05/30/17 23:59 Room Air 05/30/17 23:40 36.4 71 18 128/64 (85) 94 Room Air 05/30/17 20:21 36.3 78 24 135/87 (103) 95 Room Air 05/30/17 20:00 Room Air 05/30/17 17:30 98 Room Air 05/30/17 17:28 36.7 83 20 145/75 (98) 98 Room Air 05/30/17 12:00 98 Room Air 3/12/18 12:00 36.7 72 18 138/77 (97) 98 Room Air 05/30/17 10:24 36.5 74 27 97 05/30/17 10:00 74 27 119/61 (80) 97 Room Air The patient is a well-developed, well-nourished elderly male. He is pleasant and cooperative. The patient is alert and fully oriented. Recent and remote memory intact. Attention and concentration normal. Patient exhibits a normal spontaneous speech pattern as well as an age-appropriate fund of knowledge. Visual hodge full to confrontation. Visual acuity normal. Pupils equal round react to light and accommodation. Eye movements normal. Facial sensation intact. There is no facial droop or facial weakness. Hearing intact to finger rub bilaterally. Palate elevates to midline. Shoulder shrug strength intact bilaterally. Tongue protrudes to midline. Sensation intact to light touch, temperature, vibration, and proprioception for all 4 limbs. Deep tendon reflexes are intact and symmetrical for the arms and legs. Plantar responses downgoing. There is no dysdiadochokinesia or dysmetria with [id number] or heel to wray bilaterally. Ophthalmoscopic examination reveals normal-appearing optic discs and posterior segments. No papilledema or hemorrhages. Carotid pulses normal bilaterally. Bilateral carotid bruits appreciated. Gait and station not tested due to safety concerns. Patient exhibits normal muscle strength and tone for all 4 limbs. No atrophy. No abnormal movements observed. Laboratory Results Past 24 Hours: 05/31/17 05:43 Red Blood Count 3.40, Mean Corpuscular Volume 93.2, Mean Corpuscular Hemoglobin 31.8, Mean Corpuscular Hemoglobin Concent 34.1, Mean Platelet Volume 9.4, Neutrophils (%) (Auto) 69.2, Lymphocytes (%) (Auto) 18.0, Monocytes (%) (Auto) 11.1, Eosinophils (%) (Auto) 0.9, Basophils (%) (Auto) 0.2, Neutrophils # (Auto ) 6.02, Lymphocytes # (Auto) 1.57, Monocytes # (Auto) 0.97, Eosinophils # (Auto ) 0.08, Basophils # (Auto) 0.02 05/31/17 05:43 Test 05/30/17 09:14 05/30/17 09:45 05/31/17 05:43 Total Creatine Kinase 92 U/L (39-308) Troponin I 0.088 ng/ml (0-0.045) Urine Color YELLOW Urine Appearance CLEAR (CLEAR) Urine pH 5.0 (4.5-7.5) Urine Specific [place] 1.023 (1.000-1.030) Urine Protein NEG (NEG) Urine Glucose (UA) NEG (NEG) Urine Ketones NEG (NEG) Urine Occult Blood NEG (NEG) Urine Nitrite NEG (NEG) Urine Bilirubin NEG (NEG) Urine Urobilinogen NEG (NEG) Urine Leukocyte Esterase NEG (NEG) White Blood Count 8.71 K/uL (4.8-10.8) Red Blood Count 3.40 M/uL (4.7-6.1) Hemoglobin 10.8 g/dL (14.0-18.0) Hematocrit 31.7 % (42-52) Mean Corpuscular Volume 93.2 fL (80-100) Mean Corpuscular Hemoglobin 31.8 pg (25-34) Mean Corpuscular Hemoglobin Concent 34.1 g/dl (32-36) Platelet Count 298 K/uL (130-400) Mean Platelet Volume 9.4 fL (7.4-10.4) Neutrophils (%) (Auto) 69.2 % Lymphocytes (%) (Auto) 18.0 % Monocytes (%) (Auto) 11.1 % Eosinophils (%) (Auto) 0.9 % Basophils (%) (Auto) 0.2 % Neutrophils # (Auto) 6.02 K/uL (1.4-6.5) Lymphocytes # (Auto) 1.57 K/uL (1.2-3.4) Monocytes # (Auto) 0.97 K/uL (0.11-0.59) Eosinophils # (Auto) 0.08 K/uL (0-0.5) Basophils # (Auto) 0.02 K/uL (0-0.2) RDW Standard Deviation 51.3 fL (36.4-46.3) RDW Coefficient of Variation 15.1 % (11.5-14.5) Immature Granulocyte % (Auto) 0.6 % Immature Granulocyte # (Auto) 0.05 K/uL (0.00-0.02) Large Platelets 1+ Acanthocytes 1+ Activated Partial Thromboplast Time 43.6 SECONDS (21.0-31.0) Partial Thromboplastin Ratio 1.7 Anion Gap 8.0 mmol/L (3-11) Est Creatinine Clear Calc Drug Dose 86.0 ml/min Estimated GFR () 98.1 Estimated GFR (Non- 84.6 BUN/Creatinine Ratio 16.5 (10-20) Calcium Level 8.2 mg/dl (8.5-10.1) Magnesium Level 1.9 mg/dl (1.8-2.4) Total Bilirubin 0.4 mg/dl (0.2-1) Direct Bilirubin 0.1 mg/dl (0-0.2) Aspartate Amino Transf (AST/SGOT) 22 U/L (15-37) Alanine Aminotransferase (ALT/SGPT) 21 U/L (12-78) Alkaline Phosphatase 54 U/L (45-117) Total Protein 6.1 gm/dl (6.4-8.2) Albumin 2.4 gm/dl (3.4-5.0) Impression This is a 76-year-old male with recent cardiac stenting who was readmitted with a variety of symptoms including confusion, anxiousness, headache, blurry vision , and shortness of breath. He was found to have atrial fibrillation with rapid ventricular response and has subsequently converted to a normal sinus rhythm. He has also been found to have a complete occlusion of the right internal carotid artery which may have occurred rather recently as a carotid ultrasound completed on May 27 suggested only a 50-69 percent stenosis. Interestingly, there is no evidence of acute or subacute infarct on his recently completed brain MRI in spite of his carotid occlusion. He does not really have a clinical history of stroke or TIA although his brain MRI did suggest a few small chronic lacunar infarcts within both basal ganglia. He does relay a longstanding history of episodic binocular visual scotomas that seem most consistent with ocular migraine rather than amaurosis fugax. At this point, I believe the occluded left internal carotid artery is asymptomatic. Plan Continue antiplatelet and statin therapy. Although this patient does not really present with a stroke or TIA, anticoagulation may be reasonable in light of his recent history of atrial fibrillation and evidence of several small chronic lacunar infarcts on brain MRI. Agree with consultation with vascular surgery regarding the occluded right internal carotid artery. However, intervention is not typically recommended on completely occluded ICA's. I would not recommend any specific therapy for this patient's history of ocular migraine at this time. Calcium channel blockers can be used for prophylaxis of this type of migraine. However, in light of this patient's cardiac history, I would defer to cardiology regarding the appropriateness of long-term therapy with a calcium channel mark. No further recommendations at this time. Please contact me if I may be of further assistance.
[2017-05-31] MEDS: APIXABAN 2.5 MG TAB PO SCH ×2 (11:35→20:15)
--- NOTE | 2017-05-31 15:02 | Surgery Consultation ---
Consultation Date of Service May 31, 2017. (Lexie Teran, EVERARDO) Chief Complaint R ICA occlusion (Lexie Teran PA-C) History of Present Illness The patient is a 76 year old male with multiple medical problems, including CAD with recent STEMI and cardiac catheterization with BRYAN x3, HTN, COPD, lung ca, hypercholesterolemia, GERD, admitted with new onset rapid a fib, seen today in consultation today for R ICA occlusion noted on imaging. Pt apparently had an episode at home [employer] where he lost time and cannot remember what happened. This occurred while he was lightheaded and anxious d/t rapid a fib and prior to ambulance arrival. Denies similar sx before or since. Admits hx of ocular migraines. Denies TATE presently. Denies fever, chills, chest pain, SOB abd pain , N/V, rest pain, claudication, extremity numbness weakness or tingling, facial droop, inability to speak. Imaging performed last admission last week demonstrated minimal flow in R ICA, but only categorized as 50-69% stenosis d/t low velocities. New imaging this admission demonstrates occlusion of R ICA. (Lexie Teran, EVERARDO) Vitals Vital Signs Past 12 Hours Date Time Temp Pulse Resp B/P (MAP) Pulse Ox O2 Delivery O2 Flow Rate FiO2 05/31/17 12:00 Room Air 05/31/17 12:00 36.4 67 20 143/68 (93) 97 Room Air 05/31/17 09:00 36.4 68 22 127/81 (96) 97 Room Air 05/31/17 08:00 Room Air 05/31/17 05:09 36.3 67 22 122/68 (86) Room Air 05/31/17 04:00 Room Air (Lexie Teran, EVERARDO) Allergies Coded Allergies: No Known Allergies (Unverified , 04/18/17) Home Medications Scheduled Aspirin (Aspirin Ec), 81 MG PO DAILY Atorvastatin (Lipitor), 80 MG PO DAILY Budesonide/Formoterol Fumarate (Symbicort 160/4.5 Inhaler ), 2 PUFFS INH BID Lisinopril (Zestril), 5 MG PO DAILY Metoprolol Succ (Toprol Xl) (Toprol-Xl), 25 MG PO DAILY Pantoprazole (Protonix), 40 MG PO DAILY Ranitidine Hcl (Zantac), 150 MG PO BID Roflumilast (Daliresp), 500 MG PO DAILY Tamsulosin Hcl (Flomax), 0.4 MG PO QPM Ticagrelor (Brilinta), 90 MG PO BID Tiotropium [place] (Spiriva Handihaler), 1 CAP INH DAILY Scheduled PRN Albuterol Sulfate (Proair Respiclick), 2 PUFFS INH DIRECTED PRN for Shortness of Breath Guaifenesin (Guaifenesin), 400 MG PO BID PRN for CONGESTION Problem List Medical Problems: (1) AMI (acute myocardial infarction) (2) Atrial fibrillation with RVR (3) COPD (chronic obstructive pulmonary disease) (4) COPD exacerbation (5) E. coli septicemia (6) Emphysema/COPD (7) Hypoxia (8) Leukocytosis (9) Lung cancer (10) SIRS (systemic inflammatory response syndrome) (Lexie Teran PA-C) Surgical / Medical History Hx Abdominal Surgery: No Hx Cancer Surgery: No Hx Thoracic Surgery: No Hx Orthopedic: No Hx Urinary Tract Surgery: No HX Other Surgery: Yes (cataracts) Past Medical/Surgical History: Cancer, COPD, Heart Disease, High Cholesterol, Hypertension (Lexie Teran PA-C) Family History Patient reports no known family medical history. + HTN, CAD (Lexie Teran, SAVANNAHC) Patient reports no known family medical history. (Micah Haines M.D.) Social History Smoking Status: Former Smoker Hx Tobacco Use In Past Year?: No Hx Alcohol Use - Type & Amnt: Yes (occ beer) Hx Substance Use -Type & Amnt: No (Lexie Teran, SAVANNAHC) Review of Systems Constitutional: No chills, No fever, No malaise Skin: No change in color Eyes: No visual changes ENMT: No sore throat Respiratory: No cough, No CH, No hemoptysis, No short of breath Cardiovascular: No chest pain, No syncope, No edema, No intermittent claudication Gastrointestinal: No abdominal pain, No nausea, No vomiting Neurologic: No dizziness, No headache, No numbness, No tingling (Lexie Teran, PA-C) Physical Exam Constitutional: General Apperance: heathly-appearing, well-nourished, well-developed Level of Distress: NAD Ambulation: ambulating normally Psychiatric: Mental Status: active & alert, normal mood, normal affect Orientation: oriented except where noted, to time, to place, to person Memory: recent memory normal, remote memory normal Head: normocephalic, atraumatic Eyes: EOM: EOMI ENMT: normal ENT inspection, hearing grossly normal Neck: supple, trachea midline Lungs: Respiratory effort: no dyspnea Auscultation: no wheezing, no rales/crackles Cardiovascular: Apical Impulse: not displaced Heart Auscultation: no rubs, no gallops, pertinent finding (irregular) Peripheral Pulses: Pulses: full and equal, in all extremities except if noted Bruits: none appreciated Carotid Pulse: normal on the left, normal on the right Brachial Pulses: normal on the right, decreased on the left Radial Pulse: normal on the left, normal on the right Femoral Pulse: normal on the left, normal on the right Posterior Tibialis Pulse: decreased on the left, decreased on the right Dorsalis Pedis Pulse: decreased on the left, decreased on the right Abdomen: Bowel Sounds: normal Inspection & Palpation: soft, non-distended Musculoskeletal: normal strength (5/5 throughout), normal tone Extremities: Upper Right: no cyanosis, no edema, no varicosities Upper Left: no cyanosis, no edema, no varicosities Lower Right: no cyanosis, no edema, no varicosities Lower Left: no cyanosis, no edema, no varicosities Neurologic: Cranial Nerves: grossly intact Sensation: grossly intact (Lexie Teran, PA-C) Assessment and Plan ASSESSMENT and PLAN: R ICA occlusion L subclavian stenosis Pt discussed with Dr Haines, does not recommend surgical intervention at this time. Pt imaging also demonstrates L subclavian stenosis, although no BL BP taken to eval gradient. Recommend reeval carotids with US in 1 year. In meantime, please take BP in RIGHT ARM for most accurate measurements. Please call if needed. (Lexie Teran, PA-C) Agree with PA. No intervention needed for occluded carotid. BP in upper extremities without gradient on carotid study. No intervention needed for this at this time. Follow up in one year. Thank you very much for letting me participate in the care of this patient. (Micah Haines M.D.)
[2017-05-31] MEDS: TAMSULOSIN HCL 0.4 MG CAP PO SCH (20:16)
--- NOTE | 2017-05-31 20:17 | Progress Note ---
Subjective Date of Service: May 31, 2017. Subjective Pt evaluation today including: conversation w/ patient, conversation w/ family (multiple including his ), physical exam, chart review, lab review, review of studies (MRIs, etc), conversation w/ customer service consultant (vascular, cardiology), review of inpatient medication list Pain: no chest pain PO Intake: eating fine Voiding: no voiding problems tele stable overnight - no PAF feels good denies dizziness denies numbness, tingling, motor weakness, speech difficulties or dysphagia anxious for d/c home cleared by PT for home Problem List Medical Problems: (1) Allergic reaction Status: Acute (2) AMI (acute myocardial infarction) Status: Chronic (3) Atrial fibrillation with RVR Status: Chronic (4) Chest pain Status: Acute (5) COPD (chronic obstructive pulmonary disease) Status: Chronic (6) COPD exacerbation Status: Acute (7) COPD exacerbation Status: Acute (8) Dyspnea Status: Acute (9) Emphysema/COPD Status: Chronic (10) Hypoxic Status: Acute (11) Insect sting Status: Acute (12) Lung cancer Status: Chronic (13) Respiratory distress Status: Acute (14) Sepsis Status: Acute (15) Shortness of breath Status: Acute (16) STEMI (ST elevation myocardial infarction) Status: Acute (17) Weakness Status: Acute Review of Systems Constitutional: No fever Respiratory: + cough, + dyspnea on exertion (chronic) Cardiac: No chest pain, No orthopnea Abdomen: No pain Objective Vital Signs Date Time Temp Pulse Resp B/P (MAP) Pulse Ox O2 Delivery O2 Flow Rate FiO2 05/31/17 16:18 36.4 66 24 167/79 (108) 98 Room Air 05/31/17 16:00 Room Air 05/31/17 12:00 Room Air 05/31/17 12:00 36.4 67 20 143/68 (93) 97 Room Air 05/31/17 09:00 36.4 68 22 127/81 (96) 97 Room Air 05/31/17 08:00 Room Air 05/31/17 05:09 36.3 67 22 122/68 (86) Room Air 05/31/17 04:00 Room Air 05/30/17 23:59 Room Air 05/30/17 23:40 36.4 71 18 128/64 (85) 94 Room Air 05/30/17 20:21 36.3 78 24 135/87 (103) 95 Room Air Physical Exam General Appearance: no apparent distress ENT: pharynx normal Neck: no JVD Respiratory/Chest: no respiratory distress, no accessory muscle use, + wheezing (mild end-exp) Cardiovascular: regular rate, rhythm, no gallop, no murmur Abdomen: normal bowel sounds, non tender, soft, no organomegaly Extremities: no pedal edema Neurologic/Psychiatric: no motor/sensory deficits, alert, oriented x 3 Laboratory Results Last 24 Hours Test 05/31/17 05:43 White Blood Count 8.71 K/uL Red Blood Count 3.40 M/uL Hemoglobin 10.8 g/dL Hematocrit 31.7 % Mean Corpuscular Volume 93.2 fL Mean Corpuscular Hemoglobin 31.8 pg Mean Corpuscular Hemoglobin Concent 34.1 g/dl Platelet Count 298 K/uL Mean Platelet Volume 9.4 fL Neutrophils (%) (Auto) 69.2 % Lymphocytes (%) (Auto) 18.0 % Monocytes (%) (Auto) 11.1 % Eosinophils (%) (Auto) 0.9 % Basophils (%) (Auto) 0.2 % Neutrophils # (Auto) 6.02 K/uL Lymphocytes # (Auto) 1.57 K/uL Monocytes # (Auto) 0.97 K/uL Eosinophils # (Auto) 0.08 K/uL Basophils # (Auto) 0.02 K/uL RDW Standard Deviation 51.3 fL RDW Coefficient of Variation 15.1 % Immature Granulocyte % (Auto) 0.6 % Immature Granulocyte # (Auto) 0.05 K/uL Large Platelets 1+ Acanthocytes 1+ Activated Partial Thromboplast Time 43.6 SECONDS Partial Thromboplastin Ratio 1.7 Sodium Level 139 mmol/L Potassium Level 3.4 mmol/L Chloride Level 107 mmol/L Carbon Dioxide Level 24 mmol/L Anion Gap 8.0 mmol/L Blood Urea Nitrogen 14 mg/dl Creatinine 0.85 mg/dl Est Creatinine Clear Calc Drug Dose 86.0 ml/min Estimated GFR () 98.1 Estimated GFR (Non- 84.6 BUN/Creatinine Ratio 16.5 Random Glucose 97 mg/dl Calcium Level 8.2 mg/dl Magnesium Level 1.9 mg/dl Total Bilirubin 0.4 mg/dl Direct Bilirubin 0.1 mg/dl Aspartate Amino Transf (AST/SGOT) 22 U/L Alanine Aminotransferase (ALT/SGPT) 21 U/L Alkaline Phosphatase 54 U/L Total Protein 6.1 gm/dl Albumin 2.4 gm/dl Assessment and Plan 76yo male - 1. ?TIA vs metabolic encephalopathy - patient had confusion, anxiousness, headache, blurry vision at presentation - regardless of what to call the event it is fully resolved and has not recurred. TIA work-up with a 100% occluded right-sided ICA as well as new-onset a. fib. If this was a TIA I agree with Dr. Newberry that anticoagulation is indicated. Will continue his antiplatelet agents and statin as well. Vascular does not recommend anything for the ICA stenosis on the right, but a repeat u/s in 1 year for the left ICA stenosis was suggested. His neuro exam remains completely normal today. Appreciate cardiology/neuro/vascular consults. Cleared by PT for home today. 2. CAD s/p RCA occlusion resulting in STEMI and 3 stents during prior admission - cont asa; BB; statin; plavix load today, followed by 75mg once daily tomorrow. 3. positive troponin - agree with cardiology this is a type 2 HI / myocardial demand ischemia in the setting of #4 below. 4. rapid a. fib - resolved with amiodarone; has been transitioned to amiodarone 200mg PO BID by Dr. Chris. Cont anticoagulation - stop heparin drip, transition to eliquis 5mg BID. $30/ month - patient states he can afford such. Cont BB. 5. COPD - continue home inhalers; not in exacerbation. 6. hyperlipidemia - statin. 7. h/o lung ca s/p lobectomy - noted. 8. DVT proph - eliquis BID. 9. HTN - resume ALEKSANDR in am. 10. BPH - cont flomax. family updated home in AM if monitoring is stable ambulate today Discharge planning: home
--- NOTE | 2017-05-31 22:34 | Cardiology Follow-Up ---
Subjective Subjective Date of Service: May 31, 2017. Pt evaluation today including: conversation w/ patient, conversation w/ family , physical exam, chart review, lab review, review of studies, review of inpatient medication list Additional Details: No chest pain, no shortness of breath. Mental status at baseline. Tele reviewed -- no events, remains in sinus rhythm Problem List Medical Problems: (1) Allergic reaction Status: Acute (2) AMI (acute myocardial infarction) Status: Chronic (3) Atrial fibrillation with RVR Status: Chronic (4) Chest pain Status: Acute (5) COPD (chronic obstructive pulmonary disease) Status: Chronic (6) COPD exacerbation Status: Acute (7) COPD exacerbation Status: Acute (8) Dyspnea Status: Acute (9) Emphysema/COPD Status: Chronic (10) Hypoxic Status: Acute (11) Insect sting Status: Acute (12) Lung cancer Status: Chronic (13) Respiratory distress Status: Acute (14) Sepsis Status: Acute (15) Shortness of breath Status: Acute (16) STEMI (ST elevation myocardial infarction) Status: Acute (17) Weakness Status: Acute Review of Systems Constitutional: No fever Cardiac: No chest pain, No orthopnea Abdomen: No pain Objective Vital Signs Last Vital Signs Documentation Date Time Temp Pulse Resp B/P (MAP) Pulse Ox O2 Delivery O2 Flow Rate FiO2 05/31/17 20:13 68 22 148/76 (100) 05/31/17 20:12 36.9 96 Room Air 05/29/17 22:46 40 05/29/17 20:01 2.0 Physical Exam: General Appearance: no apparent distress ENT: pharynx normal Neck: no JVD Respiratory/Chest: no respiratory distress, no accessory muscle use Cardiovascular: regular rate, rhythm, + systolic murmur Abdomen: normal bowel sounds, soft Extremities: no pedal edema Neurologic/Psychiatric: no motor/sensory deficits, alert, oriented x 3 Skin: normal color, warm/dry, no rash Assessment and Plan 1. Atrial fibrillation with rapid ventricular response -- remains in sinus rhythm 2. Coronary artery disease status post recent PCI with 3 drug-eluting stents, on dual antiplatelet therapy. 3. Chronic obstructive pulmonary disease, on chronic steroids. 4. Altered mental status - resolved 5. Occluded right carotid artery, left subclavian stenosis. Remains chest pain free and in sinus rhythm. -- Continue PO amio 200mg BID -- patient did not tolerate AF+RVR and will consider custodial antiarrhythmic use as an outpatient -- Started on apixaban today -- Loaded with clopidogrel today -- continue ASA/clopidogrel/apixaban for 1 month --> then transition to clopidogrel/apixaban for 1 year -- continue statin, toprol XL -- surveillance carotid imaging as an outpatient From a cardiac standpoint OK for discharge tomorrow AM. Discharge planning: home Medications: Current Inpatient Medications Medications (Trade) Dose Ordered Sig/Elmer Route Start Time Stop Time Status Last Admin Dose Admin Aspirin (Ecotrin Tab) 81 mg DAILY PO 05/30/17 09:00 06/29/17 08:59 05/31/17 09:05 81 MG Atorvastatin Calcium (Lipitor Tab) 80 mg DAILY PO 05/30/17 09:00 06/29/17 08:59 05/31/17 09:06 80 MG Budesonide/ Formoterol Fumarate (Symbicort 160/ 4.5 Inh) 2 puffs BID INH 05/29/17 21:00 06/28/17 20:59 05/31/17 20:15 2 PUFFS Metoprolol Succinate (Toprol Xl Tab) 25 mg DAILY PO 05/30/17 09:00 06/29/17 08:59 05/31/17 09:06 25 MG Pantoprazole Sodium (Protonix Tab) 40 mg DAILY PO 05/30/17 09:00 06/29/17 08:59 05/31/17 09:06 40 MG Tamsulosin HCl (Flomax Cap) 0.4 mg QPM PO 05/29/17 21:00 06/28/17 20:59 05/31/17 20:16 0.4 MG Tiotropium [place] (Spiriva Handihaler Inhaler) 1 puff DAILY INH 05/30/17 09:00 06/29/17 08:59 05/31/17 09:05 1 PUFF Acetaminophen (Tylenol Tab) 650 mg Q4H PRN PO 05/29/17 17:15 06/28/17 17:14 Lorazepam (Ativan Inj) 0.5 mg Q4H PRN IV 05/29/17 17:15 06/28/17 17:14 Nitroglycerin (Nitrostat Tab) 0.4 mg UD PRN SL 05/29/17 17:15 06/28/17 17:14 Morphine Sulfate (MoRPHine SULFATE INJ) 2 mg Q2H PRN IV 05/29/17 17:15 06/12/17 17:14 Roflumilast (Daliresp Tab) 500 mcg DAILY PO 05/30/17 09:45 06/29/17 09:44 05/31/17 09:05 500 MCG Amiodarone HCl (Cordarone Tab) 200 mg BID PO 05/30/17 21:00 06/29/17 20:59 05/31/17 20:15 200 MG Apixaban (Eliquis Tab) 5 mg BID PO 05/31/17 10:30 06/30/17 10:29 05/31/17 20:15 5 MG Clopidogrel Bisulfate (plAVix TAB) 75 mg QAM PO 06/01/17 09:00 07/01/17 08:59 Lisinopril (Zestril Tab) 5 mg QAM PO 06/01/17 09:00 07/01/17 08:59 Lab Results: 05/31/17 05:43 Red Blood Count 3.40, Mean Corpuscular Volume 93.2, Mean Corpuscular Hemoglobin 31.8, Mean Corpuscular Hemoglobin Concent 34.1, Mean Platelet Volume 9.4, Neutrophils (%) (Auto) 69.2, Lymphocytes (%) (Auto) 18.0, Monocytes (%) (Auto) 11.1, Eosinophils (%) (Auto) 0.9, Basophils (%) (Auto) 0.2, Neutrophils # (Auto ) 6.02, Lymphocytes # (Auto) 1.57, Monocytes # (Auto) 0.97, Eosinophils # (Auto ) 0.08, Basophils # (Auto) 0.02 05/31/17 05:43 Test 05/31/17 05:43 White Blood Count 8.71 K/uL (4.8-10.8) Red Blood Count 3.40 M/uL (4.7-6.1) Hemoglobin 10.8 g/dL (14.0-18.0) Hematocrit 31.7 % (42-52) Mean Corpuscular Volume 93.2 fL (80-100) Mean Corpuscular Hemoglobin 31.8 pg (25-34) Mean Corpuscular Hemoglobin Concent 34.1 g/dl (32-36) Platelet Count 298 K/uL (130-400) Mean Platelet Volume 9.4 fL (7.4-10.4) Neutrophils (%) (Auto) 69.2 % Lymphocytes (%) (Auto) 18.0 % Monocytes (%) (Auto) 11.1 % Eosinophils (%) (Auto) 0.9 % Basophils (%) (Auto) 0.2 % Neutrophils # (Auto) 6.02 K/uL (1.4-6.5) Lymphocytes # (Auto) 1.57 K/uL (1.2-3.4) Monocytes # (Auto) 0.97 K/uL (0.11-0.59) Eosinophils # (Auto) 0.08 K/uL (0-0.5) Basophils # (Auto) 0.02 K/uL (0-0.2) RDW Standard Deviation 51.3 fL (36.4-46.3) RDW Coefficient of Variation 15.1 % (11.5-14.5) Immature Granulocyte % (Auto) 0.6 % Immature Granulocyte # (Auto) 0.05 K/uL (0.00-0.02) Large Platelets 1+ Acanthocytes 1+ Activated Partial Thromboplast Time 43.6 SECONDS (21.0-31.0) Partial Thromboplastin Ratio 1.7 Anion Gap 8.0 mmol/L (3-11) Est Creatinine Clear Calc Drug Dose 86.0 ml/min Estimated GFR () 98.1 Estimated GFR (Non- 84.6 BUN/Creatinine Ratio 16.5 (10-20) Calcium Level 8.2 mg/dl (8.5-10.1) Magnesium Level 1.9 mg/dl (1.8-2.4) Total Bilirubin 0.4 mg/dl (0.2-1) Direct Bilirubin 0.1 mg/dl (0-0.2) Aspartate Amino Transf (AST/SGOT) 22 U/L (15-37) Alanine Aminotransferase (ALT/SGPT) 21 U/L (12-78) Alkaline Phosphatase 54 U/L (45-117) Total Protein 6.1 gm/dl (6.4-8.2) Albumin 2.4 gm/dl (3.4-5.0)
[2017-06-01 04:00] VITALS: BP 131/67; PULSE 65; TEMP 36.3; O2SAT 94
[2017-06-01 05:37] LABS: BASO % 0.3 %; BASO ABS # 0.02 K/uL (0-0.2); EOS % 2.4 %; EOS ABS # 0.16 K/uL (0-0.5); HEMATOCRIT 31.1 % (42-52); HEMOGLOBIN 10.5 g/dL (14.0-18.0); IG# 0.07 K/uL (0.00-0.02); MEAN CELL VOLUME 92.8 fL (80-100); MEAN CORPUSCULAR HEMOGLOBIN 31.3 pg (25-34); MEAN CORPUSCULAR HGB CONC 33.8 g/dl (32-36); MONO % 12.8 %; MONO ABS # 0.87 K/uL (0.11-0.59); NEUT % 58.5 %; NEUT ABS # 3.97 K/uL (1.4-6.5); PLATELET COUNT 276 K/uL (130-400); RED CELL DISTRIBUTION WIDTH CV 15.1 % (11.5-14.5); RED CELL DISTRIBUTION WIDTH SD 51.7 fL (36.4-46.3); WHITE BLOOD COUNT 6.79 K/uL (4.8-10.8)
[2017-06-01 06:00] LABS: CALCIUM 8.1 mg/dl (8.5-10.1); CREATININE 0.76 mg/dl (0.60-1.40); POTASSIUM 3.6 mmol/L (3.5-5.1)
[2017-06-01 07:58] VITALS: BP 146/75; PULSE 67; TEMP 36.3; O2SAT 97
[2017-06-01 08:00] VITALS: O2SAT 96
[2017-06-01] MEDS: TIOTROPIUM BROMIDE 5 PUFF/90 MCG INH INH SCH (08:08)
[2017-06-01] MEDS: BUDESONIDE/FORMOTEROL FUMARATE 160/4.5 60 PUFFS/INHALER INH SCH (08:08)
[2017-06-01] MEDS: AMIODARONE 200 MG TAB PO SCH (08:08)
[2017-06-01] MEDS: METOPROLOL SUCC 25MG EXT REL TAB PO SCH (08:09)
[2017-06-01] MEDS: PANTOprazole SOD 40 MG TAB PO SCH (08:09)
[2017-06-01] MEDS: ATORVASTATIN 40 MG TAB PO SCH (08:09)
[2017-06-01] MEDS: ASPIRIN 81 MG ECTAB PO SCH (08:10)
[2017-06-01] MEDS: APIXABAN 2.5 MG TAB PO SCH (08:10)
[2017-06-01] MEDS: ROFLUMILAST 500 MCG TAB PO SCH (08:10)
[2017-06-01] MEDS ORDERED: LISINOPRIL 5 MG TAB PO SCH (09:00)
[2017-06-01] MEDS ORDERED: CLOPIDOGREL BISULFATE 75 MG TAB PO SCH (09:00)
[2017-06-01] MEDS ORDERED: PLV75 PO (10:23)
[2017-06-01] MEDS ORDERED: CRD200 PO (10:23)
[2017-06-01] MEDS ORDERED: NTRSLP4 SL (10:23)
[2017-06-01] MEDS ORDERED: APIX1TAB3 PO (10:23)
--- NOTE | 2017-06-01 10:43 | Cardiology Follow-Up ---
Subjective Subjective Date of Service: Jun 01, 2017. Pt evaluation today including: conversation w/ patient, physical exam, chart review, lab review, review of studies, review of inpatient medication list Additional Details: Feeling well. No complaints. No AF on tele Problem List Medical Problems: (1) Allergic reaction Status: Acute (2) AMI (acute myocardial infarction) Status: Chronic (3) Atrial fibrillation with RVR Status: Chronic (4) Chest pain Status: Acute (5) COPD (chronic obstructive pulmonary disease) Status: Chronic (6) COPD exacerbation Status: Acute (7) COPD exacerbation Status: Acute (8) Dyspnea Status: Acute (9) Emphysema/COPD Status: Chronic (10) Hypoxic Status: Acute (11) Insect sting Status: Acute (12) Lung cancer Status: Chronic (13) Respiratory distress Status: Acute (14) Sepsis Status: Acute (15) Shortness of breath Status: Acute (16) STEMI (ST elevation myocardial infarction) Status: Acute (17) Weakness Status: Acute Review of Systems Constitutional: No fever Cardiac: No chest pain, No orthopnea Abdomen: No pain Objective Vital Signs Last Vital Signs Documentation Date Time Temp Pulse Resp B/P (MAP) Pulse Ox O2 Delivery O2 Flow Rate FiO2 06/01/17 08:00 96 Room Air 06/01/17 07:58 36.3 67 24 146/75 (98) 05/29/17 22:46 40 05/29/17 20:01 2.0 Physical Exam: General Appearance: no apparent distress ENT: pharynx normal Neck: no JVD Respiratory/Chest: no respiratory distress, no accessory muscle use Cardiovascular: regular rate, rhythm, + systolic murmur Abdomen: normal bowel sounds, soft Extremities: no pedal edema Neurologic/Psychiatric: no motor/sensory deficits, alert, oriented x 3 Skin: normal color, warm/dry, no rash Assessment and Plan 1. Atrial fibrillation with rapid ventricular response -- remains in sinus rhythm 2. Coronary artery disease status post recent PCI with 3 drug-eluting stents, on dual antiplatelet therapy. 3. Chronic obstructive pulmonary disease, on chronic steroids. 4. Altered mental status - resolved 5. Occluded right carotid artery, left subclavian stenosis. Remains chest pain free and in sinus rhythm. From a cardiac standpoint OK for discharge today. -- Continue PO amio 200mg BID -- to 200mg daily at follow-up -- Continue ASA/clopidogrel/apixaban for 1 month --> then transition to clopidogrel/apixaban for 1 year -- continue statin, toprol XL -- surveillance carotid imaging as an outpatient Follow-up with me in 2-3 weeks. From a cardiac standpoint OK for discharge tomorrow AM. Discharge planning: home Medications: Current Inpatient Medications Medications (Trade) Dose Ordered Sig/Elmer Route Start Time Stop Time Status Last Admin Dose Admin Aspirin (Ecotrin Tab) 81 mg DAILY PO 05/30/17 09:00 06/29/17 08:59 06/01/17 08:10 81 MG Atorvastatin Calcium (Lipitor Tab) 80 mg DAILY PO 05/30/17 09:00 06/29/17 08:59 06/01/17 08:09 80 MG Budesonide/ Formoterol Fumarate (Symbicort 160/ 4.5 Inh) 2 puffs BID INH 05/29/17 21:00 06/28/17 20:59 06/01/17 08:08 2 PUFFS Metoprolol Succinate (Toprol Xl Tab) 25 mg DAILY PO 05/30/17 09:00 06/29/17 08:59 06/01/17 08:09 25 MG Pantoprazole Sodium (Protonix Tab) 40 mg DAILY PO 05/30/17 09:00 06/29/17 08:59 06/01/17 08:09 40 MG Tamsulosin HCl (Flomax Cap) 0.4 mg QPM PO 05/29/17 21:00 06/28/17 20:59 05/31/17 20:16 0.4 MG Tiotropium [place] (Spiriva Handihaler Inhaler) 1 puff DAILY INH 05/30/17 09:00 06/29/17 08:59 06/01/17 08:08 1 PUFF Acetaminophen (Tylenol Tab) 650 mg Q4H PRN PO 05/29/17 17:15 06/28/17 17:14 Lorazepam (Ativan Inj) 0.5 mg Q4H PRN IV 05/29/17 17:15 06/28/17 17:14 Nitroglycerin (Nitrostat Tab) 0.4 mg UD PRN SL 05/29/17 17:15 06/28/17 17:14 Morphine Sulfate (MoRPHine SULFATE INJ) 2 mg Q2H PRN IV 05/29/17 17:15 06/12/17 17:14 Roflumilast (Daliresp Tab) 500 mcg DAILY PO 05/30/17 09:45 06/29/17 09:44 06/01/17 08:10 500 MCG Amiodarone HCl (Cordarone Tab) 200 mg BID PO 05/30/17 21:00 06/29/17 20:59 06/01/17 08:08 200 MG Apixaban (Eliquis Tab) 5 mg BID PO 05/31/17 10:30 06/30/17 10:29 06/01/17 08:10 5 MG Clopidogrel Bisulfate (plAVix TAB) 75 mg QAM PO 06/01/17 09:00 07/01/17 08:59 06/01/17 08:09 75 MG Lisinopril (Zestril Tab) 5 mg QAM PO 06/01/17 09:00 07/01/17 08:59 06/01/17 08:10 5 MG Lab Results: 06/01/17 05:21 Red Blood Count 3.35, Mean Corpuscular Volume 92.8, Mean Corpuscular Hemoglobin 31.3, Mean Corpuscular Hemoglobin Concent 33.8, Mean Platelet Volume 9.0, Neutrophils (%) (Auto) 58.5, Lymphocytes (%) (Auto) 25.0, Monocytes (%) (Auto) 12.8, Eosinophils (%) (Auto) 2.4, Basophils (%) (Auto) 0.3, Neutrophils # (Auto ) 3.97, Lymphocytes # (Auto) 1.70, Monocytes # (Auto) 0.87, Eosinophils # (Auto ) 0.16, Basophils # (Auto) 0.02 06/01/17 05:21 Test 06/01/17 05:21 White Blood Count 6.79 K/uL (4.8-10.8) Red Blood Count 3.35 M/uL (4.7-6.1) Hemoglobin 10.5 g/dL (14.0-18.0) Hematocrit 31.1 % (42-52) Mean Corpuscular Volume 92.8 fL (80-100) Mean Corpuscular Hemoglobin 31.3 pg (25-34) Mean Corpuscular Hemoglobin Concent 33.8 g/dl (32-36) Platelet Count 276 K/uL (130-400) Mean Platelet Volume 9.0 fL (7.4-10.4) Neutrophils (%) (Auto) 58.5 % Lymphocytes (%) (Auto) 25.0 % Monocytes (%) (Auto) 12.8 % Eosinophils (%) (Auto) 2.4 % Basophils (%) (Auto) 0.3 % Neutrophils # (Auto) 3.97 K/uL (1.4-6.5) Lymphocytes # (Auto) 1.70 K/uL (1.2-3.4) Monocytes # (Auto) 0.87 K/uL (0.11-0.59) Eosinophils # (Auto) 0.16 K/uL (0-0.5) Basophils # (Auto) 0.02 K/uL (0-0.2) RDW Standard Deviation 51.7 fL (36.4-46.3) RDW Coefficient of Variation 15.1 % (11.5-14.5) Immature Granulocyte % (Auto) 1.0 % Immature Granulocyte # (Auto) 0.07 K/uL (0.00-0.02) Anion Gap 8.0 mmol/L (3-11) Est Creatinine Clear Calc Drug Dose 96.2 ml/min Estimated GFR () 102.7 Estimated GFR (Non- 88.6 BUN/Creatinine Ratio 15.1 (10-20) Calcium Level 8.1 mg/dl (8.5-10.1)
--- NOTE | 2017-06-01 10:50 | Discharge Instructions ---
Discharge Instructions Date of Service Jun 01, 2017. 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 Chris from cardiology. . Instructions / Follow-Up Instructions / Follow-Up From Dr. Vasquez: 1. When you came to the hospital you were in an abnormal heart rhythm called "ATRIAL FIBRILLATION." Fortunately you converted back to normal rhythm and have remained in normal rhythm since. Atrial fibrillation is a risk factor for stroke and TIA. To reduce your risk of stroke we have started you on a blood thinner called "ELIQUIS." You will take this twice a day EVERY DAY to prevent formation of blood clots in your heart. A prescription for the eliquis was sent to [facility] for you. We have also started you on a heart drug called "AMIODARONE" to try and keep your heart in a normal rhythm. A prescription for the amiodarone was also sent to [facility] for you. Take this twice a day EVERY DAY. Eventually Dr. Chris will decrease the dose of this medication. Blood thinners increase the risk of bleeding from your urinary tract, your rectum, the nose, and skin. When you shave please use an electric shaver. If you notice bleeding from any of the above sites please contact your doctors right away. 2. It appears you suffered a "TIA" (transient ischemic attack). This is a temporary neurological event that resolves on its own. This is NOT the same thing as a stroke but TIA is a risk factor for future stroke. Your TIA may have occurred as a result of the atrial fibrillation or the blocked artery in the right neck. Risk Factors for Stroke: You can reduce your chances of stroke by working with your medical provider to adopt a healthy lifestyle. Some specific ways to lower your chance of stroke are: * If you are a smoker, now is the time to stop smoking cigarettes * If you are diabetic, improve the control of your blood sugars * Avoid excessive amounts of alcohol * Control high blood pressure * Lose weight if you are overweight * Be sure to lead an active lifestyle * Eat a healthy diet low in salt, cholesterol and fat You should know about other risk factors for stroke that you are unable to control. These include: * Age 55 years or older * Male gender * Certain racial groups: , or / * Family History of Stroke, Mini stroke or Heart Attack * Sickle Cell Disease 3. Carotid artery stenosis - * this is plaque build-up in the arteries of the neck * the right carotid artery is 100% blocked - there is nothing to do for this at this time * the left carotid artery has a 30-40% blockage * Dr. Micah Haines - [facility] - wants to see you in about 1 year for this * his office is in [place] 4. Recent heart attack with stent placement - * you will now be taking a drug called "Plavix" (clopidogrel) 75mg once a day to keep the stents open - prescription sent to [facility] for you * if you have "brilinta" at home please discard this * you will continue on aspirin once a day as well * a prescription for nitroglycerin has been sent to [facility] for you - if you get chest pains take the nitroglycerin by placing under the tongue and call your doctors right away * keep the bottle of nitro with you at all times * again light activities are fine but no strenuous activities until seen by Dr. Chris 5. Follow-up appointments - see separate section 6. [facility] to [facility] if - * you experience recurrent chest pain or shortness of breath * you have numbness or weakness of any arm/leg * you have difficulty speaking, swallowing, or have trouble finding words * you have difficulty walking or troubles with your balance * your heart is beating rapidly and/or irregularly * any other concerns Current Hospital Diet Patient's current hospital diet: AHA Diet (Heart Healthy) Discharge Diet Recommended Diet: AHA Diet (Heart Healthy) Procedures Procedures Performed: 1. MRI brain with NO stroke. 2. Ultrasound of arteries of neck (along with CAT scan of neck) showing 100% blocked carotid artery on the right. 3. CAT scan of the lungs - partially blocked artery in the LEFT arm; no blood clots in the lungs; no pneumonia or tumors. Pending Studies Studies pending at discharge: no Laboratory Results Hemoglobin A1c Test 05/27/17 05:43 Range/Units Estimated Average Glucose 131 mg/dl Hemoglobin A1c 6.2 H 4.5-5.6 % Lipid Panel Test 3/9/18 05:43 Range/Units Triglycerides Level 93 0-150 mg/dl Cholesterol Level 122 0-200 mg/dl HDL Cholesterol 52 mg/dl Cholesterol/HDL Ratio 2.3 LDL Cholesterol, Calculated 51 mg/dl Medical Emergencies . Who to Call and When: Medical Emergencies: Call 911 immediately if you experience any of the following warning signs and symptoms of Stroke: * Sudden numbness or weakness of the face, arm or leg, especially on one side of the body * Sudden confusion, trouble speaking or understanding * Sudden trouble seeing in one or both eyes * Sudden trouble walking, dizziness, loss of balance or coordination * Sudden severe headache with no cause Do not delay calling 911 if you experience any warning signs or symptoms of a stroke. Delay in seeking medical attention may affect what treatments can be given to you. . Non-Emergent Contact Non-Emergency issues call your: Primary Care Provider, Dairy Powder Mixer Operator Call Non-Emergent contact if: temperature is above 100.5, you have any medication questions . . "Provider Documentation" section prepared by Bam Vasquez. . Stroke Core Measures Reason no t-PA for Stroke: Treatment not indicated Reason no antithrom by day 2: Treatment provided - N/A Reason no antithrom at D/C: Treatment provided - N/A Reason no statin at D/C: Treatment provided - N/A Reason no anticoag w/a fib: Treatment provided - N/A
[2017-06-01 10:55] VITALS: BP 146/75; PULSE 67; TEMP 36.3; O2SAT 96
--- NOTE | 2017-06-07 09:16 | Discharge Summary ---
Discharge Summary Date of Service Jun 06, 2017. Discharge Summary Admission Date: May 29, 2017 at 16:34 Discharge Date: Jun 01, 2017 Discharge Disposition: Home Principal Diagnosis: a. fib with RVR - resolved Problems/Secondary Diagnoses: 1. CAD s/p STEMI with stents to the RCA 2. COPD 3. history of lung cancer 4. 100% occluded right internal carotid artery 5. left sided subclavian artery stenosis 6. BPH 7. HTN 8. hyperlipidemia 9. minimal acute kidney injury - resolved 10. positive troponin - likely myocardial demand ischemia / type 2 [place] in setting of rapid a. fib 11. TIA vs metabolic encephalopathy in setting of rapid a. fib - resolved 12. cerebrovascular disease with MRI showing old lacunar infarcts 13. previous tobacco dependence Immunizations: Have You Had Influenza Vaccine: Unknown History of Tetanus Vaccine?: Unknown History of Pneumococcal: Unknown History of Hepatitis B Vaccine: Unknown Procedures: 1. CTA chest - IMPRESSION: 1. Study significantly degraded by patient motion artifact 2. No evidence of acute pulmonary embolism 3. Emphysema 4. Mild subcarinal lymphadenopathy 5. Left subclavian artery stenosis 6. Mild dilatation of the ascending thoracic aorta 2. carotid artery duplex study - IMPRESSION: 1. No flow identified within the mid to distal cervical portion of the right internal carotid artery. This favors vessel occlusion although minimal, slow flow could appear similar. 2. Bidirectional flow within the left vertebral artery. 3. CTA head - IMPRESSION: 1. Occlusion of the right internal carotid artery with reconstitution at the level of the supraclinoid ICA. 2. No additional sites of vessel occlusion. 4. CTA neck - IMPRESSION: 1. Occlusion origin right internal carotid artery. 2. Mild atherosclerotic change left vertebral artery which is smaller in caliber as compared to the right presumably on a congenital basis. 3. Multifocal 50-70% narrowing origin and proximal aspect left subclavian artery. 4. Moderate to rather significant scattered plaque formation throughout the vessels of the aortic arch and vertebral basilar system. 5. MRI brain - IMPRESSION: 1. Occlusion of the distal right internal carotid artery again seen, better evaluated on CTA had of same day. 2. No acute intracranial abnormality identified. No evidence of acute or subacute infarction . 3. Mild atrophy with moderate chronic microvascular ischemic changes. 4. No abnormal enhancement. 6. echocardiogram - * -- Conclusions -- * Limited 2D echo to assess wall motion. * 1. Normal LV size. Hyperdynamic LV, LVEF >70%. No regional wall motion abnormalities. * 2. RV mildly dilated, grossly normal function. * 3. Normal IVC. Estimated RA 3 mmHg. * 4. Compared with prior study on 05/27/2017: LV function is unchanged. Consultations: cardiology - Armaan Chris MD neurology - Travis Newberry MD critical care surgery - Micah Haines MD Medication Reconciliation New Medications: Apixaban (Eliquis) 5 Mg Tab 5 MG PO BID, #60 TAB 5 Refills to prevent stroke from your a. fib Amiodarone HCl (Amiodarone HCl) 200 Mg Tab 200 MG PO BID, #60 TAB 2 Refills to control a. fib Clopidogrel Bisulfate (Clopidogrel) 75 Mg Tab 75 MG PO QAM, #30 TAB 11 Refills to keep your heart stents open Nitroglycerin (Nitrostat) 0.4 Mg/1 Tab Subl 0.4 MG SL [id number] PRN for Chest Pain, #1 BTL 0 Refills max 3 doses in 15 minutes Continued Medications: Albuterol Sulfate (Proair Respiclick) 108 Mcg/Act Aer 2 PUFFS INH DIRECTED PRN for Shortness of Breath Aspirin (Aspirin Ec) 81 Mg Tab 81 MG PO DAILY Atorvastatin (Lipitor) 40 Mg Tab 80 MG PO DAILY Budesonide/Formoterol Fumarate (Symbicort 160/4.5 Inhaler ) Aero 2 PUFFS INH BID Guaifenesin (Guaifenesin) 400 Mg Tab 400 MG PO BID PRN for CONGESTION Lisinopril (Zestril) 5 Mg Tab 5 MG PO DAILY Metoprolol Succ (Toprol Xl) (Toprol-Xl) 25 Mg Tabcr 25 MG PO DAILY Pantoprazole (Protonix) 40 Mg Tab 40 MG PO DAILY Ranitidine Hcl (Zantac) 150 Mg Tab 150 MG PO BID, TAB Roflumilast (Daliresp) 500 Mcg Tab 500 MG PO DAILY Tamsulosin Hcl (Flomax) 0.4 Mg Cap 0.4 MG PO QPM, CAP Tiotropium [place] (Spiriva Handihaler) 30 Puff/540 Mcg Aerp 1 CAP INH DAILY Discontinued Medications: Ticagrelor (Brilinta) 90 Mg Tab 90 MG PO BID for 30 Days Referrals At Discharge Follow up Referrals: Physician Referral - Within 1 Year with Micah Haines M.D. Discharge Exam Physical Exam: General Appearance: no apparent distress ENT: pharynx normal Neck: no JVD Respiratory/Chest: lungs clear, no respiratory distress, no accessory muscle use Cardiovascular: regular rate, rhythm, no gallop, no murmur, normal peripheral pulses Abdomen / GI: normal bowel sounds, non tender, soft, no organomegaly Extremities: no pedal edema Neurologic/Psychiatric: no motor/sensory deficits, alert, normal reflexes, oriented x 3 Hospital Course HISTORY OF PRESENT ILLNESS - 76-year-old man with history of COPD, dyslipidemia, BPH, CAD status post inferior wall STEMI with 3 stents placed in RCA during hospital stay from May 26-May 28, carotid stenosis, and previous tobacco dependence who presented from home with acute headache, altered mental status, confusion, and questionable word-finding difficulties. He was sitting with his when he developed the headache. His gave him Tylenol for his headache which was partially effective. Patient suddenly called his screaming when she entered the room he was anxious, confused, and he was not able to tell her what was wrong with him. He kept saying "I cannot, I cannot." His therefore called 911. Paramedics arrived and his heart rate was 170 and his blood pressure was 80/50. He was given 20 mg of Cardizem IV and he was brought to the ED. Patient was given cardizem twice which failed to control his heart rate. A heart alert was called as his presenting EKG showed possible inferior wall ST segment elevations. Dr. Chris from cardiology was consulted who knew the patient from his previous hospitalization and did not feel that this was a recurrent STEMI. Instead, focus was placed on his rapid a.fib and therefore an amiodarone drip was started along with heparin infusion. Initial head CT showed no acute stroke or ICH. HOSPITAL COURSE: The patient's confusion, anxiousness, headache, blurry vision, and word-finding difficulties were thought to be due to the rapid a. fib. Whether this represented a true TIA was uncertain. Work-up for his presenting symptoms led to the discovery of a 100% occluded right-sided ICA. The patient's carotid artery duplex just 3 days prior showed that the right carotid had a 50-69% occlusion. Thus, either he had plaque rupture in the right carotid OR, more likely, he threw an embolus in the setting of his new-onset a. fib. Fortunately the patient's presenting neurological symptoms fully resolved and his MRI brain did NOT show a stroke. The patient was seen by neurology and vascular surgery. Neurology recommended ongoing anticoagulation after discharge and vascular did NOT recommend intervention of the totally occluded right carotid artery. Vascular did suggest follow-up in 1 year for his left-sided carotid artery stenosis and left-sided subclavian artery stenosis. The patient's a. fib ultimately converted back to NSR while on amiodarone infusion. He was transitioned to oral amiodarone 200mg BID at discharge. He will take anticoagulation in the form of eliquis 5mg BID. With respect to his CAD it was felt that he did NOT have any recurrent ACS while here. He had a minimal positive troponin but much lower than his previous hospitalization when he suffered the inferior wall STEMI. This troponin elevation was thought to be due to myocardial demand ischemia/ type 2 [place] in the setting of the rapid a. fib. He will continue on aspirin, statin, plavix, low-dose ALEKSANDR, and beta mark after discharge. Following conversion to NSR the patient did not experience any further paroxysmal a. fib. The rest of his chronic medical problems remained stable while hospitalized. He was cleared for home by physical/occupational therapy. Lastly, the patient will remain on PPI for GI prophylaxis due to the concomitant use of aspirin, plavix, and eliquis. Total Time Spent: Greater than 30 minutes This includes examination of the patient, discharge planning, medication reconciliation, and communication with other providers. Discharge Instructions Please refer to the electronic Patient Visit Report (Discharge Instructions) for additional information. Follow-Up 1. SANA Lino date/time to be announced 2. Dr. Armaan Chris - Tuesday, June 14, 2017 at 9:35am Additional Copies To Travis Newberry M.D.; Armaan Chris MD; Rob Perez PA-C; Micah Haines M.D.
== END 2017-06-01 11:30 | disposition home or self-care (01) | DRG 280 ==
LOC: EDBD 14:48 → C.EDB 14:49 → C.MSICU 16:34 → ENRESERV 16:47
PROVIDERS: ADMIT Internal Medicine; ATTEND Internal Medicine
DX: I48.91 Unspecified atrial fibrillation (principal); G93.40 Encephalopathy, unspecified; J44.1 Chronic obstructive pulmonary disease with (acute) exacerbation; I21.A1 Myocardial infarction type 2; J96.11 Chronic respiratory failure with hypoxia; G45.9 Transient cerebral ischemic attack, unspecified; N17.9 Acute kidney failure, unspecified; I21.3 ST elevation (STEMI) myocardial infarction of unspecified site; I25.10 Atherosclerotic heart disease of native coronary artery without angina pectoris; N40.0 Benign prostatic hyperplasia without lower urinary tract symptoms; K21.9 Gastro-esophageal reflux disease without esophagitis; I65.21 Occlusion and stenosis of right carotid artery; I95.9 Hypotension, unspecified; I73.9 Peripheral vascular disease, unspecified; E83.42 Hypomagnesemia; I70.8 Atherosclerosis of other arteries; E78.5 Hyperlipidemia, unspecified; Z87.891 Personal history of nicotine dependence; Z95.5 Presence of coronary angioplasty implant and graft; Z85.118 Personal history of other malignant neoplasm of bronchus and lung; Z79.82 Long term (current) use of aspirin; Z90.2 Acquired absence of lung [part of]; Z79.51 Long term (current) use of inhaled steroids; Z79.02 Long term (current) use of antithrombotics/antiplatelets

== ENCOUNTER → 2017-07-22 | Outpatient (CLI) | payer OTHER ==
[~2017-07-22] MED LIST changes: +AMIO200T4 PO; +APIX1TAB3 PO; -ASPI-320 PO; +ASPI81TA28 PO; +ATOR-24 PO; -BRL90 PO; +CRD200 PO; -DLR500 PO; +LISI-729 PO; -LPT40 PO; -LSN5 PO; -METO-478 PO; +METO25TA3 PO; +NTRSLP4 SL; +PANT40TA PO; +PLV75 PO; -PRT40 PO; +ROFL1TAB5 PO; -SPRIN INH; +SPRIN/30 INH; -SYMIN INH; +SYMIN160 INH
[2017-07-22 16:57] LABS: BASO % 0.5 %; BASO ABS # 0.03 K/uL (0-0.2); EOS % 3.7 %; EOS ABS # 0.23 K/uL (0-0.5); HEMATOCRIT 36.9 % (42-52); HEMOGLOBIN 12.3 g/dL (14.0-18.0); IG# 0.02 K/uL (0.00-0.02); LYMPH % 26.2 %; LYMPH ABS # 1.63 K/uL (1.2-3.4); MEAN CELL VOLUME 96.1 fL (80-100); MEAN CORPUSCULAR HGB CONC 33.3 g/dl (32-36); MEAN PLATELET VOLUME 9.7 fL (7.4-10.4); MONO % 6.7 %; MONO ABS # 0.42 K/uL (0.11-0.59); NEUT % 62.6 %; PLATELET COUNT 266 K/uL (130-400); RED CELL DISTRIBUTION WIDTH CV 15.4 % (11.5-14.5); RED CELL DISTRIBUTION WIDTH SD 54.1 fL (36.4-46.3); WHITE BLOOD COUNT 6.23 K/uL (4.8-10.8)
[2017-07-22 17:06] LABS: ALBUMIN 3.4 gm/dl (3.4-5.0); ALT/SGPT 18 U/L (12-78); AST/SGOT 15 U/L (15-37); BLOOD UREA NITROGEN 17 mg/dl (7-18); CALCIUM 8.8 mg/dl (8.5-10.1); CARBON DIOXIDE 29 mmol/L (21-32); CREATININE 1.23 mg/dl (0.60-1.40); GLUCOSE 121 mg/dl (70-99); POTASSIUM 4.2 mmol/L (3.5-5.1); SODIUM 139 mmol/L (136-145)
[2017-07-22 17:09] LABS: ALKALINE PHOSPHATASE 79 U/L (45-117); TOTAL PROTEIN 6.7 gm/dl (6.4-8.2)
== END | disposition home or self-care (01) ==
LOC: C.LABPBG 14:39
PROVIDERS: ATTEND Physician Assistant Medical
DX: R42 Dizziness and giddiness (principal)

== ENCOUNTER 2017-07-24 10:59 | Emergency (ER) | payer OTHER ==
[~2017-07-24] VITALS: Ht 182.9 cm; Wt 85.7 kg
[~2017-07-24 10:59] MED LIST changes: -AMIO200T4 PO
[2017-07-24 11:01] VITALS: TEMP 36.5; Ht 182.9 cm; Wt 85.7 kg
[2017-07-24] MEDS ORDERED: MoRPHine SULFATE 4 MG/ML 1 ML CARP\\VIAL IV STA (11:28)
[2017-07-24] MEDS ORDERED: OPTIRAY 320 IV PRN (11:45)
[2017-07-24] MEDS ORDERED: AMIO200T4 PO (11:58)
[2017-07-24 11:59] LABS: BASO % 0.3 %; BASO ABS # 0.02 K/uL (0-0.2); EOS % 3.2 %; EOS ABS # 0.24 K/uL (0-0.5); HEMATOCRIT 38.4 % (42-52); HEMOGLOBIN 13.1 g/dL (14.0-18.0); IG# 0.03 K/uL (0.00-0.02); LYMPH ABS # 1.34 K/uL (1.2-3.4); MEAN CELL VOLUME 94.8 fL (80-100); MEAN CORPUSCULAR HEMOGLOBIN 32.3 pg (25-34); MEAN CORPUSCULAR HGB CONC 34.1 g/dl (32-36); MEAN PLATELET VOLUME 9.7 fL (7.4-10.4); MONO % 8.8 %; MONO ABS # 0.66 K/uL (0.11-0.59); NEUT % 69.3 %; NEUT ABS # 5.17 K/uL (1.4-6.5); PLATELET COUNT 276 K/uL (130-400); RED CELL DISTRIBUTION WIDTH CV 14.9 % (11.5-14.5); RED CELL DISTRIBUTION WIDTH SD 51.8 fL (36.4-46.3); WHITE BLOOD COUNT 7.46 K/uL (4.8-10.8)
[2017-07-24 12:05] LABS: ISTAT CREATININE 1.2 mg/dl (0.6-1.3); ISTAT IONIZED CALCIUM 1.16 mmol/l (1.12-1.32); ISTAT POTASSIUM 4.4 mEq/L (3.3-5.0)
[2017-07-24 12:11] LABS: PTT PATIENT 29.2 SECONDS (21.0-31.0)
[2017-07-24 12:15] LABS: ALBUMIN 3.8 gm/dl (3.4-5.0); CREATININE 1.14 mg/dl (0.60-1.40); POTASSIUM 4.3 mmol/L (3.5-5.1)
[2017-07-24 12:18] LABS: TOTAL PROTEIN 7.4 gm/dl (6.4-8.2)
--- NOTE | 2017-07-24 12:37 | DIAGNOSTIC IMAGING REPORT ---
ABDOMEN AND PELVIS CT WITH IV CONTRAST CT DOSE: 502.53 mGy.cm HISTORY: Acute generalized abdominal pain with concern for small bowel obstruction eval for obstruction TECHNIQUE: Multiaxial CT images of the abdomen and pelvis were performed following the use of intravenous contrast. A dose lowering technique was utilized adhering to the principles of ALARA. COMPARISON STUDY: CT abdomen and pelvis 04/18/2017 FINDINGS: Mild bibasilar bronchial wall thickening with bronchiectasis. Linear subpleural reticular and groundglass opacities suggest atelectasis. Suggested emphysematous changes of the lung bases. No pneumatosis or pneumoperitoneum. Coronary arterial calcifications are noted. The imaged inferior cardiac chambers are otherwise unremarkable. Lobulated 2.0 cm circumscribed low attenuating lesion of the hepatic dome suggests hepatic cyst or conglomerate cysts. No suspicious mass lesions of the liver. No intrahepatic biliary ductal dilation. The spleen, gallbladder, and adrenal glands are within normal limits. Moderate generalized pancreatic atrophy. Innumerable bilateral renal cysts are redemonstrated with several of the cysts demonstrating internal complexity. For example there is a 2.2 cm hyperattenuating lesion of the interpolar right kidney and a 1.9 cm hyperattenuating lesion of the inferior pole left kidney likely representing pronation is or hemorrhagic cysts with similar-appearing 1.1 cm lesion of the inferior pole left kidney. Large cyst with calcified internal septations measures up to 9.8 cm within the inferior pole right kidney. Renal vascular calcifications are noted without definite renal calculi or obstructive uropathy. Moderate perinephric edema is noted with edema tracking into the retroperitoneum of the pelvis, unchanged. Prostamegaly with mild bladder wall thickening suggesting sequela of chronic bladder outlet obstruction. Extensive mixed plaquing of the aorta with mild ectasia measuring 2.8 cm. No aneurysm. No bulky adenopathy. Small sliding-type hiatal hernia. No small bowel obstruction. A few loops of small bowel are fluid-filled, likely physiologic. No focal bowel wall thickening. The appendix is not seen and is likely surgically absent. Soft tissues are unremarkable. Bones appear intact. Multilevel facet arthropathy. Degenerative changes about the bilateral hips. IMPRESSION: 1. No acute intra-abdominal or intrapelvic abnormality identified, specifically no bowel obstruction or focal bowel wall thickening. 2. Innumerable bilateral renal cysts redemonstrated with several complex lesions about the bilateral kidneys favoring hemorrhagic or proteinaceous cysts. No ureteral calculi or obstructive uropathy. 3. Prostamegaly with evidence of chronic bladder outlet obstruction. 4. Severe atherosclerosis of the aorta with mild infrarenal abdominal aortic ectasia, 2.8 cm. No aneurysm. 5. Small sliding-type hiatal hernia. Electronically signed by: Alex Silva M.D. 07/24/2017 12:36 PM Dictated Date/Time: 07/24/2017 12:28 PM
--- NOTE | 2017-07-24 13:04 | DIAGNOSTIC IMAGING REPORT ---
CHEST 2 VIEWS ROUTINE HISTORY: 76 years-old Male cough eval for pna acute cough COMPARISON: Chest radiograph 05/29/2017, CTA chest 05/29/2017 TECHNIQUE: PA and lateral views of the chest FINDINGS: Cardiomediastinal and hilar silhouettes are within normal limits. Coronary arterial stent graft noted. Surgical clips project over the left mediastinum. No pneumothorax. There is chronic blunting of the costophrenic angles with linear bibasilar opacities suggesting scarring. Emphysema with hyperinflation. No large pleural effusion or lobar airspace consolidation. Degenerative changes of the shoulders and spine. IMPRESSION: 1. No acute process of the chest. 2. Emphysema with chronic scarring about the left lung base. 3. Coronary arterial stent graft noted. The above report was generated using voice recognition software. It may contain grammatical, syntax or spelling errors. Electronically signed by: Alex Silva M.D. 07/24/2017 1:03 PM Dictated Date/Time: 07/24/2017 1:01 PM
[2017-07-24] MEDS ORDERED: MAGNESIUM HYDROXIDE SUSP 30 ML UDC PO ONE (13:15)
--- NOTE | 2017-07-24 14:04 | DIAGNOSTIC IMAGING REPORT ---
GALLBLADDER-ABD LIMITED HISTORY: 76 years-old Male eval for cholecystitis acute right upper quadrant abdominal pain COMPARISON: CT abdomen and pelvis 07/24/2017 TECHNIQUE: Multiple real-time sonographic images of the abdominal right upper quadrant were obtained assessing grayscale appearance and color flow FINDINGS: Pancreas is not diagnostically visualized. Hepatic cysts are again noted measuring up to 1.8 cm. No intrahepatic biliary ductal dilation. Gallbladder is within normal limits without wall thickening, shadowing cholelithiasis or pericholecystic fluid. Common bile duct measures 7 mm, within normal limits for patient age. The right kidney measures up to 15.6 cm in length and demonstrates multiple large and complex cysts. Largest cyst measures up to 9.0 cm and contains internal septations. IMPRESSION: 1. No cholelithiasis or sonographic evidence of acute cholecystitis. 2. No biliary ductal dilation. 3. Hepatic and renal cysts redemonstrated. The above report was generated using voice recognition software. It may contain grammatical, syntax or spelling errors. Electronically signed by: Alex Silva M.D. 07/24/2017 2:03 PM Dictated Date/Time: 07/24/2017 2:01 PM
[2017-07-24 14:15] VITALS: BP 146/90; PULSE 69; O2SAT 96
--- NOTE | 2017-07-24 17:27 | EMERGENCY ROOM VISIT NOTE ---
History Report prepared by Tru: Brittney Rosales Under the Supervision of: Dr. Fran Garcia M.D. First contact with patient: 11:21 Chief Complaint: ABDOMINAL PAIN Stated Complaint: ABD PAIN,BLOOD IN STOOL History of Present Illness The patient is a 76 year old male who presents to the Emergency Room with complaints of worsening abdominal pain starting 3 days ago. The pain was all across his abdomen, but it is currently just on the right side. He describes the pain as cramping. He feels full and his abdomen is getting more distended. He has not been eating as much because when he eats he feels full like he might vomit. He denies any vomiting. He had some bright red blood in his stool yesterday. He denies any rectal pain or straining to have a bowel movement. He has a cough which is chronic from emphysema. He denies any chest pain, SOB, nausea or fever. He is on Eliquis and Plavix. He has a history of bowel obstruction. Source of History: patient, family Onset: 3 days ago Position: abdomen Quality: cramping Timing: worsening Associated Symptoms: + hematochezia, No fevers, No chest pain, No SOB, No nausea Note: Pt reports distended abdomen, feeling full. Review of Systems See HPI for pertinent positives & negatives. A total of 10 systems reviewed and were otherwise negative. Past Medical & Surgical Medical Problems: (1) AMI (acute myocardial infarction) (2) Atrial fibrillation with RVR (3) Carotid artery narrowing (4) COPD (chronic obstructive pulmonary disease) (5) COPD exacerbation (6) E. coli septicemia (7) Emphysema/COPD (8) Hypoxia (9) Leukocytosis (10) Lung cancer (11) SIRS (systemic inflammatory response syndrome) Family History Cancer Heart disease Hypertension Lung disease Social History Smoking Status: Former Smoker Alcohol Use: occasionally Drug Use: none Marital Status: Housing Status: lives with significant other Occupation Status: retired Current/Historical Medications Scheduled Amiodarone Hcl (Cordarone), 1 TAB PO DAILY Apixaban (Eliquis), 5 MG PO BID Atorvastatin (Lipitor), 80 MG PO DAILY Budesonide/Formoterol Fumarate (Symbicort 160/4.5 Inhaler ), 2 PUFFS INH BID Clopidogrel Bisulfate (Clopidogrel), 75 MG PO QAM Lisinopril (Zestril), 5 MG PO DAILY Metoprolol Succ (Toprol Xl) (Toprol-Xl), 25 MG PO DAILY Pantoprazole (Protonix), 40 MG PO DAILY Ranitidine Hcl (Zantac), 150 MG PO BID Tamsulosin Hcl (Flomax), 0.4 MG PO QPM Tiotropium [place] (Spiriva Handihaler), 1 CAP INH DAILY Scheduled PRN Albuterol Sulfate (Proair Respiclick), 2 PUFFS INH DIRECTED PRN for Shortness of Breath Guaifenesin (Guaifenesin), 400 MG PO BID PRN for CONGESTION Nitroglycerin (Nitrostat), 0.4 MG SL [id number] PRN for Chest Pain Allergies Coded Allergies: No Known Allergies (Unverified , 07/24/17) Physical Exam Vital Signs Date Time Temp Pulse Resp B/P (MAP) Pulse Ox O2 Delivery O2 Flow Rate FiO2 07/24/17 14:15 69 20 146/90 96 Room Air 07/24/17 12:57 61 07/24/17 12:55 59 20 99 Room Air 07/24/17 12:51 159/70 07/24/17 11:01 36.5 68 22 133/72 97 Room Air Physical Exam Constitutional: Vital signs reviewed. Eyes: Pupils are equal round reactive to light. Conjunctiva are noninjected. ENT: Pharynx is clear without erythema or exudate. Mucous membranes are moist. Neck supple without meningeal signs. Respiratory: Clear to auscultation bilaterally. Breath sounds are equal bilaterally. No wheezing. Cardiovascular: Regular rate and rhythm. No rubs or gallops. GI: Right sided tenderness with moderate abdominal distension. Bowel sounds are present. Musculoskeletal: No peripheral edema. No lower extremity tenderness. Integumentary: No cyanosis. Neurological: The patient is awake and alert. No focal deficits. Psychiatric: Normal affect. Medical Decision & Procedures ER Provider Diagnostic Interpretation: X-ray results as stated below per interpretation by me and the radiologist. Radiology results as stated below per my review and the radiologist's interpretation: CHEST 2 VIEWS ROUTINE HISTORY: 76 years-old Male cough eval for pna acute cough COMPARISON: Chest radiograph 05/29/2017, CTA chest 05/29/2017 TECHNIQUE: PA and lateral views of the chest FINDINGS: Cardiomediastinal and hilar silhouettes are within normal limits. Coronary arterial stent graft noted. Surgical clips project over the left mediastinum. No pneumothorax. There is chronic blunting of the costophrenic angles with linear bibasilar opacities suggesting scarring. Emphysema with hyperinflation. No large pleural effusion or lobar airspace consolidation. Degenerative changes of the shoulders and spine. IMPRESSION: 1. No acute process of the chest. 2. Emphysema with chronic scarring about the left lung base. 3. Coronary arterial stent graft noted. The above report was generated using voice recognition software. It may contain grammatical, syntax or spelling errors. Electronically signed by: Alex Silva M.D. 07/24/2017 1:03 PM Dictated Date/Time: 07/24/2017 1:01 PM GALLBLADDER-ABD LIMITED HISTORY: 76 years-old Male eval for cholecystitis acute right upper quadrant abdominal pain COMPARISON: CT abdomen and pelvis 07/24/2017 TECHNIQUE: Multiple real-time sonographic images of the abdominal right upper quadrant were obtained assessing grayscale appearance and color flow FINDINGS: Pancreas is not diagnostically visualized. Hepatic cysts are again noted measuring up to 1.8 cm. No intrahepatic biliary ductal dilation. Gallbladder is within normal limits without wall thickening, shadowing cholelithiasis or pericholecystic fluid. Common bile duct measures 7 mm, within normal limits for patient age. The right kidney measures up to 15.6 cm in length and demonstrates multiple large and complex cysts. Largest cyst measures up to 9.0 cm and contains internal septations. IMPRESSION: 1. No cholelithiasis or sonographic evidence of acute cholecystitis. 2. No biliary ductal dilation. 3. Hepatic and renal cysts redemonstrated. The above report was generated using voice recognition software. It may contain grammatical, syntax or spelling errors. Electronically signed by: Alex Silva M.D. 07/24/2017 2:03 PM Dictated Date/Time: 07/24/2017 2:01 PM ABDOMEN AND PELVIS CT WITH IV CONTRAST CT DOSE: 502.53 mGy.cm HISTORY: Acute generalized abdominal pain with concern for small bowel obstruction eval for obstruction TECHNIQUE: Multiaxial CT images of the abdomen and pelvis were performed following the use of intravenous contrast. A dose lowering technique was utilized adhering to the principles of ALARA. COMPARISON STUDY: CT abdomen and pelvis 04/18/2017 FINDINGS: Mild bibasilar bronchial wall thickening with bronchiectasis. Linear subpleural reticular and groundglass opacities suggest atelectasis. Suggested emphysematous changes of the lung bases. No pneumatosis or pneumoperitoneum. Coronary arterial calcifications are noted. The imaged inferior cardiac chambers are otherwise unremarkable. Lobulated 2.0 cm circumscribed low attenuating lesion of the hepatic dome suggests hepatic cyst or conglomerate cysts. No suspicious mass lesions of the liver. No intrahepatic biliary ductal dilation. The spleen, gallbladder, and adrenal glands are within normal limits. Moderate generalized pancreatic atrophy. Innumerable bilateral renal cysts are redemonstrated with several of the cysts demonstrating internal complexity. For example there is a 2.2 cm hyperattenuating lesion of the interpolar right kidney and a 1.9 cm hyperattenuating lesion of the inferior pole left kidney likely representing pronation is or hemorrhagic cysts with similar-appearing 1.1 cm lesion of the inferior pole left kidney. Large cyst with calcified internal septations measures up to 9.8 cm within the inferior pole right kidney. Renal vascular calcifications are noted without definite renal calculi or obstructive uropathy. Moderate perinephric edema is noted with edema tracking into the retroperitoneum of the pelvis, unchanged. Prostamegaly with mild bladder wall thickening suggesting sequela of chronic bladder outlet obstruction. Extensive mixed plaquing of the aorta with mild ectasia measuring 2.8 cm. No aneurysm. No bulky adenopathy. Small sliding-type hiatal hernia. No small bowel obstruction. A few loops of small bowel are fluid-filled, likely physiologic. No focal bowel wall thickening. The appendix is not seen and is likely surgically absent. Soft tissues are unremarkable. Bones appear intact. Multilevel facet arthropathy. Degenerative changes about the bilateral hips. IMPRESSION: 1. No acute intra-abdominal or intrapelvic abnormality identified, specifically no bowel obstruction or focal bowel wall thickening. 2. Innumerable bilateral renal cysts redemonstrated with several complex lesions about the bilateral kidneys favoring hemorrhagic or proteinaceous cysts. No ureteral calculi or obstructive uropathy. 3. Prostamegaly with evidence of chronic bladder outlet obstruction. 4. Severe atherosclerosis of the aorta with mild infrarenal abdominal aortic ectasia, 2.8 cm. No aneurysm. 5. Small sliding-type hiatal hernia. Electronically signed by: Alex Silva M.D. 07/24/2017 12:36 PM Dictated Date/Time: 07/24/2017 12:28 PM Laboratory Results 07/24/17 11:45 Red Blood Count 4.05, Mean Corpuscular Volume 94.8, Mean Corpuscular Hemoglobin 32.3, Mean Corpuscular Hemoglobin Concent 34.1, Mean Platelet Volume 9.7, Neutrophils (%) (Auto) 69.3, Lymphocytes (%) (Auto) 18.0, Monocytes (%) (Auto) 8.8, Eosinophils (%) (Auto) 3.2, Basophils (%) (Auto) 0.3, Neutrophils # (Auto) 5.17, Lymphocytes # (Auto) 1.34, Monocytes # (Auto) 0.66, Eosinophils # (Auto) 0.24, Basophils # (Auto) 0.02 07/24/17 11:45 Test 07/24/17 11:45 07/24/17 11:50 07/24/17 11:55 07/24/17 13:02 White Blood Count 7.46 K/uL (4.8-10.8) Red Blood Count 4.05 M/uL (4.7-6.1) Hemoglobin 13.1 g/dL (14.0-18.0) Hematocrit 38.4 % (42-52) Mean Corpuscular Volume 94.8 fL (80-100) Mean Corpuscular Hemoglobin 32.3 pg (25-34) Mean Corpuscular Hemoglobin Concent 34.1 g/dl (32-36) Platelet Count 276 K/uL (130-400) Mean Platelet Volume 9.7 fL (7.4-10.4) Neutrophils (%) (Auto) 69.3 % Lymphocytes (%) (Auto) 18.0 % Monocytes (%) (Auto) 8.8 % Eosinophils (%) (Auto) 3.2 % Basophils (%) (Auto) 0.3 % Neutrophils # (Auto) 5.17 K/uL (1.4-6.5) Lymphocytes # (Auto) 1.34 K/uL (1.2-3.4) Monocytes # (Auto) 0.66 K/uL (0.11-0.59) Eosinophils # (Auto) 0.24 K/uL (0-0.5) Basophils # (Auto) 0.02 K/uL (0-0.2) RDW Standard Deviation 51.8 fL (36.4-46.3) RDW Coefficient of Variation 14.9 % (11.5-14.5) Immature Granulocyte % (Auto) 0.4 % Immature Granulocyte # (Auto) 0.03 K/uL (0.00-0.02) Prothrombin Time 10.5 SECONDS (9.0-12.0) Prothromb Time International Ratio 1.0 (0.9-1.1) Activated Partial Thromboplast Time 29.2 SECONDS (21.0-31.0) Partial Thromboplastin Ratio 1.1 Est Creatinine Clear Calc Drug Dose 60.5 ml/min Estimated GFR () 72.0 Estimated GFR (Non- 62.1 BUN/Creatinine Ratio 12.2 (10-20) Calcium Level 9.0 mg/dl (8.5-10.1) Total Bilirubin 0.7 mg/dl (0.2-1) Direct Bilirubin 0.2 mg/dl (0-0.2) Aspartate Amino Transf (AST/SGOT) 14 U/L (15-37) Alanine Aminotransferase (ALT/SGPT) 16 U/L (12-78) Alkaline Phosphatase 80 U/L (45-117) Total Protein 7.4 gm/dl (6.4-8.2) Albumin 3.8 gm/dl (3.4-5.0) Lipase 79 U/L (73-393) Bedside Hemoglobin 13.6 g/dl (14.0-18.0) Bedside Hematocrit 40 % (42-52) Bedside Sodium 138 mEq/L (135-144) Bedside Potassium 4.4 mEq/L (3.3-5.0) Bedside Chloride 99 mEq/L (101-112) Bedside Total CO2 26 mEq/l (24-31) Anion Gap 18.0 mmol/L (16-25) Bedside Blood Urea Nitrogen 15 mg/dl (7-18) Bedside Creatinine 1.2 mg/dl (0.6-1.3) Bedside Glucose (other) 101 mg/dl (70-99) Bedside Ionized Calcium ([place]) 1.16 mmol/l (1.12-1.32) Bedside Troponin I < 0.030 ng/ml (0-0.045) Urine Color YELLOW Urine Appearance CLEAR (CLEAR) Urine pH 7.5 (4.5-7.5) Urine Specific [place] 1.025 (1.000-1.030) Urine Protein NEG (NEG) Urine Glucose (UA) NEG (NEG) Urine Ketones NEG (NEG) Urine Occult Blood NEG (NEG) Urine Nitrite NEG (NEG) Urine Bilirubin NEG (NEG) Urine Urobilinogen NEG (NEG) Urine Leukocyte Esterase NEG (NEG) Laboratory results as reviewed by me. Medications Administered Medications (Trade) Dose Ordered Sig/Elmer Route Start Time Stop Time Status Last Admin Dose Admin Morphine Sulfate (MoRPHine SULFATE INJ) 4 mg ONE STAT IV 07/24/17 11:28 07/24/17 11:31 DC 07/24/17 11:57 4 MG Magnesium Hydroxide (Milk Of Magnesia Susp) 30 ml NOW ONCE PO 07/24/17 13:15 07/24/17 13:16 DC 07/24/17 13:17 30 ML ED Course 1124: The patient was evaluated in room A3. A complete history and physical exam was performed. 1128: Morphine Sulfate 4 mg IV. 1258: I reevaluated the patient. He is still having significant pain localized in the right flank and lower ribs. He has point tenderness to the lower ribs. I updated them on the results. 1305: I discussed the patient's case with Dr. Silva, radiology. He says to go ahead with the ultrasound although gallbladder looks normal on CT. He also notes increased fecal load in the cecum and ascending colon. 1310: I reevaluated the patient. I updated them on the plan. 1315: Magnesium Hydroxide 30 ml PO. 1414: I reevaluated the patient. His pain is a little better. He has not had a bowel movement. He is beer still runner compounder in the right flank. I discussed tonight's findings with him. I offered admission. He says that he wants to go home. I instructed him to come back for worse. He verbalized agreement of the treatment plan. He was discharged home. Medical Decision This is a 76-year-old male who presents with abdominal pain and distention. Differential diagnosis includes acute bowel obstruction, mass, volvulus, constipation, fecal impaction. I did perform a limited focused review of portions of the patient's old chart on the electronic medical record. The patient was admitted in May for atrial fibrillation with RVR. He is on Eliquis. I did evaluate the patient as noted above. Patient is presenting with abdominal pain. He stated that it was all the way across his abdomen but now it is mostly in the right side. He has tenderness to the right flank as well as over the right lower ribs. He denies having any chest pain or shortness of breath. He does have chronic coughing from his emphysema. His abdomen does feel somewhat distended. He also has not had a bowel movement in 3 days. IV access was established. I did treat the patient with IV morphine and Zofran. The patient was placed on a continuous monitor tech. I did order and personally review the patient's chest x-ray as described above. I did order and review the patient's blood work as noted in the electronic medical record. Labs are unremarkable including a negative troponin. He has slight anemia. I did order a CT of the abdomen and pelvis. I did review the images myself as well as the radiology report as described above. Patient does not have any evidence of acute abdominal process. He has no bowel obstruction. He has multiple renal cysts which are unchanged per radiology. He did have 6 fecal retention in the cecum and ascending colon. I did treat him with milk of magnesia. I did reassess the patient. He is still having pain although it is better. I did discuss the test results with him and his in detail. I did order an ultrasound of the right upper quadrant which was unremarkable. I did reassess the patient again. He is still having discomfort. I did state that we could admit him to the hospital as the patient is still having symptoms and the cause of his symptoms are unclear. He did not wish to stay in the hospital and wanted to go home. He was advised to follow-up closely with his doctor within 24 hours and have a low threshold to return for any worsening symptoms. He was discharged in good condition. Medication Reconcilliation Current Medication List: was personally reviewed by me Blood Pressure Screening Patient's blood pressure: Elevated blood pressure Blood pressure disposition: Elevated BP felt to be situational Consults Time Called: 1301 Consulting Physician: Dr. Silva, radiology Returned Call: 1308 I discussed the patient's case with him. He says to go ahead with the ultrasound although gallbladder looks normal on CT. He also notes increased fecal load in the cecum and ascending colon. Impression Primary Impression: Right sided abdominal pain Additional Impression: Constipation Scribe Attestation The scribe's documentation has been prepared under my direct and personally reviewed by me in its entirety. I confirm that the note above accurately reflects all work, treatment, procedures, and medical decision making performed by me. Departure Information Dispostion Home / Self-Care Referrals Rob Perez PA-C (PCP) Forms Call Back Authorization, HOME CARE DOCUMENTATION FORM, IMPORTANT VISIT INFORMATION Patient Instructions ED Abdominal Pain Unkn Cause Male, My [facility] Additional Instructions You have been examined and treated today on an emergency basis only. This is not a substitute for, or an effort to provide, complete comprehensive medical care. It is impossible to recognize and treat all injuries or illnesses in a single emergency department visit. It is therefore important that you follow up closely with your physician within 24 hours. Call as soon as possible for an appointment. Return for worsening symptoms or if you develop fever, vomiting, chest pain, shortness of breath or any other concerning symptoms. Problem Qualifiers Additional Impression: Constipation Constipation type: unspecified constipation type Qualified Codes: K59.00 - Constipation, unspecified
== END 2017-07-24 14:32 | disposition home or self-care (01) ==
LOC: C.EDB 11:00 → C.EDA 14:32
DX: K59.00 Constipation, unspecified (principal); D64.9 Anemia, unspecified; I25.2 Old myocardial infarction; J43.9 Emphysema, unspecified; I48.91 Unspecified atrial fibrillation; Z79.899 Other long term (current) drug therapy; Z85.118 Personal history of other malignant neoplasm of bronchus and lung; Z87.891 Personal history of nicotine dependence; Z79.01 Long term (current) use of anticoagulants; Z80.9 Family history of malignant neoplasm, unspecified; Z82.49 Family history of ischemic heart disease and other diseases of the circulatory system

== ENCOUNTER → 2017-10-18 | Outpatient (CLI) | payer OTHER ==
[~2017-10-18] MED LIST changes: +AMIO200T4 PO; -ASPI81TA28 PO; -CRD200 PO; +LEVA45AE NEB; -ROFL1TAB5 PO; +TRAM-10 PO
[2017-10-18 15:33] LABS: HEMATOCRIT 37.3 % (42-52); HEMOGLOBIN 12.4 g/dL (14.0-18.0); MEAN CELL VOLUME 94.2 fL (80-100); MEAN CORPUSCULAR HEMOGLOBIN 31.3 pg (25-34); MEAN CORPUSCULAR HGB CONC 33.2 g/dl (32-36); MEAN PLATELET VOLUME 9.9 fL (7.4-10.4); PLATELET COUNT 273 K/uL (130-400); RED CELL DISTRIBUTION WIDTH CV 14.8 % (11.5-14.5); RED CELL DISTRIBUTION WIDTH SD 50.6 fL (36.4-46.3); WHITE BLOOD COUNT 8.19 K/uL (4.8-10.8)
[2017-10-18 16:08] LABS: BLOOD UREA NITROGEN 21 mg/dl (7-18); CREATININE 1.21 mg/dl (0.60-1.40); GLUCOSE 80 mg/dl (70-99)
[2017-10-18 16:09] LABS: ALBUMIN 3.4 gm/dl (3.4-5.0); ALKALINE PHOSPHATASE 84 U/L (45-117); ALT/SGPT 17 U/L (12-78); AST/SGOT 14 U/L (15-37); CALCIUM 8.4 mg/dl (8.5-10.1); CARBON DIOXIDE 26 mmol/L (21-32); POTASSIUM 4.7 mmol/L (3.5-5.1); SODIUM 134 mmol/L (136-145); TOTAL PROTEIN 6.8 gm/dl (6.4-8.2)
== END | disposition home or self-care (01) ==
LOC: C.LAB1850 14:52
PROVIDERS: ATTEND Internal Medicine Interventional Cardiology
DX: I10 Essential (primary) hypertension (principal)

== ENCOUNTER → 2017-10-28 | Outpatient (CLI) | payer OTHER ==
--- NOTE | 2017-10-28 10:01 | DIAGNOSTIC IMAGING REPORT ---
ABD/PELVIS NO IV OR ORAL CONT CT DOSE: 473.52 mGy.cm HISTORY: Polycystic kidney disease Q61.9 Cystic kidney yenuossD37.3 [id number] TECHNIQUE: Multiaxial CT images of the abdomen and pelvis were performed without contrast. A dose lowering technique was utilized adhering to the principles of ALARA. COMPARISON STUDY: 07/24/2017 FINDINGS: Lung bases are clear. Mild basilar emphysematous change. Liver appears to be uniform. There are 2 small hepatic cysts unchanged from the prior study. Multiple bilateral renal cysts several which are hyperdense. Mild perinephric infiltrative change bilaterally. No evidence for hydrocephalus. Renal appearance is unchanged in the prior study. Bowel pattern within the abdomen and pelvis is nonobstructive. No significant free fluid within pelvic cul-de-sac. IMPRESSION: 1. Bilateral renal cysts and hyperdense cysts with moderate infiltrative change of the perinephric fat. 2. All findings are similar compared to the prior study. 3. Unchanging hepatic cysts. 4. Study is otherwise unremarkable. The above report was generated using voice recognition software. It may contain grammatical, syntax or spelling errors. Electronically signed by: Jose Leong M.D. 10/28/2017 10:00 AM Dictated Date/Time: 10/28/2017 9:44 AM
== END | disposition home or self-care (01) ==
LOC: C.CTS 07:37
PROVIDERS: ATTEND Urology
DX: Q61.3 Polycystic kidney, unspecified (principal)